=== PATIENT | female | born 1950 | race Caucasian/White ===

== ENCOUNTER 2016-06-21 13:05 | Observation (INO) ==
[2016-06-21] MEDS ORDERED: Ondansetron 4 MG/2 ML VIAL IVP ONE (13:35)
[2016-06-21] MEDS ORDERED: 0.9 % Sodium Chloride 1,000 ML IVC ONE (13:35)
[2016-06-21 13:44] LABS: Bilirubin,Urine Negative (Negative); Blood,Urine Negative (Negative); Clarity,Urine Cloudy (Clear); Color,Urine Yellow (Yellow); Glucose,Urine (UA) >=1000 mg/dL (Normal); Ketones,Urine Trace mg/dL (Negative); Leukocyte Esterase,Urine Negative (Negative); Nitrite,Urine Negative (Negative); PH,Urine 6.5 pH Units (5.0-8.0); Protein,Urine 100 mg/dL (Neg-Trace); Specific Gravity,Urine 1.017 (1.010-1.025); Urobilinogen,Urine Normal (Normal)
[2016-06-21 13:45] LABS: Bacteria,Urine Many per hpf (None-Few); Hyaline Casts,Urine Few per lpf (None-Few); RBC,Urine 0-3 per hpf (0-3); Squamous Epithelial Cell,Urine Many per lpf (None-Few); WBC,Urine 15-30 per hpf (0-3)
[2016-06-21 14:06] LABS: Basophils % 0.3 %; Hematocrit 47.8 % (35.3-44.9); Hemoglobin 15.6 g/dL (11.5-15.4); Immature Granulocytes % 0.5 % (0-4); Immature Platelets 9.1 % (1.1-6.1); Lymphocytes # 0.5 K/mcL (0.6-4.6); Lymphocytes % 4.5 %; Mean Corpuscular HGB Conc 32.6 g/dL (31.6-35.5); Mean Corpuscular Hemoglobin 29.4 pg (28.0-33.3); Mean Platelet Volume 11.4 fL (9.4-12.4); Monocytes # 0.7 K/mcL (0.0-1.3); Monocytes % 6.5 %; Neutrophils # 9.4 K/mcL (1.6-8.9); Platelet Count 223 K/mcL (140-400); Red Blood Count 5.31 M/mcL (3.82-4.97); Segmented Neutrophils % 88.2 %
[2016-06-21 14:19] LABS: Albumin 3.9 g/dL (3.5-5.0); Bilirubin,Direct 0.2 mg/dL (0.0-0.5); Bilirubin,Indirect 0.3 mg/dL (0.0-1.2); Bilirubin,Total 0.5 mg/dL (0.2-1.2); Calcium 9.9 mg/dL (8.6-10.8); Globulin 3.8 g/dL (2.4-3.5); Potassium 3.8 mEq/L (3.5-4.5); Total Protein 7.7 g/dL (6.0-8.3)
[2016-06-21 16:17] LABS: VBG HCO3 24.2 mEq/L (21-27); VBG PH 7.39 pH Units (7.32-7.42)
[2016-06-21] MEDS ORDERED: D5% in Water 1,000 ML IV PRN (17:29)
[2016-06-21] MEDS ORDERED: Dextrose Gel 15 GM PO PRN ×2 (17:29)
[2016-06-21] MEDS ORDERED: *HR* Dextrose 50 % in Water (Syg) 50 ML SYRINGE IVP PRN (17:29)
[2016-06-21] MEDS ORDERED: Insulin Human Regular 10 UNIT in 0.9 % Sodium Chloride 10 ML IV ONE (17:36)
[2016-06-21] MEDS: 0.9 % Sodium Chloride 1,000 ML IVC SCH (17:47)
[2016-06-21] MEDS ORDERED: Insulin LISPRO 300 UNITS/3 ML VIAL SQ SCH (18:00)
[2016-06-21] MEDS ORDERED: Naloxone 0.4 MG/ML INJ IVP PRN (18:21)
[2016-06-21] MEDS ORDERED: Acetaminophen 325 MG TABLET PO PRN (18:21)
[2016-06-21] MEDS ORDERED: Ondansetron 4 MG/2 ML VIAL IVP PRN (18:21)
--- NOTE | 2016-06-21 18:29 | Internal Med History&Physical ---
Date of Encounter: 06/21/16 Time of Encounter: 18:00 Assessment and Plan (1) Urinary tract infection Current visit: Yes Status: Acute -Patient has history of recurrent UTIs, after this episode consider prophylactic antibiotic continuation due to recurrence of these episodes -Continue ceftriaxone IV -Follow up urine cultures Qualifiers: Urinary tract infection type: site unspecified Hematuria presence: without hematuria Qualified Code(s): N39.0 - Urinary tract infection, site not specified (2) Hyperglycemia due to type 2 diabetes mellitus Current visit: Yes Status: Chronic Noted to be hyperglycemic in the ER to missed home medication Covered with insulin therapy in the ER Continue IV fluids Started medium dose correctional insulin sliding scale algorithm We will hold oral antihyperglycemic at this time Continue to monitor fingerstick and blood glucose Follow-up repeat fingerstick Qualifiers: Diabetes mellitus prison insulin use: without prison use Qualified Code(s): E11.65 - Type 2 diabetes mellitus with hyperglycemia (3) Acute kidney injury Current visit: Yes Status: Acute Likely secondary to urinary tract infection Continue IV fluids Hold lisinopril at this time Restart lisinopril once kidney function returns to baseline Continue to closely monitor kidney function (4) Hypertension Current visit: Yes Status: Chronic BP within acceptable limits continue home medications Qualifiers: Hypertension type: essential hypertension Qualified Code(s): I10 - Essential (primary) hypertension (5) DVT prophylaxis Current visit: Yes Status: Acute Heparin SQ (6) Hyperlipemia Current visit: Yes Status: Chronic continue home medications Qualifiers: Hyperlipidemia type: unspecified Qualified Code(s): E78.5 - Hyperlipidemia , unspecified (7) GERD (gastroesophageal reflux disease) Current visit: Yes Status: Chronic continue home medications Qualifiers: Esophagitis presence: esophagitis presence not specified Qualified Code(s) : K21.9 - Gastro-esophageal reflux disease without esophagitis Internal Medicine - H&P: HPI Chief complaint: abd pain, nausea, vomiting Admitted From: Home Plans for Post Hospital Care: Home History of present illness: Ms. Sales is a 65 year old female with PMH of Type 2 DM, hypertension, recurrent UTI, depression, peripheral neuropathy, and osteoarthritis who presents to to the ER for evaluation of abdominal pain, nausea, vomiting 1 day. Patient states she has been having difficulty urinating for the past couple of days and had to straight cath herself last night. She also reports of discomfort with urination but her urinary stream has been normal after the straight catheter. Upon arrival to the ER she felt bloated with severe lower abdominal pain along with nausea. She states she has been unable to keep anything down due to the severe nausea which prompted her visit to the ER. In the ER she received Zofran with complete resolution of her nausea and improvement of her presenting symptoms. Her UA was consistent with UTI along with her symptoms, due to which she was started on ceftriaxone. At this time she is resting comfortably in bed, states she feels comfortable. She denies any headache, dizziness, chest pain, palpitations, shortness of breath, abdominal pain, nausea, vomiting, fever, or chills at this time. She was also noted to be hyperglycemic in the ER and states she was not able to keep her diabetes medications down at home. She was started on IV fluids along with receiving insulin therapy. Social Hx: Former smoker Wishes to be full code. Past Med Surg Social Fam HX - Past Medical History Medical history: arthritis, diabetes, GERD, hyperlipidemia, hypertension, osteoporosis, renal disease, other Psychiatric history: anxiety, depression - Past Surgical History Surgical History: appendectomy, cholecystectomy, hysterectomy, ureteral stent, other - Social History Smoking Status: Never smoker Smokeless Tobacco Status: No Alcohol use: none Drug use: none - Family History Mother Living Status: Hx Family Cancer: Yes Hx Family Endocrine Disorder: Yes Internal Medicine - H&P: Meds Docusate [Colace] 100 mg PO HS 12/21/14 [History] Polyethylene Glycol 3350 [MiraLAX] 17 gm PO DAILY PRN 12/21/14 [History] Sertraline HCl [Zoloft] 100 mg PO DAILY 12/21/14 [History] Simvastatin [Zocor] 40 mg PO DAILY 12/21/14 [History] Cyanocobalamin (Vitamin B-12) [Vitamin B-12] 1,000 mcg PO QMONTH 12/08/15 [ History] Enalapril Maleate [Vasotec] 5 mg PO DAILY 12/08/15 [History] Mv-Mn/FA/Vit K1/Lycop/Lut/Zeax [Ocuvite Eye + Multi Tablet] 1 tab PO DAILY 12/07 [History] Propranolol HCl 60 mg PO DAILY 12/08/15 [History] SitaGLIPtin [Januvia] 100 mg PO DAILY 03/06/16 [History] Loratadine [Allergy Relief] 10 mg PO DAILY 06/21/16 [History] Ranitidine HCl [Acid Employment Instructional Associate] 150 mg PO DAILY 06/21/16 [History] Allergies Nickel Allergy (Mild, Verified 12/08/15 17:29) Hives codeine Allergy (Verified 06/21/16 17:13) Hives Erythromycin Base Allergy (Verified 06/21/16 17:13) Rash nitrofurantoin [From Macrobid] Allergy (Verified 06/21/16 17:13) Rash Quaternium Allergy (Verified 12/08/15 17:29) Rash sulfamethoxazole [From Bactrim] Allergy (Verified 12/08/15 17:29) Rash trimethoprim [From Bactrim] Allergy (Verified 12/08/15 17:29) Rash Sulfa (Sulfonamide Antibiotics) Adverse Reaction (Verified 12/08/15 17:29) Hallucinating All Systems PM: A 10-system review of systems was performed and is negative for pertinent findings except as documented above in the HPI. - Constitutional Constitutional: as per HPI - Constitutional Vitals: Temp Pulse Resp BP Pulse Ox 98.8 F 103 17 130/68 95 06/21/16 13:07 06/21/16 17:07 06/21/16 18:17 06/21/16 18:17 06/21/16 17:07 General appearance: Present: A&O X 3, pleasant, no acute distress, obese, answers questions appropriately - Head Head exam: Present: atraumatic, normocephalic - Eye Eye exam: Present: normal appearance, conjuntiva pink, sclera anicteric - Respiratory Respiratory exam: Present: CTAB. Absent: respiratory distress, wheezes - Cardiovascular Cardiovascular exam: Present: RRR, +S1, +S2 - GI/Abdominal GI/Abdominal exam: Present: normal bowel sounds, soft. Absent: distended, guarding, tenderness, no peritoneal signs - Extremities Exam Extremities exam: Present: warm, radial pulses palpable and symetrical. Absent : calf tenderness, pedal edema, tenderness - Neurological Exam Neurological exam: Present: alert, oriented X3, no focal deficits - Psychiatric Psychiatric exam: Present: normal affect, normal mood Internal Med - H&P Results - Labs CBC & Chem 7: 06/21/16 13:57 06/21/16 13:57
[2016-06-21] MEDS ORDERED: Cyanocobalamin (B-12) 1,000 MCG TABLET PO SCH (18:30)
--- NOTE | 2016-06-21 18:30 | Emergency Department Note ---
Disposition Clinical Impression: Hyperglycemia Disposition: Admitted As Inpatient General Adult HPI - General Chief complaint: ED Urogenital-Female Stated complaint: Poss UTI Time Seen by Provider: 06/21/16 17:35 Source: patient Limitations: no limitations Nursing Notes Reviewed: Yes Vital Signs Reviewed: Yes - History of Present Illness HPI Narrative: This is a 65-year-old female who has a history of urinary tract infection which required hospitalization previously. She presents now with concern for nausea, vomiting, unable to tolerate by mouth. She has had ongoing symptoms for several days. She admits to type 2 diabetes and is normally diet controlled. She has abdominal pain and mild urinary symptoms. She was tachycardic on arrival. Pain Scale: 6 - Related Data Home Medications Medication Instructions Recorded Confirmed Docusate [Colace] 100 mg PO HS 12/21/14 06/21/16 Polyethylene Glycol 3350 [MiraLAX] 17 gm PO DAILY PRN 12/21/14 06/21/16 Sertraline HCl [Zoloft] 100 mg PO DAILY 12/21/14 06/21/16 Simvastatin [Zocor] 40 mg PO DAILY 12/21/14 06/21/16 Cyanocobalamin (Vitamin B-12) 1,000 mcg PO QMONTH 12/08/15 06/21/16 [Vitamin B-12] Enalapril Maleate [Vasotec] 5 mg PO DAILY 12/08/15 06/21/16 Mv-Mn/FA/Vit K1/Lycop/Lut/Zeax 1 tab PO DAILY 12/08/15 06/21/16 [Ocuvite Eye + Multi Tablet] Propranolol HCl 60 mg PO DAILY 12/08/15 06/21/16 SitaGLIPtin [Januvia] 100 mg PO DAILY 03/06/16 06/21/16 Loratadine [Allergy Relief] 10 mg PO DAILY 06/21/16 06/21/16 Ranitidine HCl [Acid Manager Corporate Responsibility] 150 mg PO DAILY 06/21/16 06/21/16 Allergies Allergy/AdvReac Type Severity Reaction Status Date / Time Nickel Allergy Mild Hives Verified 12/08/15 17:29 codeine Allergy Hives Verified 06/21/16 17:13 Erythromycin Base Allergy Rash Verified 06/21/16 17:13 nitrofurantoin Allergy Rash Verified 06/21/16 17:13 [From Macrobid] Quaternium Allergy Rash Verified 12/08/15 17:29 sulfamethoxazole Allergy Rash Verified 12/08/15 17:29 [From Bactrim] trimethoprim [From Bactrim] Allergy Rash Verified 12/08/15 17:29 Sulfa (Sulfonamide AdvReac Hallucinati Verified 12/08/15 17:29 Antibiotics) ng All systems ED: reviewed and negative except as stated. 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 Extremities are well-perfused Neurovascular exam shows cranial nerves II through XII grossly intact no focal neurological deficit - General Limitations: no limitations General appearance: alert Course Vital Signs Temperature 98.8 F 06/21/16 13:07 Pulse Rate 128 06/21/16 13:07 Respiratory Rate 18 06/21/16 13:07 Blood Pressure 170/108 06/21/16 13:07 O2 Sat by Pulse Oximetry 100 06/21/16 13:07 Temperature 98.8 F 06/21/16 13:07 Pulse Rate 103 06/21/16 17:07 Respiratory Rate 17 06/21/16 18:17 Blood Pressure 130/68 06/21/16 18:17 O2 Sat by Pulse Oximetry 95 06/21/16 17:07 Oxygen Delivery Oxygen Delivery Room Air Medical Decision Making - MDM Narrative Medical decision making narrative: Female patient with symptomatic hyperglycemia. Blood glucoses in the high 300s. There is no evidence of DKA at this time however blood chemistry does represent possible early acidotic state with anion gap. I would at this point recommend intravenous hydration, empirically she was started on antibiotics on arrival as she met sepsis guidelines. She is not sepsis at this point. I do not believe her urinalysis represents infection at this point. She received 1 dose of ceftriaxone. Cultures were sent. I would continue IV hydration for symptomatic hyperglycemia, keep nothing by mouth for now. I did administer insulin at the request of the hospitalist team. We will proceed with admission for hydration, evaluation of symptomatic hypoglycemia. - Medical Records Medical records reviewed: Yes I reviewed the patient's medical records. - Lab Data Lab results reviewed: Yes I reviewed the patient's lab results. Result diagrams: 06/21/16 13:57 06/21/16 13:57 Lab Results 06/21/16 06/21/16 06/21/16 Range/Units 13:35 13:57 13:57 WBC 10.6 (4.3-11.1) K/mcL RBC 5.31 H (3.82-4.97) M/mcL Hgb 15.6 H (11.5-15.4) g/dL Hct 47.8 H (35.3-44.9) % MCV 90.0 (83.0-100.0) fL MCH 29.4 (28.0-33.3) pg MCHC 32.6 (31.6-35.5) g/dL RDW 13.0 (11.5-14.5) % Plt Count 223 (140-400) K/mcL MPV 11.4 (9.4-12.4) fL Immature Gran % 0.5 (0-4) % Seg Neutrophils % 88.2 % Lymphocytes % 4.5 % Monocytes % 6.5 % Eosinophils % 0.0 % Basophils % 0.3 % Neutrophils # 9.4 H (1.6-8.9) K/mcL Lymphocytes # 0.5 L (0.6-4.6) K/mcL Monocytes # 0.7 (0.0-1.3) K/mcL Eosinophils # 0.0 (0.0-0.6) K/mcL Basophils # 0.0 (0.0-0.2) K/mcL Immature Plt Fraction 9.1 H (1.1-6.1) % VBG pH (7.32-7.42) pH Units VBG pCO2 (41-51) mmHg VBG pO2 (25-40) mmHg VBG HCO3 (21-27) mEq/L Sodium 139 (136-145) mEq/L Potassium 3.8 (3.5-4.5) mEq/L Chloride 100 (98-109) mEq/L Carbon Dioxide 21 (19-29) mEq/L BUN 19 (7-20) mg/dL Creatinine 1.26 H (0.57-1.11) mg/dL Est GFR ( Amer) 51 L (> 60) Est GFR (Non-Af Amer) 42 L (> 60) BUN/Creatinine Ratio 15 (6-26) Glucose 368 H (70-99) mg/dL Calculated Osmolality 305 H (280-300) Calcium 9.9 (8.6-10.8) mg/dL Total Bilirubin 0.5 (0.2-1.2) mg/dL Direct Bilirubin 0.2 (0.0-0.5) mg/dL Indirect Bilirubin 0.3 (0.0-1.2) mg/dL AST 41 H (5-34) Units/L ALT 46 (0-55) Units/L Alkaline Phosphatase 98 (38-126) Units/L Serum Total Protein 7.7 (6.0-8.3) g/dL Albumin 3.9 (3.5-5.0) g/dL Globulin 3.8 H (2.4-3.5) g/dL Albumin/Globulin Ratio 1.0 L (1.1-2.2) Beta-Hydroxybutyric Acd (0.02-0.27) mmol/L Urine Color Yellow (Yellow) Urine Clarity Cloudy A (Clear) Urine pH 6.5 (5.0-8.0) pH Units Ur Specific Eleva 1.017 (1.010-1.025) Urine Protein 100 H (Neg-Trace) mg/dL Urine Glucose (UA) >=1000 H (Normal) mg/dL Urine Ketones Trace H (Negative) mg/dL Urine Blood Negative (Negative) Urine Nitrite Negative (Negative) Urine Bilirubin Negative (Negative) Urine Urobilinogen Normal (Normal) mg/dL Ur Leukocyte Esterase Negative (Negative) Urine Microscopic RBC 0-3 (0-3) per hpf Urine Microscopic WBC 15-30 H (0-3) per hpf Ur Squamous Epith Cells Many H (None-Few) per lpf Urine Bacteria Many H (None-Few) per hpf Hyaline Casts Few (None-Few) per lpf Ur Culture Indicated? YES A (NO) 06/21/16 06/21/16 Range/Units 13:57 16:09 WBC (4.3-11.1) K/mcL RBC (3.82-4.97) M/mcL Hgb (11.5-15.4) g/dL Hct (35.3-44.9) % MCV (83.0-100.0) fL MCH (28.0-33.3) pg MCHC (31.6-35.5) g/dL RDW (11.5-14.5) % Plt Count (140-400) K/mcL MPV (9.4-12.4) fL Immature Gran % (0-4) % Seg Neutrophils % % Lymphocytes % % Monocytes % % Eosinophils % % Basophils % % Neutrophils # (1.6-8.9) K/mcL Lymphocytes # (0.6-4.6) K/mcL Monocytes # (0.0-1.3) K/mcL Eosinophils # (0.0-0.6) K/mcL Basophils # (0.0-0.2) K/mcL Immature Plt Fraction (1.1-6.1) % VBG pH 7.39 (7.32-7.42) pH Units VBG pCO2 40 L (41-51) mmHg VBG pO2 150 H (25-40) mmHg VBG HCO3 24.2 (21-27) mEq/L Sodium (136-145) mEq/L Potassium (3.5-4.5) mEq/L Chloride (98-109) mEq/L Carbon Dioxide (19-29) mEq/L BUN (7-20) mg/dL Creatinine (0.57-1.11) mg/dL Est GFR ( Amer) (> 60) Est GFR (Non-Af Amer) (> 60) BUN/Creatinine Ratio (6-26) Glucose (70-99) mg/dL Calculated Osmolality (280-300) Calcium (8.6-10.8) mg/dL Total Bilirubin (0.2-1.2) mg/dL Direct Bilirubin (0.0-0.5) mg/dL Indirect Bilirubin (0.0-1.2) mg/dL AST (5-34) Units/L ALT (0-55) Units/L Alkaline Phosphatase (38-126) Units/L Serum Total Protein (6.0-8.3) g/dL Albumin (3.5-5.0) g/dL Globulin (2.4-3.5) g/dL Albumin/Globulin Ratio (1.1-2.2) Beta-Hydroxybutyric Acd 0.32 H (0.02-0.27) mmol/L Urine Color (Yellow) Urine Clarity (Clear) Urine pH (5.0-8.0) pH Units Ur Specific Eleva (1.010-1.025) Urine Protein (Neg-Trace) mg/dL Urine Glucose (UA) (Normal) mg/dL Urine Ketones (Negative) mg/dL Urine Blood (Negative) Urine Nitrite (Negative) Urine Bilirubin (Negative) Urine Urobilinogen (Normal) mg/dL Ur Leukocyte Esterase (Negative) Urine Microscopic RBC (0-3) per hpf Urine Microscopic WBC (0-3) per hpf Ur Squamous Epith Cells (None-Few) per lpf Urine Bacteria (None-Few) per hpf Hyaline Casts (None-Few) per lpf Ur Culture Indicated? (NO) - EKG Data EKG #1 EKG results narrative: Sinus tachycardia nonspecific ST segment changes nonspecific abnormal ECG
[2016-06-21] MEDS: *HR* Heparin 5,000 UNIT/ML VIAL SQ SCH (19:28)
[2016-06-21] MEDS: Insulin LISPRO 300 UNITS/3 ML VIAL SQ SCH ×2 (21:24→22:26)
[2016-06-22] MEDS: 0.9 % Sodium Chloride 1,000 ML IVC SCH ×3 (00:28→14:51)
[2016-06-22 04:35] LABS: Basophils % 0.5 %; Eosinophils % 0.5 %; Immature Granulocytes % 0.4 % (0-4); Lymphocytes # 1.6 K/mcL (0.6-4.6); Lymphocytes % 21.3 %; Mean Corpuscular HGB Conc 32.2 g/dL (31.6-35.5); Mean Corpuscular Hemoglobin 29.4 pg (28.0-33.3); Mean Corpuscular Volume 91.4 fL (83.0-100.0); Mean Platelet Volume 11.8 fL (9.4-12.4); Monocytes # 0.9 K/mcL (0.0-1.3); Monocytes % 11.6 %; Platelet Count 149 K/mcL (140-400); Red Blood Count 4.05 M/mcL (3.82-4.97); Red Cell Distribution Width 13.2 % (11.5-14.5); Segmented Neutrophils % 65.7 %
[2016-06-22 04:54] LABS: Hemoglobin 11.9 g/dL (11.5-15.4)
[2016-06-22 04:58] LABS: Platelet Estimate Normal (Normal)
[2016-06-22] MEDS: *HR* Heparin 5,000 UNIT/ML VIAL SQ SCH ×2 (06:42→18:09)
[2016-06-22 07:34] LABS: BUN/Creatinine Ratio 21 (6-26); Blood Urea Nitrogen 15 mg/dL (7-20); Carbon Dioxide 21 mEq/L (19-29); Chloride 112 mEq/L (98-109); Glucose 138 mg/dL (70-99); Magnesium 1.9 mg/dL (1.6-2.6); Osmolality,Calculated 297 (280-300); Phosphorous 3.8 mg/dL (2.3-4.7); Sodium 142 mEq/L (136-145); eGFR For African Americans > 60 (> 60); eGFR For Non-African Americans > 60 (> 60)
[2016-06-22 07:39] LABS: Calcium 8.1 mg/dL (8.6-10.8)
[2016-06-22] MEDS: Insulin LISPRO 300 UNITS/3 ML VIAL SQ SCH ×4 (07:44→21:26)
[2016-06-22] MEDS: Loratadine 10 MG TABLET PO SCH (07:46)
[2016-06-22] MEDS: Famotidine 20 MG TABLET PO SCH (07:47)
[2016-06-22] MEDS: Multivit/Ca/Min/Fe/FA 1 TAB TABLET PO SCH (07:47)
--- NOTE | 2016-06-22 10:48 | Internal Med Progress Note ---
<Facundo Sommers - Last Filed: 06/22/16 17:22> Date of Encounter: 06/22/16 Time of Encounter: 10:48 - Assessment and plan (1) Urinary tract infection Current Visit: Yes Status: Acute Assessment and plan: Hx of recurrent UTI, her symptoms improved significantly, will con't rocephin IV for now until urine culture finalizes. Qualifiers: Urinary tract infection type: site unspecified Hematuria presence: without hematuria Qualified Code(s): N39.0 - Urinary tract infection, site not specified (2) DM (diabetes mellitus), type 2 Current Visit: Yes Status: Acute Assessment and plan: Con't SSI with accucheck ACHS. Qualifiers: Qualified Code(s): E11.9 - Type 2 diabetes mellitus without complications (3) Acute kidney injury Current Visit: Yes Status: Acute Assessment and plan: Resolved with IV fluid, likely 2/2 dehydration. (4) Hypertension Current Visit: No Status: Chronic Assessment and plan: Con't inderal. Qualifiers: Hypertension type: essential hypertension Qualified Code(s): I10 - Essential (primary) hypertension (5) DVT prophylaxis Current Visit: Yes Status: Acute Assessment and plan: Heparin SQ BID. - Subjective Interval history: Pt seen and examined, feels better than yesterday, no abd pain, nausea or emesis. - Constitutional Vitals: Temp Pulse Resp BP Pulse Ox 98.4 F 63 17 104/78 97 06/22/16 10:30 06/22/16 10:30 06/22/16 10:30 06/22/16 10:30 06/22/16 10:38 General appearance: Present: cooperative, A&O X 3, pleasant, no acute distress, obese, answers questions appropriately - Head Head exam: Present: atraumatic, normocephalic - Eye Eye exam: Present: PERRL, conjuntiva pink, sclera anicteric Pupils: Present: PERRL - Neck Neck exam general surgery: Present: supple, trachea midline. Absent: lymphadenopathy - Respiratory Respiratory exam: Present: CTAB. Absent: accessory muscle use, rales, rhonchi, wheezes - Cardiovascular Cardiovascular exam: Present: RRR, +S1, +S2. Absent: diastolic murmur, gallop, rubs, systolic murmur - GI/Abdominal GI/Abdominal exam: Present: normal bowel sounds, soft, no peritoneal signs. Absent: distended, tenderness - Extremities Exam Extremities exam: Present: warm, radial pulses palpable and symetrical. Absent : calf tenderness, cyanotic, pedal edema - Neurological Exam Neurological exam: Present: CN II-XII intact, oriented X3, no focal deficits. Absent: pronater drift, facial droop, speech deficit - Skin Skin exam: Present: dry, intact Internal Medicine: Result - Labs CBC & Chem 7: 06/22/16 04:04 06/22/16 07:08 Labs: Short CBC 06/22/16 Range/Units 04:04 WBC 7.6 (4.3-11.1) K/mcL Hgb 11.9 D (11.5-15.4) g/dL Hct 37.0 (35.3-44.9) % Plt Count 149 (140-400) K/mcL Neutrophils # 5.0 (1.6-8.9) K/mcL BMP 06/22/16 07:08 Sodium 142 Potassium 4.0 Chloride 112 H Carbon Dioxide 21 BUN 15 Creatinine 0.70 Glucose 138 H Calcium 8.1 L D Consult Discharge Plan - Plan Referrals: Brittney Garrido MD [Primary Care Provider] - <Sulaiman Davis - Last Filed: 06/22/16 17:31> Date of Encounter: 06/22/16 - Constitutional Vitals: Temp Pulse Resp BP Pulse Ox 98.0 F 70 17 125/79 97 06/22/16 14:56 06/22/16 14:56 06/22/16 14:56 06/22/16 14:56 06/22/16 15:15 Internal Medicine: Result - Labs CBC & Chem 7: 06/22/16 04:04 06/22/16 07:08 Labs: Short CBC 06/22/16 Range/Units 04:04 WBC 7.6 (4.3-11.1) K/mcL Hgb 11.9 D (11.5-15.4) g/dL Hct 37.0 (35.3-44.9) % Plt Count 149 (140-400) K/mcL Neutrophils # 5.0 (1.6-8.9) K/mcL BMP 06/22/16 07:08 Sodium 142 Potassium 4.0 Chloride 112 H Carbon Dioxide 21 BUN 15 Creatinine 0.70 Glucose 138 H Calcium 8.1 L D - Attending Attestation I examined this patient and my medical decision-making was reviewed with the PATTERN MAKER/PA/Advanced Practice Nurse/Resident Physician. I agree with the documented findings, disposition and treatment plan as described except to the extent set forth below. UTI. Stable. Recurrent episodes of UTIs. Hard of hearing and no hearing aid today. Follow cultures.
[2016-06-23] MEDS: *HR* Heparin 5,000 UNIT/ML VIAL SQ SCH (06:40)
[2016-06-23] MEDS: Insulin LISPRO 300 UNITS/3 ML VIAL SQ SCH ×2 (10:03→12:20)
[2016-06-23] MEDS: Loratadine 10 MG TABLET PO SCH (10:04)
[2016-06-23] MEDS: Famotidine 20 MG TABLET PO SCH (10:04)
[2016-06-23] MEDS: Multivit/Ca/Min/Fe/FA 1 TAB TABLET PO SCH (10:04)
--- NOTE | 2016-06-23 10:09 | Discharge Summary ---
Date of Encounter: 06/23/16 Time of Encounter: 10:07 - Discharge Diagnosis (1) Urinary tract infection Priority: Primary Status: Acute Qualifiers: Urinary tract infection type: site unspecified Hematuria presence: without hematuria Qualified Code(s): N39.0 - Urinary tract infection, site not specified (2) Hyperglycemia due to type 2 diabetes mellitus Priority: Secondary Status: Resolved Qualifiers: Diabetes mellitus nursing home insulin use: without intermediate school teacher use Qualified Code(s): E11.65 - Type 2 diabetes mellitus with hyperglycemia (3) Acute kidney injury Priority: Secondary Status: Resolved (4) Hypertension Priority: Secondary Status: Chronic Qualifiers: Hypertension type: essential hypertension Qualified Code(s): I10 - Essential (primary) hypertension (5) DVT prophylaxis Priority: Secondary Status: Acute (6) Hyperlipemia Priority: Secondary Status: Chronic Qualifiers: Hyperlipidemia type: unspecified Qualified Code(s): E78.5 - Hyperlipidemia , unspecified (7) GERD (gastroesophageal reflux disease) Priority: Secondary Status: Chronic Qualifiers: Esophagitis presence: esophagitis presence not specified Qualified Code(s) : K21.9 - Gastro-esophageal reflux disease without esophagitis - Discharge Medications Prescriptions: Doxycycline 100 mg PO BID #8 capsule Home Medications: Docusate [Colace] 100 mg PO HS 12/21/14 [History] Polyethylene Glycol 3350 [MiraLAX] 17 gm PO DAILY PRN 12/21/14 [History] Sertraline HCl [Zoloft] 100 mg PO DAILY 12/21/14 [History] Simvastatin [Zocor] 40 mg PO DAILY 12/21/14 [History] Cyanocobalamin (Vitamin B-12) [Vitamin B-12] 1,000 mcg PO QMONTH 12/08/15 [ History] Enalapril Maleate [Vasotec] 5 mg PO DAILY 12/08/15 [History] Mv-Mn/FA/Vit K1/Lycop/Lut/Zeax [Ocuvite Eye + Multi Tablet] 1 tab PO DAILY 12/07 [History] Propranolol HCl 60 mg PO DAILY 12/08/15 [History] SitaGLIPtin [Januvia] 100 mg PO DAILY 03/06/16 [History] Loratadine [Allergy Relief] 10 mg PO DAILY 06/21/16 [History] Ranitidine HCl [Acid Barrel Polisher] 150 mg PO DAILY 06/21/16 [History] Doxycycline 100 mg PO BID #8 capsule 06/23/16 [Rx] Allergies/Adverse Reactions: Allergies Nickel Allergy (Mild, Verified 12/08/15 17:29) Hives codeine Allergy (Verified 06/21/16 17:13) Hives Erythromycin Base Allergy (Verified 06/21/16 17:13) Rash nitrofurantoin [From Macrobid] Allergy (Verified 06/21/16 17:13) Rash Quaternium Allergy (Verified 12/08/15 17:29) Rash sulfamethoxazole [From Bactrim] Allergy (Verified 12/08/15 17:29) Rash trimethoprim [From Bactrim] Allergy (Verified 12/08/15 17:29) Rash Sulfa (Sulfonamide Antibiotics) Adverse Reaction (Verified 12/08/15 17:29) Hallucinating Date of admission: 06/21/16 17:38 Primary care physician: Brittney Garrido, Discharging clinician: Lorelei Vergara Anticipated date of discharge: 06/23/16 - Patient Status Disposition: Home, Self-Care Condition: Good Functional capacity at discharge: independent ambulation Overall status at discharge: patient is back to baseline - Discharge Instructions Follow Up With: Brittney Garrido MD [Primary Care Provider] - Forms: ED Satisfaction Letter Additional Instructions: Please follow up with your primary care physician within one week after your discharge from the hospital. Please discuss with your primary care physician if you would benefit from prophylactic antibiotics nursing home due to recurrent UTIs. Please continue Doxycyline 100mg PO q12h for a total of 4 days. First dose starting on 06/24/16 Please resume all your home medications as prescribed by your primary care physician. - Diet and Activity Activity: resume usual activities as tolerated Diet: diabetic diet Hospital course: Ms. Sales is a 65 year old female with PMH of Type 2 DM, hypertension, recurrent UTI, depression, peripheral neuropathy, and osteoarthritis who presents to to the ER for evaluation of abdominal pain, nausea, vomiting 1 day. Patient was further admitted for UTI, GEORGE, and hyperglycemia. Patient was started on IV fluids and IV antibiotics. Her presenting symptoms improved along with resolution of her GEORGE and hyperglycemia. Urine cultures were noted to be positive to Staph epidermidis which is sensitive to Tetracycline and Nitrofuratoin. HOwever due to patient's allergy to nitrofurantoin, will start PO Doxycycline. Patient is currently resting comfortably in bed and in no distress. Reports of feeling significantly better and has no complains at this time. She will be discharged to home today with oral antibiotics for four more days to complete therapy for 7 days. She is to follow up with PCP within one week after her discharge from the hospital. - Time Spent with Patient Total time spent providing and/or coordinating discharge services: - Constitutional Vitals: Temp Pulse Resp BP Pulse Ox 98.2 F 64 16 118/72 97 06/23/16 06:37 06/23/16 06:37 06/23/16 06:37 06/23/16 06:37 06/23/16 06:37 General appearance: Present: cooperative, A&O X 3, pleasant, no acute distress, obese, answers questions appropriately - Head Head exam: Present: atraumatic, normocephalic - Eye Eye exam: Present: normal appearance, conjuntiva pink, sclera anicteric - Respiratory Respiratory exam: Present: CTAB. Absent: respiratory distress, wheezes - Cardiovascular Cardiovascular exam: Present: RRR, +S1, +S2 - GI/Abdominal GI/Abdominal exam: Present: normal bowel sounds, soft. Absent: diminished bowel sounds, tenderness - Extremities Exam Extremities exam: Present: warm, radial pulses palpable and symetrical. Absent : calf tenderness, pedal edema, tenderness - Neurological Exam Neurological exam: Present: alert, oriented X3, no focal deficits - Psychiatric Psychiatric exam: Present: normal affect, normal mood
[2016-06-23 10:39] VITALS: BP 123/68
== END 2016-06-23 12:41 | disposition home or self-care (01) ==
LOC: EMEROO 13:05 → 3ANU 13:05 → SUATTDRO 17:38 → 3ANU 18:20
PROVIDERS: ADMIT Internal Medicine; ATTEND Internal Medicine

== ENCOUNTER 2016-06-30 08:17 | Observation (INO) ==
[2016-06-30] MEDS ORDERED: 0.9 % Sodium Chloride 500 ML IV ONE (08:28)
--- NOTE | 2016-06-30 08:30 | Emergency Department Note ---
Disposition Clinical Impression: Duodenitis Nausea & vomiting Qualifiers: Vomiting type: unspecified Vomiting Intractability: intractable Qualified Code( s): R11.2 - Nausea with vomiting, unspecified Hydronephrosis Qualifiers: Hydronephrosis type: unspecified Qualified Code(s): N13.30 - Unspecified hydronephrosis Disposition: Admitted As Inpatient Condition: Fair Referrals: NO,PCP [Primary Care Provider] - Forms: ED Satisfaction Letter General Adult HPI - General Chief complaint: ED Altered Mental Status Stated complaint: AMS Time Seen by Provider: 06/30/16 08:27 Source: patient, family Limitations: altered mental status Nursing Notes Reviewed: Yes Vital Signs Reviewed: Yes - History of Present Illness HPI Narrative: Patient brought in by daughter for evaluation of vomiting, altered mental status , abdominal pain. Daughter states patient had similar symptoms last week when she was admitted for UTI. Past medical history of diabetes. Patient has been taking at home medications. Discussed with patient she states that she started to feel bad yesterday with episode of vomiting and lower abdominal pain. Patient has had 2 episodes of dysuria. Patient has had overall decreased urine output. Patient complains of being cold and having the shakes. Patient is tachycardic, alert and oriented 3 but wanting to keep her eyes closed she is tired and is having some shivering of the upper extremities. Pain Scale: 3 - Related Data Home Medications Medication Instructions Recorded Confirmed Docusate [Colace] 100 mg PO HS 12/21/14 06/21/16 Polyethylene Glycol 3350 [MiraLAX] 17 gm PO DAILY PRN 12/21/14 06/21/16 Sertraline HCl [Zoloft] 100 mg PO DAILY 12/21/14 06/21/16 Simvastatin [Zocor] 40 mg PO DAILY 12/21/14 06/21/16 Cyanocobalamin (Vitamin B-12) 1,000 mcg PO QMONTH 12/08/15 06/21/16 [Vitamin B-12] Enalapril Maleate [Vasotec] 5 mg PO DAILY 12/08/15 06/21/16 Mv-Mn/FA/Vit K1/Lycop/Lut/Zeax 1 tab PO DAILY 12/08/15 06/21/16 [Ocuvite Eye + Multi Tablet] Propranolol HCl 60 mg PO DAILY 12/08/15 06/21/16 SitaGLIPtin [Januvia] 100 mg PO DAILY 03/06/16 06/21/16 Loratadine [Allergy Relief] 10 mg PO DAILY 06/21/16 06/21/16 Ranitidine HCl [Acid Fibrous Wallboard Inspector] 150 mg PO DAILY 06/21/16 06/21/16 Previous Rx's Medication Instructions Recorded Doxycycline 100 mg PO BID #8 capsule 06/23/16 Allergies Allergy/AdvReac Type Severity Reaction Status Date / Time Nickel Allergy Mild Hives Verified 12/08/15 17:29 codeine Allergy Hives Verified 06/21/16 17:13 Erythromycin Base Allergy Rash Verified 06/21/16 17:13 nitrofurantoin Allergy Rash Verified 06/21/16 17:13 [From Macrobid] Quaternium Allergy Rash Verified 12/08/15 17:29 sulfamethoxazole Allergy Rash Verified 12/08/15 17:29 [From Bactrim] trimethoprim [From Bactrim] Allergy Rash Verified 12/08/15 17:29 Sulfa (Sulfonamide AdvReac Hallucinati Verified 12/08/15 17:29 Antibiotics) ng All systems ED: reviewed and negative except as stated. Constitutional: Reports: chills, weakness Gastrointestinal: Reports: abdominal pain, nausea, vomiting Genitourinary: Reports: dysuria Endocrine: Reports: fatigue Past Medical History - Past Medical History Medical history: Reports: arthritis, diabetes, GERD, hyperlipidemia, hypertension, osteoporosis, renal disease, other Surgical history: Reports: appendectomy, cholecystectomy, hysterectomy, ureteral stent, other Psychiatric history: Reports: anxiety, depression BLOOD TESTER FOWL history: Reports: no BLOOD TESTER FOWL history - Social History Smoking Status: Never smoker Smokeless Tobacco Status: No Alcohol use: Reports: none Drug use: Reports: none Physical Exam - General Limitations: altered mental status General appearance: alert, in no apparent distress - Head Head exam: atraumatic, normocephalic - Eye Eye exam: Present: normal appearance - ENT ENT exam: normal exam - Neck Neck exam: Present: normal inspection - Chest Chest inspection: Present: normal inspection - Respiratory Respiratory exam: Present: normal lung sounds bilaterally. Absent: respiratory distress, wheezes - Cardiovascular Cardiovascular exam: Present: normal rhythm, tachycardia - Abdominal Exam Abdominal exam: Present: soft, tenderness Abdominal tenderness: Present: suprapubic, mild - Extremities Exam Extremities exam: Present: normal inspection. Absent: tenderness - Back Exam Back exam: Present: normal inspection - Neurological Exam Neurological exam: Present: alert, oriented X3, CN II-XII intact. Absent: motor sensory deficit - Psychiatric Psychiatric exam: Present: normal affect, normal mood - Skin Skin exam: Present: warm, dry Course Course Narrative: Patient worked up for possible sepsis and UTI. Due to patient having similar symptoms recently with a negative CT abdomen and pelvis this is not working at this time however can be considered if etiology unclear. Patient awake alert and oriented 3 with no focal deficits- we have likely cause on history - so a head CT is not ordered at this time. - Reevaluation(s) Reevaluation #1: CAT scan showing inflammation of the duodenum as well as worsening right hydronephrosis. Will discuss with urology. Patient states the nausea and abdominal pain in the epigastric area has been going on for approximately 1-2 months and has progressively getting worse. Patient's bladder on scan looks distended she admits to needing to self catheter occasionally to empty her bladder. Patient treated with Protonix and Carafate. Patient will be given a by mouth challenge prior to discharge. Patient walked to the bathroom without assistance. Reevaluation #2: Pt failed PO challenge. Pt with nausea and dry heaving. - Consultations Consultation #1: Discussed with urology, Dr. West, patient's hydronephrosis and UPJ stenosis worse since last time but similar to the CAT scan before that. At this time it is recommended to culture urine and they will see in the office later this week. Consultation #2: Discussed with hospitalist Jersey Torres. Pt accepted. Vital Signs Temperature 98.2 F 06/30/16 08:20 Pulse Rate 113 06/30/16 08:20 Respiratory Rate 18 06/30/16 08:20 Blood Pressure 143/127 06/30/16 08:20 O2 Sat by Pulse Oximetry 100 06/30/16 08:20 Temperature 98.2 F 06/30/16 08:20 Pulse Rate 95 06/30/16 12:15 Respiratory Rate 18 06/30/16 12:15 Blood Pressure 168/87 06/30/16 12:15 O2 Sat by Pulse Oximetry 97 06/30/16 12:15 Oxygen Delivery Oxygen Delivery Room Air Medical Decision Making - Lab Data Result diagrams: 06/30/16 09:02 06/30/16 09:02 Lab Results 06/30/16 06/30/16 06/30/16 Range/Units 08:22 09:02 09:02 WBC 7.6 (4.3-11.1) K/mcL RBC 4.73 (3.82-4.97) M/mcL Hgb 14.0 (11.5-15.4) g/dL Hct 42.2 (35.3-44.9) % MCV 89.2 (83.0-100.0) fL MCH 29.6 (28.0-33.3) pg MCHC 33.2 (31.6-35.5) g/dL RDW 12.9 (11.5-14.5) % Plt Count 206 (140-400) K/mcL MPV 10.9 (9.4-12.4) fL Immature Gran % 0.7 (0-4) % Seg Neutrophils % 90.7 % Lymphocytes % 5.3 % Monocytes % 3.0 % Eosinophils % 0.0 % Basophils % 0.3 % Neutrophils # 6.9 (1.6-8.9) K/mcL Lymphocytes # 0.4 L (0.6-4.6) K/mcL Monocytes # 0.2 (0.0-1.3) K/mcL Eosinophils # 0.0 (0.0-0.6) K/mcL Basophils # 0.0 (0.0-0.2) K/mcL Sodium 139 (136-145) mEq/L Potassium 3.7 (3.5-4.5) mEq/L Chloride 101 (98-109) mEq/L Carbon Dioxide 24 (19-29) mEq/L BUN 12 (7-20) mg/dL Creatinine 0.91 (0.57-1.11) mg/dL Est GFR ( Amer) > 60 (> 60) Est GFR (Non-Af Amer) > 60 (> 60) BUN/Creatinine Ratio 13 (6-26) Glucose 300 H (70-99) mg/dL POC Glucose 248 H (58-89) Calculated Osmolality 299 (280-300) Lactic Acid (0.5-2.2) mmol/L Calcium 9.7 (8.6-10.8) mg/dL Total Bilirubin 0.4 (0.2-1.2) mg/dL Direct Bilirubin 0.2 (0.0-0.5) mg/dL Indirect Bilirubin 0.2 (0.0-1.2) mg/dL AST 34 (5-34) Units/L ALT 32 (0-55) Units/L Alkaline Phosphatase 85 (38-126) Units/L Troponin I (0-0.03) ng/mL Serum Total Protein 7.2 (6.0-8.3) g/dL Albumin 3.9 (3.5-5.0) g/dL Globulin 3.3 (2.4-3.5) g/dL Albumin/Globulin Ratio 1.2 (1.1-2.2) TSH 0.916 (0.350-4.840) mcIU/mL Urine Color (Yellow) Urine Clarity (Clear) Urine pH (5.0-8.0) pH Units Ur Specific [place] (1.010-1.025) Urine Protein (Neg-Trace) mg/dL Urine Glucose (UA) (Normal) mg/dL Urine Ketones (Negative) mg/dL Urine Blood (Negative) Urine Nitrite (Negative) Urine Bilirubin (Negative) Urine Urobilinogen (Normal) mg/dL Ur Leukocyte Esterase (Negative) Urine Microscopic RBC (0-3) per hpf Urine Microscopic WBC (0-3) per hpf Ur Squamous Epith Cells (None-Few) per lpf Urine Bacteria (None-Few) per hpf Hyaline Casts (None-Few) per lpf Ur Culture Indicated? (NO) 06/30/16 06/30/16 06/30/16 Range/Units 09:02 09:02 09:58 WBC (4.3-11.1) K/mcL RBC (3.82-4.97) M/mcL Hgb (11.5-15.4) g/dL Hct (35.3-44.9) % MCV (83.0-100.0) fL MCH (28.0-33.3) pg MCHC (31.6-35.5) g/dL RDW (11.5-14.5) % Plt Count (140-400) K/mcL MPV (9.4-12.4) fL Immature Gran % (0-4) % Seg Neutrophils % % Lymphocytes % % Monocytes % % Eosinophils % % Basophils % % Neutrophils # (1.6-8.9) K/mcL Lymphocytes # (0.6-4.6) K/mcL Monocytes # (0.0-1.3) K/mcL Eosinophils # (0.0-0.6) K/mcL Basophils # (0.0-0.2) K/mcL Sodium (136-145) mEq/L Potassium (3.5-4.5) mEq/L Chloride (98-109) mEq/L Carbon Dioxide (19-29) mEq/L BUN (7-20) mg/dL Creatinine (0.57-1.11) mg/dL Est GFR ( Amer) (> 60) Est GFR (Non-Af Amer) (> 60) BUN/Creatinine Ratio (6-26) Glucose (70-99) mg/dL POC Glucose (58-89) Calculated Osmolality (280-300) Lactic Acid 1.5 (0.5-2.2) mmol/L Calcium (8.6-10.8) mg/dL Total Bilirubin (0.2-1.2) mg/dL Direct Bilirubin (0.0-0.5) mg/dL Indirect Bilirubin (0.0-1.2) mg/dL AST (5-34) Units/L ALT (0-55) Units/L Alkaline Phosphatase (38-126) Units/L Troponin I 0.01 (0-0.03) ng/mL Serum Total Protein (6.0-8.3) g/dL Albumin (3.5-5.0) g/dL Globulin (2.4-3.5) g/dL Albumin/Globulin Ratio (1.1-2.2) TSH (0.350-4.840) mcIU/mL Urine Color Yellow (Yellow) Urine Clarity Clear (Clear) Urine pH 7.5 (5.0-8.0) pH Units Ur Specific [place] 1.013 (1.010-1.025) Urine Protein 30 H (Neg-Trace) mg/dL Urine Glucose (UA) 500 H (Normal) mg/dL Urine Ketones Trace H (Negative) mg/dL Urine Blood Negative (Negative) Urine Nitrite Negative (Negative) Urine Bilirubin Negative (Negative) Urine Urobilinogen Normal (Normal) mg/dL Ur Leukocyte Esterase Negative (Negative) Urine Microscopic RBC 0-3 (0-3) per hpf Urine Microscopic WBC 0-3 (0-3) per hpf Ur Squamous Epith Cells Moderate H (None-Few) per lpf Urine Bacteria None Seen (None-Few) per hpf Hyaline Casts None Seen (None-Few) per lpf Ur Culture Indicated? NO (NO)
[2016-06-30 09:09] LABS: Basophils % 0.3 %; Hematocrit 42.2 % (35.3-44.9); Immature Granulocytes % 0.7 % (0-4); Lymphocytes % 5.3 %; Mean Corpuscular HGB Conc 33.2 g/dL (31.6-35.5); Mean Corpuscular Hemoglobin 29.6 pg (28.0-33.3); Mean Corpuscular Volume 89.2 fL (83.0-100.0); Mean Platelet Volume 10.9 fL (9.4-12.4); Platelet Count 206 K/mcL (140-400); Red Blood Count 4.73 M/mcL (3.82-4.97); Red Cell Distribution Width 12.9 % (11.5-14.5); Segmented Neutrophils % 90.7 %
[2016-06-30 09:10] LABS: Lymphocytes # 0.4 K/mcL (0.6-4.6); Monocytes # 0.2 K/mcL (0.0-1.3); Neutrophils # 6.9 K/mcL (1.6-8.9)
[2016-06-30 09:26] LABS: Alanine Aminotransferase 32 Units/L (0-55); Albumin 3.9 g/dL (3.5-5.0); Albumin/Globulin Ratio 1.2 (1.1-2.2); Alkaline Phosphatase 85 Units/L (38-126); Aspartate Amino Transferase 34 Units/L (5-34); BUN/Creatinine Ratio 13 (6-26); Bilirubin,Direct 0.2 mg/dL (0.0-0.5); Bilirubin,Indirect 0.2 mg/dL (0.0-1.2); Bilirubin,Total 0.4 mg/dL (0.2-1.2); Blood Urea Nitrogen 12 mg/dL (7-20); Calcium 9.7 mg/dL (8.6-10.8); Carbon Dioxide 24 mEq/L (19-29); Chloride 101 mEq/L (98-109); Globulin 3.3 g/dL (2.4-3.5); Glucose 300 mg/dL (70-99); Osmolality,Calculated 299 (280-300); Potassium 3.7 mEq/L (3.5-4.5); Sodium 139 mEq/L (136-145); Total Protein 7.2 g/dL (6.0-8.3); eGFR For African Americans > 60 (> 60); eGFR For Non-African Americans > 60 (> 60)
[2016-06-30 09:46] LABS: Thyroid Stimulating Hormone 0.916 mcIU/mL (0.350-4.840)
[2016-06-30] MEDS ORDERED: Ondansetron ODT 4 MG TAB.RAPDIS SL ONE (09:51)
[2016-06-30] MEDS ORDERED: *HR* Labetalol 20 MG/4 ML SYRINGE IVP ONE (09:56)
[2016-06-30 10:05] LABS: Bilirubin,Urine Negative (Negative); Blood,Urine Negative (Negative); Clarity,Urine Clear (Clear); Color,Urine Yellow (Yellow); Glucose,Urine (UA) 500 mg/dL (Normal); Ketones,Urine Trace mg/dL (Negative); Leukocyte Esterase,Urine Negative (Negative); Nitrite,Urine Negative (Negative); PH,Urine 7.5 pH Units (5.0-8.0); Protein,Urine 30 mg/dL (Neg-Trace); Specific Gravity,Urine 1.013 (1.010-1.025); Urobilinogen,Urine Normal (Normal)
[2016-06-30 10:08] LABS: Bacteria,Urine None Seen per hpf (None-Few); Hyaline Casts,Urine None Seen per lpf (None-Few); RBC,Urine 0-3 per hpf (0-3); Squamous Epithelial Cell,Urine Moderate per lpf (None-Few); WBC,Urine 0-3 per hpf (0-3)
--- NOTE | 2016-06-30 10:45 | Emergency Department Note ---
Disposition Clinical Impression: Duodenitis, Nausea & vomiting, Hydronephrosis Disposition: Admitted As Inpatient Condition: Fair General Adult HPI - General Chief complaint: ED Altered Mental Status Stated complaint: AMS Time Seen by Provider: 06/30/16 08:27 Source: patient, family Limitations: altered mental status - History of Present Illness Pain Scale: 3 - Related Data Home Medications Medication Instructions Recorded Confirmed Docusate [Colace] 100 mg PO HS 12/21/14 06/30/16 Polyethylene Glycol 3350 [MiraLAX] 17 gm PO DAILY PRN 12/21/14 06/30/16 Sertraline HCl [Zoloft] 100 mg PO DAILY 12/21/14 06/30/16 Simvastatin [Zocor] 40 mg PO DAILY 12/21/14 06/30/16 Cyanocobalamin (Vitamin B-12) 1,000 mcg PO QMONTH 12/08/15 06/30/16 [Vitamin B-12] Enalapril Maleate [Vasotec] 5 mg PO DAILY 12/08/15 06/30/16 Mv-Mn/FA/Vit K1/Lycop/Lut/Zeax 1 tab PO DAILY 12/08/15 06/30/16 [Ocuvite Eye + Multi Tablet] Propranolol HCl 60 mg PO DAILY 12/08/15 06/30/16 SitaGLIPtin [Januvia] 100 mg PO DAILY 03/06/16 06/30/16 Loratadine [Allergy Relief] 10 mg PO DAILY 06/21/16 06/30/16 Ranitidine HCl [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 mg PO 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 06/21/16 06/30/16 Previous Rx's Medication Instructions Recorded Doxycycline 100 mg PO BID #8 capsule 06/23/16 Allergies Allergy/AdvReac Type Severity Reaction Status Date / Time Nickel Allergy Mild Hives Verified 06/30/16 15:00 codeine Allergy Hives Verified 06/30/16 15:00 Erythromycin Base Allergy Rash Verified 06/30/16 15:00 nitrofurantoin Allergy Rash Verified 06/30/16 15:00 [From Macrobid] Quaternium Allergy Rash Verified 06/30/16 15:00 sulfamethoxazole Allergy Rash Verified 06/30/16 15:00 [From Bactrim] trimethoprim [From Bactrim] Allergy Rash Verified 06/30/16 15:00 Sulfa (Sulfonamide AdvReac Hallucinati Verified 06/30/16 15:00 Antibiotics) ng Constitutional: Reports: chills, weakness Gastrointestinal: Reports: abdominal pain, nausea, vomiting Genitourinary: Reports: dysuria Endocrine: Reports: fatigue Past Medical History - Past Medical History Medical history: Reports: arthritis, diabetes, GERD, hyperlipidemia, hypertension, osteoporosis, renal disease, other Surgical history: Reports: appendectomy, cholecystectomy, hysterectomy, ureteral stent, other Psychiatric history: Reports: anxiety, depression [employer] 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 Tang. Patient complains to me of being weak and rundown. She mentioned vomiting but then changed it to say that she was really dry heaving. Initially she said she started feeling sick yesterday afternoon then she told me later on that was 2 or 3 days. She has missed a couple of days of her antihypertensive agents. Initially she said a car she could not keep them down but then when confronted that she says she is only been sick since yesterday she then states that while she may have forgotten a couple of doses. As you can see this is a challenging history as the target seems to keep moving. On my examination the patient complains of some tenderness suprapubically although there is no with drawl or guarding or rebound during that examination. Lab workup is really unremarkable except for elevated glucose. The only thing I am finding on this patient is a high heart rate and high blood pressure, which certainly can be attributed to the fact that she is not taking her medications. We also see the abdominal pain complaint. Were going to have to get IV access on the patient. Really give her medications bring her blood pressure down. We will going to scan her belly at this point to look for intra-abdominal pathology that may explain her symptoms. Disposition will be based on diagnostic results and reevaluation. Time: 10:45 Vital Signs Temperature 98.2 F 06/30/16 08:20 Pulse Rate 113 06/30/16 08:20 Respiratory Rate 18 06/30/16 08:20 Blood Pressure 143/127 06/30/16 08:20 O2 Sat by Pulse Oximetry 100 06/30/16 08:20 Temperature 98.6 F 07/01/16 11:32 Pulse Rate 76 07/01/16 11:32 Respiratory Rate 15 07/01/16 11:32 Blood Pressure 100/59 07/01/16 11:32 O2 Sat by Pulse Oximetry 98 07/01/16 11:32 Oxygen Delivery Oxygen Delivery Room Air Medical Decision Making - Lab Data Result diagrams: 07/01/16 04:18 07/01/16 04:18 Lab Results 06/30/16 06/30/16 06/30/16 Range/Units 08:22 09:02 09:02 WBC 7.6 (4.3-11.1) K/mcL RBC 4.73 (3.82-4.97) M/mcL Hgb 14.0 (11.5-15.4) g/dL Hct 42.2 (35.3-44.9) % MCV 89.2 (83.0-100.0) fL MCH 29.6 (28.0-33.3) pg MCHC 33.2 (31.6-35.5) g/dL RDW 12.9 (11.5-14.5) % Plt Count 206 (140-400) K/mcL MPV 10.9 (9.4-12.4) fL Immature Gran % 0.7 (0-4) % Seg Neutrophils % 90.7 % Lymphocytes % 5.3 % Monocytes % 3.0 % Eosinophils % 0.0 % Basophils % 0.3 % Neutrophils # 6.9 (1.6-8.9) K/mcL Lymphocytes # 0.4 L (0.6-4.6) K/mcL Monocytes # 0.2 (0.0-1.3) K/mcL Eosinophils # 0.0 (0.0-0.6) K/mcL Basophils # 0.0 (0.0-0.2) K/mcL Sodium 139 (136-145) mEq/L Potassium 3.7 (3.5-4.5) mEq/L Chloride 101 (98-109) mEq/L Carbon Dioxide 24 (19-29) mEq/L BUN 12 (7-20) mg/dL Creatinine 0.91 (0.57-1.11) mg/dL Est GFR ( Amer) > 60 (> 60) Est GFR (Non-Af Amer) > 60 (> 60) BUN/Creatinine Ratio 13 (6-26) Glucose 300 H (70-99) mg/dL POC Glucose 248 H (58-89) Calculated Osmolality 299 (280-300) Lactic Acid (0.5-2.2) mmol/L Calcium 9.7 (8.6-10.8) mg/dL Total Bilirubin 0.4 (0.2-1.2) mg/dL Direct Bilirubin 0.2 (0.0-0.5) mg/dL Indirect Bilirubin 0.2 (0.0-1.2) mg/dL AST 34 (5-34) Units/L ALT 32 (0-55) Units/L Alkaline Phosphatase 85 (38-126) Units/L Troponin I (0-0.03) ng/mL Serum Total Protein 7.2 (6.0-8.3) g/dL Albumin 3.9 (3.5-5.0) g/dL Globulin 3.3 (2.4-3.5) g/dL Albumin/Globulin Ratio 1.2 (1.1-2.2) TSH 0.916 (0.350-4.840) mcIU/mL Urine Color (Yellow) Urine Clarity (Clear) Urine pH (5.0-8.0) pH Units Ur Specific [place] (1.010-1.025) Urine Protein (Neg-Trace) mg/dL Urine Glucose (UA) (Normal) mg/dL Urine Ketones (Negative) mg/dL Urine Blood (Negative) Urine Nitrite (Negative) Urine Bilirubin (Negative) Urine Urobilinogen (Normal) mg/dL Ur Leukocyte Esterase (Negative) Urine Microscopic RBC (0-3) per hpf Urine Microscopic WBC (0-3) per hpf Ur Squamous Epith Cells (None-Few) per lpf Urine Bacteria (None-Few) per hpf Hyaline Casts (None-Few) per lpf Ur Culture Indicated? (NO) 06/30/16 06/30/16 06/30/16 Range/Units 09:02 09:02 09:58 WBC (4.3-11.1) K/mcL RBC (3.82-4.97) M/mcL Hgb (11.5-15.4) g/dL Hct (35.3-44.9) % MCV (83.0-100.0) fL MCH (28.0-33.3) pg MCHC (31.6-35.5) g/dL RDW (11.5-14.5) % Plt Count (140-400) K/mcL MPV (9.4-12.4) fL Immature Gran % (0-4) % Seg Neutrophils % % Lymphocytes % % Monocytes % % Eosinophils % % Basophils % % Neutrophils # (1.6-8.9) K/mcL Lymphocytes # (0.6-4.6) K/mcL Monocytes # (0.0-1.3) K/mcL Eosinophils # (0.0-0.6) K/mcL Basophils # (0.0-0.2) K/mcL Sodium (136-145) mEq/L Potassium (3.5-4.5) mEq/L Chloride (98-109) mEq/L Carbon Dioxide (19-29) mEq/L BUN (7-20) mg/dL Creatinine (0.57-1.11) mg/dL Est GFR ( Amer) (> 60) Est GFR (Non-Af Amer) (> 60) BUN/Creatinine Ratio (6-26) Glucose (70-99) mg/dL POC Glucose (58-89) Calculated Osmolality (280-300) Lactic Acid 1.5 (0.5-2.2) mmol/L Calcium (8.6-10.8) mg/dL Total Bilirubin (0.2-1.2) mg/dL Direct Bilirubin (0.0-0.5) mg/dL Indirect Bilirubin (0.0-1.2) mg/dL AST (5-34) Units/L ALT (0-55) Units/L Alkaline Phosphatase (38-126) Units/L Troponin I 0.01 (0-0.03) ng/mL Serum Total Protein (6.0-8.3) g/dL Albumin (3.5-5.0) g/dL Globulin (2.4-3.5) g/dL Albumin/Globulin Ratio (1.1-2.2) TSH (0.350-4.840) mcIU/mL Urine Color Yellow (Yellow) Urine Clarity Clear (Clear) Urine pH 7.5 (5.0-8.0) pH Units Ur Specific [place] 1.013 (1.010-1.025) Urine Protein 30 H (Neg-Trace) mg/dL Urine Glucose (UA) 500 H (Normal) mg/dL Urine Ketones Trace H (Negative) mg/dL Urine Blood Negative (Negative) Urine Nitrite Negative (Negative) Urine Bilirubin Negative (Negative) Urine Urobilinogen Normal (Normal) mg/dL Ur Leukocyte Esterase Negative (Negative) Urine Microscopic RBC 0-3 (0-3) per hpf Urine Microscopic WBC 0-3 (0-3) per hpf Ur Squamous Epith Cells Moderate H (None-Few) per lpf Urine Bacteria None Seen (None-Few) per hpf Hyaline Casts None Seen (None-Few) per lpf Ur Culture Indicated? NO (NO) Attestation Statement - Attestation Attestation: I, Dr. St, examined this patient [id number] and my medical decision- making was reviewed with Dr. Tang, Resident Physician. I agree with the documented findings, disposition and treatment plan as described except to the extent set forth below. Please see my progress notes for details.
[2016-06-30] MEDS ORDERED: Lidocaine -MPF 1% 2 ML VIAL ID PRN (11:38)
[2016-06-30] MEDS ORDERED: 0.9 % Sodium Chloride 1,000 ML IV ONE (11:50)
[2016-06-30] MEDS ORDERED: Sucralfate 1 GM TABLET PO STA (12:35)
[2016-06-30] MEDS ORDERED: Pantoprazole 40 MG VIAL IVP ONE (12:35)
[2016-06-30] MEDS ORDERED: Ondansetron 4 MG/2 ML VIAL IVP ONE (13:28)
[2016-06-30] MEDS ORDERED: Naloxone 0.4 MG/ML INJ IVP PRN (15:25)
[2016-06-30] MEDS ORDERED: Ondansetron 4 MG/2 ML VIAL IVP PRN (15:25)
[2016-06-30] MEDS ORDERED: D5% in Water 1,000 ML IV PRN (15:28)
[2016-06-30] MEDS ORDERED: *HR* Dextrose 50 % in Water (Syg) 50 ML SYRINGE IVP PRN (15:28)
[2016-06-30] MEDS ORDERED: Dextrose Gel 15 GM PO PRN ×2 (15:28)
[2016-06-30] MEDS ORDERED: *HR* Metoprolol 5 MG/5 ML VIAL IVP PRN (15:29)
[2016-06-30] MEDS ORDERED: 0.9 % Sodium Chloride 1,000 ML IVC SCH (15:30)
[2016-06-30] MEDS ORDERED: Sucralfate 1 GM TABLET PO SCH (16:30)
[2016-06-30] MEDS: Insulin LISPRO 300 UNITS/3 ML VIAL SQ SCH (17:31)
[2016-06-30] MEDS: Pantoprazole 40 MG VIAL IVP SCH (21:05)
[2016-06-30] MEDS: Insulin DETEMIR 100 UNIT/ML X5UNITS SQ SCH (21:11)
[2016-06-30] MEDS ORDERED: *HR* Promethazine 25 MG/ML VIAL IVP PRN (21:30)
--- NOTE | 2016-06-30 21:38 | Internal Med History&Physical ---
<Jimena Torres M - Last Filed: 07/01/16 01:23> Date of Encounter: 06/30/16 Time of Encounter: 21:35 Assessment and Plan (1) Duodenitis Current visit: Yes Status: Acute Patient presented with intractable nausea and vomiting as well as abdominal pain. Abdomen is tender to palpation. CT of the abdomen and pelvis showed thickened appearance of the encarnacion of the duodenal bulb and pylorus with adjacent inflammatory changes. She was given fluid boluses in the ED IV fluids 0.9 normal saline at 100 mL per hour Nothing by mouth but may advance diet as tolerated IVP Zofran and Phenergan when necessary for nausea IV morphine when necessary for pain Narcan ordered when necessary for respiratory depression (2) Hydronephrosis Current visit: Yes Status: Acute Chronic. She follows with urologist Dr. West as an outpatient. The emergency department consultation with Dr. West and will follow-up with patient in the clinic later this week. Qualifiers: Hydronephrosis type: with ureteropelvic junction obstruction Qualified Code (s): Q62.0 - Congenital hydronephrosis (3) Nausea & vomiting Current visit: Yes Status: Acute Advance diet as tolerated IV fluids with 0.9 normal saline at 100 mL per hour IVP Zofran and Phenergan when necessary for nausea Qualifiers: Vomiting type: unspecified Vomiting Intractability: intractable Qualified Code(s): R11.2 - Nausea with vomiting, unspecified (4) DM2 (diabetes mellitus, type 2) Current visit: No Status: Chronic Hold Januvia Hemoglobin A1c with labs tomorrow Basal dose of levemir 10u HS Check blood sugars every 6 hours Sliding scale correction dose every 6 hours Hypoglycemic protocol Qualifiers: Diabetes mellitus complication status: with unspecified complications Diabetes mellitus terminal clerk insulin use: without terminal clerk use Qualified Code( s): E11.8 - Type 2 diabetes mellitus with unspecified complications (5) Hypertension Current visit: No Status: Chronic While not tolerating PO, 5mg IVP metoprolol Q6hr PRN for SBP > 160 or DBP > 100. Resume home doses of propranolol and enalapril once tolerating PO. Qualifiers: Hypertension type: essential hypertension Qualified Code(s): I10 - Essential (primary) hypertension (6) DVT prophylaxis Current visit: No Status: Acute To chair twice a day Antiembolic stockings Lovenox 40 mg subcutaneous daily Internal Medicine - H&P: HPI Chief complaint: intractible nausea and vomiting Admitted From: Emergency Dept Plans for Post Hospital Care: Home History of present illness: Ms. 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 She reports that the abdominal pain started mildly on Thursday evening and she barely noticed it but it gradually increased and she started vomiting on Thursday evening today she was unable to keep anything down. Abdominal pain is worse, described as sharp, crampy, worse with vomiting. She also endorses chills and sweats, she denies any chest pain, palpitations, shortness breath. She reports mild dysuria. She denies any diarrhea. She was recently diagnosed with a UTI as an outpatient and was given a prescription for doxycycline. Evaluation in the emergency department included a CT of her abdomen and pelvis which showed a thickened appearance of the encarnacion of the duodenal bulb and pylorus with adjacent inflammatory changes suggestive of duodenitis, there is no free air that would suggest a perforated ulcer. Ulcer showed moderate right- sided hydronephrosis which is increased from prior exam and tapering at the right UPJ. ED physician spoke with patient's urologist, Dr. West, who was not concerned with the hydronephrosis and stated she would have patient follow- up in the clinic later this week. Urinalysis was negative for infection. Patient continued to have nausea and vomiting despite antiemetics, and her blood pressure was elevated at one point 201/130. She was given IV fluids, IV labetalol to bring down her blood pressure. On my exam she was drowsy but arousable, alert and oriented 3, answered questions appropriately. Lungs are clear bilaterally to auscultation, heart had regular rate and rhythm. Abdomen was soft but diffusely tender on palpation. Past Med Surg Social Fam HX - Past Medical History Medical history: arthritis, diabetes, GERD, hyperlipidemia, hypertension, osteoporosis, renal disease, other Psychiatric history: anxiety, depression - Past Surgical History Surgical History: appendectomy, cholecystectomy, hysterectomy, ureteral stent, other - Social History Smoking Status: Never smoker Smokeless Tobacco Status: No Alcohol use: none Drug use: none - Family History Mother Living Status: Hx Family Cancer: Yes Hx Family Endocrine Disorder: Yes Internal Medicine - H&P: Meds Docusate [Colace] 100 mg PO HS 12/21/14 [History] Polyethylene Glycol 3350 [MiraLAX] 17 gm PO DAILY PRN 12/21/14 [History] Sertraline HCl [Zoloft] 100 mg PO DAILY 12/21/14 [History] Simvastatin [Zocor] 40 mg PO DAILY 12/21/14 [History] Cyanocobalamin (Vitamin B-12) [Vitamin B-12] 1,000 mcg PO QMONTH 12/08/15 [ History] Enalapril Maleate [Vasotec] 5 mg PO DAILY 12/08/15 [History] Mv-Mn/FA/Vit K1/Lycop/Lut/Zeax [Ocuvite Eye + Multi Tablet] 1 tab PO DAILY 12/07 [History] Propranolol HCl 60 mg PO DAILY 12/08/15 [History] SitaGLIPtin [Januvia] 100 mg PO DAILY 03/06/16 [History] Loratadine [Allergy Relief] 10 mg PO DAILY 06/21/16 [History] Ranitidine HCl [Acid Acoustical Tile Drill Press Operator] 150 mg PO DAILY 06/21/16 [History] Doxycycline 100 mg PO BID #8 capsule 06/23/16 [Rx] Allergies Nickel Allergy (Mild, Verified 06/30/16 15:00) Hives codeine Allergy (Verified 06/30/16 15:00) Hives Erythromycin Base Allergy (Verified 06/30/16 15:00) Rash nitrofurantoin [From Macrobid] Allergy (Verified 06/30/16 15:00) Rash Quaternium Allergy (Verified 06/30/16 15:00) Rash sulfamethoxazole [From Bactrim] Allergy (Verified 06/30/16 15:00) Rash trimethoprim [From Bactrim] Allergy (Verified 06/30/16 15:00) Rash Sulfa (Sulfonamide Antibiotics) Adverse Reaction (Verified 06/30/16 15:00) Hallucinating All Systems PM: A 10-system review of systems was performed and is negative for pertinent findings except as documented above in the HPI. - Constitutional Constitutional: fatigue, no chills, no fever(s), no night sweats - EENT Eyes: no change in vision, no discharge, no pain, no photophobia Ears: no ear discharge, no ear pain, no tinnitus Nose, mouth and throat: no dysphagia, no nasal discharge, no neck pain, no sore throat - Cardiovascular Cardiovascular ROS IM: no chest pain, no diaphoresis, no dyspnea, no lightheadedness, no palpitations, no syncope - Respiratory Respiratory: no cough, no dyspnea, no wheezing, no excessive phlegm production - Gastrointestinal Gastrointestinal: abdominal pain, nausea, vomiting, no diarrhea, no hematemesis , no hematochezia, no melena - Genitourinary Genitourinary: dysuria, no change in urinary stream, no flank pain, no hematuria - Musculoskeletal Musculoskeletal ROS IM: no numbness, no tingling - Integumentary Integumentary IM: no rash, no unusual bruising - Neurological Neurological ROS: no confusion, no convulsions, no focal weakness, no numbness, no tingling, no tremor(s) - Hematologic/Lymphatic Hematologic/Lymphatic: no easy bruising - Constitutional Vitals: Temp Pulse Resp BP Pulse Ox 98.2 F 75 16 106/58 98 06/30/16 19:20 06/30/16 19:20 06/30/16 19:20 06/30/16 19:20 06/30/16 19:20 General appearance: Present: A&O X 3, no acute distress - Head Head exam: Present: atraumatic, normocephalic - Eye Eye exam: Present: PERRL, conjuntiva pink, sclera anicteric Pupils: Present: PERRL - Neck Neck exam general surgery: Present: supple, trachea midline. Absent: lymphadenopathy - Respiratory Respiratory exam: Present: CTAB. Absent: accessory muscle use, rales, rhonchi, wheezes - Cardiovascular Cardiovascular exam: Present: RRR, +S1, +S2. Absent: diastolic murmur, gallop, rubs, systolic murmur - GI/Abdominal GI/Abdominal exam: Present: normal bowel sounds, soft, tenderness, no peritoneal signs. Absent: distended - Extremities Exam Extremities exam: Present: warm, radial pulses palpable and symetrical. Absent : calf tenderness, cyanotic, pedal edema - Neurological Exam Neurological exam: Present: CN II-XII intact, oriented X3, no focal deficits. Absent: facial droop, speech deficit - Skin Skin exam: Present: dry, intact Internal Med - H&P Results - Labs CBC & Chem 7: 06/30/16 09:02 06/30/16 09:02 Labs: All Lab Results (24 Hours) 06/30/16 06/30/16 06/30/16 Range/Units 08:22 09:02 09:02 WBC 7.6 (4.3-11.1) K/mcL RBC 4.73 (3.82-4.97) M/mcL Hgb 14.0 (11.5-15.4) g/dL Hct 42.2 (35.3-44.9) % MCV 89.2 (83.0-100.0) fL MCH 29.6 (28.0-33.3) pg MCHC 33.2 (31.6-35.5) g/dL RDW 12.9 (11.5-14.5) % Plt Count 206 (140-400) K/mcL MPV 10.9 (9.4-12.4) fL Immature Gran % 0.7 (0-4) % Seg Neutrophils % 90.7 % Lymphocytes % 5.3 % Monocytes % 3.0 % Eosinophils % 0.0 % Basophils % 0.3 % Neutrophils # 6.9 (1.6-8.9) K/mcL Lymphocytes # 0.4 L (0.6-4.6) K/mcL Monocytes # 0.2 (0.0-1.3) K/mcL Eosinophils # 0.0 (0.0-0.6) K/mcL Basophils # 0.0 (0.0-0.2) K/mcL Sodium 139 (136-145) mEq/L Potassium 3.7 (3.5-4.5) mEq/L Chloride 101 (98-109) mEq/L Carbon Dioxide 24 (19-29) mEq/L BUN 12 (7-20) mg/dL Creatinine 0.91 (0.57-1.11) mg/dL Est GFR ( Amer) > 60 (> 60) Est GFR (Non-Af Amer) > 60 (> 60) BUN/Creatinine Ratio 13 (6-26) Glucose 300 H (70-99) mg/dL POC Glucose 248 H (58-89) Calculated Osmolality 299 (280-300) Lactic Acid (0.5-2.2) mmol/L Calcium 9.7 (8.6-10.8) mg/dL Total Bilirubin 0.4 (0.2-1.2) mg/dL Direct Bilirubin 0.2 (0.0-0.5) mg/dL Indirect Bilirubin 0.2 (0.0-1.2) mg/dL AST 34 (5-34) Units/L ALT 32 (0-55) Units/L Alkaline Phosphatase 85 (38-126) Units/L Troponin I (0-0.03) ng/mL Serum Total Protein 7.2 (6.0-8.3) g/dL Albumin 3.9 (3.5-5.0) g/dL Globulin 3.3 (2.4-3.5) g/dL Albumin/Globulin Ratio 1.2 (1.1-2.2) TSH 0.916 (0.350-4.840) mcIU/mL Urine Color (Yellow) Urine Clarity (Clear) Urine pH (5.0-8.0) pH Units Ur Specific [place] (1.010-1.025) Urine Protein (Neg-Trace) mg/dL Urine Glucose (UA) (Normal) mg/dL Urine Ketones (Negative) mg/dL Urine Blood (Negative) Urine Nitrite (Negative) Urine Bilirubin (Negative) Urine Urobilinogen (Normal) mg/dL Ur Leukocyte Esterase (Negative) Urine Microscopic RBC (0-3) per hpf Urine Microscopic WBC (0-3) per hpf Ur Squamous Epith Cells (None-Few) per lpf Urine Bacteria (None-Few) per hpf Hyaline Casts (None-Few) per lpf Ur Culture Indicated? (NO) 06/30/16 06/30/16 06/30/16 Range/Units 09:02 09:02 09:58 WBC (4.3-11.1) K/mcL RBC (3.82-4.97) M/mcL Hgb (11.5-15.4) g/dL Hct (35.3-44.9) % MCV (83.0-100.0) fL MCH (28.0-33.3) pg MCHC (31.6-35.5) g/dL RDW (11.5-14.5) % Plt Count (140-400) K/mcL MPV (9.4-12.4) fL Immature Gran % (0-4) % Seg Neutrophils % % Lymphocytes % % Monocytes % % Eosinophils % % Basophils % % Neutrophils # (1.6-8.9) K/mcL Lymphocytes # (0.6-4.6) K/mcL Monocytes # (0.0-1.3) K/mcL Eosinophils # (0.0-0.6) K/mcL Basophils # (0.0-0.2) K/mcL Sodium (136-145) mEq/L Potassium (3.5-4.5) mEq/L Chloride (98-109) mEq/L Carbon Dioxide (19-29) mEq/L BUN (7-20) mg/dL Creatinine (0.57-1.11) mg/dL Est GFR ( Amer) (> 60) Est GFR (Non-Af Amer) (> 60) BUN/Creatinine Ratio (6-26) Glucose (70-99) mg/dL POC Glucose (58-89) Calculated Osmolality (280-300) Lactic Acid 1.5 (0.5-2.2) mmol/L Calcium (8.6-10.8) mg/dL Total Bilirubin (0.2-1.2) mg/dL Direct Bilirubin (0.0-0.5) mg/dL Indirect Bilirubin (0.0-1.2) mg/dL AST (5-34) Units/L ALT (0-55) Units/L Alkaline Phosphatase (38-126) Units/L Troponin I 0.01 (0-0.03) ng/mL Serum Total Protein (6.0-8.3) g/dL Albumin (3.5-5.0) g/dL Globulin (2.4-3.5) g/dL Albumin/Globulin Ratio (1.1-2.2) TSH (0.350-4.840) mcIU/mL Urine Color Yellow (Yellow) Urine Clarity Clear (Clear) Urine pH 7.5 (5.0-8.0) pH Units Ur Specific [place] 1.013 (1.010-1.025) Urine Protein 30 H (Neg-Trace) mg/dL Urine Glucose (UA) 500 H (Normal) mg/dL Urine Ketones Trace H (Negative) mg/dL Urine Blood Negative (Negative) Urine Nitrite Negative (Negative) Urine Bilirubin Negative (Negative) Urine Urobilinogen Normal (Normal) mg/dL Ur Leukocyte Esterase Negative (Negative) Urine Microscopic RBC 0-3 (0-3) per hpf Urine Microscopic WBC 0-3 (0-3) per hpf Ur Squamous Epith Cells Moderate H (None-Few) per lpf Urine Bacteria None Seen (None-Few) per hpf Hyaline Casts None Seen (None-Few) per lpf Ur Culture Indicated? NO (NO) 06/30/16 06/30/16 Range/Units 15:46 17:07 WBC (4.3-11.1) K/mcL RBC (3.82-4.97) M/mcL Hgb (11.5-15.4) g/dL Hct (35.3-44.9) % MCV (83.0-100.0) fL MCH (28.0-33.3) pg MCHC (31.6-35.5) g/dL RDW (11.5-14.5) % Plt Count (140-400) K/mcL MPV (9.4-12.4) fL Immature Gran % (0-4) % Seg Neutrophils % % Lymphocytes % % Monocytes % % Eosinophils % % Basophils % % Neutrophils # (1.6-8.9) K/mcL Lymphocytes # (0.6-4.6) K/mcL Monocytes # (0.0-1.3) K/mcL Eosinophils # (0.0-0.6) K/mcL Basophils # (0.0-0.2) K/mcL Sodium (136-145) mEq/L Potassium (3.5-4.5) mEq/L Chloride (98-109) mEq/L Carbon Dioxide (19-29) mEq/L BUN (7-20) mg/dL Creatinine (0.57-1.11) mg/dL Est GFR ( Amer) (> 60) Est GFR (Non-Af Amer) (> 60) BUN/Creatinine Ratio (6-26) Glucose (70-99) mg/dL POC Glucose 232 H 208 H (58-89) Calculated Osmolality (280-300) Lactic Acid (0.5-2.2) mmol/L Calcium (8.6-10.8) mg/dL Total Bilirubin (0.2-1.2) mg/dL Direct Bilirubin (0.0-0.5) mg/dL Indirect Bilirubin (0.0-1.2) mg/dL AST (5-34) Units/L ALT (0-55) Units/L Alkaline Phosphatase (38-126) Units/L Troponin I (0-0.03) ng/mL Serum Total Protein (6.0-8.3) g/dL Albumin (3.5-5.0) g/dL Globulin (2.4-3.5) g/dL Albumin/Globulin Ratio (1.1-2.2) TSH (0.350-4.840) mcIU/mL Urine Color (Yellow) Urine Clarity (Clear) Urine pH (5.0-8.0) pH Units Ur Specific [place] (1.010-1.025) Urine Protein (Neg-Trace) mg/dL Urine Glucose (UA) (Normal) mg/dL Urine Ketones (Negative) mg/dL Urine Blood (Negative) Urine Nitrite (Negative) Urine Bilirubin (Negative) Urine Urobilinogen (Normal) mg/dL Ur Leukocyte Esterase (Negative) Urine Microscopic RBC (0-3) per hpf Urine Microscopic WBC (0-3) per hpf Ur Squamous Epith Cells (None-Few) per lpf Urine Bacteria (None-Few) per hpf Hyaline Casts (None-Few) per lpf Ur Culture Indicated? (NO) <Andre Pardo - Last Filed: 07/02/16 06:35> Date of Encounter: 07/02/16 Internal Medicine - H&P: HPI History of present illness: Ms. Sales is a 65 year old female All Systems PM: A 10-system review of systems was performed and is negative for pertinent findings except as documented above in the HPI. - Constitutional Vitals: Temp Pulse Resp BP Pulse Ox 98.0 F 70 14 113/68 97 07/02/16 03:20 07/02/16 03:20 07/02/16 03:20 07/02/16 03:20 07/02/16 03:20 Internal Med - H&P Results - Labs CBC & Chem 7: 07/02/16 03:18 07/02/16 03:18 Labs: Short CBC 07/02/16 Range/Units 03:18 WBC 4.4 (4.3-11.1) K/mcL Hgb 10.3 L (11.5-15.4) g/dL Hct 32.2 L (35.3-44.9) % Plt Count 158 (140-400) K/mcL BMP 07/02/16 03:18 Sodium 142 Potassium 3.8 Chloride 111 H Carbon Dioxide 23 BUN 8 Creatinine 0.71 Glucose 97 Calcium 8.3 L - Attending Attestation I examined this patient and my medical decision-making was reviewed with the Advanced Practice Provider. I agree with the documented findings, disposition and treatment plan as described except to the extent set forth below. The patient presented to the hospital with intractable abdominal pain nausea and vomiting. CT of the abdomen and pelvis revealed duodenitis. On exam she is in mild distress due to abdominal pain. Abdomen is diffusely tender with no guarding. We will place patient in observation. Nothing by mouth. IV fluids and antiemetics. Supportive care.
[2016-07-01] MEDS: Insulin LISPRO 300 UNITS/3 ML VIAL SQ SCH ×4 (00:18→18:32)
[2016-07-01] MEDS: Doxycycline 100 MG CAPSULE PO SCH ×2 (00:19→09:27)
[2016-07-01 04:42] LABS: Basophils % 0.6 %; Eosinophils % 0.8 %; Hematocrit 32.9 % (35.3-44.9); Immature Granulocytes % 0.4 % (0-4); Lymphocytes # 0.9 K/mcL (0.6-4.6); Lymphocytes % 17.7 %; Mean Corpuscular Hemoglobin 28.9 pg (28.0-33.3); Mean Corpuscular Volume 93.2 fL (83.0-100.0); Mean Platelet Volume 11.3 fL (9.4-12.4); Monocytes # 0.6 K/mcL (0.0-1.3); Monocytes % 12.5 %; Neutrophils # 3.3 K/mcL (1.6-8.9); Platelet Count 172 K/mcL (140-400); Red Blood Count 3.53 M/mcL (3.82-4.97); Red Cell Distribution Width 13.2 % (11.5-14.5)
[2016-07-01 04:43] LABS: Hemoglobin 10.2 g/dL (11.5-15.4)
[2016-07-01 04:53] LABS: BUN/Creatinine Ratio 18 (6-26); Blood Urea Nitrogen 13 mg/dL (7-20); Carbon Dioxide 26 mEq/L (19-29); Chloride 110 mEq/L (98-109); Glucose 143 mg/dL (70-99); Osmolality,Calculated 297 (280-300); Potassium 3.6 mEq/L (3.5-4.5); Sodium 142 mEq/L (136-145); eGFR For African Americans > 60 (> 60); eGFR For Non-African Americans > 60 (> 60)
[2016-07-01 05:38] LABS: Calcium 8.1 mg/dL (8.6-10.8)
[2016-07-01 06:09] LABS: Hemoglobin A1C 7.3 %
[2016-07-01] MEDS ORDERED: *HR* Enoxaparin 40 MG/0.4 ML SYRINGE SQ SCH (07:00)
[2016-07-01] MEDS ORDERED: Pantoprazole 40 MG VIAL IVP SCH (09:00)
[2016-07-01] MEDS: Propranolol LA (24 HR) 60 MG CAP.SA.24H PO SCH (09:26)
[2016-07-01] MEDS: Multivit/Ca/Min/Fe/FA 1 TAB TABLET PO SCH (09:27)
[2016-07-01] MEDS: Pantoprazole 40 MG VIAL IVP SCH (09:27)
[2016-07-01] MEDS: Famotidine 20 MG TABLET PO SCH (09:27)
[2016-07-01] MEDS: Loratadine 10 MG TABLET PO SCH (09:27)
--- NOTE | 2016-07-01 10:24 | Internal Med Progress Note ---
<CrescencioJason romero Viktor - Last Filed: 07/01/16 17:40> Date of Encounter: 07/01/16 Time of Encounter: 09:00 - Assessment and plan (1) Duodenitis Current Visit: Yes Status: Acute Assessment and plan: 07/01/16 Significant symptomatic improvement although abdominal pain still significant Protonix has been increased to 40 mg twice a day. We will change this to IV drip per GI request 06/30/16 Patient presented with intractable nausea and vomiting as well as abdominal pain. Abdomen is tender to palpation. CT of the abdomen and pelvis showed thickened appearance of the encarnacion of the duodenal bulb and pylorus with adjacent inflammatory changes. She was given fluid boluses in the ED IV fluids 0.9 normal saline at 100 mL per hour Nothing by mouth but may advance diet as tolerated IVP Zofran and Phenergan when necessary for nausea IV morphine when necessary for pain Narcan ordered when necessary for respiratory depression (2) Acute blood loss anemia Current Visit: Yes Status: Acute Assessment and plan: Given possibility of duodenal ulcer on CT, decrease in hemoglobin, and Lovenox for deep DVT prophylaxis there is concern for acute bleed Gastroenterology has been consulted Discontinue Lovenox (3) Hydronephrosis Current Visit: Yes Status: Acute Assessment and plan: This is chronic Seen by urology who recommends outpatient consultation Qualifiers: Hydronephrosis type: with ureteropelvic junction obstruction Qualified Code (s): Q62.0 - Congenital hydronephrosis (4) Nausea & vomiting Current Visit: Yes Status: Acute Assessment and plan: Resolved We will continue PRN meds Qualifiers: Vomiting type: unspecified Vomiting Intractability: intractable Qualified Code(s): R11.2 - Nausea with vomiting, unspecified (5) DM2 (diabetes mellitus, type 2) Current Visit: No Status: Chronic Assessment and plan: 07/01/16 Blood glucose this morning = 143 Continue current regimen 06/30/16 Hold Januvia Hemoglobin A1c with labs tomorrow Basal dose of levemir 10u HS Check blood sugars every 6 hours Sliding scale correction dose every 6 hours Hypoglycemic protocol Qualifiers: Diabetes mellitus complication status: with unspecified complications Diabetes mellitus senior living insulin use: without senior living use Qualified Code( s): E11.8 - Type 2 diabetes mellitus with unspecified complications (6) Hypertension Current Visit: No Status: Chronic Assessment and plan: 07/01/16 Blood pressure has stabilized Continue current regimen 06/30/16 While not tolerating PO, 5mg IVP metoprolol Q6hr PRN for SBP > 160 or DBP > 100. Resume home doses of propranolol and enalapril once tolerating PO. Qualifiers: Hypertension type: essential hypertension Qualified Code(s): I10 - Essential (primary) hypertension (7) DVT prophylaxis Current Visit: No Status: Acute Assessment and plan: Lovenox discontinued due to concerns for acute bleed Continue EPCD's To chair twice a day - Subjective Interval history: Ms. Sales was seen and examined. She was lying comfortably in bed in no acute distress. She states that she is still having some abdominal pain although this is much improved. She was drinking broth and eating Jell-O and says she is tolerating these okay. She denies other current complaints - Constitutional Vitals: Temp Pulse Resp BP Pulse Ox 98.3 F 67 18 95/57 97 07/01/16 07:36 07/01/16 07:36 07/01/16 07:36 07/01/16 07:36 07/01/16 07:36 General appearance: Present: A&O X 3, no acute distress - Head Head exam: Present: atraumatic, normocephalic - Eye Eye exam: Present: PERRL, conjuntiva pink, sclera anicteric Pupils: Present: PERRL - Neck Neck exam general surgery: Present: supple, trachea midline. Absent: lymphadenopathy - Respiratory Respiratory exam: Present: CTAB. Absent: accessory muscle use, rales, rhonchi, wheezes - Cardiovascular Cardiovascular exam: Present: RRR, +S1, +S2. Absent: diastolic murmur, gallop, rubs, systolic murmur - GI/Abdominal GI/Abdominal exam: Present: normal bowel sounds, soft, tenderness, no peritoneal signs. Absent: distended - Extremities Exam Extremities exam: Present: warm, radial pulses palpable and symetrical. Absent : calf tenderness, cyanotic, pedal edema - Neurological Exam Neurological exam: Present: CN II-XII intact, oriented X3, no focal deficits. Absent: pronater drift, facial droop, speech deficit Internal Medicine: Result - Labs CBC & Chem 7: 07/01/16 04:18 07/01/16 04:18 Labs: Short CBC 07/01/16 Range/Units 04:18 WBC 4.9 (4.3-11.1) K/mcL Hgb 10.2 L D (11.5-15.4) g/dL Hct 32.9 L (35.3-44.9) % Plt Count 172 (140-400) K/mcL Neutrophils # 3.3 (1.6-8.9) K/mcL BMP 07/01/16 04:18 Sodium 142 Potassium 3.6 Chloride 110 H Carbon Dioxide 26 BUN 13 Creatinine 0.71 Glucose 143 H Calcium 8.1 L D Consult Discharge Plan - Plan Referrals: Brittney Garrido MD [Primary Care Provider] - 07/08/16 10:00 am <Sahil Santos - Last Filed: 07/01/16 17:46> Date of Encounter: 07/01/16 - Constitutional Vitals: Temp Pulse Resp BP Pulse Ox 98.9 F 68 16 111/67 97 07/01/16 16:36 07/01/16 16:36 07/01/16 16:36 07/01/16 16:36 07/01/16 16:36 Internal Medicine: Result - Labs CBC & Chem 7: 07/01/16 04:18 07/01/16 04:18 Labs: Short CBC 07/01/16 Range/Units 04:18 WBC 4.9 (4.3-11.1) K/mcL Hgb 10.2 L D (11.5-15.4) g/dL Hct 32.9 L (35.3-44.9) % Plt Count 172 (140-400) K/mcL Neutrophils # 3.3 (1.6-8.9) K/mcL [facility] 07/01/16 04:18 Sodium 142 Potassium 3.6 Chloride 110 H Carbon Dioxide 26 BUN 13 Creatinine 0.71 Glucose 143 H Calcium 8.1 L D - Attending Attestation acute blood loss anemia likely 2ry to possible duodenal ulcer / duodenitis monitor CBC, GI consult NPO after midnight IVF I examined this patient and my medical decision-making was reviewed with the NETWORK SOLUTIONS ARCHITECT/PA/Advanced Practice Nurse/Resident Physician. I agree with the documented findings, disposition and treatment plan as described except to the extent set forth below.
[2016-07-01] MEDS: 0.9 % Sodium Chloride 1,000 ML IVC SCH (18:29)
[2016-07-01] MEDS: Pantoprazole 40 MG in 0.9 % Sodium Chloride Mini Bag 100 ML IVC SCH ×2 (18:31→23:43)
--- NOTE | 2016-07-01 19:01 | Electrocardiograph Report ---
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
[2016-07-01] MEDS: Insulin DETEMIR 100 UNIT/ML X5UNITS SQ SCH (23:46)
[2016-07-02] MEDS: Insulin LISPRO 300 UNITS/3 ML VIAL SQ SCH ×4 (02:18→17:23)
[2016-07-02 03:24] LABS: Hematocrit 32.2 % (35.3-44.9); Hemoglobin 10.3 g/dL (11.5-15.4); Mean Corpuscular Hemoglobin 29.7 pg (28.0-33.3); Mean Corpuscular Volume 92.8 fL (83.0-100.0); Mean Platelet Volume 11.3 fL (9.4-12.4); Platelet Count 158 K/mcL (140-400); Red Blood Count 3.47 M/mcL (3.82-4.97); Red Cell Distribution Width 13.2 % (11.5-14.5)
[2016-07-02 03:37] LABS: BUN/Creatinine Ratio 11 (6-26); Blood Urea Nitrogen 8 mg/dL (7-20); Calcium 8.3 mg/dL (8.6-10.8); Carbon Dioxide 23 mEq/L (19-29); Chloride 111 mEq/L (98-109); Glucose 97 mg/dL (70-99); Osmolality,Calculated 292 (280-300); Potassium 3.8 mEq/L (3.5-4.5); Sodium 142 mEq/L (136-145); eGFR For African Americans > 60 (> 60); eGFR For Non-African Americans > 60 (> 60)
[2016-07-02] MEDS: Pantoprazole 40 MG in 0.9 % Sodium Chloride Mini Bag 100 ML IVC SCH ×5 (04:46→21:57)
[2016-07-02] MEDS: 0.9 % Sodium Chloride 1,000 ML IVC SCH ×2 (04:46→16:47)
[2016-07-02] MEDS ORDERED: *HR* Midazolam HCl 5 MG/5 ML VIAL IVP ONE (07:57)
[2016-07-02] MEDS ORDERED: *HR* FentaNYL (PF) 100 MCG/2 ML VIAL ONE (07:58)
[2016-07-02] MEDS ORDERED: *HR* Midazolam HCl 5 MG/5 ML VIAL IVP PRN (08:10)
[2016-07-02] MEDS ORDERED: Tetracaine/Benzocaine/Butamben 200MG/SPRAY (100SPY/BOT) MM ONE (08:10)
[2016-07-02] MEDS ORDERED: *HR* FentaNYL (PF) 100 MCG/2 ML VIAL IVP PRN (08:10)
[2016-07-02] MEDS ORDERED: Simethicone 40 MG/0.6 ML MLS IR ONE (08:10)
--- NOTE | 2016-07-02 08:10 | Pre-Sedation Evaluation ---
Pre-sedation evaluation - Pre-sedation checklist Date of procedure: 07/02/16 Procedure: egd Recent Vitals: Last Vital Signs Temp 98.3 F 07/02/16 08:01 Pulse 58 07/02/16 08:01 Resp 18 07/02/16 08:01 BP 132/71 07/02/16 08:01 Pulse Ox 97 07/02/16 08:01 H&P (including ROS) documented in medical record: Yes Previous reaction to sedatives/anesthetics: Yes; explain in comment Dietary Status: NPO after Midnight Dentition: No loose teeth or bridges ASA Classification *see protocol: CLASS III-Severe systemic disease Plan of Care: Pt appropriate candidate for procedure/moderate/conscious sedation , Risks/benefits of procedure/sedation discussed w/ patient/family
[2016-07-02] MEDS ORDERED: 0.9 % Sodium Chloride 1,000 ML IVC SCH (08:30)
--- NOTE | 2016-07-02 09:10 | Internal Med Progress Note ---
<Jason Prather - Last Filed: 07/02/16 09:01> Date of Encounter: 07/02/16 Time of Encounter: 09:10 - Assessment and plan (1) Duodenitis Current Visit: Yes Status: Acute Assessment and plan: Upper GI endoscopy performed this morning and showed normal esophagus. Jejunal polyp biopsied Abdominal pain has resolved Continue Protonix (2) Acute blood loss anemia Current Visit: Yes Status: Acute Assessment and plan: 07/02/16 No source of bleed identified on EGD Hemoglobin stable relative to yesterday = 10.3 Patient had large, formed, normal appearing stool last night 07/01/16 Given possibility of duodenal ulcer on CT, decrease in hemoglobin, and Lovenox for deep DVT prophylaxis there is concern for acute bleed Gastroenterology has been consulted Discontinue Lovenox (3) Hydronephrosis Current Visit: Yes Status: Acute Assessment and plan: This is chronic Seen by urology who recommends outpatient consultation Qualifiers: Hydronephrosis type: with ureteropelvic junction obstruction Qualified Code (s): Q62.0 - Congenital hydronephrosis (4) Nausea & vomiting Current Visit: Yes Status: Acute Assessment and plan: Resolved We will continue PRN meds Qualifiers: Vomiting type: unspecified Vomiting Intractability: intractable Qualified Code(s): R11.2 - Nausea with vomiting, unspecified (5) DM2 (diabetes mellitus, type 2) Current Visit: No Status: Chronic Assessment and plan: Blood glucose this morning = 112 Continue current regimen Qualifiers: Diabetes mellitus complication status: with unspecified complications 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 Sales was seen and examined. She was sleeping in bed and groggy due to endoscopy this morning but arousable. She states that her abdominal pain is resolved. She denies other current complaints - Constitutional Vitals: Temp Pulse Resp BP Pulse Ox 97.1 F L 54 16 97/57 96 07/02/16 08:50 07/02/16 08:50 07/02/16 08:50 07/02/16 08:50 07/02/16 08:50 General appearance: Present: A&O X 3, no acute distress - Head Head exam: Present: atraumatic, normocephalic - Eye Eye exam: Present: PERRL, conjuntiva pink, sclera anicteric Pupils: Present: PERRL - Neck Neck exam general surgery: Present: supple, trachea midline. Absent: lymphadenopathy - Respiratory Respiratory exam: Present: CTAB. Absent: accessory muscle use, rales, rhonchi, wheezes - Cardiovascular Cardiovascular exam: Present: RRR, +S1, +S2. Absent: diastolic murmur, gallop, rubs, systolic murmur - GI/Abdominal GI/Abdominal exam: Present: normal bowel sounds, soft, no peritoneal signs. Absent: distended, tenderness - Extremities Exam Extremities exam: Present: warm, radial pulses palpable and symetrical. Absent : calf tenderness, cyanotic, pedal edema - Neurological Exam Neurological exam: Present: CN II-XII intact, oriented X3, no focal deficits. Absent: pronater drift, facial droop, speech deficit - Skin Skin exam: Present: dry, intact Internal Medicine: Result - Labs CBC & Chem 7: 07/02/16 03:18 07/02/16 03:18 Labs: Short CBC 07/02/16 Range/Units 03:18 WBC 4.4 (4.3-11.1) K/mcL Hgb 10.3 L (11.5-15.4) g/dL Hct 32.2 L (35.3-44.9) % Plt Count 158 (140-400) K/mcL BMP 07/02/16 03:18 Sodium 142 Potassium 3.8 Chloride 111 H Carbon Dioxide 23 BUN 8 Creatinine 0.71 Glucose 97 Calcium 8.3 L Consult Discharge Plan - Plan Referrals: Brittney Garrido MD [Primary Care Provider] - 07/08/16 10:00 am <Sahil Santos H - Last Filed: 07/02/16 09:46> - Constitutional Vitals: Temp Pulse Resp BP Pulse Ox 97.1 F L 58 16 106/66 96 02/15/17 08:50 07/02/16 09:14 07/02/16 09:14 07/02/16 09:14 07/02/16 09:14 Internal Medicine: Result - Labs CBC & Chem 7: 07/02/16 03:18 07/02/16 03:18 Labs: Short CBC 07/02/16 Range/Units 03:18 WBC 4.4 (4.3-11.1) K/mcL Hgb 10.3 L (11.5-15.4) g/dL Hct 32.2 L (35.3-44.9) % Plt Count 158 (140-400) K/mcL BMP 07/02/16 03:18 Sodium 142 Potassium 3.8 Chloride 111 H Carbon Dioxide 23 BUN 8 Creatinine 0.71 Glucose 97 Calcium 8.3 L - Attending Attestation Hb stable, resume full liq diet, npo after midnight for colonocopy I examined this patient and my medical decision-making was reviewed with the INDEPENDENT JEWELER/PA/Advanced Practice Nurse/Resident Physician. I agree with the documented findings, disposition and treatment plan as described except to the extent set forth below.
[2016-07-02] MEDS: Loratadine 10 MG TABLET PO SCH (09:24)
[2016-07-02] MEDS: Multivit/Ca/Min/Fe/FA 1 TAB TABLET PO SCH (09:24)
[2016-07-02] MEDS: Famotidine 20 MG TABLET PO SCH (09:24)
[2016-07-02] MEDS: Propranolol LA (24 HR) 60 MG CAP.SA.24H PO SCH (09:25)
--- NOTE | 2016-07-02 09:40 | Gastroenterology Consult Note ---
<Cande Mukherjee - Last Filed: 07/02/16 11:58> Date of Encounter: 07/02/16 Time of Encounter: 11:07 - Assessment and plan (1) Iron (Fe) deficiency anemia Current Visit: Yes Status: Chronic Assessment and plan: EGD negative for active source of bleeding. She follows with Hematology for chronic iron deficiency. Repeat Cscope tomorrow to complete evaluation. Qualifiers: Iron deficiency anemia type: other iron deficiency Qualified Code(s): D50.8 - Other iron deficiency anemias (2) Nausea & vomiting Current Visit: Yes Status: Acute Assessment and plan: EGD negative for findings to explain patient symptoms. 20 mm flat lesion seen in area of anastamosis from prior Maria Elena En Y gastric bypass, biopsied Holding for pathology. Qualifiers: Vomiting type: unspecified Vomiting Intractability: intractable Qualified Code(s): R11.2 - Nausea with vomiting, unspecified - Time Spent With Patient Total time spent is greater than 50% in coordination of care (as documented) at patient's floor/unit and/or counseling patient: less than 15 minutes GI History of Present Illness - Data of Consult Patient: new to practice Consult date: 07/02/16 Requesting Physician: Sahil Santos - Consult Narrative Reason for consult: abdominal pain, anemia History of present illness: Ms. Sales is a 65 year old female with PMH of HTN, HLD, CKD, DM2, recurrent UTIS/UPJ stenosis, hx of Maria Elena En Y gastric bypass, multiple hernia repairs, small bowel obstruction/intussuception. She presented to ED yesterday with abdominal pain nausea and vomiting. She reports that the abdominal pain started mildly on Thursday evening and she barely noticed it but it gradually increased and she started vomiting on Thursday evening today she was unable to keep anything down. Abdominal pain is worse, described as sharp, crampy, worse with vomiting. She also endorses chills and sweats, she denies any chest pain, palpitations, shortness breath. She reports mild dysuria. She denies any diarrhea. She was recently diagnosed with a UTI as an outpatient and was given a prescription for doxycycline. Evaluation in the emergency department included a CT of her abdomen and pelvis which showed a thickened appearance of the encarnacion of the duodenal bulb and pylorus with adjacent inflammatory changes suggestive of duodenitis, there is no free air that would suggest a perforated ulcer. Ulcer showed moderate right-sided hydronephrosis which is increased from prior exam and tapering at the right UPJ. ED physician spoke with patient' s urologist, Dr. West, who was not concerned with the hydronephrosis and stated she would have patient follow-up in the clinic later this week. Urinalysis was negative for infection. Patient continued to have nausea and vomiting despite antiemetics, and her blood pressure was elevated at one point 201/130. She was given IV fluids, IV labetalol to bring down her blood pressure. Her last Cscope/EGD was in [address] Bojorquez, EGD showed the large flat lesion seen in todays EGD again - biopsy revealed chemical gastritis. Cscope tubular adenoma and hyperplastic polyps - benign. She follows with Dr. Orosco in Hematology for chronic iron deficiency anemia. Patient states some dark stool recently at home, but not black. Denies other GI symptoms. Colonoscopy: 2013 - [facility] - tubular adenoma/hyperplastic polyp EGD: 2013 - [facility] - lesion at junction, chemical gastritis Past Med Surg Social Fam HX - Past Medical History Medical history: arthritis, diabetes, GERD, hyperlipidemia, hypertension, osteoporosis, renal disease, other Psychiatric history: anxiety, depression - Past Surgical History Surgical History: appendectomy, cholecystectomy, hysterectomy, ureteral stent, other - Social History Smoking Status: Former smoker Smokeless Tobacco Status: No Alcohol use: none Drug use: none - Family History Mother Living Status: Hx Family Cancer: Yes Hx Family Endocrine Disorder: Yes - Gastrointestinal NSAID use: None Anticoagulation Use: None Number of BM Per Day: daily to every other Gastrointestinal: Present: nausea, vomiting - Constitutional Constitutional: as per HPI - EENT Eyes: as per HPI Ears: Present: as per HPI Nose, mouth and throat: Present: as per HPI - Cardiovascular Cardiovascular ROS: Present: as per HPI - Respiratory Respiratory IM: Present: as per HPI - Neurological ROS Neurological GI: Present: as per HPI - Hematologic/Lymphatic Hematologic/Lymphatic pediatric: Present: as per HPI - Musculoskeletal Musculoskeletal ROS GI: Present: as per HPI - Integumentary Integumentary GI: Present: as per HPI - Psychiatric ROS Psychiatric GI: Present: as per HPI - Endocrine Endocrine IM: Present: as per HPI - Constitutional Vitals: Temp Pulse Resp BP Pulse Ox 97.1 F L 58 16 106/66 96 07/02/16 08:50 07/02/16 09:14 07/02/16 09:14 07/02/16 09:14 07/02/16 09:14 General appearance: Present: cooperative, A&O X 3, no acute distress, answers questions appropriately - Head Head exam: Present: atraumatic, normocephalic - Eye Eye exam: Present: normal appearance, sclera anicteric - ENT ENT exam: Present: mucous membranes moist - Neck Neck exam general surgery: Present: normal inspection, trachea midline - Respiratory Respiratory exam: Present: CTAB - Cardiovascular Cardiovascular exam: Present: RRR, +S1, +S2 - GI/Abdominal GI/Abdominal exam: Present: normal bowel sounds, soft, no peritoneal signs - Rectal Rectal exam: Present: deferred - Extremities Exam Extremities exam: Present: warm - Neurological Exam Neurological exam: Present: no focal deficits - Psychiatric Psychiatric exam: Present: normal affect, normal mood - Skin Skin exam: Present: dry, intact, normal color, warm Results - Labs CBC & Chem 7: 07/02/16 03:18 07/02/16 03:18 Labs: Last Result Calcium 8.3 mg/dL (8.6-10.8) L 07/02/16 03:18 Troponin I 0.01 ng/mL (0-0.03) 06/30/16 09:02 Entire Visit Hgb 10.3 g/dL (11.5-15.4) L 07/02/16 03:18 Hct 32.2 % (35.3-44.9) L 07/02/16 03:18 Total Bilirubin 0.4 mg/dL (0.2-1.2) 06/30/16 09:02 AST 34 Units/L (5-34) 06/30/16 09:02 ALT 32 Units/L (0-55) 06/30/16 09:02 Consult Discharge Plan - Plan Referrals: Brittney Garrido MD [Primary Care Provider] - 07/08/16 10:00 am <Talon Bojorquez - Last Filed: 07/02/16 21:22> Time of Encounter: 10:00 - Time Spent With Patient Total time spent is greater than 50% in coordination of care (as documented) at patient's floor/unit and/or counseling patient: GI History of Present Illness - Data of Consult Requesting Physician: Sahil Santos - Consult Narrative History of present illness: Ms. Sales is a 65 year old female - Constitutional Vitals: Temp Pulse Resp BP Pulse Ox 98.2 F 85 14 152/82 100 07/02/16 19:38 07/02/16 19:38 07/02/16 19:38 07/02/16 19:38 07/02/16 19:38 Results - Labs CBC & Chem 7: 07/02/16 03:18 07/02/16 03:18 Labs: Last Result Calcium 8.3 mg/dL (8.6-10.8) L 07/02/16 03:18 Troponin I 0.01 ng/mL (0-0.03) 06/30/16 09:02 Entire Visit Hgb 10.3 g/dL (11.5-15.4) L 07/02/16 03:18 Hct 32.2 % (35.3-44.9) L 07/02/16 03:18 Total Bilirubin 0.4 mg/dL (0.2-1.2) 06/30/16 09:02 AST 34 Units/L (5-34) 06/30/16 09:02 ALT 32 Units/L (0-55) 06/30/16 09:02 - Attending Attestation I examined this patient and my medical decision-making was reviewed with the VIDEO CONTROL ENGINEER/PA/Advanced Practice Nurse/Resident Physician. I agree with the documented findings, disposition and treatment plan as described except to the extent set forth below.
[2016-07-02] MEDS ORDERED: SODIUM CHLORIDE/NAHCO3/KCL/PEG 4,000 ML SOLN.RECON PO ONE (17:00)
[2016-07-02] MEDS: Insulin DETEMIR 100 UNIT/ML X5UNITS SQ SCH (22:07)
[2016-07-03] MEDS: Insulin LISPRO 300 UNITS/3 ML VIAL SQ SCH ×2 (00:38→05:22)
[2016-07-03] MEDS: 0.9 % Sodium Chloride 1,000 ML IVC SCH (03:03)
[2016-07-03] MEDS: Pantoprazole 40 MG in 0.9 % Sodium Chloride Mini Bag 100 ML IVC SCH (04:16)
[2016-07-03 04:40] LABS: Hematocrit 31.9 % (35.3-44.9); Hemoglobin 10.1 g/dL (11.5-15.4); Mean Corpuscular HGB Conc 31.7 g/dL (31.6-35.5); Mean Corpuscular Hemoglobin 29.4 pg (28.0-33.3); Mean Platelet Volume 11.1 fL (9.4-12.4); Platelet Count 148 K/mcL (140-400); Red Blood Count 3.43 M/mcL (3.82-4.97); Red Cell Distribution Width 12.8 % (11.5-14.5)
[2016-07-03 04:54] LABS: BUN/Creatinine Ratio 6 (6-26); Calcium 8.2 mg/dL (8.6-10.8); Carbon Dioxide 25 mEq/L (19-29); Chloride 111 mEq/L (98-109); Glucose 96 mg/dL (70-99); Osmolality,Calculated 291 (280-300); Potassium 3.5 mEq/L (3.5-4.5); Sodium 142 mEq/L (136-145); eGFR For African Americans > 60 (> 60); eGFR For Non-African Americans > 60 (> 60)
[2016-07-03 04:56] LABS: Blood Urea Nitrogen 4 mg/dL (7-20)
[2016-07-03] MEDS ORDERED: *HR* Midazolam HCl 5 MG/5 ML VIAL IVP ONE (06:58)
[2016-07-03] MEDS ORDERED: *HR* FentaNYL (PF) 100 MCG/2 ML VIAL ONE (06:58)
[2016-07-03] MEDS ORDERED: 0.9 % Sodium Chloride 500 ML IVC SCH (07:15)
[2016-07-03] MEDS ORDERED: *HR* FentaNYL (PF) 100 MCG/2 ML VIAL IVP PRN (08:05)
[2016-07-03] MEDS ORDERED: *HR* Midazolam HCl 5 MG/5 ML VIAL IVP PRN (08:05)
[2016-07-03] MEDS ORDERED: Simethicone 40 MG/0.6 ML MLS IR ONE (08:05)
[2016-07-03] MEDS: Loratadine 10 MG TABLET PO SCH (08:19)
[2016-07-03] MEDS: Propranolol LA (24 HR) 60 MG CAP.SA.24H PO SCH (08:20)
[2016-07-03] MEDS: Multivit/Ca/Min/Fe/FA 1 TAB TABLET PO SCH (08:20)
[2016-07-03] MEDS: Famotidine 20 MG TABLET PO SCH (08:20)
--- NOTE | 2016-07-03 08:22 | Internal Med Progress Note ---
Date of Encounter: 07/03/16 Time of Encounter: 08:18 - Assessment and plan (1) Duodenitis Current Visit: Yes Status: Acute Assessment and plan: Colonoscopy this morning was normal Upper GI endoscopy yesterday was normal Abdominal pain has resolved Continue Protonix (2) Acute blood loss anemia Current Visit: Yes Status: Acute Assessment and plan: 07/03/16 No source of bleed identified on colonoscopy Continue PPI 07/02/16 No source of bleed identified on EGD Hemoglobin stable relative to yesterday = 10.3 Patient had large, formed, normal appearing stool last night 07/01/16 Given possibility of duodenal ulcer on CT, decrease in hemoglobin, and Lovenox for deep DVT prophylaxis there is concern for acute bleed Gastroenterology has been consulted Discontinue Lovenox (3) Hydronephrosis Current Visit: Yes Status: Acute Assessment and plan: This is chronic Seen by urology who recommends outpatient consultation Qualifiers: Hydronephrosis type: with ureteropelvic junction obstruction Qualified Code (s): Q62.0 - Congenital hydronephrosis (4) Nausea & vomiting Current Visit: Yes Status: Acute Assessment and plan: Resolved We will continue PRN meds Qualifiers: Vomiting type: unspecified Vomiting Intractability: intractable Qualified Code(s): R11.2 - Nausea with vomiting, unspecified (5) DM2 (diabetes mellitus, type 2) Current Visit: No Status: Chronic Assessment and plan: Blood glucose this morning = 96 Continue low dose sliding scale Qualifiers: Diabetes mellitus complication status: with unspecified complications 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 Sales was seen and examined. She was sleeping in bed and groggy due to colonoscopy this morning but arousable. She states that her abdominal pain is resolved. She denies other current complaints - Constitutional Vitals: Temp Pulse Resp BP Pulse Ox 98.9 F 75 16 142/78 99 07/03/16 08:00 07/03/16 08:00 07/03/16 08:00 07/03/16 08:00 07/03/16 08:00 General appearance: Present: A&O X 3, no acute distress - Head Head exam: Present: atraumatic, normocephalic - Eye Eye exam: Present: PERRL, conjuntiva pink, sclera anicteric Pupils: Present: PERRL - Neck Neck exam general surgery: Present: supple, trachea midline. Absent: lymphadenopathy - Respiratory Respiratory exam: Present: CTAB. Absent: accessory muscle use, rales, rhonchi, wheezes - Cardiovascular Cardiovascular exam: Present: RRR, +S1, +S2. Absent: diastolic murmur, gallop, rubs, systolic murmur - GI/Abdominal GI/Abdominal exam: Present: normal bowel sounds, soft, no peritoneal signs. Absent: distended, tenderness - Extremities Exam Extremities exam: Present: warm, radial pulses palpable and symetrical. Absent : calf tenderness, cyanotic, pedal edema - Neurological Exam Neurological exam: Present: CN II-XII intact, oriented X3, no focal deficits. Absent: pronater drift, facial droop, speech deficit - Skin Skin exam: Present: dry, intact Internal Medicine: Result - Labs CBC & Chem 7: 07/03/16 04:13 07/03/16 04:13 Labs: Short CBC 07/03/16 Range/Units 04:13 WBC 3.8 L (4.3-11.1) K/mcL Hgb 10.1 L (11.5-15.4) g/dL Hct 31.9 L (35.3-44.9) % Plt Count 148 (140-400) K/mcL BMP 07/03/16 04:13 Sodium 142 Potassium 3.5 Chloride 111 H Carbon Dioxide 25 BUN 4 L Creatinine 0.72 Glucose 96 Calcium 8.2 L Consult Discharge Plan - Plan Referrals: Brittney Garrido MD [Primary Care Provider] - 07/08/16 10:00 am
--- NOTE | 2016-07-03 08:48 | Discharge Summary ---
<CrescencioJason romero Viktor - Last Filed: 07/03/16 08:45> Date of Encounter: 07/03/16 Time of Encounter: 08:45 - Discharge Diagnosis (1) Duodenitis Priority: Primary Status: Acute (2) Acute blood loss anemia Priority: Primary Status: Acute (3) Hydronephrosis Priority: Secondary Status: Acute Qualifiers: Hydronephrosis type: with ureteropelvic junction obstruction Qualified Code (s): Q62.0 - Congenital hydronephrosis (4) Nausea & vomiting Priority: Secondary Status: Acute Qualifiers: Vomiting type: unspecified Vomiting Intractability: intractable Qualified Code(s): R11.2 - Nausea with vomiting, unspecified (5) DM2 (diabetes mellitus, type 2) Priority: Secondary Status: Chronic Qualifiers: Diabetes mellitus complication status: with unspecified complications Diabetes mellitus penitentiary insulin use: without penitentiary use Qualified Code( s): E11.8 - Type 2 diabetes mellitus with unspecified complications (6) Hypertension Priority: Secondary Status: Chronic Qualifiers: Hypertension type: essential hypertension Qualified Code(s): I10 - Essential (primary) hypertension (7) DVT prophylaxis Priority: Secondary Status: Acute - Discharge Medications Prescriptions: Ondansetron HCl [Zofran] 4 mg PO Q8HR PRN #10 tablet PRN Reason: Nausea And Vomiting Pantoprazole Sodium [Protonix] 40 mg PO DAILY #30 tablet.dr Home Medications: Docusate [Colace] 100 mg PO HS 12/21/14 [History] Polyethylene Glycol 3350 [MiraLAX] 17 gm PO DAILY PRN 12/21/14 [History] Sertraline HCl [Zoloft] 100 mg PO DAILY 12/21/14 [History] Simvastatin [Zocor] 40 mg PO DAILY 12/21/14 [History] Cyanocobalamin (Vitamin B-12) [Vitamin B-12] 1,000 mcg PO QMONTH 12/08/15 [ History] Enalapril Maleate [Vasotec] 5 mg PO DAILY 12/08/15 [History] Mv-Mn/FA/Vit K1/Lycop/Lut/Zeax [Ocuvite Eye + Multi Tablet] 1 tab PO DAILY 12/07 [History] Propranolol HCl 60 mg PO DAILY 12/08/15 [History] SitaGLIPtin [Januvia] 100 mg PO DAILY 03/06/16 [History] Loratadine [Allergy Relief] 10 mg PO DAILY 06/21/16 [History] Ondansetron HCl [Zofran] 4 mg PO Q8HR PRN #10 tablet 07/03/16 [Rx] Pantoprazole Sodium [Protonix] 40 mg PO DAILY #30 tablet. 07/03/16 [Rx] Allergies/Adverse Reactions: Allergies Nickel Allergy (Mild, Verified 06/30/16 15:00) Hives codeine Allergy (Verified 06/30/16 15:00) Hives Erythromycin Base Allergy (Verified 06/30/16 15:00) Rash nitrofurantoin [From Macrobid] Allergy (Verified 06/30/16 15:00) Rash Quaternium Allergy (Verified 06/30/16 15:00) Rash sulfamethoxazole [From Bactrim] Allergy (Verified 06/30/16 15:00) Rash trimethoprim [From Bactrim] Allergy (Verified 06/30/16 15:00) Rash Sulfa (Sulfonamide Antibiotics) Adverse Reaction (Verified 06/30/16 15:00) Hallucinating Date of admission: 06/30/16 15:23 Primary care physician: Brittney Garrido, Consults: 07/01/16 17:08 Consult to Gastroenterology [CONS] Routine Consulting Provider: Gastroenterology Cece Reason for Consult: Acute abdominal pain, duodenitis and possible ulcer on CT , Hgb decreased from 14 to 10, on lovenox for DVT prophylaxis now discontinued. Request consideration for consideration of EGD. thank you Call Completed: Yes Discharging clinician: Sahil Santos Anticipated date of discharge: 07/03/16 - Patient Status Disposition: Home, Self-Care Condition: Good Functional capacity at discharge: independent ambulation Overall status at discharge: patient is back to baseline - Discharge Instructions Follow Up With: Brittney Garrido MD [Primary Care Provider] - 07/08/16 10:00 am Additional Instructions: Follow with Primary care physician within 7 days. Follow with GI in 3 weeks. Continue taking pantoprazole. - Diet and Activity Activity: increase activity as tolerated Diet: diabetic diet Interval History: Ms. Sales was seen and examined this morning. Her abdominal pain has completely resolved and she denies any other complaints Hospital course: Ms. Sales is a 65 year old female with past medical history of hypertension, hyperlipidemia, CAD, type 2 diabetes, chronic UPJ stenosis, recurrent UTIs, gastric bypass who presented to the ED 06/30 complaining of severe abdominal pain with nausea/vomiting. She had a recent UTI and was given doxycycline as an outpatient. CT scan of the abdomen showed thickening of the duodenum + pylorus with inflammation suspicious for duodenitis and/or ulcer. There was no free air to indicate perforation. The CT scan also showed right-sided hydronephrosis for which urologist Dr. West was consulted who recommended outpatient follow-up. For her abdominal symptoms she was given fluids, made nothing by mouth, started on Protonix, and given IV Zofran/Phenergan when necessary. She underwent EGD 07/01 which was normal with the exception of a jejunal polyp which was biopsied. She also underwent colonoscopy 07/02 which was normal. She did have an episode of hypertension with blood pressure as high as 201/130 which resolved with IV fluids and beta blockers and remained stable during the rest of her hospitalization. Her blood sugars remained well-controlled throughout her hospital stay - Time Spent with Patient Total time spent providing and/or coordinating discharge services: - Constitutional Vitals: Temp Pulse Resp BP Pulse Ox 97.4 F L 60 20 116/73 98 07/03/16 08:24 07/03/16 08:24 07/03/16 08:24 07/03/16 08:24 07/03/16 08:24 General appearance: Present: A&O X 3, no acute distress - Head Head exam: Present: atraumatic, normocephalic - Eye Eye exam: Present: PERRL, conjuntiva pink, sclera anicteric Pupils: Present: PERRL - Neck Neck exam general surgery: Present: supple, trachea midline. Absent: lymphadenopathy - Respiratory Respiratory exam: Present: CTAB. Absent: accessory muscle use, rales, rhonchi, wheezes - Cardiovascular Cardiovascular exam: Present: RRR, +S1, +S2. Absent: diastolic murmur, gallop, rubs, systolic murmur - GI/Abdominal GI/Abdominal exam: Present: normal bowel sounds, soft, no peritoneal signs. Absent: distended, tenderness - Extremities Exam Extremities exam: Present: warm, radial pulses palpable and symetrical. Absent : calf tenderness, cyanotic, pedal edema - Neurological Exam Neurological exam: Present: CN II-XII intact, oriented X3, no focal deficits. Absent: pronater drift, facial droop, speech deficit - Skin Skin exam: Present: dry, intact <Sahil Santos - Last Filed: 07/03/16 10:24> Date of admission: 06/30/16 15:23 Primary care physician: Brittney Garrido, Consults: 07/01/16 17:08 Consult to Gastroenterology [CONS] Routine Consulting Provider: Gastroenterology Cece Reason for Consult: Acute abdominal pain, duodenitis and possible ulcer on CT , Hgb decreased from 14 to 10, on lovenox for DVT prophylaxis now discontinued. Request consideration for consideration of EGD. thank you Call Completed: Yes - Patient Status Functional capacity at discharge: independent ambulation Overall status at discharge: patient is back to baseline - Diet and Activity Activity: increase activity as tolerated Diet: low fat, low cholesterol Hospital course: Ms. Sales is a 65 year old female - Time Spent with Patient Total time spent providing and/or coordinating discharge services: Greater than 30 minutes (40 min) - Constitutional Vitals: Temp Pulse Resp BP Pulse Ox 97.7 F 55 20 117/66 95 07/03/16 08:50 07/03/16 08:50 07/03/16 08:50 07/03/16 08:50 07/03/16 08:50 - Attending Attestation Abdominal pain of unclear etiology. Colonoscopy showed diverticulosis. Unlikely duodenitis. Jejunal polyp removed, follow final report of biopsy with GI. I examined this patient and my medical decision-making was reviewed with the SQL APPLICATION DEVELOPER/PA/Advanced Practice Nurse/Resident Physician. I agree with the documented findings, disposition and treatment plan as described except to the extent set forth below.
[2016-07-03 08:52] VITALS: BP 117/66
[2016-07-03] MEDS ORDERED: Insulin LISPRO 300 UNITS/3 ML VIAL SQ SCH ×2 (11:30→21:00)
== END 2016-07-03 12:32 | disposition home or self-care (01) ==
LOC: EMEROO 08:17 → 3ANU 08:17 → SUATTDRO 15:23 → 3ANU 16:00
PROVIDERS: ADMIT Nurse Practitioner Family; ATTEND Internal Medicine
PROC: ENDOEBX (2016-07-02 08:00)

== ENCOUNTER 2016-07-17 11:54 | Observation (INO) ==
[2016-07-17] MEDS ORDERED: 0.9 % Sodium Chloride 1,000 ML IVC ONE ×2 (12:13→14:36)
[2016-07-17] MEDS ORDERED: *HR* FentaNYL (PF) 100 MCG/2 ML VIAL IVP ONE (12:13)
[2016-07-17] MEDS ORDERED: *HR* Promethazine 25 MG/ML VIAL IVP ONE (12:13)
--- NOTE | 2016-07-17 12:21 | Emergency Department Note ---
Disposition Clinical Impression: Intractable nausea and vomiting, Duodenitis Disposition: Admitted As Inpatient Condition: Good Nausea/Vomiting/Diarrhea HPI - General Chief complaint: ED Nausea/Vomiting/Diarrhea Stated complaint: N/V Fever Time Seen by Provider: 07/17/16 11:59 Source: patient, family Mode of arrival: wheelchair Limitations: no limitations Nursing Notes Reviewed: Yes Vital Signs Reviewed: Yes - History of Present Illness HPI Narrative: 65-year-old female with history of hypertension, diabetes, duodenitis who presents to the ER with a chief complaint of nausea vomiting abdominal pain. Patient states that she was recently here and admitted twice within the last few weeks. She states that she had duodenitis at that time. She states that she went home and was feeling somewhat better but has had recurring nausea vomiting and abdominal pain for the last few days. She states that she has early Anything down during that time. No fevers or diarrhea with this. She does report a surgical history of epigastric [place] Y, cholecystectomy, appendectomy, hernia repairs. Patient reports she has Zofran at home but that was not helping. No other complaints. Pt Subjective Complaint: nausea, vomiting, abdominal pain Onset (ago): day(s) Description of emesis: watery, bilious If pain, Location of pain: LUQ, LLQ Severity: moderate Quality: stabbing Consistency: intermittent Improves with: nothing Worsens with: other (Palpation) Context: history of abdominal surgery Associated symptoms: Reports: nausea/vomiting, other (abdominal pain). Denies: chest pain - Related Data Home Medications Medication Instructions Recorded Confirmed Docusate [Colace] 100 mg PO HS 12/21/14 07/17/16 Polyethylene Glycol 3350 [MiraLAX] 17 gm PO DAILY PRN 12/21/14 07/17/16 Sertraline HCl [Zoloft] 100 mg PO DAILY 12/21/14 07/17/16 Simvastatin [Zocor] 40 mg PO DAILY 12/21/14 07/17/16 Cyanocobalamin (Vitamin B-12) 1,000 mcg PO QMONTH 12/08/15 07/17/16 [Vitamin B-12] Enalapril Maleate [Vasotec] 5 mg PO DAILY 12/08/15 07/17/16 Mv-Mn/FA/Vit K1/Lycop/Lut/Zeax 1 tab PO DAILY 12/08/15 07/17/16 [Ocuvite Eye + Multi Tablet] Propranolol HCl 60 mg PO DAILY 12/08/15 07/17/16 SitaGLIPtin [Januvia] 100 mg PO DAILY 03/06/16 07/17/16 Loratadine [Allergy Relief] 10 mg PO DAILY 06/21/16 07/17/16 Previous Rx's Medication Instructions Recorded Pantoprazole Sodium [Protonix] 40 mg PO DAILY #30 tablet. 07/03/16 Allergies Allergy/AdvReac Type Severity Reaction Status Date / Time Nickel Allergy Mild Hives Verified 06/30/16 15:00 codeine Allergy Hives Verified 06/30/16 15:00 Erythromycin Base Allergy Rash Verified 06/30/16 15:00 nitrofurantoin Allergy Rash Verified 06/30/16 15:00 [From Macrobid] Quaternium Allergy Rash Verified 06/30/16 15:00 sulfamethoxazole Allergy Rash Verified 06/30/16 15:00 [From Bactrim] trimethoprim [From Bactrim] Allergy Rash Verified 06/30/16 15:00 Sulfa (Sulfonamide AdvReac Hallucinati Verified 06/30/16 15:00 Antibiotics) ng All systems ED: reviewed and negative except as stated. Constitutional: Denies: fever Cardiovascular: Denies: chest pain Respiratory: Denies: cough Gastrointestinal: Reports: abdominal pain, nausea, vomiting. Denies: diarrhea Genitourinary: Denies: urgency, dysuria Past Medical History - Past Medical History Attestation: Yes The following information was validated with the patient. 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 OVER [employer]PER[employer]OR history - Social History Smoking Status: Former smoker Smokeless Tobacco Status: No Alcohol use: Reports: none Drug use: Reports: none Physical Exam - General Limitations: no limitations General appearance: alert, in no apparent distress - Head Head exam: atraumatic, normocephalic, normal inspection - Eye Eye exam: Present: normal appearance, EOMI - ENT ENT exam: normal exam - Neck Neck exam: Present: normal inspection - Chest Chest inspection: Present: normal inspection, symmetric chest wall rise - Respiratory Respiratory exam: Present: normal lung sounds bilaterally - Cardiovascular Cardiovascular exam: Present: regular rate, normal rhythm, normal heart sounds - Abdominal Exam Abdominal exam: Present: soft, tenderness (Patient has tenderness to the left upper and lower quadrants with grimacing to palpation. No rigidity or distention.) - Extremities Exam Extremities exam: Present: normal inspection, full ROM - Expanded Lower Extremity Exam Hip/Pelvis exam: Present: normal inspection, full ROM Upper leg exam: Present: normal inspection, full ROM Knee exam: Present: normal inspection, full ROM Lower leg exam: Present: normal inspection, full ROM Ankle exam: Present: normal inspection, full ROM Foot/toe exam: Present: normal inspection, full ROM - Neurological Exam Neurological exam: Present: alert - Psychiatric Psychiatric exam: Present: normal affect, normal mood - Skin Skin exam: Present: warm, dry, intact, normal color Course Course Narrative: Patient seen and examined. Vital signs reviewed. I reviewed her recent admission at which time she had an EGD and colonoscopy. Patient was evaluated by gastroenterology. Given her history of gastric bypass, multiple hernia repairs we will proceed with a CT scan of the abdomen and pelvis for rule out of intra-abdominal catastrophe, ulceration or perforation from her duodenitis. We will give some IV fluids, antiemetics and pain medications here. Disposition pending. - Reevaluation(s) Reevaluation #1: Patient feeling better after fentanyl. She reports that she is still nauseated so we will give her some Zofran. I discussed results of her laboratory and imaging with her. Vital Signs Temperature 98.6 F 07/17/16 11:56 Pulse Rate 87 07/17/16 11:56 Respiratory Rate 18 07/17/16 11:56 Blood Pressure 201/102 07/17/16 11:56 O2 Sat by Pulse Oximetry 100 07/17/16 11:56 Temperature 98.6 F 07/17/16 11:56 Pulse Rate 94 07/17/16 15:29 Respiratory Rate 16 07/17/16 18:01 Blood Pressure 179/89 07/17/16 18:01 O2 Sat by Pulse Oximetry 94 L 07/17/16 15:29 Oxygen Delivery Oxygen Delivery Room Air Nausea/Vomiting/Diarrhea - MDM Narrative Medical decision making narrative: 65-year-old female presents to the ER due to nausea vomiting abdominal pain. She has a significant surgical history and has had recent admission for similar presentation. Her CT scan here shows continued thickening of the duodenum. She is unable to keep anything down and has required multiple medications for nausea. Patient given 2 L normal saline here. Patient will be admitted to the hospital for intractable nausea and vomiting, suspected duodenitis. - Lab Data Lab results reviewed: Yes I reviewed the patient's lab results. Result diagrams: 07/17/16 13:37 07/17/16 13:37 Lab Results 07/17/16 07/17/16 07/17/16 Range/Units 13:37 13:37 13:45 WBC 7.5 (4.3-11.1) K/mcL RBC 4.95 (3.82-4.97) M/mcL Hgb 14.8 (11.5-15.4) g/dL Hct 43.9 (35.3-44.9) % MCV 88.7 (83.0-100.0) fL MCH 29.9 (28.0-33.3) pg MCHC 33.7 (31.6-35.5) g/dL RDW 12.7 (11.5-14.5) % Plt Count 190 (140-400) K/mcL MPV 11.4 (9.4-12.4) fL Immature Gran % 0.4 (0-4) % Seg Neutrophils % 88.1 % Lymphocytes % 6.6 % Monocytes % 4.5 % Eosinophils % 0.0 % Basophils % 0.4 % Neutrophils # 6.6 (1.6-8.9) K/mcL Lymphocytes # 0.5 L (0.6-4.6) K/mcL Monocytes # 0.3 (0.0-1.3) K/mcL Eosinophils # 0.0 (0.0-0.6) K/mcL Basophils # 0.0 (0.0-0.2) K/mcL VBG pH (7.32-7.42) pH Units VBG pCO2 (41-51) mmHg VBG pO2 (25-40) mmHg VBG HCO3 (21-27) mEq/L Sodium 139 (136-145) mEq/L Potassium 4.7 H (3.5-4.5) mEq/L Chloride 104 (98-109) mEq/L Carbon Dioxide 21 (19-29) mEq/L BUN 13 (7-20) mg/dL Creatinine 0.92 (0.57-1.11) mg/dL Est GFR ( Amer) > 60 (> 60) Est GFR (Non-Af Amer) > 60 (> 60) BUN/Creatinine Ratio 14 (6-26) Glucose 276 H (70-99) mg/dL Calculated Osmolality 298 (280-300) Calcium 8.8 (8.6-10.8) mg/dL Total Bilirubin 0.5 (0.2-1.2) mg/dL Direct Bilirubin 0.2 (0.0-0.5) mg/dL Indirect Bilirubin 0.3 (0.0-1.2) mg/dL AST 30 (5-34) Units/L ALT 20 (0-55) Units/L Alkaline Phosphatase 80 (38-126) Units/L Serum Total Protein 7.3 (6.0-8.3) g/dL Albumin 3.6 (3.5-5.0) g/dL Globulin 3.7 H (2.4-3.5) g/dL Albumin/Globulin Ratio 1.0 L (1.1-2.2) Lipase 19 (8-78) Units/L Urine Color Yellow (Yellow) Urine Clarity Clear (Clear) Urine pH 7.0 (5.0-8.0) pH Units Ur Specific [place] 1.013 (1.010-1.025) Urine Protein 100 H (Neg-Trace) mg/dL Urine Glucose (UA) >=1000 H (Normal) mg/dL Urine Ketones Trace H (Negative) mg/dL Urine Blood Negative (Negative) Urine Nitrite Negative (Negative) Urine Bilirubin Negative (Negative) Urine Urobilinogen Normal (Normal) mg/dL Ur Leukocyte Esterase Negative (Negative) Urine Microscopic RBC 0-3 (0-3) per hpf Urine Microscopic WBC 0-3 (0-3) per hpf Ur Squamous Epith Cells Few (None-Few) per lpf Urine Bacteria None Seen (None-Few) per hpf Hyaline Casts None Seen (None-Few) per lpf Ur Culture Indicated? NO (NO) 07/17/16 Range/Units 14:25 WBC (4.3-11.1) K/mcL RBC (3.82-4.97) M/mcL Hgb (11.5-15.4) g/dL Hct (35.3-44.9) % MCV (83.0-100.0) fL MCH (28.0-33.3) pg MCHC (31.6-35.5) g/dL RDW (11.5-14.5) % Plt Count (140-400) K/mcL MPV (9.4-12.4) fL Immature Gran % (0-4) % Seg Neutrophils % % Lymphocytes % % Monocytes % % Eosinophils % % Basophils % % Neutrophils # (1.6-8.9) K/mcL Lymphocytes # (0.6-4.6) K/mcL Monocytes # (0.0-1.3) K/mcL Eosinophils # (0.0-0.6) K/mcL Basophils # (0.0-0.2) K/mcL VBG pH 7.42 (7.32-7.42) pH Units VBG pCO2 42 (41-51) mmHg VBG pO2 75 H (25-40) mmHg VBG HCO3 27.2 H (21-27) mEq/L Sodium (136-145) mEq/L Potassium (3.5-4.5) mEq/L Chloride (98-109) mEq/L Carbon Dioxide (19-29) mEq/L BUN (7-20) mg/dL Creatinine (0.57-1.11) mg/dL Est GFR ( Amer) (> 60) Est GFR (Non-Af Amer) (> 60) BUN/Creatinine Ratio (6-26) Glucose (70-99) mg/dL Calculated Osmolality (280-300) Calcium (8.6-10.8) mg/dL Total Bilirubin (0.2-1.2) mg/dL Direct Bilirubin (0.0-0.5) mg/dL Indirect Bilirubin (0.0-1.2) mg/dL AST (5-34) Units/L ALT (0-55) Units/L Alkaline Phosphatase (38-126) Units/L Serum Total Protein (6.0-8.3) g/dL Albumin (3.5-5.0) g/dL Globulin (2.4-3.5) g/dL Albumin/Globulin Ratio (1.1-2.2) Lipase (8-78) Units/L Urine Color (Yellow) Urine Clarity (Clear) Urine pH (5.0-8.0) pH Units Ur Specific [place] (1.010-1.025) Urine Protein (Neg-Trace) mg/dL Urine Glucose (UA) (Normal) mg/dL Urine Ketones (Negative) mg/dL Urine Blood (Negative) Urine Nitrite (Negative) Urine Bilirubin (Negative) Urine Urobilinogen (Normal) mg/dL Ur Leukocyte Esterase (Negative) Urine Microscopic RBC (0-3) per hpf Urine Microscopic WBC (0-3) per hpf Ur Squamous Epith Cells (None-Few) per lpf Urine Bacteria (None-Few) per hpf Hyaline Casts (None-Few) per lpf Ur Culture Indicated? (NO) - Radiology Data Radiology results reviewed: Yes I reviewed the patient's radiology results. Abdomen/Pelvis CT 07/17/16 12:33 IMPRESSION: 1. Apparent wall thickening involving the first portion of the duodenum demonstrated on previously performed CT of June 2016 remains. Duodenitis remains a differential consideration, and direct visualization is recommended. There is also esophageal wall-thickening that is better delineated with contrast administration on the current examination. 2. Redemonstrated right-sided hydronephrosis. 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 Finding is longstanding, dating back to at least 2008. The need for urology referral should be determined clinically. If further evaluation to delineate this finding with imaging is needed, CT angiography of the abdomen should be considered. Please request "Dr. Kenny Beck, [facility] Radiology" protocol in the ordering instructions. D/ / 07/17/2016 15:26:19 Kenny Beck / kobe Interpreting Provider: Kenny Beck Attestation Statement - Attestation Attestation: I examined this patient and my medical decision-making was reviewed with the PERFORMANCE ENGINEER/PA/Advanced Practice Nurse/Resident Physician. I agree with the documented findings, disposition and treatment plan as described except to the extent set forth below. Patient emergency department complaining of not feeling well. Abdominal pain and vomiting. Patient states she thinks that her duodenum is inflamed. Vomiting. Patient has a history of a gastric bypass surgery. On exam she is awake and alert. Upper abdominal tenderness. Plan. Labs and CT scan. CT scan shows continued duodenitis. Patient still not feeling well. Admitted to medicine.
[2016-07-17 13:47] LABS: Basophils % 0.4 %; Hematocrit 43.9 % (35.3-44.9); Hemoglobin 14.8 g/dL (11.5-15.4); Immature Granulocytes % 0.4 % (0-4); Lymphocytes # 0.5 K/mcL (0.6-4.6); Lymphocytes % 6.6 %; Mean Corpuscular HGB Conc 33.7 g/dL (31.6-35.5); Mean Corpuscular Hemoglobin 29.9 pg (28.0-33.3); Mean Corpuscular Volume 88.7 fL (83.0-100.0); Mean Platelet Volume 11.4 fL (9.4-12.4); Monocytes # 0.3 K/mcL (0.0-1.3); Monocytes % 4.5 %; Neutrophils # 6.6 K/mcL (1.6-8.9); Platelet Count 190 K/mcL (140-400); Red Blood Count 4.95 M/mcL (3.82-4.97); Red Cell Distribution Width 12.7 % (11.5-14.5); Segmented Neutrophils % 88.1 %
[2016-07-17 13:53] LABS: Bilirubin,Urine Negative (Negative); Blood,Urine Negative (Negative); Clarity,Urine Clear (Clear); Color,Urine Yellow (Yellow); Glucose,Urine (UA) >=1000 mg/dL (Normal); Ketones,Urine Trace mg/dL (Negative); Leukocyte Esterase,Urine Negative (Negative); Nitrite,Urine Negative (Negative); Protein,Urine 100 mg/dL (Neg-Trace); Specific Gravity,Urine 1.013 (1.010-1.025); Urobilinogen,Urine Normal (Normal)
[2016-07-17 13:56] LABS: Bacteria,Urine None Seen per hpf (None-Few); Hyaline Casts,Urine None Seen per lpf (None-Few); RBC,Urine 0-3 per hpf (0-3); Squamous Epithelial Cell,Urine Few per lpf (None-Few); WBC,Urine 0-3 per hpf (0-3)
[2016-07-17 14:00] LABS: Alanine Aminotransferase 20 Units/L (0-55); Albumin 3.6 g/dL (3.5-5.0); Alkaline Phosphatase 80 Units/L (38-126); Aspartate Amino Transferase 30 Units/L (5-34); BUN/Creatinine Ratio 14 (6-26); Bilirubin,Direct 0.2 mg/dL (0.0-0.5); Bilirubin,Indirect 0.3 mg/dL (0.0-1.2); Bilirubin,Total 0.5 mg/dL (0.2-1.2); Blood Urea Nitrogen 13 mg/dL (7-20); Calcium 8.8 mg/dL (8.6-10.8); Carbon Dioxide 21 mEq/L (19-29); Chloride 104 mEq/L (98-109); Globulin 3.7 g/dL (2.4-3.5); Glucose 276 mg/dL (70-99); Lipase 19 Units/L (8-78); Osmolality,Calculated 298 (280-300); Sodium 139 mEq/L (136-145); Total Protein 7.3 g/dL (6.0-8.3); eGFR For African Americans > 60 (> 60); eGFR For Non-African Americans > 60 (> 60)
[2016-07-17 14:02] LABS: Potassium 4.7 mEq/L (3.5-4.5)
[2016-07-17] MEDS ORDERED: *HR* Labetalol 20 MG/4 ML SYRINGE IVP ONE (14:36)
[2016-07-17 14:38] LABS: VBG HCO3 27.2 mEq/L (21-27); VBG PH 7.42 pH Units (7.32-7.42)
[2016-07-17] MEDS ORDERED: Ondansetron 4 MG/2 ML VIAL IVP ONE (15:51)
[2016-07-17] MEDS ORDERED: Ondansetron 4 MG/2 ML VIAL IVP PRN (17:38)
[2016-07-17] MEDS ORDERED: Acetaminophen 325 MG TABLET PO PRN (17:38)
[2016-07-17] MEDS ORDERED: Ketorolac 30 MG/ML VIAL IVP PRN (17:38)
[2016-07-17] MEDS ORDERED: MOM Conc 10 ML UD.LIQ PO PRN (17:38)
[2016-07-17] MEDS ORDERED: Naloxone 0.4 MG/ML INJ IVP PRN (17:38)
[2016-07-17] MEDS ORDERED: Mag Hydrox/Al Hydrox/Simeth 30 ML UDC PO PRN (17:38)
[2016-07-17] MEDS ORDERED: *HR* Dextrose 50 % in Water (Syg) 50 ML SYRINGE IVP PRN (17:45)
[2016-07-17] MEDS ORDERED: 0.9 % Sodium Chloride 1,000 ML IVC SCH (17:45)
[2016-07-17] MEDS ORDERED: D5% in Water 1,000 ML IV PRN (17:45)
[2016-07-17] MEDS ORDERED: Dextrose Gel 15 GM PO PRN ×2 (17:45)
--- NOTE | 2016-07-17 17:50 | Internal Med History&Physical ---
<Esther Christian Manuel - Last Filed: 07/17/16 18:29> Date of Encounter: 07/17/16 Time of Encounter: 17:15 Assessment and Plan (1) Duodenitis Current visit: No Status: Acute Today is pt's 4 ED visit and admission for n/v and abd pain for 3 days. Pt was diagnosed with duodenitis by CT on 06/30/16. Family at states that pt goes home after admission and feels great for 4-5 days then starts to decline again. STates that when she comes in and gets IV fluids and antiemetics that she feels better and does well. Abd is soft, but she is guarding and reports tenderness to light palpation diffusely, however, worse in epigastric area, hyperactive bs present. WBC WNL, as are liver enzymes. Pt had cscope and E[place] [address] Bojorquez showing tubular adenoma and hyperplastic polyp, EGD showed a lesion at junction and chemical gastritis. GI consulted again for this visit. IVF 0.9NS at 100ml/hr GI consult Pain control Antiemetics prn (2) Nausea & vomiting Current visit: No Status: Acute Plan as above. IVF, antiemetics, monitor labs. Qualifiers: Vomiting type: unspecified Vomiting Intractability: intractable Qualified Code(s): R11.2 - Nausea with vomiting, unspecified (3) GERD (gastroesophageal reflux disease) Current visit: No Status: Chronic Stable. will continue home medications. Qualifiers: Esophagitis presence: esophagitis presence not specified Qualified Code(s) : K21.9 - Gastro-esophageal reflux disease without esophagitis (4) Anemia Current visit: Yes Status: Acute Pt follows with hematology for chronic anemia. Hgb 14.3 and Hct 43.9. Stable. Will monitor. Qualifiers: Anemia type: unspecified type Qualified Code(s): D64.9 - Anemia, unspecified (5) Hyperlipemia Current visit: No Status: Chronic Continue home medications. Qualifiers: Hyperlipidemia type: unspecified Qualified Code(s): E78.5 - Hyperlipidemia , unspecified (6) DM (diabetes mellitus), type 2 Current visit: No Status: Acute A1c 7.3% 2 weeks ago, Glucose 276 today. Diabetic diet after clear liquids Sliding scale insulin Accuchecks achs Qualifiers: Diabetes mellitus complication status: without complication Qualified Code( s): E11.9 - Type 2 diabetes mellitus without complications (7) Hypertension Current visit: No Status: Chronic Continue home medications. VS q4h. Qualifiers: Hypertension type: essential hypertension Qualified Code(s): I10 - Essential (primary) hypertension Internal Medicine - H&P: HPI Chief complaint: nausea/vomiting x 2 days Admitted From: Home Plans for Post Hospital Care: Home History of present illness: Ms. Sales is a 65 year old female with history of depression, DM, duodenitis, anemia, HTN who presents to the ED with return visit for n/v and abd pain. Pt has been admitted 3 other times in the last 2 mos for same. Dx with duodenitis which resolves, pt feels good for 4-5 days, then starts to decline and have pain , n/v again. Pt has been seen by GI during the prior visits. Past Med Surg Social Fam HX - Past Medical History Medical history: arthritis, diabetes, GERD, hyperlipidemia, hypertension, osteoporosis, renal disease, other Psychiatric history: anxiety, depression - Past Surgical History Surgical History: appendectomy, cholecystectomy, hysterectomy, ureteral stent, other - Social History Smoking Status: Former smoker Smokeless Tobacco Status: No Alcohol use: none Drug use: none - Family History Mother Living Status: Hx Family Cancer: Yes Hx Family Endocrine Disorder: Yes Internal Medicine - H&P: Meds Docusate [Colace] 100 mg PO HS 12/21/14 [History] Polyethylene Glycol 3350 [MiraLAX] 17 gm PO DAILY PRN 12/21/14 [History] Sertraline HCl [Zoloft] 100 mg PO DAILY 12/21/14 [History] Simvastatin [Zocor] 40 mg PO DAILY 12/21/14 [History] Cyanocobalamin (Vitamin B-12) [Vitamin B-12] 1,000 mcg PO QMONTH 12/08/15 [ History] Enalapril Maleate [Vasotec] 5 mg PO DAILY 12/08/15 [History] Mv-Mn/FA/Vit K1/Lycop/Lut/Zeax [Ocuvite Eye + Multi Tablet] 1 tab PO DAILY 12/07 [History] Propranolol HCl 60 mg PO DAILY 12/08/15 [History] SitaGLIPtin [Januvia] 100 mg PO DAILY 03/06/16 [History] Loratadine [Allergy Relief] 10 mg PO DAILY 06/21/16 [History] Pantoprazole Sodium [Protonix] 40 mg PO DAILY #30 tablet. 07/03/16 [Rx] Allergies Nickel Allergy (Mild, Verified 06/30/16 15:00) Hives codeine Allergy (Verified 06/30/16 15:00) Hives Erythromycin Base Allergy (Verified 06/30/16 15:00) Rash nitrofurantoin [From Macrobid] Allergy (Verified 06/30/16 15:00) Rash Quaternium Allergy (Verified 06/30/16 15:00) Rash sulfamethoxazole [From Bactrim] Allergy (Verified 06/30/16 15:00) Rash trimethoprim [From Bactrim] Allergy (Verified 06/30/16 15:00) Rash Sulfa (Sulfonamide Antibiotics) Adverse Reaction (Verified 06/30/16 15:00) Hallucinating All Systems PM: A 10-system review of systems was performed and is negative for pertinent findings except as documented above in the HPI. - Constitutional Constitutional: fatigue, weakness, no chills, no fever(s) - Cardiovascular Cardiovascular ROS IM: no chest pain, no dyspnea, no dyspnea on exertion, no edema - Respiratory Respiratory: no cough, no dyspnea, no chest congestion - Gastrointestinal Gastrointestinal: abdominal pain, nausea, vomiting, no belching, no change in bowel habits, no change in stool character, no coffee ground emesis, no constipation, no diarrhea, no dysphagia, no hematemesis, no hematochezia - Genitourinary Genitourinary: no dysuria, no urinary frequency, no urinary hesitancy, no urinary incontinence, no urinary urgency - Musculoskeletal Musculoskeletal ROS IM: no arthralgias, no muscle weakness, no myalgias - Integumentary Integumentary IM: no rash - Constitutional Vitals: Temp Pulse Resp BP Pulse Ox 98.6 F 94 16 164/83 94 L 07/17/16 11:56 07/17/16 15:29 07/17/16 15:29 07/17/16 15:29 07/17/16 15:29 General appearance: Present: A&O X 3, no acute distress, answers questions appropriately Exam: Pt is drowsy during exam, however, arouses easily and answers questions appropriately. - Neck Neck exam general surgery: Absent: lymphadenopathy, tenderness - Respiratory Respiratory exam: Present: CTAB. Absent: accessory muscle use, chest wall tenderness, decreased breath sounds, respiratory distress, rhonchi, stridor, wheezes - Cardiovascular Cardiovascular exam: Present: RRR, +S1, +S2. Absent: bradycardia, diastolic murmur, systolic murmur, tachycardia - GI/Abdominal GI/Abdominal exam: Present: firm, guarding, normal bowel sounds, tenderness - Extremities Exam Extremities exam: Present: full ROM, normal capillary refill, normal inspection , tenderness, warm, radial pulses palpable and symetrical. Absent: cyanotic, joint swelling, pedal edema Additional comments: Pt with +2bil pedal pulses. Internal Med - H&P Results - Labs CBC & Chem 7: 07/17/16 13:37 07/17/16 13:37 <Min Agosto P - Last Filed: 07/17/16 19:15> Date of Encounter: 07/17/16 Internal Medicine - H&P: HPI History of present illness: Ms. Sales is a 65 year old female All Systems PM: A 10-system review of systems was performed and is negative for pertinent findings except as documented above in the HPI. - Constitutional Vitals: Temp Pulse Resp BP Pulse Ox 98.6 F 94 16 179/89 94 L 07/17/16 11:56 07/17/16 15:29 07/17/16 18:01 07/17/16 18:01 07/17/16 15:29 Internal Med - H&P Results - Labs CBC & Chem 7: 07/17/16 13:37 07/17/16 13:37 - Attending Attestation I examined this patient and my medical decision-making was reviewed with the SITE ENGINEER/PA/Advanced Practice Nurse/Resident Physician. I agree with the documented findings, disposition and treatment plan as described except to the extent set forth below.
[2016-07-17] MEDS ORDERED: Insulin LISPRO 300 UNITS/3 ML VIAL SQ SCH (21:00)
[2016-07-18 03:26] LABS: Basophils % 0.3 %; Eosinophils % 0.3 %; Hematocrit 34.8 % (35.3-44.9); Immature Granulocytes % 0.4 % (0-4); Lymphocytes # 1.1 K/mcL (0.6-4.6); Lymphocytes % 14.9 %; Mean Corpuscular HGB Conc 32.8 g/dL (31.6-35.5); Mean Corpuscular Hemoglobin 29.5 pg (28.0-33.3); Mean Corpuscular Volume 89.9 fL (83.0-100.0); Mean Platelet Volume 11.2 fL (9.4-12.4); Monocytes # 0.9 K/mcL (0.0-1.3); Monocytes % 12.9 %; Platelet Count 178 K/mcL (140-400); Red Blood Count 3.87 M/mcL (3.82-4.97); Segmented Neutrophils % 71.2 %
[2016-07-18 03:29] LABS: Hemoglobin 11.4 g/dL (11.5-15.4)
[2016-07-18] MEDS ORDERED: *HR* FentaNYL (PF) 100 MCG/2 ML VIAL ONE (07:11)
[2016-07-18] MEDS ORDERED: *HR* Midazolam HCl 5 MG/5 ML VIAL IVP ONE (07:11)
[2016-07-18] MEDS ORDERED: *HR* Midazolam HCl 5 MG/5 ML VIAL IVP PRN (07:35)
[2016-07-18] MEDS ORDERED: Tetracaine/Benzocaine/Butamben 200MG/SPRAY (100SPY/BOT) MM ONE (07:35)
[2016-07-18] MEDS: *HR* FentaNYL (PF) 100 MCG/2 ML VIAL IVP PRN ×2 (07:38→07:40)
[2016-07-18] MEDS ORDERED: 0.9 % Sodium Chloride 500 ML IVC SCH (07:45)
[2016-07-18] MEDS ORDERED: Loratadine 10 MG TABLET PO SCH (09:00)
[2016-07-18] MEDS: Insulin LISPRO 300 UNITS/3 ML VIAL SQ SCH ×3 (09:28→17:44)
[2016-07-18] MEDS ORDERED: *HR* OxyCODONE Immed Rel 5 MG TABLET PO PRN (09:52)
[2016-07-18] MEDS: Sucralfate 1 GM TABLET PO SCH ×3 (10:06→17:23)
[2016-07-18] MEDS: Pantoprazole 40 MG VIAL IVP SCH ×2 (10:09→17:23)
--- NOTE | 2016-07-18 11:07 | Gastroenterology Consult Note ---
<Viktor Ambrose - Last Filed: 07/18/16 11:01> Date of Encounter: 07/18/16 Time of Encounter: 10:00 - Assessment and plan (1) Duodenitis Current Visit: Yes Status: Acute Assessment and plan: Noted on CT scan. EGD today showed gastritis/ulcers, a single 25 mm semi- sessile gastric polypoid lesion. Pathology pending. Continue PPI BID and Carafate QID on discharge. (2) Nausea & vomiting Current Visit: No Status: Acute Assessment and plan: Continue antiemetics, PPI, and Carafate. Qualifiers: Vomiting type: cyclical vomiting Vomiting Intractability: intractable Qualified Code(s): G43.A1 - Cyclical vomiting, intractable (3) Iron deficiency anemia Current Visit: No Status: Chronic Assessment and plan: She follows with Dr. Orosco in Hematology for chronic iron deficiency anemia. Qualifiers: Iron deficiency anemia type: unspecified iron deficiency Qualified Code(s) : D50.9 - Iron deficiency anemia, unspecified - Time Spent With Patient Total time spent is greater than 50% in coordination of care (as documented) at patient's floor/unit and/or counseling patient: GI History of Present Illness - Data of Consult Patient: known to practice within the last 3 years Consult date: 07/18/16 Requesting Physician: Nichelle Reynoso - Consult Narrative Reason for consult: Continue duodenitis History of present illness: Ms. Sales is a 65 year old female with PMHx of HTN, HLD, CKD, DM2, hx of Maria Elena En Y gastric bypass, multiple hernia repairs, small bowel obstruction/ intussuception who presented to the ED with nausea, vomiting, and abdominal pain. She has been admitted multiple times over the past 2 months for [address] complaints. CT A/P 06/30/16 showed a thickened appearance of the encarnacion of the duodenal bulb and pylorus with adjacent inflammatory changes suggestive of duodenitis, there is no free air that would suggest a perforated ulcer. EGD with normal esophagus, 20 mm flat jejunal polyp, regenerative gastric mucosa suggestive of possible chemical or reactive gastropathy. CT A/P 2016 showed wall thickening of the first portion of duodenum and esophageal wall thickening. She follows with Dr. Orosco in Hematology for chronic iron deficiency anemia. Procedures: Colonoscopy 07/03/2016 diverticulosis in the sigmoid colon EGD 07/02/2016 with normal esophagus, 20 mm flat jejunal polyp, regenerative gastric mucosa suggestive of possible chemical or reactive gastropathy. NSAIDs: None Anticoagulation: None Past Med Surg Social Fam HX - Past Medical History Medical history: arthritis, diabetes, GERD, hyperlipidemia, hypertension, osteoporosis, renal disease, other Psychiatric history: anxiety, depression - Past Surgical History Surgical History: appendectomy, cholecystectomy, hysterectomy, ureteral stent, other - Social History Smoking Status: Former smoker Smokeless Tobacco Status: No Alcohol use: none Drug use: none - Family History Mother Living Status: Cause of : PN Hx Family Cancer: Yes (colon ca with mets to bone) Hx Family Endocrine Disorder: Yes (DM) - Gastrointestinal Gastrointestinal: Present: as per HPI - Constitutional Constitutional: as per HPI - EENT Eyes: as per HPI Ears: Present: as per HPI Nose, mouth and throat: Present: as per HPI - Cardiovascular Cardiovascular ROS: Present: as per HPI - Respiratory Respiratory IM: Present: as per HPI - Genitourinary Genitourinary: Absent: change in color, Urinary frequency - Neurological ROS Neurological GI: Present: as per HPI - Hematologic/Lymphatic Hematologic/Lymphatic pediatric: Present: as per HPI - Musculoskeletal Musculoskeletal ROS GI: Present: as per HPI - Integumentary Integumentary GI: Present: as per HPI - Psychiatric ROS Psychiatric GI: Present: as per HPI - Endocrine Endocrine IM: Present: as per HPI - Constitutional Vitals: Temp Pulse Resp BP Pulse Ox 97.8 F 73 18 169/77 98 07/18/16 03:49 07/18/16 08:45 07/18/16 08:45 07/18/16 08:45 07/18/16 08:45 General appearance: Present: cooperative, A&O X 3, no acute distress, answers questions appropriately - Head Head exam: Present: atraumatic, normocephalic - Eye Eye exam: Present: normal appearance, sclera anicteric - ENT ENT exam: Present: mucous membranes moist - Neck Neck exam general surgery: Present: normal inspection, trachea midline - Respiratory Respiratory exam: Present: CTAB. Absent: rales, rhonchi - Cardiovascular Cardiovascular exam: Present: RRR, +S1, +S2 - GI/Abdominal GI/Abdominal exam: Present: soft, tenderness, no peritoneal signs. Absent: distended, firm, guarding - Rectal Rectal exam: Present: deferred - Extremities Exam Extremities exam: Present: warm - Neurological Exam Neurological exam: Present: no focal deficits - Psychiatric Psychiatric exam: Present: normal affect, normal mood - Skin Skin exam: Present: dry, intact, normal color, warm Results - Labs CBC & Chem 7: 07/18/16 03:00 07/17/16 13:37 Labs: Last Result Calcium 8.8 mg/dL (8.6-10.8) 07/17/16 13:37 Entire Visit Hgb 11.4 g/dL (11.5-15.4) L D 07/18/16 03:00 Hct 34.8 % (35.3-44.9) L 07/18/16 03:00 Total Bilirubin 0.5 mg/dL (0.2-1.2) 07/17/16 13:37 AST 30 Units/L (5-34) 07/17/16 13:37 ALT 20 Units/L (0-55) 07/17/16 13:37 Lipase 19 Units/L (8-78) 07/17/16 13:37 Consult Discharge Plan - Plan Referrals: Brittney Garrido MD [Primary Care Provider] - <Talon Bojorquez - Last Filed: 07/18/16 13:02> Date of Encounter: 07/18/16 Time of Encounter: 08:00 - Time Spent With Patient Total time spent is greater than 50% in coordination of care (as documented) at patient's floor/unit and/or counseling patient: GI History of Present Illness - Data of Consult Requesting Physician: Nichelle Reynoso - Consult Narrative History of present illness: Ms. Sales is a 65 year old female - Constitutional Vitals: Temp Pulse Resp BP Pulse Ox 97.9 F 83 18 97/55 94 L 07/18/16 11:11 07/18/16 11:11 07/18/16 11:11 07/18/16 11:11 07/18/16 11:11 Results - Labs CBC & Chem 7: 07/18/16 03:00 07/17/16 13:37 Labs: Last Result Calcium 8.8 mg/dL (8.6-10.8) 07/17/16 13:37 Entire Visit Hgb 11.4 g/dL (11.5-15.4) L D 07/18/16 03:00 Hct 34.8 % (35.3-44.9) L 07/18/16 03:00 Total Bilirubin 0.5 mg/dL (0.2-1.2) 07/17/16 13:37 AST 30 Units/L (5-34) 07/17/16 13:37 ALT 20 Units/L (0-55) 07/17/16 13:37 Lipase 19 Units/L (8-78) 07/17/16 13:37 - Attending Attestation I examined this patient and my medical decision-making was reviewed with the BLEND PLANT OPERATOR/PA/Advanced Practice Nurse/Resident Physician. I agree with the documented findings, disposition and treatment plan as described except to the extent set forth below.
[2016-07-18 15:15] VITALS: BP 109/55
--- NOTE | 2016-07-18 17:14 | Discharge Summary ---
Date of Encounter: 07/18/16 Time of Encounter: 17:11 - Discharge Diagnosis (1) Gastric ulcer Priority: Primary Status: Acute Qualifiers: Gastric ulcer chronicity: acute Gastric ulcer complication status: without hemorrhage or perforation Qualified Code(s): K25.3 - Acute gastric ulcer without hemorrhage or perforation (2) Anemia Priority: Primary Status: Acute Qualifiers: Anemia type: unspecified type Qualified Code(s): D64.9 - Anemia, unspecified (3) Duodenitis Priority: Primary Status: Acute - Discharge Medications Prescriptions: Omeprazole [PriLOSEC] 40 mg PO BID #60 cap Sucralfate [Carafate] 1 gm PO QIDAC #120 tablet Home Medications: Docusate [Colace] 100 mg PO HS 12/21/14 [History] Polyethylene Glycol 3350 [MiraLAX] 17 gm PO DAILY PRN 12/21/14 [History] Sertraline HCl [Zoloft] 100 mg PO DAILY 12/21/14 [History] Simvastatin [Zocor] 40 mg PO DAILY 12/21/14 [History] Cyanocobalamin (Vitamin B-12) [Vitamin B-12] 1,000 mcg PO QMONTH 12/08/15 [ History] Enalapril Maleate [Vasotec] 5 mg PO DAILY 12/08/15 [History] Mv-Mn/FA/Vit K1/Lycop/Lut/Zeax [Ocuvite Eye + Multi Tablet] 1 tab PO DAILY 12/07 [History] Propranolol HCl 60 mg PO DAILY 12/08/15 [History] SitaGLIPtin [Januvia] 100 mg PO DAILY 03/06/16 [History] Loratadine [Allergy Relief] 10 mg PO DAILY 06/21/16 [History] Pantoprazole Sodium [Protonix] 40 mg PO DAILY #30 tablet. 07/03/16 [Rx] Omeprazole [PriLOSEC] 40 mg PO BID #60 cap 07/18/16 [Rx] Sucralfate [Carafate] 1 gm PO QIDAC #120 tablet 07/18/16 [Rx] Allergies/Adverse Reactions: Allergies Nickel Allergy (Mild, Verified 06/30/16 15:00) Hives codeine Allergy (Verified 06/30/16 15:00) Hives Erythromycin Base Allergy (Verified 06/30/16 15:00) Rash nitrofurantoin [From Macrobid] Allergy (Verified 06/30/16 15:00) Rash Quaternium Allergy (Verified 06/30/16 15:00) Rash sulfamethoxazole [From Bactrim] Allergy (Verified 06/30/16 15:00) Rash trimethoprim [From Bactrim] Allergy (Verified 06/30/16 15:00) Rash Sulfa (Sulfonamide Antibiotics) Adverse Reaction (Verified 06/30/16 15:00) Hallucinating Date of admission: 07/17/16 17:40 Primary care physician: Brittney Garrido, Consults: 07/17/16 17:43 Consult to Gastroenterology [CONS] Routine Consulting Provider: Gastroenterology Cece Reason for Consult: continued duodenitis, intractable nausea and vomiting. Call Completed: No 07/17/16 19:39 Consult to Mission Planner [CONS] Routine Reason for SW Consult: Financial concerns with transportation when ill per sister request Discharging clinician: Nichelle Reynoso Anticipated date of discharge: 07/18/16 - Patient Status Disposition: Home, Self-Care Condition: Fair Functional capacity at discharge: independent ambulation Overall status at discharge: patient is back to baseline - Discharge Instructions Follow Up With: Brittney Garrido MD [Primary Care Provider] - 07/25/16 1:40 pm Talon Bojorquez MD [Partnered Physician] - Forms: ED Satisfaction Letter - Diet and Activity Activity: resume usual activities as tolerated Diet: other (clears for today, soft diet for 2 days and advance to regular diet) Interval History: Ms. Sales is a 65 year old female with PMHx of HTN, HLD, CKD, DM2, hx of Mariae Lena En Y gastric bypass, multiple hernia repairs, small bowel obstruction/ intussuception who presented to the ED with nausea, vomiting, and abdominal pain. She has been admitted multiple times over the past 2 months for same complaints. CT A/P 06/30/16 showed a thickened appearance of the encarnacion of the duodenal bulb and pylorus with adjacent inflammatory changes suggestive of duodenitis, there is no free air that would suggest a perforated ulcer. EGD with normal esophagus, 20 mm flat jejunal polyp, regenerative gastric mucosa suggestive of possible chemical or reactive gastropathy. CT A/P 2016 showed wall thickening of the first portion of duodenum and esophageal wall thickening. She follows with Dr. Orosco in Hematology for chronic iron deficiency anemia. Procedures: Colonoscopy 07/03/2016 diverticulosis in the sigmoid colon EGD 07/02/2016 with normal esophagus, 20 mm flat jejunal polyp, regenerative gastric mucosa suggestive of possible chemical or reactive gastropathy. NSAIDs: None Anticoagulation: None seh was dadmitted for surther evaluation. GI was consulted and seh had EGD done that showed gastric ulcer which was non bleeding and was biopsied. she was started on PPI and carafate. she is being dc today in stable condition she joshua f/u with DR. Bojorquez in 2 weeks. Hospital course: Ms. Sales is a 65 year old female Time spent discussing smoking cessation with patient: more than 10 minutes - Time Spent with Patient Total time spent providing and/or coordinating discharge services: Greater than 30 minutes - Constitutional Vitals: Temp Pulse Resp BP Pulse Ox 98.0 F 70 18 109/55 97 07/18/16 15:10 07/18/16 15:10 07/18/16 15:10 07/18/16 15:10 07/18/16 15:10 General appearance: Present: A&O X 3, no acute distress, answers questions appropriately Exam: - Head Head exam: Present: atraumatic, normocephalic - Eye Eye exam: Present: normal appearance, sclera anicteric - ENT ENT exam: Present: mucous membranes moist - Neck Neck exam general surgery: Present: normal inspection, trachea midline - Respiratory Respiratory exam: Present: CTAB. Absent: rales, rhonchi - Cardiovascular Cardiovascular exam: Present: RRR, +S1, +S2 - GI/Abdominal GI/Abdominal exam: Present: soft, mild epigastric tenderness, no peritoneal signs. Absent: distended, firm, guarding - Rectal Rectal exam: Present: deferred - Extremities Exam Extremities exam: Present: warm - Neurological Exam Neurological exam: Present: no focal deficits - Psychiatric Psychiatric exam: Present: normal affect, normal mood - Skin Skin exam: Present: dry, intact, normal color, warm
== END 2016-07-18 18:26 | disposition home or self-care (01) ==
LOC: 3ANU 11:54 → EMEROO 11:54 → 3ANU 18:45
PROVIDERS: ADMIT Internal Medicine; ATTEND Internal Medicine Endocrinology, Diabetes & Metabolism
PROC: ENDOEBX (2016-07-18 08:50)

== ENCOUNTER 2016-11-22 14:50 | Observation (INO) ==
[2016-11-22 16:42] LABS: Basophils % 0.1 %; Hematocrit 51.4 % (35.3-44.9); Immature Granulocytes % 0.7 % (0-4); Immature Platelets 8.1 % (1.1-6.1); Lymphocytes # 0.5 K/mcL (0.6-4.6); Lymphocytes % 6.7 %; Mean Corpuscular HGB Conc 33.1 g/dL (31.6-35.5); Mean Corpuscular Hemoglobin 28.7 pg (28.0-33.3); Mean Corpuscular Volume 86.7 fL (83.0-100.0); Mean Platelet Volume 11.4 fL (9.4-12.4); Monocytes # 0.8 K/mcL (0.0-1.3); Monocytes % 10.3 %; Platelet Count 213 K/mcL (140-400); Red Blood Count 5.93 M/mcL (3.82-4.97); Red Cell Distribution Width 12.9 % (11.5-14.5); Segmented Neutrophils % 82.2 %
[2016-11-22 16:56] LABS: Albumin 4.2 g/dL (3.5-5.0); Bilirubin,Direct 0.3 mg/dL (0.0-0.5); Bilirubin,Indirect 0.2 mg/dL (0.0-1.2); Bilirubin,Total 0.5 mg/dL (0.2-1.2); Calcium 10.3 mg/dL (8.6-10.8); Globulin 4.1 g/dL (2.4-3.5); Potassium 4.2 mEq/L (3.5-4.5); Total Protein 8.3 g/dL (6.0-8.3)
[2016-11-22] MEDS ORDERED: Ondansetron 4 MG/2 ML VIAL IVP ONE (17:22)
[2016-11-22] MEDS ORDERED: 0.9 % Sodium Chloride 1,000 ML IVC ONE (17:22)
[2016-11-22 17:26] LABS: Bilirubin,Urine Negative (Negative); Blood,Urine Trace (Negative); Clarity,Urine Cloudy (Clear); Color,Urine Yellow (Yellow); Glucose,Urine (UA) >=1000 mg/dL (Normal); Ketones,Urine 15 mg/dL (Negative); Leukocyte Esterase,Urine Moderate (Negative); Nitrite,Urine Negative (Negative); PH,Urine 5.5 pH Units (5.0-8.0); Protein,Urine 100 mg/dL (Neg-Trace); Specific Gravity,Urine 1.019 (1.010-1.025); Urobilinogen,Urine Normal (Normal)
[2016-11-22 17:29] LABS: Bacteria,Urine Few per hpf (None-Few); Hyaline Casts,Urine Few per lpf (None-Few); RBC,Urine 0-3 per hpf (0-3); Squamous Epithelial Cell,Urine Few per lpf (None-Few); WBC,Urine TNTC per hpf (0-3)
--- NOTE | 2016-11-22 17:43 | Emergency Department Note ---
Disposition Clinical Impression: Duodenitis UTI (urinary tract infection) Qualifiers: Urinary tract infection type: site unspecified Hematuria presence: without hematuria Qualified Code(s): N39.0 - Urinary tract infection, site not specified Disposition: Admitted As Inpatient Condition: Good Abdominal Pain HPI - General Chief Complaint: ED Abdominal Pain Stated Complaint: N/V, urinary problems, abdominal pain Time Seen by Provider: 11/22/16 14:59 Source: patient Mode of arrival: ambulatory Limitations: no limitations Nursing Notes Reviewed: Yes Vital Signs Reviewed: Yes - History of Present Illness HPI Narrative: 66-year-old female presents with concerns of nausea, vomiting and suprapubic abdominal pain. Patient self catheterizes and has had multiple frequent urinary tract infections. Patient does state that this is somewhat different from her previous urinary tract infections in that she is having increased nausea and vomiting. Patient denies fever, diarrhea, chest pain, shortness of breath, palpitations. Pain Scale: 5 - Related Data Home Medications Medication Instructions Recorded Confirmed Docusate [Colace] 100 mg PO HS 12/21/14 11/22/16 Polyethylene Glycol 3350 [MiraLAX] 17 gm PO DAILY PRN 12/21/14 11/22/16 Sertraline HCl [Zoloft] 100 mg PO DAILY 12/21/14 11/22/16 Simvastatin [Zocor] 40 mg PO DAILY 12/21/14 11/22/16 Cyanocobalamin (Vitamin B-12) 1,000 mcg SQ QMONTH 12/08/15 11/22/16 [Vitamin B-12] Enalapril Maleate [Vasotec] 5 mg PO DAILY 12/08/15 11/22/16 Mv-Mn/FA/Vit K1/Lycop/Lut/Zeax 1 tab PO DAILY 12/08/15 11/22/16 [Ocuvite Eye + Multi Tablet] Propranolol HCl 60 mg PO DAILY 12/08/15 11/22/16 SitaGLIPtin [Januvia] 100 mg PO DAILY 03/06/16 11/22/16 Calcium Carbonate/Vitamin D3 1 each PO BID 09/02/16 11/22/16 [Calcium 500 + Vit D Caplet] Calcium Polycarbophil [Fibercon] 625 mg PO BID 09/02/16 11/22/16 Melatonin [Melatin] 3 mg PO HS 09/02/16 11/22/16 Ondansetron HCl [Zofran] 4 mg PO Q8H PRN 09/02/16 11/22/16 Famotidine [Pepcid] 40 mg PO DAILY 11/23/16 11/23/16 Allergies Allergy/AdvReac Type Severity Reaction Status Date / Time Nickel Allergy Mild Hives Verified 11/23/16 10:47 codeine Allergy Hives Verified 11/23/16 10:47 Erythromycin Base Allergy Rash Verified 11/23/16 10:47 nitrofurantoin Allergy Rash Verified 11/23/16 10:47 [From Macrobid] Quaternium Allergy Rash Verified 11/23/16 10:47 sulfamethoxazole Allergy Rash Verified 11/23/16 10:47 [From Bactrim] trimethoprim [From Bactrim] Allergy Rash Verified 11/23/16 10:47 Sulfa (Sulfonamide AdvReac Hallucinati Verified 11/23/16 10:47 Antibiotics) ng All systems ED: reviewed and negative except as stated. Constitutional: Reports: weakness. Denies: fever, chills Cardiovascular: Denies: chest pain, palpitations, dyspnea on exertion, orthopnea , syncope Respiratory: Denies: cough, dyspnea, wheezes, hemoptysis Gastrointestinal: Reports: abdominal pain, nausea, vomiting. 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[employer]ICIAN history Psychiatric history: Reports: anxiety, depression - Social History Smoking status: Former smoker Alcohol use: Reports: none Drug use: Reports: none Physical Exam General: Alert and in no acute distress Skin: Warm, dry, intact Head: Normocephalic and atraumatic Neck: Supple, trachea midline and no tenderness Cardiovascular: Tachycardia, no murmur, normal perfusion Respiratory: CTAB, no wheezing, cough, or respiratory distress Musculoskeletal: Normal strength, no tenderness, swelling or deformity GI: Soft, mild tenderness to palpation of the suprapubic abdomen without evidence of rigidity, guarding, or rebound. nondistended. Bowel sounds present Neuro: A&O to person, place, time and situation. No focal deficits noted on exam Psychiatric: cooperative and appropriate mood and affect. - General Limitations: no limitations General appearance: alert Course Vital Signs Temperature 99.0 F 11/22/16 14:53 Pulse Rate 125 11/22/16 14:53 Respiratory Rate 16 11/22/16 14:53 Blood Pressure 174/108 11/22/16 14:53 O2 Sat by Pulse Oximetry 100 11/22/16 14:53 Temperature 98.4 F 11/23/16 22:53 Pulse Rate 69 11/23/16 22:53 Respiratory Rate 20 11/23/16 22:53 Blood Pressure 127/75 11/23/16 22:53 O2 Sat by Pulse Oximetry 97 11/23/16 22:53 Oxygen Delivery Oxygen Delivery Room Air Abdominal Pain - MDM Narrative Medical decision making narrative: Patient initially treated as urinary tract infection. CT of the abdomen returned with concerns for possible intussusception. I spoke with Dr. gill who performed the revision of her casher bypass 3 years ago who recommended that this could be a coincidental finding it did not recommend acute surgery for this patient he agreed with the plan for continued antibiotics and fluids and will see her in the hospital. Patient felt comfortable with this plan. - Medical Records Medical records reviewed: Yes I reviewed the patient's medical records. - Lab Data Lab results reviewed: Yes I reviewed the patient's lab results. Result diagrams: 11/23/16 11:24 11/23/16 05:03 Lab Results 11/22/16 11/22/16 11/22/16 Range/Units 16:32 16:32 16:32 WBC 7.3 (4.3-11.1) K/mcL RBC 5.93 H (3.82-4.97) M/mcL Hgb 17.0 H (11.5-15.4) g/dL Hct 51.4 H (35.3-44.9) % MCV 86.7 (83.0-100.0) fL MCH 28.7 (28.0-33.3) pg MCHC 33.1 (31.6-35.5) g/dL RDW 12.9 (11.5-14.5) % Plt Count 213 (140-400) K/mcL MPV 11.4 (9.4-12.4) fL Immature Gran % 0.7 (0-4) % Seg Neutrophils % 82.2 % Lymphocytes % 6.7 % Monocytes % 10.3 % Eosinophils % 0.0 % Basophils % 0.1 % Neutrophils # 6.0 (1.6-8.9) K/mcL Lymphocytes # 0.5 L (0.6-4.6) K/mcL Monocytes # 0.8 (0.0-1.3) K/mcL Eosinophils # 0.0 (0.0-0.6) K/mcL Basophils # 0.0 (0.0-0.2) K/mcL Immature Plt Fraction 8.1 H (1.1-6.1) % Sodium 135 L (136-145) mEq/L Potassium 4.2 (3.5-4.5) mEq/L Chloride 98 (98-109) mEq/L Carbon Dioxide 24 (19-29) mEq/L BUN 19 (7-20) mg/dL Creatinine 1.15 H (0.57-1.11) mg/dL Est GFR ( Amer) 57 L (> 60) Est GFR (Non-Af Amer) 47 L (> 60) BUN/Creatinine Ratio 17 (6-26) Glucose 316 H (70-99) mg/dL Calculated Osmolality 294 (280-300) Calcium 10.3 (8.6-10.8) mg/dL Total Bilirubin 0.5 (0.2-1.2) mg/dL Direct Bilirubin 0.3 (0.0-0.5) mg/dL Indirect Bilirubin 0.2 (0.0-1.2) mg/dL AST 23 (5-34) Units/L ALT 20 (0-55) Units/L Alkaline Phosphatase 161 H (38-126) Units/L Troponin I 0.01 (0-0.03) ng/mL Serum Total Protein 8.3 (6.0-8.3) g/dL Albumin 4.2 (3.5-5.0) g/dL Globulin 4.1 H (2.4-3.5) g/dL Albumin/Globulin Ratio 1.0 L (1.1-2.2) Lipase 21 (8-78) Units/L Urine Color (Yellow) Urine Clarity (Clear) Urine pH (5.0-8.0) pH Units Ur Specific [place] (1.010-1.025) Urine Protein (Neg-Trace) mg/dL Urine Glucose (UA) (Normal) mg/dL Urine Ketones (Negative) mg/dL Urine Blood (Negative) Urine Nitrite (Negative) Urine Bilirubin (Negative) Urine Urobilinogen (Normal) mg/dL Ur Leukocyte Esterase (Negative) Urine Microscopic RBC (0-3) per hpf Urine Microscopic WBC (0-3) per hpf Ur Squamous Epith Cells (None-Few) per lpf Urine Bacteria (None-Few) per hpf Hyaline Casts (None-Few) per lpf Ur Culture Indicated? (NO) 11/22/16 Range/Units 17:20 WBC (4.3-11.1) K/mcL RBC (3.82-4.97) M/mcL Hgb (11.5-15.4) g/dL Hct (35.3-44.9) % MCV (83.0-100.0) fL MCH (28.0-33.3) pg MCHC (31.6-35.5) g/dL RDW (11.5-14.5) % Plt Count (140-400) K/mcL MPV (9.4-12.4) fL Immature Gran % (0-4) % Seg Neutrophils % % Lymphocytes % % Monocytes % % Eosinophils % % Basophils % % Neutrophils # (1.6-8.9) K/mcL Lymphocytes # (0.6-4.6) K/mcL Monocytes # (0.0-1.3) K/mcL Eosinophils # (0.0-0.6) K/mcL Basophils # (0.0-0.2) K/mcL Immature Plt Fraction (1.1-6.1) % Sodium (136-145) mEq/L Potassium (3.5-4.5) mEq/L Chloride (98-109) mEq/L Carbon Dioxide (19-29) mEq/L BUN (7-20) mg/dL Creatinine (0.57-1.11) mg/dL Est GFR ( Amer) (> 60) Est GFR (Non-Af Amer) (> 60) BUN/Creatinine Ratio (6-26) Glucose (70-99) mg/dL Calculated Osmolality (280-300) Calcium (8.6-10.8) mg/dL Total Bilirubin (0.2-1.2) mg/dL Direct Bilirubin (0.0-0.5) mg/dL Indirect Bilirubin (0.0-1.2) mg/dL AST (5-34) Units/L ALT (0-55) Units/L Alkaline Phosphatase (38-126) Units/L Troponin I (0-0.03) ng/mL Serum Total Protein (6.0-8.3) g/dL Albumin (3.5-5.0) g/dL Globulin (2.4-3.5) g/dL Albumin/Globulin Ratio (1.1-2.2) Lipase (8-78) Units/L Urine Color Yellow (Yellow) Urine Clarity Cloudy A (Clear) Urine pH 5.5 (5.0-8.0) pH Units Ur Specific [place] 1.019 (1.010-1.025) Urine Protein 100 H (Neg-Trace) mg/dL Urine Glucose (UA) >=1000 H (Normal) mg/dL Urine Ketones 15 H (Negative) mg/dL Urine Blood Trace H (Negative) Urine Nitrite Negative (Negative) Urine Bilirubin Negative (Negative) Urine Urobilinogen Normal (Normal) mg/dL Ur Leukocyte Esterase Moderate H (Negative) Urine Microscopic RBC 0-3 (0-3) per hpf Urine Microscopic WBC TNTC H (0-3) per hpf Ur Squamous Epith Cells Few (None-Few) per lpf Urine Bacteria Few (None-Few) per hpf Hyaline Casts Few (None-Few) per lpf Ur Culture Indicated? YES A (NO) - Radiology Data Radiology results reviewed: Yes I reviewed the patient's radiology results. - EKG Data EKG attestation: Yes I reviewed and interpreted this EKG.
[2016-11-22] MEDS ORDERED: 0.9 % Sodium Chloride 1,000 ML ONE (18:21)
[2016-11-22] MEDS: levoFLOXacin 250 MG TABLET PO ONE ×2 (18:33→18:34)
[2016-11-22] MEDS ORDERED: *HR* FentaNYL (PF) 100 MCG/2 ML VIAL IVP ONE (20:52)
--- NOTE | 2016-11-22 22:35 | Event Note ---
Date of Encounter: 11/22/16 Time of Encounter: 22:31 Patient seen and examined with nurse practitioner. Patient has a urinary tract infection. She self catheterize every day several times. Multiple prior UTIs. The patient ceftriaxone. She has also intussusception evident on CT scan. We will keep NPO on hydrate. Surgery has already been contacted and emergency room. If she continues to vomit will place in NG tube. She is full code.
[2016-11-22] MEDS ORDERED: Ondansetron 4 MG/2 ML VIAL IVP PRN (22:39)
[2016-11-22] MEDS ORDERED: Naloxone 0.4 MG/ML INJ IVP PRN (22:39)
[2016-11-22] MEDS ORDERED: *HR* Dextrose 50 % in Water (Syg) 50 ML SYRINGE IVP PRN (22:44)
[2016-11-22] MEDS ORDERED: Dextrose Gel 15 GM PO PRN ×2 (22:44)
[2016-11-22] MEDS ORDERED: D5% in Water 1,000 ML IVC PRN (22:44)
[2016-11-22] MEDS ORDERED: 0.9 % Sodium Chloride 500 ML IVC ONE (22:48)
--- NOTE | 2016-11-22 23:02 | Internal Med History&Physical ---
Date of Encounter: 11/22/16 Time of Encounter: 22:00 Assessment and Plan (1) UTI (urinary tract infection) Current visit: Yes Status: Acute Patient presents with symptoms of UTI. She reports that she has had 6+ UTIs over the past 12 months and these symptoms are similar but worse this time due to the intractable nausea and vomiting. Patient states that she began vomiting Thursday at 4 o'clock and it became intractable. PO Zofran did not help and patient was unable to keep any food, liquids, or medications down. IV ceftriaxone started in the ED and will be continued at 1,[address] Patient' s CT scan of the abdomen/pelvis w/contrast today shows intussusception that appears old related to previous episode as well as suspicion of duodenitis. Surgical consult placed and discussed in the ED and surgery will follow patient while inpatient. Urine cultures ordered stat. Follow-up labs ordered. Timed lactic acids ordered. Patient does not currently meet sepsis criteria but will be monitored closely for signs of increased infection or sepsis. Qualifiers: Urinary tract infection type: site unspecified Hematuria presence: without hematuria Qualified Code(s): N39.0 - Urinary tract infection, site not specified (2) Intractable nausea and vomiting Current visit: Yes Status: Acute Patient reports acute intractable nausea and vomiting since Thursday. Patient states she was unable to hold any fluid, food, or medications down. By mouth Zofran did not help. While in the ED patient reports vomiting one time which was foamy and texture, one time with less emesis that was slimy, and four episodes of dry gagging. Patient to be NPO with IV Zofran PRN and IV Protonix 40 mg daily. Will advance patient's diet as tolerated. Monitor I&O and daily weight. Qualifiers: Vomiting type: cyclical vomiting Qualified Code(s): G43.A1 - Cyclical vomiting, intractable (3) Tachycardia Current visit: Yes Status: Acute Patient presents with tachycardia related to continued nausea, vomiting, and dehydration status. Patient to be placed on continuous cardiac telemetry, supplemental O2 with SPO2 monitoring, and IV fluids. (4) Dehydration Current visit: Yes Status: Acute Patient presents with acute dehydration related to chronic and intractable nausea and vomiting. Patient to receive 500 mL bolus of 0.9 NS followed by 100 mL/HR NS. Will be judicious with IV fluids due to patient's GFR of 47 and CKD, stage III. Electrolyte protocol ordered. Monitor I&O and daily weight. (5) Diabetes Current visit: Yes Status: Chronic Patient presents with history of chronic diabetes. Blood glucose monitoring ordered ACHS. Low-dose correction insulin sliding scale ordered with hypoglycemic protocol. A1c ordered. 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 CT scan today verifies presence of esophagitis which is likely related to patient' s buring sensation she experienced post-vomiting. IV Protonix 40 mg daily ordered. Qualifiers: Esophagitis presence: with esophagitis Qualified Code(s): K21.0 - Gastro- esophageal reflux disease with esophagitis (7) Hyperlipemia Current visit: Yes Status: Chronic Patient presents with history of chronic hyperlipidemia. Will continue patient' s PO simvastatin as tolerated. Lipid panel ordered. Qualifiers: Hyperlipidemia type: pure hypercholesterolemia Qualified Code(s): E78.00 - Pure hypercholesterolemia, unspecified; E78.0 - Pure hypercholesterolemia (8) Hypertension Current visit: Yes Status: Chronic Patient presents with history of chronic hypertension. Will continue patient's propranolol as tolerated. Monitor patient and vital signs. Will consider IVP lopressor if patient becomes hypertensive. Qualifiers: Hypertension type: essential hypertension Qualified Code(s): I10 - Essential (primary) hypertension (9) CKD (chronic kidney disease) stage 3, GFR 30-59 ml/min Current visit: Yes Status: Chronic Patient presents with history of CK D stage III with current GFR 47. Will use IV fluids judiciously. Monitor I&O. Monitor daily weight. We will order a renal diet and advance as tolerated by patient is nausea and vomiting. (10) DVT prophylaxis Current visit: Yes Status: Acute Patient placed on DVT prophylaxis due to admission protocol as well as current bedrest status. Heparin 5,000 units SQ Q8 ordered. Internal Medicine - H&P: HPI Chief complaint: N/V/UTI Admitted From: Emergency Dept Plans for Post Hospital Care: Home History of present illness: Ms. Sales is a 66 year old female who presents from the ED with chief complaint of nausea and vomiting that is intractable since Thursday. She reports having abdominal pain located in the suprapubic area and states that these are the same symptoms she has when she has a UTI. She states that she has had more than 6 UTIs in the past 12 months but these symptoms are worse due to the increased nausea and vomiting. She also reports a burning sensation in her chest following the episodes of vomiting. She denies recent illness, fever, chills, chest pain, shortness of breath, generalized weakness or fatigue, and unusual bleeding. Ms. Sales has a history of GI issues and problems including intussusception. CT of the pelvis/abdomen today w/contrast shows mural thickening of the duodenum in the 2nd and 3rd portion with possible slight entero-entero intussusception at the level of the 2nd portion of the duodenum that is accentuated by fluid within the duodenum but is probably not new. There is concern for duodenitis and consults to GI and surgery were recommended. Surgical consult was discussed in ED with Dr. Monroy and recommendation was that surgery would see the patient while inpatient. Patient is at high risk for infection and possible sepsis based on her presentation of recurrent UTI symptomatology and tachycardia. Patient currently does not meet sepsis criteria based solely on suspected infection but will be monitored closely for increased signs of infection or sepsis. Patient's current WBC is 7.3, HR is 125, RR is 16 , and temperature is 99.0. Timed lactic acids ordered. IV ceftriaxone 1,000 mg daily ordered. Patient received initial dosing in the ED. Cardiac telemetry ordered due to current tachycardia as well as supplemental O2 with SpO2 monitoring. Patient will be kept NPO with IV Zofran PRN and IV Protonix 40 mg daily due to GERD w/esophagitis. Patient is falls precautions/upwith assist/bed rest with bedside commode with assist only due to current weakness from N/V. IV fluids 0.9 NS bolused at 500 mL, then continuation of 100 mL/HRPatient to be monitored closely. Electrolyte protocol ordered. Time spent with patient >40 minutes. Past Med Surg Social Fam HX - Past Medical History Source: patient Medical history: arthritis, diabetes, GERD, hyperlipidemia, hypertension, osteoporosis, renal disease, other Psychiatric history: anxiety, depression - Past Surgical History Surgical History: appendectomy, cholecystectomy, hysterectomy, ureteral stent, other - Social History Smoking Status: Former smoker Smokeless Tobacco Status: No Alcohol use: none Drug use: none Current living situation: Home Activity Level: Independent ambulation Recent Out of Country Travel Within the Last 8 Weeks: No Exposure or Possible Exposure to Illness During Travel: No - Family History Mother Race: Family Member Ethnicity: Non- Living Status: Hx Family Cancer: Yes (Colon cancer with metastasis to bone) Hx Family Endocrine Disorder: Yes (DM) Internal Medicine - H&P: Meds Docusate [Colace] 100 mg PO HS 12/21/14 [History] Polyethylene Glycol 3350 [MiraLAX] 17 gm PO DAILY PRN 12/21/14 [History] Sertraline HCl [Zoloft] 100 mg PO DAILY 12/21/14 [History] Simvastatin [Zocor] 40 mg PO DAILY 12/21/14 [History] Cyanocobalamin (Vitamin B-12) [Vitamin B-12] 1,000 mcg PO QMONTH 12/08/15 [ History] Enalapril Maleate [Vasotec] 5 mg PO DAILY 12/08/15 [History] Mv-Mn/FA/Vit K1/Lycop/Lut/Zeax [Ocuvite Eye + Multi Tablet] 1 tab PO DAILY 12/07 [History] Propranolol HCl 60 mg PO DAILY 12/08/15 [History] SitaGLIPtin [Januvia] 100 mg PO DAILY 03/06/16 [History] Calcium Carbonate/Vitamin D3 [Calcium 500 + Vit D Caplet] 1 each PO BID [History] Calcium Polycarbophil [Fibercon] 625 mg PO BID 09/02/16 [History] Melatonin [Melatin] 3 mg PO HS 09/02/16 [History] Ondansetron HCl [Zofran] 4 mg PO Q8H PRN 09/02/16 [History] Omeprazole [PriLOSEC] 40 mg PO DAILY 11/22/16 [History] Allergies Nickel Allergy (Mild, Verified 09/02/16 11:11) Hives codeine Allergy (Verified 09/02/16 11:11) Hives Erythromycin Base Allergy (Verified 09/02/16 11:11) Rash nitrofurantoin [From Macrobid] Allergy (Verified 09/02/16 11:11) Rash Quaternium Allergy (Verified 09/02/16 11:11) Rash sulfamethoxazole [From Bactrim] Allergy (Verified 09/02/16 11:11) Rash trimethoprim [From Bactrim] Allergy (Verified 09/02/16 11:11) Rash Sulfa (Sulfonamide Antibiotics) Adverse Reaction (Verified 09/02/16 11:11) Hallucinating All Systems PM: A 10-system review of systems was performed and is negative for pertinent findings except as documented above in the HPI. - Constitutional Constitutional: as per HPI, anorexia (Past 24-36 hours) - EENT Eyes: no change in vision, no discharge, no pain, no photophobia Ears: no ear discharge, no ear pain, no tinnitus Nose, mouth and throat: no dysphagia, no nasal discharge, no neck pain, no sore throat - Breasts Breasts: as per HPI - Cardiovascular Cardiovascular ROS IM: as per HPI, other (Tachycardia) - Respiratory Respiratory: no cough, no dyspnea, no wheezing, no excessive phlegm production - Gastrointestinal Gastrointestinal: as per HPI, abdominal pain, heartburn, nausea, vomiting - Genitourinary Genitourinary: no change in urinary stream, no dysuria, no flank pain, no hematuria Menstruation: as per HPI, post hysterectomy - Musculoskeletal Musculoskeletal ROS IM: no numbness, no tingling - Integumentary Integumentary IM: no rash, no unusual bruising - Neurological Neurological ROS: no confusion, no convulsions, no focal weakness, no numbness, no tingling, no tremor(s) - Psychiatric Psychiatric: as per HPI - Endocrine Endocrine IM: as per HPI - Hematologic/Lymphatic Hematologic/Lymphatic: no easy bruising - Allergic/Immunologic Allergic/Immunologic: as per HPI - Constitutional Vitals: Temp Pulse Resp BP Pulse Ox 98.5 F 95 20 108/71 95 11/22/16 22:57 11/22/16 22:57 11/22/16 22:57 11/22/16 22:57 11/22/16 22:57 General appearance: Present: cooperative, A&O X 3, pleasant, no acute distress, answers questions appropriately - Head Head exam: Present: atraumatic, normocephalic - Eye Eye exam: Present: PERRL, conjuntiva pink, sclera anicteric Pupils: Present: PERRL - ENT ENT exam: Present: normal exam, normal external ear exam - Neck Neck exam general surgery: Present: supple, trachea midline. Absent: lymphadenopathy - Respiratory Respiratory exam: Present: CTAB. Absent: accessory muscle use, rales, rhonchi, wheezes - Cardiovascular Cardiovascular exam: Present: RRR, +S1, +S2. Absent: diastolic murmur, gallop, rubs, systolic murmur - GI/Abdominal GI/Abdominal exam: Present: diminished bowel sounds, guarding, soft, no peritoneal signs. Absent: distended, tenderness - Rectal Rectal exam: Present: deferred - Additional comments: exam deferred. - Extremities Exam Extremities exam: Present: warm, radial pulses palpable and symetrical. Absent : calf tenderness, cyanotic, pedal edema - Back Exam Back exam: Present: normal inspection - Neurological Exam Neurological exam: Present: CN II-XII intact, oriented X3, no focal deficits. Absent: pronater drift, facial droop, speech deficit - Psychiatric Psychiatric exam: Present: normal affect, normal mood - Skin Skin exam: Present: dry, intact Internal Med - H&P Results - Labs CBC & Chem 7: 11/22/16 16:32 11/22/16 16:32 - EKG Data EKG shows normal: sinus rhythm Rate: tachycardia - EKG Data Prior EKG available for review: no EKG comments: 11/22/16 23:29 EKG dated 11/22/16 shows sinus tachycardia with short IL interval with occasional supraventricular premature complexes. - Diagnostic Studies CT scan - abdomen Additional comments: Impressions Abdomen/Pelvis CT 11/22/16 18:00 IMPRESSION: 1. There is re- demonstration of mural thickening involving the duodenum, especially in its 2nd and 3rd portion, with surrounding fat stranding, which appears increased in comparison the previous exam. In addition, there is possibly slight entero-entero intussusception at the level of the 2nd portion the duodenum, but that is probably not a new finding, though it is accentuated on today's exam by the degree of fluid within the duodenum. All-in-all, this is concerning for duodenitis with surrounding inflammation. Although definite ulceration is not identified, that is not excluded by this exam. Gastroenterology and surgical consultation is recommended. 2. Evidence of previous gastric bypass, with a patent Maria Elena loop, with oral contrast extending into the distal small bowel. 3. Continued evidence of right-sided hydronephrosis to the level the right ureteral pelvic junction, presumably secondary to UPJ stricture, similar when compared to the previous exam. 4. Evidence of distal mural thickening of the esophagus. Correlate with clinical evidence of esophagitis. D/ / Portillo Garza MD / Portillo Garza MD Interpreting Provider: Portillo Garza MD
[2016-11-23] MEDS: Insulin LISPRO 300 UNITS/3 ML VIAL SQ SCH ×5 (00:01→21:28)
[2016-11-23] MEDS: 0.9 % Sodium Chloride 1,000 ML IVC SCH ×2 (00:01→09:06)
[2016-11-23] MEDS: Pantoprazole 40 MG VIAL IVP SCH ×2 (00:02→09:06)
[2016-11-23 05:22] LABS: Basophils % 0.5 %; Eosinophils % 0.4 %; Immature Granulocytes % 1.1 % (0-4); Lymphocytes % 17.5 %; Mean Corpuscular HGB Conc 31.8 g/dL (31.6-35.5); Mean Corpuscular Hemoglobin 28.2 pg (28.0-33.3); Mean Corpuscular Volume 88.8 fL (83.0-100.0); Mean Platelet Volume 11.4 fL (9.4-12.4); Monocytes # 0.9 K/mcL (0.0-1.3); Monocytes % 15.3 %; Neutrophils # 3.6 K/mcL (1.6-8.9); Platelet Count 167 K/mcL (140-400); Red Blood Count 4.39 M/mcL (3.82-4.97); Red Cell Distribution Width 13.1 % (11.5-14.5); Segmented Neutrophils % 65.2 %
[2016-11-23 05:23] LABS: Hemoglobin 12.4 g/dL (11.5-15.4)
[2016-11-23 05:26] LABS: INR 1.1; Prothrombin Time 12.1 Seconds (9.4-12.1)
[2016-11-23 05:29] LABS: Activated Partial Thrombo Time 27.2 Seconds (26.0-36.0)
[2016-11-23 05:38] LABS: Hemoglobin A1C 7.4 %
[2016-11-23 05:45] LABS: BUN/Creatinine Ratio 19 (6-26); Blood Urea Nitrogen 15 mg/dL (7-20); Carbon Dioxide 26 mEq/L (19-29); Chloride 109 mEq/L (98-109); Chol/HDL Ratio 2.7 (0-4.9); Cholesterol 204 mg/dL (< 200); Glucose 114 mg/dL (70-99); HDL Cholesterol 76 mg/dL (40-59); LDL Cholesterol,Calculated 112 mg/dL (0-99); Magnesium 1.9 mg/dL (1.6-2.6); Osmolality,Calculated 294 (280-300); Potassium 3.8 mEq/L (3.5-4.5); Sodium 141 mEq/L (136-145); Triglycerides 78 mg/dL (< 150); eGFR For African Americans > 60 (> 60); eGFR For Non-African Americans > 60 (> 60)
[2016-11-23 05:46] LABS: Calcium 8.3 mg/dL (8.6-10.8)
[2016-11-23] MEDS: *HR* Heparin 5,000 UNIT/ML VIAL SQ SCH ×3 (06:24→21:28)
--- NOTE | 2016-11-23 10:31 | Internal Med Progress Note ---
<Facundo Bocanegra - Last Filed: 11/23/16 14:55> Date of Encounter: 11/23/16 Time of Encounter: 10:29 - Assessment and plan (1) Abnormal CT of the abdomen Current Visit: Yes Status: Acute Assessment and plan: CT of the abdomen on admission. redemonstrated mural thickening of the 2nd and 3rd portions of the duodenum. possible entero-entero intussusception in the 2nd portion of the duodenum. She has had previous Bypass with Dirk loop. Persistant right sided hydronephrosis , UPJ stricture, distal mural thickening/ possible esophagitis. On exam patient has for the most part a benign abdominal exam with some mild suprapubic tenderness. I think That it is unlikely from the intussusception. He symptoms are likely from either esophagitis or her UTI. Plan: We will repeat CT of the abdomen with contrast. We will consult surgery formally if worsening or if she develops symptoms clinically. Continue PPI and treat UTI. Abdomen/Pelvis CT 11/23/16 12:15 IMPRESSION: 1. Interval improvement in appearance of focal wall thickening and submucosal edema involving the gastric antrum and 1st portion of the duodenum, most consistent with an improving antritis/duodenitis. Peptic ulcer disease cannot be excluded. 2. Stable mild focal entero-entero intussusception at the 2nd portion of the duodenum, unchanged from yesterday's exam. There is no evidence of bowel obstruction. 3. 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 4. Large amount of stool throughout the colon, suggestive of constipation. D/ / 11/23/2016 13:01:33 Edvin Segura MD / celsete Interpreting Provider: Edvin Segura MD (2) Complicated UTI (urinary tract infection) Current Visit: Yes Status: Acute Assessment and plan: we will change her antibiotics to levofloxacin based on prior suscebtability patterns. Given her ureteral stricture and chronic hydronephrosis this should be treated as a complicated UTI and Duration of therapy should be no less than 2 weeks. Given her past cultures I have decided to place her on Levofloxacin. Continue to monitor for adverse reactions. Follow up with urine culture and adjust antibiotics if needed. (3) History of gastric bypass Current Visit: Yes Status: Acute (4) Intussusception Current Visit: Yes Status: Acute Assessment and plan: as stated above. (5) History of hydronephrosis Current Visit: Yes Status: Acute Assessment and plan: as stated above. (6) At high risk for kidney injury Current Visit: Yes Status: Acute Assessment and plan: According to [place] Criteria. PAtient also received IV contrast. IV fluids. Continue to monitor. (7) Diabetes Current Visit: Yes Status: Acute Assessment and plan: continue sliding scale insulin. above goal with Hg A1C of 7.4 Should follow up with PCP to adjust home regimen. This may also help prevent her recurrent UTIs. Qualifiers: Qualified Code(s): E11.9 - Type 2 diabetes mellitus without complications (8) Esophagitis Current Visit: Yes Status: Acute Assessment and plan: as stated above. Should follow up with GI after discharge as well. (9) DVT prophylaxis Current Visit: Yes Status: Acute Assessment and plan: SQ heparin (10) Overweight (BMI 25.0-29.9) Current Visit: Yes Status: Acute Assessment and plan: BMI 28 advise weight loss. - Subjective Interval history: This AM the patient states that she is feeling better she states that her nausea and vomiting and GERD symptoms have resolved. She dose admit to lower abdominal pain and points toward the suprapubic region. She does admit to chronic constipation and states that her last BM was on . she states she felt feverish once at home. She denies any chest pain, dyspnea, hematemesis , melena, or hematochezia. She has no further complaints or concerns at this time. - Constitutional Vitals: Temp Pulse Resp BP Pulse Ox 98.3 F 82 17 111/68 98 11/23/16 08:01 11/23/16 08:01 11/23/16 08:01 11/23/16 08:01 11/23/16 08:01 I have reviewed all vital signs since admission. General appearance: Present: cooperative, A&O X 3, pleasant, no acute distress, answers questions appropriately - Head Head exam: Present: atraumatic, normocephalic - Eye Eye exam: Present: PERRL, conjuntiva pink, sclera anicteric Pupils: Present: PERRL - Neck Neck exam general surgery: Present: supple, trachea midline. Absent: lymphadenopathy - Respiratory Respiratory exam: Present: CTAB. Absent: accessory muscle use, rales, rhonchi, wheezes - Cardiovascular Cardiovascular exam: Present: RRR, +S1, +S2. Absent: diastolic murmur, gallop, rubs, systolic murmur - GI/Abdominal GI/Abdominal exam: Present: normal bowel sounds, soft, tenderness (suprapubic/ mild), no peritoneal signs. Absent: distended - Extremities Exam Extremities exam: Present: warm, radial pulses palpable and symetrical. Absent : calf tenderness, cyanotic, pedal edema - Skin Skin exam: Present: dry, intact Internal Medicine: Result - Labs CBC & Chem 7: 11/23/16 11:24 11/23/16 05:03 Labs: Short CBC 11/23/16 Range/Units 05:03 WBC 5.5 (4.3-11.1) K/mcL Hgb 12.4 D (11.5-15.4) g/dL Hct 39.0 (35.3-44.9) % Plt Count 167 (140-400) K/mcL Neutrophils # 3.6 (1.6-8.9) K/mcL BMP 11/23/16 05:03 Sodium 141 Potassium 3.8 Chloride 109 Carbon Dioxide 26 BUN 15 Creatinine 0.79 Glucose 114 H Calcium 8.3 L D - ABG Interpretation ABG results: PT/INR, D-dimer PT 12.1 Seconds (9.4-12.1) 11/23/16 05:03 Consult Discharge Plan - Plan Referrals: Brittney Garrido MD [Primary Care Provider] - <Andre Pardo - Last Filed: 11/23/16 19:17> Date of Encounter: 11/23/16 - Constitutional Vitals: Temp Pulse Resp BP Pulse Ox 98.1 F 92 20 124/74 98 11/23/16 18:33 11/23/16 18:33 11/23/16 18:33 11/23/16 18:33 11/23/16 18:33 Internal Medicine: Result - Labs CBC & Chem 7: 11/23/16 11:24 11/23/16 05:03 Labs: Short CBC 11/23/16 11/23/16 Range/Units 05:03 11:24 WBC 5.5 4.6 (4.3-11.1) K/mcL Hgb 12.4 D 12.8 (11.5-15.4) g/dL Hct 39.0 40.6 (35.3-44.9) % Plt Count 167 166 (140-400) K/mcL Neutrophils # 3.6 2.9 (1.6-8.9) K/mcL BMP 11/23/16 05:03 Sodium 141 Potassium 3.8 Chloride 109 Carbon Dioxide 26 BUN 15 Creatinine 0.79 Glucose 114 H Calcium 8.3 L D - ABG Interpretation ABG results: PT/INR, D-dimer PT 12.1 Seconds (9.4-12.1) 11/23/16 05:03 - Impressions Impressions Abdomen/Pelvis CT 11/23/16 12:15 IMPRESSION: 1. Interval improvement in appearance of focal wall thickening and submucosal edema involving the gastric antrum and 1st portion of the duodenum, most consistent with an improving antritis/duodenitis. Peptic ulcer disease cannot be excluded. 2. Stable mild focal entero-entero intussusception at the 2nd portion of the duodenum, unchanged from yesterday's exam. There is no evidence of bowel obstruction. 3. 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 4. Large amount of stool throughout the colon, suggestive of constipation. D/ / 11/23/2016 13:01:33 Edvin Segura MD / celeste Interpreting Provider: Edvin Segura MD - Attending Attestation I examined this patient and my medical decision-making was reviewed with the Resident Physician, Dr. Bocanegra. I agree with the documented findings, disposition and treatment plan as described except to the extent set forth below. I have discussed the case with the general surgeon. At this time we will treat the meryl conservatively. We will treat her UTI with antib Antibiotic. Supportive care with IV fluids and analgesics.
[2016-11-23] MEDS ORDERED: Levofloxacin 750 MG/150 ML 750 MG/150 ML BAG IVPB SCH (11:00)
[2016-11-23 11:43] LABS: Basophils % 0.4 %; Eosinophils % 0.2 %; Hematocrit 40.6 % (35.3-44.9); Hemoglobin 12.8 g/dL (11.5-15.4); Immature Granulocytes % 0.9 % (0-4); Lymphocytes % 21.9 %; Mean Corpuscular HGB Conc 31.5 g/dL (31.6-35.5); Mean Corpuscular Hemoglobin 28.4 pg (28.0-33.3); Mean Corpuscular Volume 90.2 fL (83.0-100.0); Mean Platelet Volume 11.2 fL (9.4-12.4); Monocytes # 0.6 K/mcL (0.0-1.3); Monocytes % 12.5 %; Neutrophils # 2.9 K/mcL (1.6-8.9); Platelet Count 166 K/mcL (140-400); Red Cell Distribution Width 13.2 % (11.5-14.5); Segmented Neutrophils % 64.1 %
[2016-11-23] MEDS: levoFLOXacin 750 MG TABLET PO SCH (13:03)
[2016-11-23] MEDS: Bisacodyl 10 MG RECTAL SUPPOSITORY RC SCH ×2 (13:03→21:28)
[2016-11-23] MEDS ORDERED: Cyanocobalamin (B-12) 1,000 MCG/ML VIAL SQ SCH (15:00)
[2016-11-23] MEDS ORDERED: Melatonin 3 MG TABLET PO SCH (21:00)
[2016-11-24 05:01] LABS: Basophils % 0.5 %; Eosinophils % 1.1 %; Hematocrit 38.1 % (35.3-44.9); Immature Granulocytes % 0.8 % (0-4); Mean Corpuscular HGB Conc 31.5 g/dL (31.6-35.5); Mean Corpuscular Hemoglobin 28.6 pg (28.0-33.3); Mean Corpuscular Volume 90.9 fL (83.0-100.0); Mean Platelet Volume 11.4 fL (9.4-12.4); Monocytes # 0.5 K/mcL (0.0-1.3); Monocytes % 13.7 %; Neutrophils # 2.1 K/mcL (1.6-8.9); Platelet Count 144 K/mcL (140-400); Red Blood Count 4.19 M/mcL (3.82-4.97); Red Cell Distribution Width 13.2 % (11.5-14.5); Segmented Neutrophils % 57.9 %
[2016-11-24] MEDS: 0.9 % Sodium Chloride 1,000 ML IVC SCH ×2 (05:05→08:44)
[2016-11-24] MEDS: *HR* Heparin 5,000 UNIT/ML VIAL SQ SCH (05:05)
[2016-11-24 05:07] LABS: BUN/Creatinine Ratio 13 (6-26); Blood Urea Nitrogen 10 mg/dL (7-20); Calcium 8.7 mg/dL (8.6-10.8); Carbon Dioxide 26 mEq/L (19-29); Chloride 108 mEq/L (98-109); Glucose 122 mg/dL (70-99); Osmolality,Calculated 288 (280-300); Potassium 3.9 mEq/L (3.5-4.5); Sodium 139 mEq/L (136-145); eGFR For African Americans > 60 (> 60); eGFR For Non-African Americans > 60 (> 60)
[2016-11-24] MEDS: Insulin LISPRO 300 UNITS/3 ML VIAL SQ SCH ×2 (08:44→12:19)
[2016-11-24] MEDS: levoFLOXacin 750 MG TABLET PO SCH (08:54)
[2016-11-24] MEDS: Pantoprazole 40 MG VIAL IVP SCH (08:54)
--- NOTE | 2016-11-24 10:09 | Internal Med Progress Note ---
Date of Encounter: 11/24/16 Time of Encounter: 08:00 - Assessment and plan (1) Abnormal CT of the abdomen Current Visit: Yes Status: Acute Assessment and plan: 11/24 Pt states that all abdominal tenderness has resolved at this time. She has no tenderness to palpation over the suprapubic region. She does admit that she is still experiencing intermittent heartburn. -Repeat CT with contrast demonstrated modest improvement of duodenal thickening. Intussusception is stable. -Symptoms are most likely due to UTI, which is being appropriately treated. We will continue treating this. 11/23 CT of the abdomen on admission. redemonstrated mural thickening of the 2nd and 3rd portions of the duodenum. possible entero-entero intussusception in the 2nd portion of the duodenum. She has had previous Bypass with Dirk loop. Persistant right sided hydronephrosis , UPJ stricture, distal mural thickening/ possible esophagitis. On exam patient has for the most part a benign abdominal exam with some mild suprapubic tenderness. I think That it is unlikely from the intussusception. He symptoms are likely from either esophagitis or her UTI. Abdomen/Pelvis CT 11/23/16 12:15 IMPRESSION: 1. Interval improvement in appearance of focal wall thickening and submucosal edema involving the gastric antrum and 1st portion of the duodenum, most consistent with an improving antritis/duodenitis. Peptic ulcer disease cannot be excluded. 2. Stable mild focal entero-entero intussusception at the 2nd portion of the duodenum, unchanged from yesterday's exam. There is no evidence of bowel obstruction. 3. 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 4. Large amount of stool throughout the colon, suggestive of constipation. D/ / 11/23/2016 13:01:33 Edvin Segura MD / celeste Interpreting Provider: Edvin Segura MD (2) Complicated UTI (urinary tract infection) Current Visit: Yes Status: Acute Assessment and plan: 11/24 Patient has had no adverse reactions to treatment at this time, and states that her symptoms have resolved completely. We will continue this course of antibiotics 11/23 we will change her antibiotics to levofloxacin based on prior suscebtability patterns. Given her ureteral stricture and chronic hydronephrosis this should be treated as a complicated UTI and Duration of therapy should be no less than 2 weeks. Given her past cultures I have decided to place her on Levofloxacin. Continue to monitor for adverse reactions. Follow up with urine culture and adjust antibiotics if needed. (3) History of gastric bypass Current Visit: Yes Status: Acute (4) Intussusception Current Visit: Yes Status: Acute (5) History of hydronephrosis Current Visit: Yes Status: Acute Assessment and plan: as stated above. (6) Diabetes Current Visit: Yes Status: Chronic Assessment and plan: Continue sliding scale insulin. Proper control of DM2 may prevent recurrent UTIs. 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 (8) DVT prophylaxis Current Visit: Yes Status: Acute Assessment and plan: Subcutaneous heparin - Subjective Interval history: The patient was resting comfortably in bed at the time of examination. She was alert and oriented 3, and is very pleasant. She states that she is feeling completely better at this time. She says that no abdominal pain is present at this, and her urinary symptoms seem to have abated some. She says that she has had no nausea and/or vomiting since Thursday, and that she is feeling well enough to go home. She denies Chest pain, SOB, palpitations, fever or chills. - Constitutional Vitals: Temp Pulse Resp BP Pulse Ox 98.1 F 58 16 132/81 97 11/24/16 07:53 11/24/16 07:53 11/24/16 07:53 11/24/16 07:53 11/24/16 07:53 General appearance: Present: cooperative, A&O X 3, pleasant, no acute distress, answers questions appropriately - Head Head exam: Present: atraumatic, normocephalic - Eye Eye exam: Present: PERRL, conjuntiva pink, sclera anicteric Pupils: Present: PERRL - Neck Neck exam general surgery: Present: supple, trachea midline. Absent: lymphadenopathy - Respiratory Respiratory exam: Present: CTAB. Absent: accessory muscle use, rales, rhonchi, wheezes - Cardiovascular Cardiovascular exam: Present: RRR, +S1, +S2. Absent: diastolic murmur, gallop, rubs, systolic murmur - GI/Abdominal GI/Abdominal exam: Present: normal bowel sounds, soft, no peritoneal signs - Extremities Exam Extremities exam: Present: warm, radial pulses palpable and symetrical. Absent : calf tenderness, cyanotic, pedal edema - Neurological Exam Neurological exam: Present: alert, oriented X3, reflexes normal, no focal deficits - Psychiatric Psychiatric exam: Present: normal affect, normal mood - Skin Skin exam: Present: dry, intact Internal Medicine: Result - Labs CBC & Chem 7: 11/24/16 04:25 11/24/16 04:25 Labs: Short CBC 11/23/16 11/24/16 Range/Units 11:24 04:25 WBC 4.6 3.7 L (4.3-11.1) K/mcL Hgb 12.8 12.0 (11.5-15.4) g/dL Hct 40.6 38.1 (35.3-44.9) % Plt Count 166 144 (140-400) K/mcL Neutrophils # 2.9 2.1 (1.6-8.9) K/mcL BMP 11/24/16 04:25 Sodium 139 Potassium 3.9 Chloride 108 Carbon Dioxide 26 BUN 10 Creatinine 0.75 Glucose 122 H Calcium 8.7 - ABG Interpretation ABG results: PT/INR, D-dimer PT 12.1 Seconds (9.4-12.1) 11/23/16 05:03 - Impressions Impressions Abdomen/Pelvis CT 11/23/16 12:15 IMPRESSION: 1. Interval improvement in appearance of focal wall thickening and submucosal edema involving the gastric antrum and 1st portion of the duodenum, most consistent with an improving antritis/duodenitis. Peptic ulcer disease cannot be excluded. 2. Stable mild focal entero-entero intussusception at the 2nd portion of the duodenum, unchanged from yesterday's exam. There is no evidence of bowel obstruction. 3. 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 4. Large amount of stool throughout the colon, suggestive of constipation. D/ / 11/23/2016 13:01:33 Edvin Segura MD / celeste Interpreting Provider: Edvin Segura MD Consult Discharge Plan - Plan Referrals: Brittney Garrido MD [Primary Care Provider] -
[2016-11-24 12:05] VITALS: BP 118/76
--- NOTE | 2016-11-24 12:07 | Electrocardiograph Report ---
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
--- NOTE | 2016-11-24 14:34 | Discharge Summary ---
<Viktor Kemp - Last Filed: 11/24/16 14:35> Date of Encounter: 11/24/16 Time of Encounter: 10:00 - Discharge Diagnosis (1) Abnormal CT of the abdomen Priority: Primary Status: Acute Comments: The patient states that all abdominal tenderness is resolved at this time. She has no tenderness to palpation over the suprapubic region, although she does admit that she is still experiencing an intermittent heartburn. Repeat CT with contrast demonstrated modest improvement of duodenal thickening. Intussusception stable and probably chronic. Symptoms are most likely due to UTI, which is being appropriately treated. We will continue treating this with by mouth Levaquin for up to 2 weeks. (2) Complicated UTI (urinary tract infection) Priority: Primary Status: Resolved Comments: Patient has had no adverse reactions to treatment at this time, and states that her symptoms have resolved completely. We will continue her course of antibiotics and she should follow up with primary care. (3) History of gastric bypass Priority: Secondary Status: Acute (4) Intussusception Priority: Secondary Status: Chronic Comments: This intussusception appears to be chronic in nature. She can follow up with surgery as an outpatient. (5) History of hydronephrosis Priority: Secondary Status: Chronic (6) Diabetes Priority: Secondary Status: Chronic Comments: Patient will be discharged on her home medications. During her hospitalization she was on sliding scale insulin. Patient should follow-up with her primary care to determine the necessity of long-term insulin schedule. She is encouraged to get her sugars under control long-term because this may assist in preventing future UTIs. 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: without skilled nursing use Chronic kidney disease stage: stage 3 (moderate) Qualified Code(s): E11.22 - Type 2 diabetes mellitus with diabetic chronic kidney disease; N18.3 - Chronic kidney disease, stage 3 (moderate) (7) Overweight (BMI 25.0-29.9) Priority: Secondary Status: Acute (8) DVT prophylaxis Priority: Secondary Status: Acute - Discharge Medications Prescriptions: levoFLOXacin [Levaquin] 750 mg PO DAILY 10 Days Pantoprazole Sodium 40 mg PO DAILY 30 Days Home Medications: Docusate [Colace] 100 mg PO HS 12/21/14 [History] Polyethylene Glycol 3350 [MiraLAX] 17 gm PO DAILY PRN 12/21/14 [History] Sertraline HCl [Zoloft] 100 mg PO DAILY 12/21/14 [History] Simvastatin [Zocor] 40 mg PO DAILY 12/21/14 [History] Cyanocobalamin (Vitamin B-12) [Vitamin B-12] 1,000 mcg SQ QMONTH 12/08/15 [ History] Enalapril Maleate [Vasotec] 5 mg PO DAILY 12/08/15 [History] Mv-Mn/FA/Vit K1/Lycop/Lut/Zeax [Ocuvite Eye + Multi Tablet] 1 tab PO DAILY 12/07 [History] Propranolol HCl 60 mg PO DAILY 12/08/15 [History] SitaGLIPtin [Januvia] 100 mg PO DAILY 03/06/16 [History] Calcium Carbonate/Vitamin D3 [Calcium 500 + Vit D Caplet] 1 each PO BID [History] Calcium Polycarbophil [Fibercon] 625 mg PO BID 09/02/16 [History] Melatonin [Melatin] 3 mg PO HS 09/02/16 [History] Ondansetron HCl [Zofran] 4 mg PO Q8H PRN 09/02/16 [History] Famotidine [Pepcid] 40 mg PO DAILY 11/23/16 [History] Pantoprazole Sodium 40 mg PO DAILY 30 Days 11/24/16 [Rx] levoFLOXacin [Levaquin] 750 mg PO DAILY 10 Days 11/24/16 [Rx] Allergies/Adverse Reactions: Allergies Nickel Allergy (Mild, Verified 11/23/16 10:47) Hives codeine Allergy (Verified 11/23/16 10:47) Hives Erythromycin Base Allergy (Verified 11/23/16 10:47) Rash nitrofurantoin [From Macrobid] Allergy (Verified 11/23/16 10:47) Rash Quaternium Allergy (Verified 11/23/16 10:47) Rash sulfamethoxazole [From Bactrim] Allergy (Verified 11/23/16 10:47) Rash trimethoprim [From Bactrim] Allergy (Verified 11/23/16 10:47) Rash Sulfa (Sulfonamide Antibiotics) Adverse Reaction (Verified 11/23/16 10:47) Hallucinating Procedures/tests Complete & Pending: Procedures Performed prior 72 hours Category Date Time Status CT abd pelvis w iv and oral [CT] Routine Cat Scan 11/23/16 12:15 Draft Date of admission: 11/22/16 20:56 Primary care physician: Brittney Garrido, - Patient Status Disposition: Home, Self-Care Functional capacity at discharge: independent ambulation Overall status at discharge: patient is progressing back to baseline - Discharge Instructions Follow Up With: Brittney Garrido MD [Primary Care Provider] - 12/02/16 9:20 am - Diet and Activity Activity: resume usual activities as tolerated Diet: diabetic diet Hospital course: Ms. Sales is a 66 year old female who presented to the ER for nausea and vomiting since Thursday, abdominal pain, suprapubic tenderness. She says these symptoms are similar to when she has had UTIs in the past, of which she has had 6 in the past 12 months. She denies any illness, fever, chills, chest pain, shortness of breath, generalized weakness or fatigue, and unusual bleeding. Abdominal CT demonstrated mural thickening of the duodenum and the second and third portion and possible slightly intussusception at the level of the second portion of the duodenum that is accentuated with fluid within the duodenum but is probably not new. There was concern for duodenitis and consults to GI and surgery were recommended, however he intussusception is apparently chronic, and non-surgical. Patient was at high risk for infection and possible sepsis based on her presentation of recurrent UTI symptomology and tachycardia. IV ceftriaxone 1 g daily was ordered, and patient received initial dosing in the ED. The patient received IV fluids and was transferred to the floor. The patient's cultures came back positive for gram-positive cocci, and the patient was transitioned to oral Levaquin at 750 mg by mouth. A repeat CT demonstrated interval improvement in the patient's duodenitis, stable intussusception, stable UPJ stenosis on the right. The patient also had evidence of esophagitis due to GERD. The patient was adequately hydrated throughout her course at the hospital, and is prepared for discharge on by mouth Levaquin - Time Spent with Patient Total time spent providing and/or coordinating discharge services: - Constitutional Vitals: Temp Pulse Resp BP Pulse Ox 98.2 F 55 14 118/76 96 11/24/16 12:04 11/24/16 12:04 11/24/16 12:04 11/24/16 12:04 11/24/16 12:04 General appearance: Present: cooperative, A&O X 3, pleasant, no acute distress, answers questions appropriately - Head Head exam: Present: atraumatic, normocephalic - Eye Eye exam: Present: PERRL, conjuntiva pink, sclera anicteric Pupils: Present: PERRL - Neck Neck exam general surgery: Present: supple, trachea midline. Absent: lymphadenopathy - Respiratory Respiratory exam: Present: CTAB. Absent: accessory muscle use, rales, rhonchi, wheezes - Cardiovascular Cardiovascular exam: Present: RRR, +S1, +S2. Absent: diastolic murmur, gallop, rubs, systolic murmur - GI/Abdominal GI/Abdominal exam: Present: normal bowel sounds, soft, no peritoneal signs. Absent: distended, tenderness - Extremities Exam Extremities exam: Present: warm, radial pulses palpable and symetrical. Absent : calf tenderness, cyanotic, pedal edema - Neurological Exam Neurological exam: Present: CN II-XII intact, oriented X3, no focal deficits. Absent: pronater drift, facial droop, speech deficit - Skin Skin exam: Present: dry, intact <Andre Pardo - Last Filed: 11/24/16 19:15> Date of Encounter: 11/24/16 Procedures/tests Complete & Pending: Procedures Performed prior 72 hours Category Date Time Status CT abd pelvis w iv and oral [CT] Routine Cat Scan 11/23/16 12:15 Draft Date of admission: 11/22/16 20:56 Primary care physician: Brittney Garrido, - Patient Status Functional capacity at discharge: independent ambulation Overall status at discharge: patient is progressing back to baseline Hospital course: Ms. Sales is a 66 year old female - Time Spent with Patient Total time spent providing and/or coordinating discharge services: - Constitutional Vitals: Temp Pulse Resp BP Pulse Ox 98.2 F 55 14 118/76 96 11/24/16 12:04 11/24/16 12:04 11/24/16 12:04 11/24/16 12:04 11/24/16 12:04 - Attending Attestation I examined this patient and my medical decision-making was reviewed with the Resident Physician, Dr Kemp. I agree with the documented findings, disposition and treatment plan as described except to the extent set forth below. he patient is currently back to baseline. She tolerated regular diet. Abdominal pain has resolved. he will be discharged home. I advised her to follow-up with P PCP N1 to 2 weeks.
== END 2016-11-24 15:46 | disposition home or self-care (01) ==
LOC: EMEROO 14:50 → 3BNU 14:50 → SUATTDRO 20:56 → 3BNU 23:49
PROVIDERS: ADMIT Internal Medicine Endocrinology, Diabetes & Metabolism; ATTEND Internal Medicine

== ENCOUNTER 2016-11-26 21:22 | Observation (INO) ==
[2016-11-26] MEDS ORDERED: *HR* Promethazine 25 MG/ML VIAL IVP ONE (21:54)
[2016-11-26 22:04] LABS: Basophils % 0.4 %; Eosinophils # 0.1 K/mcL (0.0-0.6); Eosinophils % 0.9 %; Hematocrit 45.8 % (35.3-44.9); Immature Granulocytes % 1.1 % (0-4); Lymphocytes # 0.7 K/mcL (0.6-4.6); Lymphocytes % 12.4 %; Mean Corpuscular HGB Conc 32.3 g/dL (31.6-35.5); Mean Corpuscular Hemoglobin 28.3 pg (28.0-33.3); Mean Corpuscular Volume 87.6 fL (83.0-100.0); Mean Platelet Volume 11.2 fL (9.4-12.4); Monocytes # 0.4 K/mcL (0.0-1.3); Monocytes % 7.1 %; Platelet Count 187 K/mcL (140-400); Red Blood Count 5.23 M/mcL (3.82-4.97); Red Cell Distribution Width 13.1 % (11.5-14.5); Segmented Neutrophils % 78.1 %
[2016-11-26 22:07] LABS: Hemoglobin 14.8 g/dL (11.5-15.4); Neutrophils # 4.5 K/mcL (1.6-8.9)
[2016-11-26 22:27] LABS: Alanine Aminotransferase 12 Units/L (0-55); Albumin/Globulin Ratio 1.1 (1.1-2.2); Alkaline Phosphatase 135 Units/L (38-126); Aspartate Amino Transferase 19 Units/L (5-34); BUN/Creatinine Ratio 11 (6-26); Bilirubin,Total 0.4 mg/dL (0.2-1.2); Blood Urea Nitrogen 12 mg/dL (7-20); Calcium 9.9 mg/dL (8.6-10.8); Carbon Dioxide 19 mEq/L (19-29); Chloride 105 mEq/L (98-109); Globulin 3.5 g/dL (2.4-3.5); Glucose 208 mg/dL (70-99); Lipase 44 Units/L (8-78); Osmolality,Calculated 292 (280-300); Potassium 3.8 mEq/L (3.5-4.5); Sodium 138 mEq/L (136-145); Total Protein 7.5 g/dL (6.0-8.3); eGFR For African Americans > 60 (> 60); eGFR For Non-African Americans 52 (> 60)
[2016-11-26 22:43] LABS: INR 0.9; Prothrombin Time 9.7 Seconds (9.4-12.1)
[2016-11-26 22:45] LABS: Activated Partial Thrombo Time 28.9 Seconds (26.0-36.0)
[2016-11-26 23:10] LABS: Bilirubin,Urine Negative (Negative); Blood,Urine Negative (Negative); Clarity,Urine Clear (Clear); Color,Urine Yellow (Yellow); Glucose,Urine (UA) Normal (Normal); Ketones,Urine Negative (Negative); Leukocyte Esterase,Urine Negative (Negative); Nitrite,Urine Negative (Negative); PH,Urine 5.5 pH Units (5.0-8.0); Protein,Urine Negative (Neg-Trace); Specific Gravity,Urine 1.008 (1.010-1.025); Urobilinogen,Urine Normal (Normal)
--- NOTE | 2016-11-27 00:42 | Emergency Department Note ---
Disposition Clinical Impression: Intractable vomiting Qualifiers: Vomiting type: unspecified Nausea presence: with nausea Qualified Code(s): R11.2 - Nausea with vomiting, unspecified Disposition: Admitted As Inpatient Referrals: Brittney Garrido MD [Primary Care Provider] - Forms: ED Satisfaction Letter Nausea/Vomiting/Diarrhea HPI - General Chief complaint: ED Nausea/Vomiting/Diarrhea Stated complaint: N/V Time Seen by Provider: 11/26/16 21:49 Source: patient Limitations: no limitations Nursing Notes Reviewed: Yes Vital Signs Reviewed: Yes - History of Present Illness Pt Subjective Complaint: nausea, vomiting Onset (ago): hour(s) (5) Description of emesis: watery Associated Abdominal Pain: Yes If pain, Location of pain: other (SUPRAPUBIC) Consistency: intermittent Improves with: nothing Worsens with: nonthing Associated symptoms: Reports: loss of appetite, nausea/vomiting. Denies: myalgias, chest pain, cough, diaphoresis - Related Data Home Medications Medication Instructions Recorded Confirmed Docusate [Colace] 100 mg PO HS 12/21/14 11/22/16 Polyethylene Glycol 3350 [MiraLAX] 17 gm PO DAILY PRN 12/21/14 11/22/16 Sertraline HCl [Zoloft] 100 mg PO DAILY 12/21/14 11/22/16 Simvastatin [Zocor] 40 mg PO DAILY 12/21/14 11/22/16 Cyanocobalamin (Vitamin B-12) 1,000 mcg SQ QMONTH 12/08/15 11/22/16 [Vitamin B-12] Enalapril Maleate [Vasotec] 5 mg PO DAILY 12/08/15 11/22/16 Mv-Mn/FA/Vit K1/Lycop/Lut/Zeax 1 tab PO DAILY 12/08/15 11/22/16 [Ocuvite Eye + Multi Tablet] Propranolol HCl 60 mg PO DAILY 12/08/15 11/22/16 SitaGLIPtin [Januvia] 100 mg PO DAILY 03/06/16 11/22/16 Calcium Carbonate/Vitamin D3 1 each PO BID 09/02/16 11/22/16 [Calcium 500 + Vit D Caplet] Calcium Polycarbophil [Fibercon] 625 mg PO BID 09/02/16 11/22/16 Melatonin [Melatin] 3 mg PO HS 09/02/16 11/22/16 Ondansetron HCl [Zofran] 4 mg PO Q8H PRN 09/02/16 11/22/16 Famotidine [Pepcid] 40 mg PO DAILY 11/23/16 11/23/16 Previous Rx's Medication Instructions Recorded Pantoprazole Sodium 40 mg PO DAILY 30 Days 11/24/16 levoFLOXacin [Levaquin] 750 mg PO DAILY 10 Days 11/24/16 Allergies Allergy/AdvReac Type Severity Reaction Status Date / Time Nickel Allergy Mild Hives Verified 11/23/16 10:47 codeine Allergy Hives Verified 11/23/16 10:47 Erythromycin Base Allergy Rash Verified 11/23/16 10:47 nitrofurantoin Allergy Rash Verified 11/23/16 10:47 [From Macrobid] Quaternium Allergy Rash Verified 11/23/16 10:47 sulfamethoxazole Allergy Rash Verified 11/23/16 10:47 [From Bactrim] trimethoprim [From Bactrim] Allergy Rash Verified 11/23/16 10:47 Sulfa (Sulfonamide AdvReac Hallucinati Verified 11/23/16 10:47 Antibiotics) ng All systems ED: reviewed and negative except as stated. 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 - Social History Smoking Status: Former smoker Smokeless Tobacco Status: No Alcohol use: Reports: none Drug use: Reports: none Physical Exam - General Limitations: no limitations General appearance: alert, other (Dry heaving) - Head Head exam: atraumatic, normocephalic, normal inspection - Eye Eye exam: Present: normal appearance, PERRL, EOMI - Expanded Eye Exam Pupils: Left: reactive - ENT ENT exam: normal exam, normal oropharynx, mucous membranes moist - Expanded ENT Exam External ear exam: Present: normal external inspection Mouth exam: Present: normal external inspection Teeth exam: Present: normal inspection Throat exam: Present: normal inspection - Neck Neck exam: Present: normal inspection, full ROM, trachea midline - Chest Chest inspection: Present: normal inspection, symmetric chest wall rise - Respiratory Respiratory exam: Present: normal lung sounds bilaterally - Cardiovascular Cardiovascular exam: Present: regular rate, normal rhythm, normal heart sounds - Abdominal Exam Abdominal exam: Present: soft, normal bowel sounds. Absent: guarding, rebound Abdominal tenderness: Present: suprapubic, mild - Extremities Exam Extremities exam: Present: normal inspection, full ROM. Absent: tenderness, pedal edema - Expanded Upper Extremity Exam Shoulder exam: Present: normal inspection, full ROM Arm exam: Present: normal inspection, full ROM Elbow exam: Present: normal inspection, full ROM Forearm/Wrist exam: Present: normal inspection, full ROM Hand exam: Present: normal inspection, full ROM Vascular exam: Normal: capillary refill, radial pulse - Expanded Lower Extremity Exam Hip/Pelvis exam: Present: normal inspection, full ROM Upper leg exam: Present: normal inspection, full ROM Knee exam: Present: normal inspection, full ROM Lower leg exam: Present: normal inspection, full ROM Ankle exam: Present: normal inspection, full ROM Foot/toe exam: Present: normal inspection, full ROM Neurovascular/Tendon exam: Absent: motor deficit, sensory deficit, tendon deficit - Back Exam Back exam: Present: normal inspection, full ROM. Absent: tenderness - Neurological Exam Neurological exam: Present: alert, oriented X3 - Expanded Neurological Exam Patient oriented to: Present: person, place, time Coma Scale Eye Opening: Spontaneous Coma Scale Motor Response: Obeys Commands Coma Scale Verbal Response: Oriented Coma Scale Total: 15 - Psychiatric Psychiatric exam: Present: normal affect, normal mood - Skin Skin exam: Present: warm, dry, intact, normal color Course Vital Signs Temperature 99.1 F 11/26/16 21:26 Pulse Rate 113 11/26/16 21:26 Respiratory Rate 22 11/26/16 21:26 Blood Pressure 178/95 11/26/16 21:26 O2 Sat by Pulse Oximetry 97 11/26/16 21:26 Temperature 99.1 F 11/26/16 21:26 Pulse Rate 114 11/27/16 00:00 Respiratory Rate 16 11/27/16 00:00 Blood Pressure 194/108 11/27/16 00:00 O2 Sat by Pulse Oximetry 97 11/27/16 00:00 Oxygen Delivery Oxygen Delivery Room Air Nausea/Vomiting/Diarrhea - Lab Data Result diagrams: 11/26/16 21:46 11/26/16 21:46 Lab Results 11/26/16 11/26/16 11/26/16 Range/Units 21:46 21:46 22:29 WBC 5.7 D (4.3-11.1) K/mcL RBC 5.23 H (3.82-4.97) M/mcL Hgb 14.8 D (11.5-15.4) g/dL Hct 45.8 H (35.3-44.9) % MCV 87.6 (83.0-100.0) fL MCH 28.3 (28.0-33.3) pg MCHC 32.3 (31.6-35.5) g/dL RDW 13.1 (11.5-14.5) % Plt Count 187 (140-400) K/mcL MPV 11.2 (9.4-12.4) fL Immature Gran % 1.1 (0-4) % Seg Neutrophils % 78.1 % Lymphocytes % 12.4 % Monocytes % 7.1 % Eosinophils % 0.9 % Basophils % 0.4 % Neutrophils # 4.5 (1.6-8.9) K/mcL Lymphocytes # 0.7 (0.6-4.6) K/mcL Monocytes # 0.4 (0.0-1.3) K/mcL Eosinophils # 0.1 (0.0-0.6) K/mcL Basophils # 0.0 (0.0-0.2) K/mcL PT 9.7 (9.4-12.1) Seconds INR 0.9 APTT 28.9 (26.0-36.0) Seconds Sodium 138 (136-145) mEq/L Potassium 3.8 (3.5-4.5) mEq/L Chloride 105 (98-109) mEq/L Carbon Dioxide 19 (19-29) mEq/L BUN 12 (7-20) mg/dL Creatinine 1.05 (0.57-1.11) mg/dL Est GFR ( Amer) > 60 (> 60) Est GFR (Non-Af Amer) 52 L (> 60) BUN/Creatinine Ratio 11 (6-26) Glucose 208 H (70-99) mg/dL Calculated Osmolality 292 (280-300) Calcium 9.9 (8.6-10.8) mg/dL Total Bilirubin 0.4 (0.2-1.2) mg/dL AST 19 (5-34) Units/L ALT 12 (0-55) Units/L Alkaline Phosphatase 135 H (38-126) Units/L Troponin I (0-0.03) ng/mL Serum Total Protein 7.5 (6.0-8.3) g/dL Albumin 4.0 (3.5-5.0) g/dL Globulin 3.5 (2.4-3.5) g/dL Albumin/Globulin Ratio 1.1 (1.1-2.2) Lipase 44 (8-78) Units/L Urine Color (Yellow) Urine Clarity (Clear) Urine pH (5.0-8.0) pH Units Ur Specific Dike (1.010-1.025) Urine Protein (Neg-Trace) mg/dL Urine Glucose (UA) (Normal) mg/dL Urine Ketones (Negative) mg/dL Urine Blood (Negative) Urine Nitrite (Negative) Urine Bilirubin (Negative) Urine Urobilinogen (Normal) mg/dL Ur Leukocyte Esterase (Negative) Ur Culture Indicated? (NO) Specimen Rejected 11/26/16 11/26/16 11/26/16 Range/Units 22:29 22:29 22:58 WBC (4.3-11.1) K/mcL RBC (3.82-4.97) M/mcL Hgb (11.5-15.4) g/dL Hct (35.3-44.9) % MCV (83.0-100.0) fL MCH (28.0-33.3) pg MCHC (31.6-35.5) g/dL RDW (11.5-14.5) % Plt Count (140-400) K/mcL MPV (9.4-12.4) fL Immature Gran % (0-4) % Seg Neutrophils % % Lymphocytes % % Monocytes % % Eosinophils % % Basophils % % Neutrophils # (1.6-8.9) K/mcL Lymphocytes # (0.6-4.6) K/mcL Monocytes # (0.0-1.3) K/mcL Eosinophils # (0.0-0.6) K/mcL Basophils # (0.0-0.2) K/mcL PT (9.4-12.1) Seconds INR APTT (26.0-36.0) Seconds Sodium (136-145) mEq/L Potassium (3.5-4.5) mEq/L Chloride (98-109) mEq/L Carbon Dioxide (19-29) mEq/L BUN (7-20) mg/dL Creatinine (0.57-1.11) mg/dL Est GFR ( Amer) (> 60) Est GFR (Non-Af Amer) (> 60) BUN/Creatinine Ratio (6-26) Glucose (70-99) mg/dL Calculated Osmolality (280-300) Calcium (8.6-10.8) mg/dL Total Bilirubin (0.2-1.2) mg/dL AST (5-34) Units/L ALT (0-55) Units/L Alkaline Phosphatase (38-126) Units/L Troponin I 0.00 (0-0.03) ng/mL Serum Total Protein (6.0-8.3) g/dL Albumin (3.5-5.0) g/dL Globulin (2.4-3.5) g/dL Albumin/Globulin Ratio (1.1-2.2) Lipase (8-78) Units/L Urine Color Yellow (Yellow) Urine Clarity Clear (Clear) Urine pH 5.5 (5.0-8.0) pH Units Ur Specific Dike 1.008 L (1.010-1.025) Urine Protein Negative (Neg-Trace) mg/dL Urine Glucose (UA) Normal (Normal) mg/dL Urine Ketones Negative (Negative) mg/dL Urine Blood Negative (Negative) Urine Nitrite Negative (Negative) Urine Bilirubin Negative (Negative) Urine Urobilinogen Normal (Normal) mg/dL Ur Leukocyte Esterase Negative (Negative) Ur Culture Indicated? NO (NO) Specimen Rejected Hemolyzed
[2016-11-27] MEDS ORDERED: Pantoprazole 40 MG VIAL IVP ONE (01:08)
[2016-11-27] MEDS ORDERED: *HR* HYDROmorphone (PF) 1 MG/ML SYRINGE IVP PRN (03:50)
[2016-11-27] MEDS ORDERED: *HR* Morphine 2 MG/ML SYRINGE IVP PRN (03:50)
[2016-11-27] MEDS ORDERED: 0.9 % Sodium Chloride 1,000 ML IVC ONE ×2 (03:50→08:58)
[2016-11-27] MEDS ORDERED: *HR* Promethazine 25 MG/ML VIAL ONE (04:20)
[2016-11-27] MEDS ORDERED: 0.9 % Sodium Chloride 2,000 ML ONE (04:20)
[2016-11-27] MEDS ORDERED: *HR* Morphine 2 MG/ML SYRINGE ONE (04:20)
[2016-11-27] MEDS ORDERED: Naloxone 0.4 MG/ML INJ IVP PRN (06:02)
[2016-11-27] MEDS ORDERED: Pantoprazole 40 MG VIAL ONE (06:28)
[2016-11-27] MEDS ORDERED: *HR* Promethazine 25 MG/ML VIAL IVP ONE (06:50)
[2016-11-27] MEDS ORDERED: *HR* Promethazine 25 MG/ML VIAL IVP PRN (06:50)
[2016-11-27] MEDS: Pantoprazole 40 MG VIAL IVP SCH (08:53)
--- NOTE | 2016-11-27 08:55 | Internal Med History&Physical ---
Date of Encounter: 11/27/16 Time of Encounter: 04:00 Assessment and Plan (1) Intractable nausea and vomiting Current visit: Yes Status: Acute No obvious cause is known. Symptomatic treatment, PPI. IV fluids Qualifiers: Vomiting type: unspecified Qualified Code(s): R11.2 - Nausea with vomiting , unspecified (2) Diarrhea Current visit: Yes Status: Acute Will check for C diff and stool culture. Supportive care Qualifiers: Diarrhea type: unspecified type Qualified Code(s): R19.7 - Diarrhea, unspecified (3) H/O gastric bypass Current visit: Yes Status: Chronic No obvious obstruction reported (4) DM (diabetes mellitus), type 2 Current visit: Yes Status: Chronic Start sliding scale insulin Qualifiers: Diabetes mellitus complication status: without complication Diabetes mellitus skilled nursing insulin use: without manager terminal use Qualified Code(s): E11.9 - Type 2 diabetes mellitus without complications (5) Hydronephrosis, right Current visit: Yes Status: Chronic Likely due to PUJ stenosis. Monitor (6) Hypertension Current visit: Yes Status: Chronic Continue antihypertensives, when the home medication are verified Qualifiers: Hypertension type: essential hypertension Qualified Code(s): I10 - Essential (primary) hypertension (7) DVT prophylaxis Current visit: Yes Status: Acute Heparin Internal Medicine - H&P: HPI Chief complaint: Nausea and vomiting Admitted From: Emergency Dept Plans for Post Hospital Care: Home History of present illness: Ms. Sales is a 66 year old female with PMHx of HTN, DM2, hx of Maria Elena En Y gastric bypass, multiple hernia repairs, small bowel obstruction/intussuception , h/o intermittent self catheterization, recent admission for UTI and vomiting. She presented to the ED with nausea, vomiting, diarrhea and suprapubic abdominal pain, that started staff. Nausea and vomiting have been intractable. It was bilious fluid and phlegm. No hematemesis. Episodes of diarrhea, without melena or hematochezia. Suprapubic, intermittent nonradiating pain. Fever, chills, dysuria, hematuria. He was evaluated in emergency department and the CT scan of the abdomen and pelvis reported - "Stable study showing questionable mild wall thickening of the distal stomach. Correlation for gastritis is recommended. Chronic right hydronephrosis presumably related to the ureteropelvic junction stenosis". She is admitted to the hospitalist service for further management. Past Med Surg Social Fam HX - Past Medical History Medical history: arthritis, diabetes, GERD, hyperlipidemia, hypertension, osteoporosis, renal disease, other Psychiatric history: anxiety, depression - Past Surgical History Surgical History: appendectomy, cholecystectomy, hysterectomy, ureteral stent, other - Social History Smoking Status: Former smoker Smokeless Tobacco Status: No Alcohol use: none Drug use: none - Family History Mother Family Member Ethnicity: Non- Living Status: Hx Family Cancer: Yes (Colon cancer with metastasis to bone) Hx Family Endocrine Disorder: Yes (DM) Internal Medicine - H&P: Meds Docusate [Colace] 100 mg PO HS 12/21/14 [History] Polyethylene Glycol 3350 [MiraLAX] 17 gm PO DAILY PRN 12/21/14 [History] Sertraline HCl [Zoloft] 100 mg PO DAILY 12/21/14 [History] Simvastatin [Zocor] 40 mg PO DAILY 12/21/14 [History] Cyanocobalamin (Vitamin B-12) [Vitamin B-12] 1,000 mcg SQ QMONTH 12/08/15 [ History] Enalapril Maleate [Vasotec] 5 mg PO DAILY 12/08/15 [History] Mv-Mn/FA/Vit K1/Lycop/Lut/Zeax [Ocuvite Eye + Multi Tablet] 1 tab PO DAILY 12/07 [History] Propranolol HCl 60 mg PO DAILY 12/08/15 [History] SitaGLIPtin [Januvia] 100 mg PO DAILY 03/06/16 [History] Calcium Carbonate/Vitamin D3 [Calcium 500 + Vit D Caplet] 1 each PO BID [History] Calcium Polycarbophil [Fibercon] 625 mg PO BID 09/02/16 [History] Melatonin [Melatin] 3 mg PO HS 09/02/16 [History] Ondansetron HCl [Zofran] 4 mg PO Q8H PRN 09/02/16 [History] Famotidine [Pepcid] 40 mg PO DAILY 11/23/16 [History] Pantoprazole Sodium 40 mg PO DAILY 30 Days 11/24/16 [Rx] levoFLOXacin [Levaquin] 750 mg PO DAILY 10 Days 11/24/16 [Rx] Allergies Nickel Allergy (Mild, Verified 11/23/16 10:47) Hives codeine Allergy (Verified 11/23/16 10:47) Hives Erythromycin Base Allergy (Verified 11/23/16 10:47) Rash nitrofurantoin [From Macrobid] Allergy (Verified 11/23/16 10:47) Rash Quaternium Allergy (Verified 11/23/16 10:47) Rash sulfamethoxazole [From Bactrim] Allergy (Verified 11/23/16 10:47) Rash trimethoprim [From Bactrim] Allergy (Verified 11/23/16 10:47) Rash Sulfa (Sulfonamide Antibiotics) Adverse Reaction (Verified 11/23/16 10:47) Hallucinating All Systems PM: A 10-system review of systems was performed and is negative for pertinent findings except as documented above in the HPI. - Constitutional Vitals: Temp Pulse Resp BP Pulse Ox 99.2 F 124 16 172/95 98 11/27/16 07:57 11/27/16 07:57 11/27/16 07:57 11/27/16 07:57 11/27/16 07:57 Exam: General: Not in acute distress at the time of my evaluation HEENT: Oral mucosa is moist. No conjunctival palor or scleral icterus Neck: No obvious neck swellings Lungs: Clear to auscultation Cardiac: Regular rate and rhythm. No significant murmurs Abdomen: Soft, mild suprapubic tenderness present. Bowel sounds present Genitourinary: rosas catheter present Neurological: Alert and oriented. No gross localizing deficits Psych: Not aggressive or agitated Extremities: no significant leg edema Skin: No generalized rash Internal Med - H&P Results - Labs CBC & Chem 7: 11/26/16 21:46 11/26/16 21:46 - EKG Data -: EKG Interpreted by Myself EKG shows normal: sinus rhythm Rate: tachycardia - Impressions ITS Impressions Abdomen/Pelvis CT 11/26/16 23:23 IMPRESSION: Stable study showing questionable mild wall thickening of the distal stomach. Correlation for gastritis is recommended. Chronic right hydronephrosis presumably related to the ureteropelvic junction stenosis. D/ / Maya Arnold Cha, MD / Maya Arnold Cha, MD Interpreting Provider: Maya Arnold Cha, MD
[2016-11-27] MEDS ORDERED: *HR* Dextrose 50 % in Water (Syg) 50 ML SYRINGE IVP PRN (08:58)
[2016-11-27] MEDS ORDERED: D5% in Water 1,000 ML IVC PRN (08:58)
[2016-11-27] MEDS ORDERED: Dextrose Gel 15 GM PO PRN ×2 (08:58)
[2016-11-27] MEDS ORDERED: Levofloxacin 750 MG/150 ML 750 MG/150 ML BAG IVPB SCH (10:00)
[2016-11-27] MEDS: Insulin LISPRO 300 UNITS/3 ML VIAL SQ SCH ×2 (11:24→17:29)
[2016-11-27] MEDS: 0.9 % Sodium Chloride 1,000 ML IVC ONE ×2 (11:25→12:34)
[2016-11-27] MEDS: Lactobacillus 1 EACH CAP.SPRINK PO SCH ×2 (11:38→21:17)
--- NOTE | 2016-11-27 14:17 | Electrocardiograph Report ---
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
[2016-11-27] MEDS: *HR* Heparin 5,000 UNIT/ML VIAL SQ SCH ×2 (15:45→21:17)
--- NOTE | 2016-11-27 19:21 | Event Note ---
Date of Encounter: 11/27/16 Time of Encounter: 16:00 Patient seen and examined. On examination, patient initially asleep and awaken easily to voice. She states that she is tired. She denies pain at this time. She did have lower abdominal pain earlier today but states that has resolved. She states she has been able to tolerate broth and Sprite. We will continue her levofloxacin for her urinary tract infection consistent with urine culture from a couple days ago. Abdominal CT consistent with gastritis. Awaiting for stool studies. Patient stating she is a bit frustrated because she has been dealing with abdominal issues for several years. She stated she last saw Dr. Bojorquez in October at which time she stated he perform scopes that found "issues with might want numb." She is also followed by Dr. Dasia Alfaro of urology and states that she herself once every other day and in the recent past, she noted that she was retaining more urine than usual since she figured she probably had a UTI. Current urinalysis is negative likely because she was on the appropriate antibiotic, will continue for full course of treatment. We will continue to advance her diet as she tolerates. ITS Impressions Abdomen/Pelvis CT 11/26/16 23:23 IMPRESSION: Stable study showing questionable mild wall thickening of the distal stomach. Correlation for gastritis is recommended. Chronic right hydronephrosis presumably related to the ureteropelvic junction stenosis. D/ / Maya Arnold Cha, MD / Maya Arnold Cha, MD Interpreting Provider: Maya Arnold Cha, MD
[2016-11-27] MEDS ORDERED: Melatonin 3 MG TABLET PO SCH (21:00)
[2016-11-27] MEDS ORDERED: Insulin LISPRO 300 UNITS/3 ML VIAL SQ SCH (21:00)
[2016-11-28] MEDS: Pantoprazole 40 MG VIAL IVP SCH (05:13)
[2016-11-28] MEDS: *HR* Heparin 5,000 UNIT/ML VIAL SQ SCH ×2 (05:13→13:13)
[2016-11-28 05:53] LABS: BUN/Creatinine Ratio 9 (6-26); Blood Urea Nitrogen 7 mg/dL (7-20); Carbon Dioxide 27 mEq/L (19-29); Chloride 110 mEq/L (98-109); Glucose 95 mg/dL (70-99); Magnesium 1.9 mg/dL (1.6-2.6); Osmolality,Calculated 292 (280-300); Potassium 3.4 mEq/L (3.5-4.5); Sodium 142 mEq/L (136-145); eGFR For African Americans > 60 (> 60); eGFR For Non-African Americans > 60 (> 60)
[2016-11-28 05:56] LABS: Calcium 8.2 mg/dL (8.6-10.8)
[2016-11-28 06:50] LABS: Basophils % 0.4 %; Eosinophils # 0.1 K/mcL (0.0-0.6); Eosinophils % 1.1 %; Hematocrit 34.8 % (35.3-44.9); Hemoglobin 11.2 g/dL (11.5-15.4); Immature Granulocytes % 0.7 % (0-4); Immature Platelets 6.9 % (1.1-6.1); Lymphocytes % 22.6 %; Mean Corpuscular HGB Conc 32.2 g/dL (31.6-35.5); Mean Corpuscular Hemoglobin 29.2 pg (28.0-33.3); Mean Corpuscular Volume 90.6 fL (83.0-100.0); Mean Platelet Volume 11.2 fL (9.4-12.4); Monocytes # 0.4 K/mcL (0.0-1.3); Monocytes % 9.5 %; Platelet Count 145 K/mcL (140-400); Red Blood Count 3.84 M/mcL (3.82-4.97); Red Cell Distribution Width 13.5 % (11.5-14.5); Segmented Neutrophils % 65.7 %
[2016-11-28] MEDS: Insulin LISPRO 300 UNITS/3 ML VIAL SQ SCH ×2 (07:30→11:20)
[2016-11-28] MEDS: Lactobacillus 1 EACH CAP.SPRINK PO SCH (08:07)
[2016-11-28 11:08] VITALS: BP 127/77
[2016-11-28] MEDS ORDERED: Levofloxacin 750 MG/150 ML 750 MG/150 ML BAG IVPB SCH (12:00)
--- NOTE | 2016-11-28 14:42 | Discharge Summary ---
Date of Encounter: 11/28/16 Time of Encounter: 09:30 (and 1400) - Discharge Diagnosis (1) Intractable nausea and vomiting Priority: Primary Status: Resolved Comments: Patient's dilate was slowly advanced over the course of her admission and she was able to tolerate a regular diet prior to discharge. Qualifiers: Vomiting type: cyclical vomiting Qualified Code(s): G43.A1 - Cyclical vomiting, intractable (2) Gastritis Priority: Primary Status: Acute Comments: Imaging consistent with gastritis. Patient had a diagnosis of gastritis with a single lead gastric lesion on an EGD in July, at that time she was started on PPI twice a day and Carafate 4 times a day-she is no longer taking the Carafate , we will restart it and have her follow up outpatient with GI Qualifiers: Gastritis type: unspecified gastritis Chronicity: chronic Gastritis bleeding: without bleeding Qualified Code(s): K29.50 - Unspecified chronic gastritis without bleeding (3) Gastric ulcer Priority: Primary Status: Acute Comments: Likely recurrent. She had an EGD in July that revealed gastritis, repeat EGD in October was negative. Imaging during this visit consistent with gastritis, suspect recurrence of her ulcer, will reinitiate Carafate. Qualifiers: Gastric ulcer chronicity: acute Gastric ulcer complication status: without hemorrhage or perforation Qualified Code(s): K25.3 - Acute gastric ulcer without hemorrhage or perforation (4) Urinary tract infection Priority: Primary Status: Acute Comments: Patient was diagnosed with a urinary tract infection during her most recent admission and was discharged 2 days prior to this presentation. She was appropriately treated with levofloxacin as the culture revealed pansensitive Enterococcus faecalis. This was continued while she was admitted, and she was instructed to continue upon discharge to complete a 10 day course Qualifiers: Urinary tract infection type: site unspecified Hematuria presence: without hematuria Qualified Code(s): N39.0 - Urinary tract infection, site not specified (5) Acute kidney injury Priority: Primary Status: Resolved (6) Hypertension Priority: Secondary Status: Chronic Comments: Uncontrolled initially, normotensive at time of discharge. Likely stress/pain related, no changes were indicated to her medications. Recommend daily blood pressure checks at home, keeping a log, and followed up outpatient. Qualifiers: Hypertension type: essential hypertension Qualified Code(s): I10 - Essential (primary) hypertension (7) DVT prophylaxis Priority: Primary Status: Acute Comments: Subcutaneous heparin while admitted (8) GERD (gastroesophageal reflux disease) Priority: Secondary Status: Chronic Comments: Continue PPI, adding Carafate, follow-up outpatient with GI Qualifiers: Esophagitis presence: with esophagitis Qualified Code(s): K21.0 - Gastro- esophageal reflux disease with esophagitis (9) DM (diabetes mellitus), type 2 Priority: Secondary Status: Chronic Comments: Controlled at home with a recent A1c of 7.4%. Continued follow-up outpatient. Qualifiers: Diabetes mellitus complication status: without complication Diabetes mellitus terminal supervisor insulin use: without terminal supervisor use Qualified Code(s): E11.9 - Type 2 diabetes mellitus without complications (10) Dehydration Priority: Primary Status: Resolved (11) History of gastric bypass Priority: Secondary Status: Chronic (12) Diarrhea Priority: Primary Status: Resolved Comments: Patient had a soft but not liquid large bowel movement while admitted. Attempted to send for GI panel and culture however was rejected by the lab because was not liquid. She will follow up outpatient with GI Qualifiers: Diarrhea type: unspecified type Qualified Code(s): R19.7 - Diarrhea, unspecified (13) Chronic retention of urine Priority: Secondary Status: Chronic Comments: Patient caths herself every other day and on the week prior to her most recent admission, she noticed that she was retaining more urine so she was suspicious of a UTI which she does not fact have and is being treated for. Follow-up outpatient (14) Duodenitis Priority: Secondary Status: Resolved Comments: No evidence of acute duodenitis on imaging - Discharge Medications Prescriptions: Promethazine [Phenergan] 12.5 mg PO Q6HR PRN #10 tablet PRN Reason: Nausea And Vomiting Lactobacillus [Culturelle] 1 each PO BID #20 Sucralfate [Carafate] 1 gm PO QIDAC #120 tablet Home Medications: Docusate [Colace] 100 mg PO HS 12/21/14 [History] Polyethylene Glycol 3350 [MiraLAX] 17 gm PO DAILY PRN 12/21/14 [History] Sertraline HCl [Zoloft] 100 mg PO DAILY 12/21/14 [History] Simvastatin [Zocor] 40 mg PO DAILY 12/21/14 [History] Cyanocobalamin (Vitamin B-12) [Vitamin B-12] 1,000 mcg SQ QMONTH 12/08/15 [ History] Enalapril Maleate [Vasotec] 5 mg PO DAILY 12/08/15 [History] Mv-Mn/FA/Vit K1/Lycop/Lut/Zeax [Ocuvite Eye + Multi Tablet] 1 tab PO DAILY 12/07 [History] Propranolol HCl 60 mg PO DAILY 12/08/15 [History] SitaGLIPtin [Januvia] 100 mg PO DAILY 03/06/16 [History] Calcium Carbonate/Vitamin D3 [Calcium 500 + Vit D Caplet] 1 tab PO BID 09/02/16 [History] Calcium Polycarbophil [Fibercon] 625 mg PO BID 09/02/16 [History] Melatonin [Melatin] 3 mg PO HS 09/02/16 [History] Ondansetron HCl [Zofran] 4 mg PO Q8H PRN 09/02/16 [History] Famotidine [Pepcid] 40 mg PO DAILY 11/23/16 [History] Pantoprazole Sodium 40 mg PO DAILY 30 Days 11/24/16 [Rx] levoFLOXacin [Levaquin] 750 mg PO DAILY 10 Days 11/24/16 [Rx] Lactobacillus [Culturelle] 1 each PO BID #20 11/28/16 [Rx] Promethazine [Phenergan] 12.5 mg PO Q6HR PRN #10 tablet 11/28/16 [Rx] Sucralfate [Carafate] 1 gm PO QIDAC #120 tablet 11/28/16 [Rx] Allergies/Adverse Reactions: Allergies Nickel Allergy (Mild, Verified 11/23/16 10:47) Hives codeine Allergy (Verified 11/23/16 10:47) Hives Erythromycin Base Allergy (Verified 11/23/16 10:47) Rash nitrofurantoin [From Macrobid] Allergy (Verified 11/23/16 10:47) Rash Quaternium Allergy (Verified 11/23/16 10:47) Rash sulfamethoxazole [From Bactrim] Allergy (Verified 11/23/16 10:47) Rash trimethoprim [From Bactrim] Allergy (Verified 11/23/16 10:47) Rash Sulfa (Sulfonamide Antibiotics) Adverse Reaction (Verified 11/23/16 10:47) Hallucinating Procedures/tests Complete & Pending: Procedures Performed prior 72 hours Category Date Time Status EKG [ECG 12 lead ECG] [ECG] Routine Y 11/27/16 06:49 Completed Date of admission: 11/27/16 01:28 Primary care physician: Brittney Garrido, Consults: 11/27/16 08:56 Consult to Invasive Line Access Team [CONS] Routine Reason for Consult: Difficult stick, Multiple IV attempts Line Type: EPIV 11/27/16 12:08 Consult to Cafeteria Cook [CONS] Routine Reason for SW Consult: readmission Discharging clinician: Nathaly Suresh Anticipated date of discharge: 11/28/16 - Patient Status Disposition: Home, Self-Care Condition: Good Functional capacity at discharge: independent ambulation Overall status at discharge: patient is progressing back to baseline - Discharge Instructions Instructions: Sucralfate (By mouth), Promethazine (By mouth), Probiotic (By mouth), Gastritis (DC), Acute Nausea and Vomiting (DC) Follow Up With: Brittney Garrido MD [Primary Care Provider] - 12/03/16 8:40 am Talon Bojorquez MD [Partnered Physician] - Additional Instructions: Follow-up with primary care provider as scheduled, follow-up with GI when available. - Diet and Activity Activity: increase activity as tolerated Diet: diabetic diet, low fat, low cholesterol, low salt diet Hospital course: Ms. Sales is a 66 year old female with past medical history of diabetes, hypertension, history of Maria Elena-en-Y gastric bypass, multiple hernia repairs, history of small bowel obstruction/intussusception, history of intermittent self catheterizations, appendectomy, cholecystectomy, hysterectomy, former tobacco abuse. Patient was recently admitted and discharged for urinary tract infection and vomiting. She was discharged 2 days prior to this presentation and was appropriately placed on levofloxacin for Enterococcus faecalis that was pansensitive. She presented to the emergency department with chief complaint nausea, vomiting, diarrhea, and suprapubic abdominal pain. Patient stating her nausea and vomiting were intractable and stated that her emesis was bilious and phlegm. She denied hematemesis or hematochezia. Patient stating the super Pubic abdominal pain was intermittent and without radiation. She also denied fever, chills, hematuria. Abdominal CT in the emergency department consistent with gastritis. Patient was admitted to the hospitalist service for further evaluation and management. In review for chart, patient was seen and July of this year was diagnosed with duodenitis and had an EGD at that time that revealed gastritis with gastric ulcers and a single gastric polypoid lesion and at that time she was started on PPI twice a day and Carafate 4 times a day. She was then seen again in October where she had another upper GI that was reportedly negative. During this visit, her diet was slowly advanced and she was able to tolerate a regular diet prior to discharge. Her diarrhea also subsided and she had a large, partially formed bowel movement prior to discharge. Attempted to send stool off for GI panel and culture however it was rejected by the lab because it was not liquid. Her treatment for urinary tract infection was continued during this admission and she was instructed to continue the full course upon discharge. Patient suprapubic abdominal pain also resolved. Given the recurrence of gastritis with suspected gastric ulcers , she was placed back on Carafate. Unfortunately, GI provider was unavailable during this admission, and she will follow up with Dr Bojorquez outpatient. She was discharged home in stable condition with close outpatient follow-up recommended. ITS Impressions Abdomen/Pelvis CT 11/26/16 23:23 IMPRESSION: Stable study showing questionable mild wall thickening of the distal stomach. Correlation for gastritis is recommended. Chronic right hydronephrosis presumably related to the ureteropelvic junction stenosis. D/ / Maya Arnold Cha, MD / Maya Arnold Cha, MD Interpreting Provider: Maya Arnold Cha, MD - Time Spent with Patient Total time spent providing and/or coordinating discharge services: - Constitutional Vitals: Temp Pulse Resp BP Pulse Ox 97.5 F L 81 16 127/77 93 11/28/16 11:03 11/28/16 11:03 11/28/16 11:03 11/28/16 11:03 11/28/16 11:03 General appearance: Present: A&O X 3, pleasant, no acute distress, answers questions appropriately - Head Head exam: Present: atraumatic, normocephalic - Eye Eye exam: Present: PERRL, conjuntiva pink, sclera anicteric Pupils: Present: PERRL - Neck Neck exam general surgery: Present: supple, trachea midline. Absent: lymphadenopathy - Respiratory Respiratory exam: Present: CTAB. Absent: accessory muscle use, rales, respiratory distress, rhonchi, wheezes - Cardiovascular Cardiovascular exam: Present: RRR, +S1, +S2. Absent: diastolic murmur, gallop, rubs, systolic murmur - GI/Abdominal GI/Abdominal exam: Present: normal bowel sounds, soft, no peritoneal signs. Absent: distended, tenderness - Extremities Exam Extremities exam: Present: warm, radial pulses palpable and symetrical. Absent : calf tenderness, cyanotic, pedal edema - Neurological Exam Neurological exam: Present: alert, CN II-XII intact, normal gait, oriented X3, no focal deficits, strengths equal and symetr throughout. Absent: pronater drift, facial droop, speech deficit - Skin Skin exam: Present: dry, intact, pallor, warm
[2016-11-29] MEDS ORDERED: Levofloxacin 750 MG/150 ML 750 MG/150 ML BAG IVPB SCH (09:00)
== END 2016-11-28 15:39 | disposition home or self-care (01) ==
LOC: 3BNU 21:22 → EMEROO 21:22 → 3BNU 11-27 02:30
PROVIDERS: ADMIT Internal Medicine; ATTEND Nurse Practitioner Family

== ENCOUNTER 2016-12-01 10:16 | Observation (INO) ==
[2016-12-01] MEDS ORDERED: 0.9 % Sodium Chloride 1,000 ML IVC ONE (10:42)
[2016-12-01 11:24] LABS: Basophils % 0.3 %; Hematocrit 48.1 % (35.3-44.9); Hemoglobin 15.5 g/dL (11.5-15.4); Lymphocytes # 0.5 K/mcL (0.6-4.6); Lymphocytes % 4.7 %; Mean Corpuscular HGB Conc 32.2 g/dL (31.6-35.5); Mean Corpuscular Hemoglobin 28.3 pg (28.0-33.3); Mean Corpuscular Volume 87.9 fL (83.0-100.0); Mean Platelet Volume 11.2 fL (9.4-12.4); Monocytes # 0.3 K/mcL (0.0-1.3); Monocytes % 3.4 %; Neutrophils # 9.2 K/mcL (1.6-8.9); Platelet Count 205 K/mcL (140-400); Red Blood Count 5.47 M/mcL (3.82-4.97); Segmented Neutrophils % 90.6 %
[2016-12-01 11:36] LABS: BUN/Creatinine Ratio 12 (6-26); Blood Urea Nitrogen 11 mg/dL (7-20); Calcium 9.7 mg/dL (8.6-10.8); Carbon Dioxide 24 mEq/L (19-29); Chloride 101 mEq/L (98-109); Glucose 263 mg/dL (70-99); Osmolality,Calculated 291 (280-300); Potassium 4.1 mEq/L (3.5-4.5); Sodium 136 mEq/L (136-145); eGFR For African Americans > 60 (> 60); eGFR For Non-African Americans > 60 (> 60)
[2016-12-01 11:39] LABS: Albumin 3.8 g/dL (3.5-5.0); Albumin/Globulin Ratio 1.1 (1.1-2.2); Bilirubin,Direct 0.2 mg/dL (0.0-0.5); Bilirubin,Indirect 0.3 mg/dL (0.0-1.2); Bilirubin,Total 0.5 mg/dL (0.2-1.2); Globulin 3.5 g/dL (2.4-3.5); Total Protein 7.3 g/dL (6.0-8.3)
[2016-12-01] MEDS ORDERED: Piperacillin/Tazobactam 3.375 GM in D5% in Water (Mini-Bag+) 100 ML IVPB ONE (12:40)
[2016-12-01 12:41] LABS: Bilirubin,Urine Negative (Negative); Blood,Urine Negative (Negative); Clarity,Urine Clear (Clear); Color,Urine Yellow (Yellow); Glucose,Urine (UA) 250 mg/dL (Normal); Ketones,Urine 15 mg/dL (Negative); Leukocyte Esterase,Urine Negative (Negative); Nitrite,Urine Negative (Negative); Protein,Urine 30 mg/dL (Neg-Trace); Specific Gravity,Urine 1.012 (1.010-1.025); Urobilinogen,Urine Normal (Normal)
--- NOTE | 2016-12-01 12:41 | Emergency Department Note ---
Disposition Clinical Impression: Dehydration, Duodenitis Abdominal pain Qualifiers: Abdominal location: epigastric Qualified Code(s): R10.13 - Epigastric pain Nausea & vomiting Qualifiers: Vomiting type: unspecified Vomiting Intractability: non-intractable Qualified Code(s): R11.2 - Nausea with vomiting, unspecified Disposition: Admitted As Inpatient Condition: Good Referrals: Brittney Garrido MD [Primary Care Provider] - Time of Disposition: 13:53 General Adult HPI - General Chief complaint: ED Nausea/Vomiting/Diarrhea Stated complaint: n/v Time Seen by Provider: 12/01/16 10:21 Source: EMS Mode of arrival: EMS Limitations: no limitations Nursing Notes Reviewed: Yes Vital Signs Reviewed: Yes - History of Present Illness HPI Narrative: Patient presents from primary care provider's office for evaluation of abdominal pain with nausea and vomiting. Patient has had a symptoms several times in the past. Also tenderness symptoms are secondary to duodenitis. Patient denies fevers chills chest pain shortness of breath headache or vision change. May complaint is nausea vomiting is poorly controlled at this time symptoms are similar to previous duodenitis issues Onset (ago): day(s) Location: abdomen Radiation: non-radiation Pain Severity: moderate Pain Scale: 5 Quality: aching Consistency: intermittent Improves with: nothing Worsens with: nothing Associated symptoms: Reports: malaise, nausea/vomiting Treatments Prior to Arrival: none - Related Data Home Medications Medication Instructions Recorded Confirmed Docusate [Colace] 100 mg PO HS 12/21/14 11/27/16 Polyethylene Glycol 3350 [MiraLAX] 17 gm PO DAILY PRN 12/21/14 11/27/16 Sertraline HCl [Zoloft] 100 mg PO DAILY 12/21/14 11/27/16 Simvastatin [Zocor] 40 mg PO DAILY 12/21/14 11/27/16 Cyanocobalamin (Vitamin B-12) 1,000 mcg SQ QMONTH 12/08/15 11/27/16 [Vitamin B-12] Enalapril Maleate [Vasotec] 5 mg PO DAILY 12/08/15 11/27/16 Mv-Mn/FA/Vit K1/Lycop/Lut/Zeax 1 tab PO DAILY 12/08/15 11/27/16 [Ocuvite Eye + Multi Tablet] Propranolol HCl 60 mg PO DAILY 12/08/15 11/27/16 SitaGLIPtin [Januvia] 100 mg PO DAILY 03/06/16 11/27/16 Calcium Carbonate/Vitamin D3 1 tab PO BID 09/02/16 11/27/16 [Calcium 500 + Vit D Caplet] Calcium Polycarbophil [Fibercon] 625 mg PO BID 09/02/16 11/27/16 Melatonin [Melatin] 3 mg PO HS 09/02/16 11/27/16 Ondansetron HCl [Zofran] 4 mg PO Q8H PRN 09/02/16 11/27/16 Famotidine [Pepcid] 40 mg PO DAILY 11/23/16 11/27/16 Previous Rx's Medication Instructions Recorded Pantoprazole Sodium 40 mg PO DAILY 30 Days 11/24/16 levoFLOXacin [Levaquin] 750 mg PO DAILY 10 Days 11/24/16 Lactobacillus [Culturelle] 1 each PO BID #20 11/28/16 Promethazine [Phenergan] 12.5 mg PO Q6HR PRN #10 tablet 11/28/16 Sucralfate [Carafate] 1 gm PO QIDAC #120 tablet 11/28/16 Allergies Allergy/AdvReac Type Severity Reaction Status Date / Time Nickel Allergy Mild Hives Verified 11/23/16 10:47 codeine Allergy Hives Verified 11/23/16 10:47 Erythromycin Base Allergy Rash Verified 11/23/16 10:47 nitrofurantoin Allergy Rash Verified 11/23/16 10:47 [From Macrobid] Quaternium Allergy Rash Verified 11/23/16 10:47 sulfamethoxazole Allergy Rash Verified 11/23/16 10:47 [From Bactrim] trimethoprim [From Bactrim] Allergy Rash Verified 11/23/16 10:47 Sulfa (Sulfonamide AdvReac Hallucinati Verified 11/23/16 10:47 Antibiotics) ng All systems ED: reviewed and negative except as stated. Constitutional: Denies: fever, chills Cardiovascular: Denies: chest pain, palpitations, dyspnea on exertion Respiratory: Denies: cough, dyspnea Gastrointestinal: Reports: abdominal pain, nausea, vomiting. Denies: diarrhea, constipation Genitourinary: Denies: dysuria, frequency Musculoskeletal: Denies: back pain, neck pain Neurological: Denies: headache Endocrine: Denies: fatigue Past Medical History - Past Medical History Attestation: Yes The following information was validated with the patient. Source: patient Medical history: Reports: arthritis, diabetes, GERD, hyperlipidemia, hypertension, osteoporosis, renal disease, other Surgical history: Reports: appendectomy, cholecystectomy, hysterectomy, ureteral stent, other Psychiatric history: Reports: anxiety, depression FUR BUYER history: Reports: no FUR BUYER history - Social History Smoking Status: Former smoker Smokeless Tobacco Status: No Alcohol use: Reports: none Drug use: Reports: none Physical Exam - General Limitations: no limitations General appearance: alert - Neck Neck exam: Present: normal inspection, full ROM, trachea midline - Chest Chest inspection: Present: normal inspection, symmetric chest wall rise - Respiratory Respiratory exam: Present: normal lung sounds bilaterally - Cardiovascular Cardiovascular exam: Present: regular rate, normal rhythm, normal heart sounds - Abdominal Exam Abdominal exam: Present: soft, tenderness, normal bowel sounds. Absent: Non- Tender, distention, guarding, rebound, rigidity, Sales's sign, Rovsing's sign, tenderness at McBurney's Point - Extremities Exam Extremities exam: Present: normal inspection, full ROM, normal capillary refill. Absent: tenderness - Back Exam Back exam: Present: normal inspection, full ROM. Absent: tenderness - Neurological Exam Neurological exam: Present: alert, oriented X3, CN II-XII intact, normal gait - Skin Skin exam: Present: warm, dry, intact, normal color Course Course Narrative: Patient seen and examined at the time of arrival by EMS. See history of present illness. 66-year-old female presents to the emergency room with history of duodenitis secondary to gastric bypass surgery. She presents here today with poorly controlled nausea vomiting abdominal pain. Symptoms are identical to her previous issues of duodenitis. Patient denies fevers chills chest pain shortness of breath headache or vision change. Denies any medication changes at this time denies any trauma or injury. Physical exam is otherwise benign except for what appears to be midepigastric discomfort. She has no guarding no rigidity of the abdomen. Lungs are otherwise clear heart is regular. Patient on presentation was given intramuscular Phenergan at an outside facility. She is resting in the bed at this time and no episodes of emesis. Fluids to be given at this point and repeat emesis dosing as needed. Patient to have laboratory workup and CT imaging for evaluation of possible inflammatory changes. No antibiotics are needed at this time patient is afebrile with normal vital signs. Disposition pending workup and treatment course. Patient has no other concerns or symptoms at this time she is resting comfortably in the bed. - Reevaluation(s) Reevaluation #1: Patient has CT confirmed acute duodenitis. IV antibiotics ordered at this time. Patient had pain control nausea medication as well as nothing by mouth status. I discussed the findings with the patient and she understands this is comparable to plan. Nausea medication and fluids to be given as needed. Patient otherwise has stable laboratory workup with no acute changes or pathology noted at this time. We will continue to monitor here as the admission process is completed. A page was placed out to the hospitalist and I discussed in detail the presentation symptoms and medical history with Dr. palafox. We reviewed the presentation symptoms medical intervention as well as some patients medical history. No other recommendations from her at this time. Patient discussed with the hospital for fluid hydration on the medication pain control as well as repeat evaluation. Patient will be observed in the emergency room and to the admission process is completed. The hypertension is noted in the initial triage evaluation has come down to 177/95 based on the last numbers in the room. This will be documented in the nursing note. No intervention needed at this time. Repeat dosing of pain medication given at this time Time: 13:50 Vital Signs Temperature 98.2 F 12/01/16 10:18 Pulse Rate 98 12/01/16 10:18 Respiratory Rate 18 12/01/16 10:18 Blood Pressure 206/115 12/01/16 10:18 O2 Sat by Pulse Oximetry 100 12/01/16 10:18 Temperature 98.2 F 12/01/16 10:18 Pulse Rate 95 12/01/16 13:04 Respiratory Rate 18 12/01/16 13:04 Blood Pressure 187/105 12/01/16 13:04 O2 Sat by Pulse Oximetry 96 12/01/16 13:04 Oxygen Delivery Oxygen Delivery Room Air Medical Decision Making - MDM Narrative Medical decision making narrative: Duodenitis, abdominal pain, nausea vomiting - Medical Records Medical records reviewed: Yes I reviewed the patient's medical records. - Lab Data Lab results reviewed: Yes I reviewed the patient's lab results. Result diagrams: 12/01/16 11:14 07/17/17 11:14 Lab Results 12/01/16 12/01/16 12/01/16 Range/Units 11:14 11:14 11:14 WBC 10.1 D (4.3-11.1) K/mcL RBC 5.47 H (3.82-4.97) M/mcL Hgb 15.5 H D (11.5-15.4) g/dL Hct 48.1 H (35.3-44.9) % MCV 87.9 (83.0-100.0) fL MCH 28.3 (28.0-33.3) pg MCHC 32.2 (31.6-35.5) g/dL RDW 13.0 (11.5-14.5) % Plt Count 205 (140-400) K/mcL MPV 11.2 (9.4-12.4) fL Immature Gran % 1.0 (0-4) % Seg Neutrophils % 90.6 % Lymphocytes % 4.7 % Monocytes % 3.4 % Eosinophils % 0.0 % Basophils % 0.3 % Neutrophils # 9.2 H (1.6-8.9) K/mcL Lymphocytes # 0.5 L (0.6-4.6) K/mcL Monocytes # 0.3 (0.0-1.3) K/mcL Eosinophils # 0.0 (0.0-0.6) K/mcL Basophils # 0.0 (0.0-0.2) K/mcL Sodium 136 (136-145) mEq/L Potassium 4.1 (3.5-4.5) mEq/L Chloride 101 (98-109) mEq/L Carbon Dioxide 24 (19-29) mEq/L BUN 11 (7-20) mg/dL Creatinine 0.89 (0.57-1.11) mg/dL Est GFR ( Amer) > 60 (> 60) Est GFR (Non-Af Amer) > 60 (> 60) BUN/Creatinine Ratio 12 (6-26) Glucose 263 H (70-99) mg/dL Calculated Osmolality 291 (280-300) Calcium 9.7 (8.6-10.8) mg/dL Total Bilirubin 0.5 (0.2-1.2) mg/dL Direct Bilirubin 0.2 (0.0-0.5) mg/dL Indirect Bilirubin 0.3 (0.0-1.2) mg/dL AST 25 (5-34) Units/L ALT 14 (0-55) Units/L Alkaline Phosphatase 130 H (38-126) Units/L Serum Total Protein 7.3 (6.0-8.3) g/dL Albumin 3.8 (3.5-5.0) g/dL Globulin 3.5 (2.4-3.5) g/dL Albumin/Globulin Ratio 1.1 (1.1-2.2) Lipase 23 (8-78) Units/L Urine Color (Yellow) Urine Clarity (Clear) Urine pH (5.0-8.0) pH Units Ur Specific [place] (1.010-1.025) Urine Protein (Neg-Trace) mg/dL Urine Glucose (UA) (Normal) mg/dL Urine Ketones (Negative) mg/dL Urine Blood (Negative) Urine Nitrite (Negative) Urine Bilirubin (Negative) Urine Urobilinogen (Normal) mg/dL Ur Leukocyte Esterase (Negative) Urine Microscopic WBC (0-3) per hpf Ur Squamous Epith Cells (None-Few) per lpf Ur Culture Indicated? (NO) 12/01/16 Range/Units 12:32 WBC (4.3-11.1) K/mcL RBC (3.82-4.97) M/mcL Hgb (11.5-15.4) g/dL Hct (35.3-44.9) % MCV (83.0-100.0) fL MCH (28.0-33.3) pg MCHC (31.6-35.5) g/dL RDW (11.5-14.5) % Plt Count (140-400) K/mcL MPV (9.4-12.4) fL Immature Gran % (0-4) % Seg Neutrophils % % Lymphocytes % % Monocytes % % Eosinophils % % Basophils % % Neutrophils # (1.6-8.9) K/mcL Lymphocytes # (0.6-4.6) K/mcL Monocytes # (0.0-1.3) K/mcL Eosinophils # (0.0-0.6) K/mcL Basophils # (0.0-0.2) K/mcL Sodium (136-145) mEq/L Potassium (3.5-4.5) mEq/L Chloride (98-109) mEq/L Carbon Dioxide (19-29) mEq/L BUN (7-20) mg/dL Creatinine (0.57-1.11) mg/dL Est GFR ( Amer) (> 60) Est GFR (Non-Af Amer) (> 60) BUN/Creatinine Ratio (6-26) Glucose (70-99) mg/dL Calculated Osmolality (280-300) Calcium (8.6-10.8) mg/dL Total Bilirubin (0.2-1.2) mg/dL Direct Bilirubin (0.0-0.5) mg/dL Indirect Bilirubin (0.0-1.2) mg/dL AST (5-34) Units/L ALT (0-55) Units/L Alkaline Phosphatase (38-126) Units/L Serum Total Protein (6.0-8.3) g/dL Albumin (3.5-5.0) g/dL Globulin (2.4-3.5) g/dL Albumin/Globulin Ratio (1.1-2.2) Lipase (8-78) Units/L Urine Color Yellow (Yellow) Urine Clarity Clear (Clear) Urine pH 7.0 (5.0-8.0) pH Units Ur Specific [place] 1.012 (1.010-1.025) Urine Protein 30 H (Neg-Trace) mg/dL Urine Glucose (UA) 250 H (Normal) mg/dL Urine Ketones 15 H (Negative) mg/dL Urine Blood Negative (Negative) Urine Nitrite Negative (Negative) Urine Bilirubin Negative (Negative) Urine Urobilinogen Normal (Normal) mg/dL Ur Leukocyte Esterase Negative (Negative) Urine Microscopic WBC 0-3 (0-3) per hpf Ur Squamous Epith Cells Few (None-Few) per lpf Ur Culture Indicated? NO (NO) - Radiology Data Radiology results reviewed: Yes I reviewed the patient's radiology results. CT imaging confirms acute duodenitis - EKG Data EKG #1 EKG attestation: Yes I reviewed and interpreted this EKG. EKG shows normal: sinus rhythm, axis, intervals, QRS complexes, ST-T waves Rate: normal Rhythm: NSR [place]/QRS: normal When compared to previous EKG there are: no significant changes Interpretation: no acute changes, unchanged when compared to prior tracing (date ) (11/27/16)
[2016-12-01 12:54] LABS: Squamous Epithelial Cell,Urine Few per lpf (None-Few); WBC,Urine 0-3 per hpf (0-3)
[2016-12-01] MEDS ORDERED: *HR* HYDROmorphone (PF) 1 MG/ML SYRINGE IVP ONE (13:12)
[2016-12-01] MEDS ORDERED: Ondansetron 4 MG/2 ML VIAL IVP ONE (13:13)
[2016-12-01] MEDS ORDERED: *HR* Promethazine 25 MG/ML VIAL IVP PRN (16:11)
[2016-12-01] MEDS ORDERED: Ondansetron 4 MG/2 ML VIAL IVP PRN (16:11)
[2016-12-01] MEDS ORDERED: *HR* HYDROmorphone (PF) 1 MG/ML SYRINGE IVP PRN (16:11)
[2016-12-01] MEDS ORDERED: Naloxone 0.4 MG/ML INJ IVP PRN (16:11)
[2016-12-01] MEDS ORDERED: Dextrose Gel 15 GM PO PRN ×2 (16:23)
[2016-12-01] MEDS ORDERED: *HR* Dextrose 50 % in Water (Syg) 50 ML SYRINGE IVP PRN (16:23)
[2016-12-01] MEDS ORDERED: D5% in Water 1,000 ML IVC PRN (16:23)
--- NOTE | 2016-12-01 16:57 | Internal Med History&Physical ---
Date of Encounter: 12/01/16 Time of Encounter: 16:52 Assessment and Plan (1) Duodenitis Current visit: Yes Status: Acute Patient presents with intractible nausea and vomiting since 1 am. She has had recurrent episodes of duodenitis over the last several weeks, and has a history of gastric bypass in 2002. CT Abd/pelvis showed acute inflammatory changes in region of duodenem consistent with acute duodenitis with no evidence of bowel obstruction or perforation. IV fluids 0.9NS at 125mL/hr Cipro and flagyl IVPB Protonix IVP daily zofran and phenergan PRN for nausea and vomiting morphine prn for abdominal pain. Patient should have follow up with gastroenterology as an outpatient. (2) Nausea & vomiting Current visit: Yes Status: Acute Patient presents with nausea and vomiting secondary to duodenitis. NPO except ice chips, consider advancing to clears tomorrow. zofran and phenergan PRN for nausea. Qualifiers: Vomiting type: unspecified Vomiting Intractability: intractable Qualified Code(s): R11.2 - Nausea with vomiting, unspecified (3) Hypertension Current visit: Yes Status: Chronic Patient was hypertensive on arrival. NPO for intractible nausea and vomiting. Metoprolol 2.5mg IVP Q6hr, hold for SBP < 100 or HR < 60 Qualifiers: Hypertension type: essential hypertension Qualified Code(s): I10 - Essential (primary) hypertension (4) DM (diabetes mellitus), type 2 Current visit: Yes Status: Chronic Hold januvia. Patient is NPO Check blood sugars Q6hr sliding scale correction insulin Q6hr Hypoglycemic protocol. Qualifiers: Diabetes mellitus complication status: without complication Diabetes mellitus retirement insulin use: without retirement use Qualified Code(s): E11.9 - Type 2 diabetes mellitus without complications (5) History of gastric bypass Current visit: Yes Status: Chronic (6) DVT prophylaxis Current visit: Yes Status: Acute sequential compression devices. Lovenox 40mg SQ daily Internal Medicine - H&P: HPI Chief complaint: nausea, vomiting Admitted From: Emergency Dept Plans for Post Hospital Care: Home History of present illness: Ms. Sales is a 66 year old female with hypertension, hyperlipidemia, type 2 diabetes, history of gastric bypass surgery 2002, recurrent duodenitis presents to the emergency room today with complaints of nausea, vomiting, abdominal pain. Patient reports that her symptoms started this morning at 1 AM, she woke up and had significant nausea and vomiting. She went to her PCP today who sent her to the emergency department. Patient denies any diarrhea, lightheadedness, chest pain, palpitations, shortness of breath, fever, chills, sweats. She denies any dysuria evaluation in the emergency department included a CT of abdomen and pelvis which showed acute inflammatory changes in the region of the duodenum consistent with acute duodenitis, no evidence of bowel obstruction or perforation. Blood sugar was elevated at 263. On exam, patient alert and oriented, no acute distress. Heart had regular rate and rhythm, lungs are clear bilaterally to auscultation. Patient had mild tenderness in the epigastric region. No peripheral edema. Past Med Surg Social Fam HX - Past Medical History Medical history: arthritis, diabetes, GERD, hyperlipidemia, hypertension, osteoporosis, renal disease, other Psychiatric history: anxiety, depression - Past Surgical History Surgical History: appendectomy, cholecystectomy, hysterectomy, ureteral stent, other - Social History Smoking Status: Former smoker Smokeless Tobacco Status: No Alcohol use: none Drug use: none - Family History Mother Family Member Ethnicity: Non- Living Status: Age at : 53 Cause of : Colon Cancer Hx Family Cardiac Disorders: No Hx Family Respiratory Disorders: No Hx Family Cancer: Yes (Colon Cancer and pancreatic) Hx Family GI Disorders: No Hx Family Genitourinary Disorders: Yes (Kidney Stones) Hx Family Endocrine Disorder: Yes (Diabetes) Hx Family Musculoskeletal Disorders: No Hx Family Neuromuscular Disorders: No Hx Family Neurologic Disorders: No Hx Family HEENT Disorders: No Hx Family Autoimmune Disorders: No Hx Family Reproductive Disorders: No Hx Family Psychosocial Disorders: Yes (Mental Health, alcholol) Hx Family Medical Disorders: Yes (Fibermyalgia) Father Living Status: Age at : 82 Hx Family Endocrine Disorder: Yes Internal Medicine - H&P: Meds Docusate [Colace] 100 mg PO HS 12/21/14 [History] Polyethylene Glycol 3350 [MiraLAX] 17 gm PO DAILY PRN 12/21/14 [History] Sertraline HCl [Zoloft] 100 mg PO DAILY 12/21/14 [History] Simvastatin [Zocor] 40 mg PO DAILY 12/21/14 [History] Cyanocobalamin (Vitamin B-12) [Vitamin B-12] 1,000 mcg SQ QMONTH 12/08/15 [ History] Enalapril Maleate [Vasotec] 5 mg PO DAILY 12/08/15 [History] Mv-Mn/FA/Vit K1/Lycop/Lut/Zeax [Ocuvite Eye + Multi Tablet] 1 tab PO DAILY 12/07 [History] Propranolol HCl 60 mg PO DAILY 12/08/15 [History] SitaGLIPtin [Januvia] 100 mg PO DAILY 03/06/16 [History] Calcium Carbonate/Vitamin D3 [Calcium 500 + Vit D Caplet] 1 tab PO BID 09/02/16 [History] Calcium Polycarbophil [Fibercon] 625 mg PO BID 09/02/16 [History] Melatonin [Melatin] 3 mg PO HS 09/02/16 [History] Ondansetron HCl [Zofran] 4 mg PO Q8H PRN 09/02/16 [History] Famotidine [Pepcid] 40 mg PO DAILY 11/23/16 [History] Pantoprazole Sodium 40 mg PO DAILY 30 Days 11/24/16 [Rx] levoFLOXacin [Levaquin] 750 mg PO DAILY 10 Days 11/24/16 [Rx] Lactobacillus [Culturelle] 1 each PO BID #20 11/28/16 [Rx] Promethazine [Phenergan] 12.5 mg PO Q6HR PRN #10 tablet 11/28/16 [Rx] Sucralfate [Carafate] 1 gm PO QIDAC #120 tablet 11/28/16 [Rx] Allergies Nickel Allergy (Mild, Verified 11/23/16 10:47) Hives codeine Allergy (Verified 11/23/16 10:47) Hives Erythromycin Base Allergy (Verified 11/23/16 10:47) Rash nitrofurantoin [From Macrobid] Allergy (Verified 11/23/16 10:47) Rash Quaternium Allergy (Verified 11/23/16 10:47) Rash sulfamethoxazole [From Bactrim] Allergy (Verified 11/23/16 10:47) Rash trimethoprim [From Bactrim] Allergy (Verified 11/23/16 10:47) Rash Sulfa (Sulfonamide Antibiotics) Adverse Reaction (Verified 11/23/16 10:47) Hallucinating All Systems PM: A 10-system review of systems was performed and is negative for pertinent findings except as documented above in the HPI. - Constitutional Constitutional: no chills, no fever(s), no night sweats - EENT Eyes: no change in vision, no discharge, no pain, no photophobia Ears: no ear discharge, no ear pain, no tinnitus Nose, mouth and throat: no dysphagia, no nasal discharge, no neck pain, no sore throat - Cardiovascular Cardiovascular ROS IM: no chest pain, no diaphoresis, no dyspnea, no lightheadedness, no palpitations, no syncope - Respiratory Respiratory: no cough, no dyspnea, no wheezing, no excessive phlegm production - Gastrointestinal Gastrointestinal: abdominal pain, nausea, vomiting, no diarrhea, no hematemesis , no hematochezia, no melena - Genitourinary Genitourinary: no change in urinary stream, no dysuria, no flank pain, no hematuria - Musculoskeletal Musculoskeletal ROS IM: no numbness, no tingling - Integumentary Integumentary IM: no rash, no unusual bruising - Neurological Neurological ROS: no confusion, no convulsions, no focal weakness, no numbness, no tingling, no tremor(s) - Hematologic/Lymphatic Hematologic/Lymphatic: no easy bruising - Constitutional Vitals: Temp Pulse Resp BP Pulse Ox 98.3 F 80 18 107/72 97 12/01/16 15:27 12/01/16 15:27 12/01/16 15:27 12/01/16 15:27 12/01/16 15:27 General appearance: Present: A&O X 3, pleasant, no acute distress - Head Head exam: Present: atraumatic, normocephalic - Eye Eye exam: Present: PERRL, conjuntiva pink, sclera anicteric Pupils: Present: PERRL - Neck Neck exam general surgery: Present: supple, trachea midline. Absent: lymphadenopathy - Respiratory Respiratory exam: Present: CTAB. Absent: accessory muscle use, rales, rhonchi, wheezes - Cardiovascular Cardiovascular exam: Present: RRR, +S1, +S2. Absent: diastolic murmur, gallop, rubs, systolic murmur - GI/Abdominal GI/Abdominal exam: Present: normal bowel sounds, soft, tenderness (mild epigastric), no peritoneal signs. Absent: distended - Extremities Exam Extremities exam: Present: warm, radial pulses palpable and symetrical. Absent : calf tenderness, cyanotic, pedal edema - Neurological Exam Neurological exam: Present: CN II-XII intact, oriented X3, no focal deficits. Absent: pronater drift, facial droop, speech deficit - Skin Skin exam: Present: dry, intact Internal Med - H&P Results - Labs CBC & Chem 7: 12/01/16 11:14 12/01/16 11:14 Labs: All Lab Results (24 Hours) 12/01/16 12/01/16 12/01/16 Range/Units 11:14 11:14 11:14 WBC 10.1 D (4.3-11.1) K/mcL RBC 5.47 H (3.82-4.97) M/mcL Hgb 15.5 H D (11.5-15.4) g/dL Hct 48.1 H (35.3-44.9) % MCV 87.9 (83.0-100.0) fL MCH 28.3 (28.0-33.3) pg MCHC 32.2 (31.6-35.5) g/dL RDW 13.0 (11.5-14.5) % Plt Count 205 (140-400) K/mcL MPV 11.2 (9.4-12.4) fL Immature Gran % 1.0 (0-4) % Seg Neutrophils % 90.6 % Lymphocytes % 4.7 % Monocytes % 3.4 % Eosinophils % 0.0 % Basophils % 0.3 % Neutrophils # 9.2 H (1.6-8.9) K/mcL Lymphocytes # 0.5 L (0.6-4.6) K/mcL Monocytes # 0.3 (0.0-1.3) K/mcL Eosinophils # 0.0 (0.0-0.6) K/mcL Basophils # 0.0 (0.0-0.2) K/mcL Sodium 136 (136-145) mEq/L Potassium 4.1 (3.5-4.5) mEq/L Chloride 101 (98-109) mEq/L Carbon Dioxide 24 (19-29) mEq/L BUN 11 (7-20) mg/dL Creatinine 0.89 (0.57-1.11) mg/dL Est GFR ( Amer) > 60 (> 60) Est GFR (Non-Af Amer) > 60 (> 60) BUN/Creatinine Ratio 12 (6-26) Glucose 263 H (70-99) mg/dL Calculated Osmolality 291 (280-300) Calcium 9.7 (8.6-10.8) mg/dL Total Bilirubin 0.5 (0.2-1.2) mg/dL Direct Bilirubin 0.2 (0.0-0.5) mg/dL Indirect Bilirubin 0.3 (0.0-1.2) mg/dL AST 25 (5-34) Units/L ALT 14 (0-55) Units/L Alkaline Phosphatase 130 H (38-126) Units/L Serum Total Protein 7.3 (6.0-8.3) g/dL Albumin 3.8 (3.5-5.0) g/dL Globulin 3.5 (2.4-3.5) g/dL Albumin/Globulin Ratio 1.1 (1.1-2.2) Lipase 23 (8-78) Units/L Urine Color (Yellow) Urine Clarity (Clear) Urine pH (5.0-8.0) pH Units Ur Specific [place] (1.010-1.025) Urine Protein (Neg-Trace) mg/dL Urine Glucose (UA) (Normal) mg/dL Urine Ketones (Negative) mg/dL Urine Blood (Negative) Urine Nitrite (Negative) Urine Bilirubin (Negative) Urine Urobilinogen (Normal) mg/dL Ur Leukocyte Esterase (Negative) Urine Microscopic WBC (0-3) per hpf Ur Squamous Epith Cells (None-Few) per lpf Ur Culture Indicated? (NO) 12/01/16 Range/Units 12:32 WBC (4.3-11.1) K/mcL RBC (3.82-4.97) M/mcL Hgb (11.5-15.4) g/dL Hct (35.3-44.9) % MCV (83.0-100.0) fL MCH (28.0-33.3) pg MCHC (31.6-35.5) g/dL RDW (11.5-14.5) % Plt Count (140-400) K/mcL MPV (9.4-12.4) fL Immature Gran % (0-4) % Seg Neutrophils % % Lymphocytes % % Monocytes % % Eosinophils % % Basophils % % Neutrophils # (1.6-8.9) K/mcL Lymphocytes # (0.6-4.6) K/mcL Monocytes # (0.0-1.3) K/mcL Eosinophils # (0.0-0.6) K/mcL Basophils # (0.0-0.2) K/mcL Sodium (136-145) mEq/L Potassium (3.5-4.5) mEq/L Chloride (98-109) mEq/L Carbon Dioxide (19-29) mEq/L BUN (7-20) mg/dL Creatinine (0.57-1.11) mg/dL Est GFR ( Amer) (> 60) Est GFR (Non-Af Amer) (> 60) BUN/Creatinine Ratio (6-26) Glucose (70-99) mg/dL Calculated Osmolality (280-300) Calcium (8.6-10.8) mg/dL Total Bilirubin (0.2-1.2) mg/dL Direct Bilirubin (0.0-0.5) mg/dL Indirect Bilirubin (0.0-1.2) mg/dL AST (5-34) Units/L ALT (0-55) Units/L Alkaline Phosphatase (38-126) Units/L Serum Total Protein (6.0-8.3) g/dL Albumin (3.5-5.0) g/dL Globulin (2.4-3.5) g/dL Albumin/Globulin Ratio (1.1-2.2) Lipase (8-78) Units/L Urine Color Yellow (Yellow) Urine Clarity Clear (Clear) Urine pH 7.0 (5.0-8.0) pH Units Ur Specific [place] 1.012 (1.010-1.025) Urine Protein 30 H (Neg-Trace) mg/dL Urine Glucose (UA) 250 H (Normal) mg/dL Urine Ketones 15 H (Negative) mg/dL Urine Blood Negative (Negative) Urine Nitrite Negative (Negative) Urine Bilirubin Negative (Negative) Urine Urobilinogen Normal (Normal) mg/dL Ur Leukocyte Esterase Negative (Negative) Urine Microscopic WBC 0-3 (0-3) per hpf Ur Squamous Epith Cells Few (None-Few) per lpf Ur Culture Indicated? NO (NO) - Diagnostic Studies CT scan - abdomen Additional comments: Abdomen/Pelvis CT 12/01/16 10:43 IMPRESSION: 1. Acute inflammatory changes in the region of the duodenum consistent with acute duodenitis. No evidence of bowel obstruction or perforation. 2. Chronic right renal hydronephrosis not related to stones. D/ / 12/01/2016 12:24:56 Yasmin Nagy MD / edilberto Interpreting Provider: Yasmin Nagy MD
[2016-12-01] MEDS: Pantoprazole 40 MG VIAL IVP SCH (17:06)
[2016-12-01] MEDS: 0.9 % Sodium Chloride 1,000 ML IVC SCH (17:06)
[2016-12-01] MEDS: MetroNIDAZOLE 500 MG/100 ML 500 MG/100 ML BAG IVPB SCH (17:07)
[2016-12-01] MEDS: *HR* Metoprolol 5 MG/5 ML VIAL IVP SCH (17:07)
[2016-12-01] MEDS ORDERED: *HR* Morphine 2 MG/ML SYRINGE IVP PRN (17:36)
[2016-12-01] MEDS ORDERED: *HR* Metoprolol 5 MG/5 ML VIAL IVP SCH (18:00)
[2016-12-01] MEDS ORDERED: Insulin LISPRO 300 UNITS/3 ML VIAL SQ SCH (18:00)
[2016-12-02] MEDS: *HR* Metoprolol 5 MG/5 ML VIAL IVP SCH ×3 (00:23→11:58)
[2016-12-02] MEDS: MetroNIDAZOLE 500 MG/100 ML 500 MG/100 ML BAG IVPB SCH ×2 (01:01→09:06)
[2016-12-02 04:41] LABS: Basophils % 0.7 %; Eosinophils % 0.5 %; Hematocrit 36.4 % (35.3-44.9); Hemoglobin 11.4 g/dL (11.5-15.4); Immature Platelets 7.5 % (1.1-6.1); Lymphocytes # 1.3 K/mcL (0.6-4.6); Lymphocytes % 23.5 %; Mean Corpuscular HGB Conc 31.3 g/dL (31.6-35.5); Mean Corpuscular Hemoglobin 28.5 pg (28.0-33.3); Mean Platelet Volume 10.9 fL (9.4-12.4); Monocytes # 0.7 K/mcL (0.0-1.3); Monocytes % 12.2 %; Neutrophils # 3.4 K/mcL (1.6-8.9); Platelet Count 178 K/mcL (140-400); Red Cell Distribution Width 13.5 % (11.5-14.5); Segmented Neutrophils % 61.1 %
[2016-12-02] MEDS: 0.9 % Sodium Chloride 1,000 ML IVC SCH (04:50)
[2016-12-02 05:39] LABS: BUN/Creatinine Ratio 11 (6-26); Blood Urea Nitrogen 9 mg/dL (7-20); Carbon Dioxide 26 mEq/L (19-29); Chloride 107 mEq/L (98-109); Glucose 103 mg/dL (70-99); Osmolality,Calculated 289 (280-300); Potassium 3.4 mEq/L (3.5-4.5); Sodium 140 mEq/L (136-145); eGFR For African Americans > 60 (> 60); eGFR For Non-African Americans > 60 (> 60)
[2016-12-02] MEDS ORDERED: *HR* Enoxaparin 40 MG/0.4 ML SYRINGE SQ SCH (06:00)
--- NOTE | 2016-12-02 06:31 | Electrocardiograph Report ---
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
[2016-12-02] MEDS ORDERED: Insulin LISPRO 300 UNITS/3 ML VIAL SQ SCH ×2 (08:00→21:00)
[2016-12-02] MEDS: Insulin LISPRO 300 UNITS/3 ML VIAL SQ SCH ×2 (09:05→12:00)
[2016-12-02] MEDS: Pantoprazole 40 MG VIAL IVP SCH (09:06)
[2016-12-02 10:52] VITALS: BP 98/62
--- NOTE | 2016-12-02 11:35 | Discharge Summary ---
Date of Encounter: 12/02/16 Time of Encounter: 09:00 - Discharge Diagnosis (1) Duodenitis Priority: Primary Status: Acute (2) DM (diabetes mellitus), type 2 Priority: Secondary Status: Chronic Qualifiers: Diabetes mellitus complication status: without complication Diabetes mellitus emt intermediate insulin use: without alf use Qualified Code(s): E11.9 - Type 2 diabetes mellitus without complications (3) History of gastric bypass Priority: Secondary Status: Chronic (4) Hypertension Priority: Secondary Status: Chronic Qualifiers: Hypertension type: essential hypertension Qualified Code(s): I10 - Essential (primary) hypertension (5) Nausea & vomiting Priority: Secondary Status: Resolved Qualifiers: Vomiting type: unspecified Vomiting Intractability: intractable Qualified Code(s): R11.2 - Nausea with vomiting, unspecified - Discharge Medications Prescriptions: Sucralfate [Carafate] 1 gm PO QIDAC #500 mls Home Medications: Docusate [Colace] 100 mg PO HS 12/21/14 [History] Polyethylene Glycol 3350 [MiraLAX] 17 gm PO DAILY PRN 12/21/14 [History] Sertraline HCl [Zoloft] 100 mg PO DAILY 12/21/14 [History] Simvastatin [Zocor] 40 mg PO DAILY 12/21/14 [History] Cyanocobalamin (Vitamin B-12) [Vitamin B-12] 1,000 mcg SQ QMONTH 12/08/15 [ History] Enalapril Maleate [Vasotec] 5 mg PO DAILY 12/08/15 [History] Mv-Mn/FA/Vit K1/Lycop/Lut/Zeax [Ocuvite Eye + Multi Tablet] 1 tab PO DAILY 12/07 [History] Propranolol HCl 60 mg PO DAILY 12/08/15 [History] SitaGLIPtin [Januvia] 100 mg PO DAILY 03/06/16 [History] Calcium Carbonate/Vitamin D3 [Calcium 500 + Vit D Caplet] 1 tab PO BID 09/02/16 [History] Calcium Polycarbophil [Fibercon] 625 mg PO BID 09/02/16 [History] Melatonin [Melatin] 3 mg PO HS 09/02/16 [History] Ondansetron HCl [Zofran] 4 mg PO Q8H PRN 09/02/16 [History] Pantoprazole Sodium 40 mg PO DAILY 30 Days 11/24/16 [Rx] levoFLOXacin [Levaquin] 750 mg PO DAILY 10 Days 11/24/16 [Rx] Lactobacillus [Culturelle] 1 each PO BID #20 11/28/16 [Rx] Promethazine [Phenergan] 12.5 mg PO Q6HR PRN #10 tablet 11/28/16 [Rx] Sucralfate [Carafate] 1 gm PO QIDAC #500 mls 12/02/16 [Rx] Allergies/Adverse Reactions: Allergies Nickel Allergy (Mild, Verified 11/23/16 10:47) Hives codeine Allergy (Verified 11/23/16 10:47) Hives Erythromycin Base Allergy (Verified 11/23/16 10:47) Rash nitrofurantoin [From Macrobid] Allergy (Verified 11/23/16 10:47) Rash Quaternium Allergy (Verified 11/23/16 10:47) Rash sulfamethoxazole [From Bactrim] Allergy (Verified 11/23/16 10:47) Rash trimethoprim [From Bactrim] Allergy (Verified 11/23/16 10:47) Rash Sulfa (Sulfonamide Antibiotics) Adverse Reaction (Verified 11/23/16 10:47) Hallucinating Date of admission: 12/01/16 13:35 Primary care physician: Brittney Garrido, Discharging clinician: Cameron Salcido Anticipated date of discharge: 12/02/16 - Patient Status Disposition: Home, Self-Care Condition: Good Functional capacity at discharge: independent ambulation Overall status at discharge: patient is progressing back to baseline - Discharge Instructions Follow Up With: Brittney Garrido MD [Primary Care Provider] - (In 1-2 weeks) Additional Instructions: With GI in 1-2 weeks - Diet and Activity Activity: increase activity as tolerated Diet: other (bland diet) Hospital course: Ms. Sales is a 66 year old female patient with a history of prior gastric bypass, diabetes mellitus type 2, hypertension who was admitted here with intractable nausea and vomiting. CT scan of the abdomen and pelvis suggested the presence of duodenitis. Patient had been treated for this condition multiple times in the past few weeks. She also had undergone upper GI endoscopy in October which did not show any signs of acute inflammation or ulcers. She does follow up with GI as outpatient. The patient was kept nothing by mouth and treated with antiemetics along with PPI. She has improved with this treatment regimen and is now tolerating diet well. She is advised to continue taking clear liquids and advance to a bland diet as tolerated. She understands that given the duodenitis may take some time to resolve. She will continue to use PPI and Carafate in a solution form. She can follow up with GI for further management. - Time Spent with Patient Total time spent providing and/or coordinating discharge services: Less than 30 minutes (25 min) - Constitutional Vitals: Temp Pulse Resp BP Pulse Ox 98.2 F 90 16 98/62 95 12/02/16 10:51 12/02/16 10:51 12/02/16 10:51 12/02/16 10:51 12/02/16 10:51 General appearance: Present: A&O X 3, pleasant, no acute distress - Neck Neck exam general surgery: Present: supple, trachea midline. Absent: lymphadenopathy - Respiratory Respiratory exam: Present: CTAB. Absent: accessory muscle use, rales, rhonchi, wheezes - Cardiovascular Cardiovascular exam: Present: RRR, +S1, +S2. Absent: diastolic murmur, gallop, rubs, systolic murmur - GI/Abdominal GI/Abdominal exam: Present: normal bowel sounds, soft, no peritoneal signs. Absent: distended, tenderness - Extremities Exam Extremities exam: Present: warm, radial pulses palpable and symetrical. Absent : calf tenderness, cyanotic, pedal edema - Neurological Exam Neurological exam: Present: CN II-XII intact, oriented X3, no focal deficits. Absent: facial droop, speech deficit - Skin Skin exam: Present: dry, intact
== END 2016-12-02 13:53 | disposition home or self-care (01) ==
LOC: EMEROO 10:16 → 3ANU 10:16 → SUATTDRO 13:35 → 3ANU 15:15
PROVIDERS: ADMIT Internal Medicine; ATTEND Internal Medicine

== ENCOUNTER 2016-12-20 10:23 | Observation (INO) ==
[2016-12-20] MEDS ORDERED: Ondansetron 4 MG/2 ML VIAL IVP ONE ×2 (10:33→13:57)
[2016-12-20] MEDS ORDERED: 0.9 % Sodium Chloride 1,000 ML IVC ONE ×2 (10:33→13:57)
--- NOTE | 2016-12-20 11:03 | Emergency Department Note ---
Disposition Clinical Impression: Nausea & vomiting Qualifiers: Vomiting type: unspecified Vomiting Intractability: intractable Qualified Code( s): R11.2 - Nausea with vomiting, unspecified Abdominal pain Qualifiers: Abdominal location: unspecified location Qualified Code(s): R10.9 - Unspecified abdominal pain Disposition: Admitted As Inpatient Condition: Good Instructions: Acute Nausea and Vomiting (ED), Abdominal Pain (ED) General Adult HPI - General Chief complaint: ED Abdominal Pain Stated complaint: abd pain Time Seen by Provider: 12/20/16 10:28 Source: patient Limitations: no limitations Nursing Notes Reviewed: Yes Vital Signs Reviewed: Yes - History of Present Illness Pain Scale: 6 - Related Data Home Medications Medication Instructions Recorded Confirmed Docusate [Colace] 100 mg PO HS 12/21/14 12/01/16 Polyethylene Glycol 3350 [MiraLAX] 17 gm PO DAILY PRN 12/21/14 12/01/16 Sertraline HCl [Zoloft] 100 mg PO DAILY 12/21/14 12/01/16 Simvastatin [Zocor] 40 mg PO DAILY 12/21/14 12/01/16 Cyanocobalamin (Vitamin B-12) 1,000 mcg SQ QMONTH 12/08/15 12/01/16 [Vitamin B-12] Enalapril Maleate [Vasotec] 5 mg PO DAILY 12/08/15 12/01/16 Mv-Mn/FA/Vit K1/Lycop/Lut/Zeax 1 tab PO DAILY 12/08/15 12/01/16 [Ocuvite Eye + Multi Tablet] Propranolol HCl 60 mg PO DAILY 12/08/15 12/01/16 SitaGLIPtin [Januvia] 100 mg PO DAILY 03/06/16 12/01/16 Calcium Carbonate/Vitamin D3 1 tab PO BID 09/02/16 12/01/16 [Calcium 500 + Vit D Caplet] Calcium Polycarbophil [Fibercon] 625 mg PO BID 09/02/16 12/01/16 Melatonin [Melatin] 3 mg PO HS 09/02/16 12/01/16 Ondansetron HCl [Zofran] 4 mg PO Q8H PRN 09/02/16 12/01/16 Previous Rx's Medication Instructions Recorded Pantoprazole Sodium 40 mg PO DAILY 30 Days 11/24/16 levoFLOXacin [Levaquin] 750 mg PO DAILY 10 Days 11/24/16 Lactobacillus [Culturelle] 1 each PO BID #20 11/28/16 Promethazine [Phenergan] 12.5 mg PO Q6HR PRN #10 tablet 11/28/16 Sucralfate [Carafate] 1 gm PO QIDAC #500 mls 12/02/16 Promethazine [Phenergan] 25 mg PO Q6HR #12 tablet 12/20/16 Allergies Allergy/AdvReac Type Severity Reaction Status Date / Time Nickel Allergy Mild Hives Verified 12/20/16 10:26 codeine Allergy Hives Verified 12/20/16 10:26 Erythromycin Base Allergy Rash Verified 12/20/16 10:26 nitrofurantoin Allergy Rash Verified 12/20/16 10:26 [From Macrobid] Quaternium Allergy Rash Verified 12/20/16 10:26 sulfamethoxazole Allergy Rash Verified 12/20/16 10:26 [From Bactrim] trimethoprim [From Bactrim] Allergy Rash Verified 12/20/16 10:26 Sulfa (Sulfonamide AdvReac Hallucinati Verified 12/20/16 10:26 Antibiotics) ng Past Medical History - Past Medical History Medical history: Reports: arthritis, diabetes, GERD, hyperlipidemia, hypertension, osteoporosis, renal disease, other Surgical history: Reports: appendectomy, cholecystectomy, hysterectomy, ureteral stent, other Psychiatric history: Reports: anxiety, depression 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 - Social History Smoking Status: Former smoker Smokeless Tobacco Status: No Alcohol use: Reports: none Drug use: Reports: none Physical Exam - General Limitations: no limitations General appearance: alert, in no apparent distress Course Vital Signs Temperature 97.4 F L 12/20/16 10:24 Pulse Rate 90 12/20/16 10:24 Respiratory Rate 16 12/20/16 10:24 Blood Pressure 197/104 12/20/16 10:24 O2 Sat by Pulse Oximetry 96 12/20/16 10:24 Temperature 97.4 F L 12/20/16 10:24 Pulse Rate 90 12/20/16 10:24 Respiratory Rate 18 12/20/16 13:35 Blood Pressure 188/94 12/20/16 13:35 O2 Sat by Pulse Oximetry 96 12/20/16 10:24 Oxygen Delivery Oxygen Delivery Room Air Medical Decision Making - MDM Narrative Medical decision making narrative: I examined this patient and my medical decision-making was reviewed with the Resident Physician. I agree with the documented findings, disposition and treatment plan as described except to the extent set forth below. Patient seen and evaluated by Dr. Vernon and myself, I agree with his evaluation and management plan, supervised the care of the patient's stay. Patient's having lower abdominal discomfort. Nonsurgical abdominal exam. Nausea and vomiting. She says she gets this frequently and often gets a UTI with it. She prefers to be straight catheter. We are going to see if we can make her more comfortable, give her medications for nausea. Check lab work and urinalysis and reassess. She is in agreement with this plan. 1314 hrs.: Patient's feeling better. We will send her home with nausea medications, clear liquid diet, close follow-up with her primary care, return here if no better or worse. She is in good agreement these instructions. 1400 hrs.: Patient has not vomited but she still feels low nauseous and had some dry heaving. She wanted to go home and her sister is here to take her home and she started feeling nauseous with dry heaves only, we will give her another liter fluid. Try some Zofran as it seemed to work better than the Phenergan. Then reassess. She is in agreement with this plan. If she continues to be nauseous we will consider admission. Though her labs looked good here. She has no abdominal pain. 1430 hrs.: Patient does not O comfortable going home and bring her into the hospital for dehydration and continued nausea and vomiting. She is in agreement with this plan. - Lab Data Result diagrams: 12/20/16 11:00 12/20/16 11:00 Lab Results 12/20/16 12/20/16 12/20/16 Range/Units 11:00 11:00 11:00 WBC 5.2 (4.3-11.1) K/mcL RBC 4.97 (3.82-4.97) M/mcL Hgb 14.1 (11.5-15.4) g/dL Hct 45.1 H (35.3-44.9) % MCV 90.7 (83.0-100.0) fL MCH 28.4 (28.0-33.3) pg MCHC 31.3 L (31.6-35.5) g/dL RDW 13.0 (11.5-14.5) % Plt Count 160 (140-400) K/mcL MPV 11.0 (9.4-12.4) fL Immature Gran % 0.4 (0-4) % Seg Neutrophils % 90.5 % Lymphocytes % 6.6 % Monocytes % 2.1 % Eosinophils % 0.0 % Basophils % 0.4 % Neutrophils # 4.7 (1.6-8.9) K/mcL Lymphocytes # 0.3 L (0.6-4.6) K/mcL Monocytes # 0.1 (0.0-1.3) K/mcL Eosinophils # 0.0 (0.0-0.6) K/mcL Basophils # 0.0 (0.0-0.2) K/mcL Sodium 137 (136-145) mEq/L Potassium 4.3 (3.5-4.5) mEq/L Chloride 102 (98-109) mEq/L Carbon Dioxide 23 (19-29) mEq/L BUN 13 (7-20) mg/dL Creatinine 0.93 (0.57-1.11) mg/dL Est GFR ( Amer) > 60 (> 60) Est GFR (Non-Af Amer) > 60 (> 60) BUN/Creatinine Ratio 14 (6-26) Glucose 252 H (70-99) mg/dL Calculated Osmolality 293 (280-300) Calcium 9.4 (8.6-10.8) mg/dL Total Bilirubin 0.3 (0.2-1.2) mg/dL AST 33 (5-34) Units/L ALT 16 (0-55) Units/L Alkaline Phosphatase 111 (38-126) Units/L Serum Total Protein 7.8 (6.0-8.3) g/dL Albumin 3.9 (3.5-5.0) g/dL Globulin 3.9 H (2.4-3.5) g/dL Albumin/Globulin Ratio 1.0 L (1.1-2.2) Lipase 24 (8-78) Units/L Urine Color (Yellow) Urine Clarity (Clear) Urine pH (5.0-8.0) pH Units Ur Specific [place] (1.010-1.025) Urine Protein (Neg-Trace) mg/dL Urine Glucose (UA) (Normal) mg/dL Urine Ketones (Negative) mg/dL Urine Blood (Negative) Urine Nitrite (Negative) Urine Bilirubin (Negative) Urine Urobilinogen (Normal) mg/dL Ur Leukocyte Esterase (Negative) Urine Microscopic RBC (0-3) per hpf Urine Microscopic WBC (0-3) per hpf Ur Squamous Epith Cells (None-Few) per lpf Urine Bacteria (None-Few) per hpf Hyaline Casts (None-Few) per lpf Ur Culture Indicated? (NO) 12/20/16 Range/Units 11:22 WBC (4.3-11.1) K/mcL RBC (3.82-4.97) M/mcL Hgb (11.5-15.4) g/dL Hct (35.3-44.9) % MCV (83.0-100.0) fL MCH (28.0-33.3) pg MCHC (31.6-35.5) g/dL RDW (11.5-14.5) % Plt Count (140-400) K/mcL MPV (9.4-12.4) fL Immature Gran % (0-4) % Seg Neutrophils % % Lymphocytes % % Monocytes % % Eosinophils % % Basophils % % Neutrophils # (1.6-8.9) K/mcL Lymphocytes # (0.6-4.6) K/mcL Monocytes # (0.0-1.3) K/mcL Eosinophils # (0.0-0.6) K/mcL Basophils # (0.0-0.2) K/mcL Sodium (136-145) mEq/L Potassium (3.5-4.5) mEq/L Chloride (98-109) mEq/L Carbon Dioxide (19-29) mEq/L BUN (7-20) mg/dL Creatinine (0.57-1.11) mg/dL Est GFR ( Amer) (> 60) Est GFR (Non-Af Amer) (> 60) BUN/Creatinine Ratio (6-26) Glucose (70-99) mg/dL Calculated Osmolality (280-300) Calcium (8.6-10.8) mg/dL Total Bilirubin (0.2-1.2) mg/dL AST (5-34) Units/L ALT (0-55) Units/L Alkaline Phosphatase (38-126) Units/L Serum Total Protein (6.0-8.3) g/dL Albumin (3.5-5.0) g/dL Globulin (2.4-3.5) g/dL Albumin/Globulin Ratio (1.1-2.2) Lipase (8-78) Units/L Urine Color Yellow (Yellow) Urine Clarity Clear (Clear) Urine pH 7.5 (5.0-8.0) pH Units Ur Specific [place] 1.012 (1.010-1.025) Urine Protein 30 H (Neg-Trace) mg/dL Urine Glucose (UA) 250 H (Normal) mg/dL Urine Ketones Negative (Negative) mg/dL Urine Blood Negative (Negative) Urine Nitrite Negative (Negative) Urine Bilirubin Negative (Negative) Urine Urobilinogen Normal (Normal) mg/dL Ur Leukocyte Esterase Negative (Negative) Urine Microscopic RBC 0-3 (0-3) per hpf Urine Microscopic WBC 0-3 (0-3) per hpf Ur Squamous Epith Cells Few (None-Few) per lpf Urine Bacteria None Seen (None-Few) per hpf Hyaline Casts None Seen (None-Few) per lpf Ur Culture Indicated? NO (NO)
[2016-12-20 11:11] LABS: Basophils % 0.4 %; Hematocrit 45.1 % (35.3-44.9); Hemoglobin 14.1 g/dL (11.5-15.4); Immature Granulocytes % 0.4 % (0-4); Lymphocytes # 0.3 K/mcL (0.6-4.6); Lymphocytes % 6.6 %; Mean Corpuscular HGB Conc 31.3 g/dL (31.6-35.5); Mean Corpuscular Hemoglobin 28.4 pg (28.0-33.3); Mean Corpuscular Volume 90.7 fL (83.0-100.0); Monocytes # 0.1 K/mcL (0.0-1.3); Monocytes % 2.1 %; Neutrophils # 4.7 K/mcL (1.6-8.9); Platelet Count 160 K/mcL (140-400); Red Blood Count 4.97 M/mcL (3.82-4.97); Segmented Neutrophils % 90.5 %
[2016-12-20 11:21] LABS: Alanine Aminotransferase 16 Units/L (0-55); Albumin 3.9 g/dL (3.5-5.0); Alkaline Phosphatase 111 Units/L (38-126); Aspartate Amino Transferase 33 Units/L (5-34); BUN/Creatinine Ratio 14 (6-26); Bilirubin,Total 0.3 mg/dL (0.2-1.2); Blood Urea Nitrogen 13 mg/dL (7-20); Calcium 9.4 mg/dL (8.6-10.8); Carbon Dioxide 23 mEq/L (19-29); Chloride 102 mEq/L (98-109); Globulin 3.9 g/dL (2.4-3.5); Glucose 252 mg/dL (70-99); Osmolality,Calculated 293 (280-300); Sodium 137 mEq/L (136-145); Total Protein 7.8 g/dL (6.0-8.3); eGFR For African Americans > 60 (> 60); eGFR For Non-African Americans > 60 (> 60)
[2016-12-20 11:25] LABS: Potassium 4.3 mEq/L (3.5-4.5)
[2016-12-20 11:31] LABS: Bilirubin,Urine Negative (Negative); Blood,Urine Negative (Negative); Clarity,Urine Clear (Clear); Color,Urine Yellow (Yellow); Glucose,Urine (UA) 250 mg/dL (Normal); Ketones,Urine Negative (Negative); Leukocyte Esterase,Urine Negative (Negative); Nitrite,Urine Negative (Negative); PH,Urine 7.5 pH Units (5.0-8.0); Protein,Urine 30 mg/dL (Neg-Trace); Specific Gravity,Urine 1.012 (1.010-1.025); Urobilinogen,Urine Normal (Normal)
[2016-12-20 11:34] LABS: Bacteria,Urine None Seen per hpf (None-Few); Hyaline Casts,Urine None Seen per lpf (None-Few); RBC,Urine 0-3 per hpf (0-3); Squamous Epithelial Cell,Urine Few per lpf (None-Few); WBC,Urine 0-3 per hpf (0-3)
--- NOTE | 2016-12-20 12:16 | Emergency Department Note ---
Disposition Clinical Impression: Nausea & vomiting Qualifiers: Vomiting type: unspecified Vomiting Intractability: intractable Qualified Code( s): R11.2 - Nausea with vomiting, unspecified Abdominal pain Qualifiers: Abdominal location: unspecified location Qualified Code(s): R10.9 - Unspecified abdominal pain Disposition: Admitted As Inpatient Condition: Good Time of Disposition: 13:31 Abdominal Pain HPI - General Chief Complaint: ED Abdominal Pain Stated Complaint: abd pain Time Seen by Provider: 12/20/16 10:28 Source: patient Mode of arrival: ambulatory Limitations: no limitations Nursing Notes Reviewed: Yes Vital Signs Reviewed: Yes - History of Present Illness HPI Narrative: 66-year-old female history of gastric bypass presents with abdominal pain, nausea and vomiting. States she is a vomited nonbloody emesis up to 20 times today since 3 AM. She has some associated pain in the epigastric and suprapubic region. Describes as a sharp dull ache. Stasis feels very similar to prior attacks of her gastritis. Typically starts with nausea vomiting and then pain. It is sometimes also urinary tract infection. She denies any dysuria hematuria. She has tried Zofran once today with no significant relief. She has not taken any of her morning medications which includes her antihypertensives medication she cannot keep down. She denies any fever, headache, chest pain, shortness of breath. Denies any lady stool or blacked tarry stools. History of cholecystectomy, appendectomy and total hysterectomy. She denies any recent travel, camping, or new foods. States the last time was a roughly a month ago where she required admission, IV fluid hydration, symptom control, CT of the abdomen and pelvis and was discharged with Pepcid. Gastric bypass several years ago by surgeon at [facility] with some revision [address] Abel. Patient is content with getting IV fluids and checking some basic labs. If everything appears normal she is agreeable to being sent home. Will get a urinalysis via catheterization as well as basic labs and IV fluids. Pain Scale: 6 - Related Data Home Medications Medication Instructions Recorded Confirmed Docusate [Colace] 100 mg PO HS 12/21/14 12/01/16 Polyethylene Glycol 3350 [MiraLAX] 17 gm PO DAILY PRN 12/21/14 12/01/16 Sertraline HCl [Zoloft] 100 mg PO DAILY 12/21/14 12/01/16 Simvastatin [Zocor] 40 mg PO DAILY 12/21/14 12/01/16 Cyanocobalamin (Vitamin B-12) 1,000 mcg SQ QMONTH 12/08/15 12/01/16 [Vitamin B-12] Enalapril Maleate [Vasotec] 5 mg PO DAILY 12/08/15 12/01/16 Mv-Mn/FA/Vit K1/Lycop/Lut/Zeax 1 tab PO DAILY 12/08/15 12/01/16 [Ocuvite Eye + Multi Tablet] Propranolol HCl 60 mg PO DAILY 12/08/15 12/01/16 SitaGLIPtin [Januvia] 100 mg PO DAILY 03/06/16 12/01/16 Calcium Carbonate/Vitamin D3 1 tab PO BID 09/02/16 12/01/16 [Calcium 500 + Vit D Caplet] Calcium Polycarbophil [Fibercon] 625 mg PO BID 09/02/16 12/01/16 Melatonin [Melatin] 3 mg PO HS 09/02/16 12/01/16 Ondansetron HCl [Zofran] 4 mg PO Q8H PRN 09/02/16 12/01/16 Previous Rx's Medication Instructions Recorded Pantoprazole Sodium 40 mg PO DAILY 30 Days 11/24/16 levoFLOXacin [Levaquin] 750 mg PO DAILY 10 Days 11/24/16 Lactobacillus [Culturelle] 1 each PO BID #20 11/28/16 Promethazine [Phenergan] 12.5 mg PO Q6HR PRN #10 tablet 11/28/16 Sucralfate [Carafate] 1 gm PO QIDAC #500 mls 12/02/16 Promethazine [Phenergan] 25 mg PO Q6HR #12 tablet 12/20/16 Allergies Allergy/AdvReac Type Severity Reaction Status Date / Time Nickel Allergy Mild Hives Verified 12/20/16 10:26 codeine Allergy Hives Verified 12/20/16 10:26 Erythromycin Base Allergy Rash Verified 12/20/16 10:26 nitrofurantoin Allergy Rash Verified 12/20/16 10:26 [From Macrobid] Quaternium Allergy Rash Verified 12/20/16 10:26 sulfamethoxazole Allergy Rash Verified 12/20/16 10:26 [From Bactrim] trimethoprim [From Bactrim] Allergy Rash Verified 12/20/16 10:26 Sulfa (Sulfonamide AdvReac Hallucinati Verified 12/20/16 10:26 Antibiotics) ng All systems ED: reviewed and negative except as stated. Review of Systems: As Per HPI Constitutional: Denies: fever, chills Cardiovascular: Denies: chest pain Respiratory: Denies: cough, dyspnea Gastrointestinal: Reports: abdominal pain, nausea, vomiting. 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 Absent : tenderness - Respiratory Respiratory exam: Present: normal lung sounds bilaterally. Absent: respiratory distress, wheezes, stridor - Cardiovascular Cardiovascular exam: Present: regular rate, normal rhythm, normal heart sounds - Abdominal Exam Abdominal exam: Present: soft (obese), tenderness, normal bowel sounds. Absent : Non-Tender, distention, guarding, rebound, rigidity Abdominal tenderness: Present: epigastrium, diffuse - Back Exam Back exam: Present: normal inspection, full ROM. Absent: tenderness, CVA tenderness (R), CVA tenderness (L) - Neurological Exam Neurological exam: Present: alert, oriented X3 - Skin Skin exam: Present: warm, dry, intact, normal color. Absent: rash, cyanosis Course - Reevaluation(s) Reevaluation #1: Nausea has improved. She is requesting another dose of medication. Her labs are reviewed and are otherwise unremarkable. Urinalysis does not appear consistent with infection. Had this discussion with the patient I do not feel like her abdomen is surgical. There is some mild diffuse tenderness but nothing significant. It is otherwise soft and nondistended. Review for CT from 12/01/2016 showed findings of duodenitis. No evidence of small bowel obstruction. Chronic hydronephrosis. I do not believe this is consistent with a small bowel obstruction. With shared decision making patient is content with symptom control and likely discharge home. Her blood pressure has come down despite any intervention. She denies any chest pain or shortness of breath. EKG was performed which showed normal sinus rhythm without any acute ischemic changes. Recommend to follow up with her primary care physician. Patient agrees to return for any new worsening symptoms. Impression is abdominal pain, nausea, vomiting. She requests Phenergan to go home with she has Zofran. Time: 12:55 Reevaluation #2: Spoke to the sister. Reports patient lives by herself and is not have home health aide. Patient will like better control of her symptoms. We of given her multiple doses of Zofran as well as Phenergan. She continues to dry heave and spit but no significant emesis. Her abdomen continues to be soft and nondistended with good bowel sounds. I do not suspect a small bowel destruction. Reviewed here last CT of the abdomen and pelvis. At this time would not reimage her given her recent images of the past month. Likely a exacerbation of her gastritis. Given her uncontrolled symptoms will admit for intractable nausea vomiting. Patient and family are in agreement with this plan. Time: 15:30 - Consultations Consultation #1: Spoke with on-call hospitalist sho Samuel to admit for intractable nausea and vomiting. No further orders at this time Time: 15:30 Vital Signs Temperature 97.4 F L 12/20/16 10:24 Pulse Rate 90 12/20/16 10:24 Respiratory Rate 16 12/20/16 10:24 Blood Pressure 197/104 12/20/16 10:24 O2 Sat by Pulse Oximetry 96 12/20/16 10:24 Temperature 97.4 F L 12/20/16 10:24 Pulse Rate 90 12/20/16 10:24 Respiratory Rate 18 12/20/16 13:35 Blood Pressure 188/94 12/20/16 13:35 O2 Sat by Pulse Oximetry 96 12/20/16 10:24 Oxygen Delivery Oxygen Delivery Room Air Abdominal Pain - Medical Records Medical records reviewed: Yes I reviewed the patient's medical records. - Lab Data Lab results reviewed: Yes I reviewed the patient's lab results. Result diagrams: 12/20/16 11:00 12/20/16 11:00 Lab Results 12/20/16 12/20/16 12/20/16 Range/Units 11:00 11:00 11:00 WBC 5.2 (4.3-11.1) K/mcL RBC 4.97 (3.82-4.97) M/mcL Hgb 14.1 (11.5-15.4) g/dL Hct 45.1 H (35.3-44.9) % MCV 90.7 (83.0-100.0) fL MCH 28.4 (28.0-33.3) pg MCHC 31.3 L (31.6-35.5) g/dL RDW 13.0 (11.5-14.5) % Plt Count 160 (140-400) K/mcL MPV 11.0 (9.4-12.4) fL Immature Gran % 0.4 (0-4) % Seg Neutrophils % 90.5 % Lymphocytes % 6.6 % Monocytes % 2.1 % Eosinophils % 0.0 % Basophils % 0.4 % Neutrophils # 4.7 (1.6-8.9) K/mcL Lymphocytes # 0.3 L (0.6-4.6) K/mcL Monocytes # 0.1 (0.0-1.3) K/mcL Eosinophils # 0.0 (0.0-0.6) K/mcL Basophils # 0.0 (0.0-0.2) K/mcL Sodium 137 (136-145) mEq/L Potassium 4.3 (3.5-4.5) mEq/L Chloride 102 (98-109) mEq/L Carbon Dioxide 23 (19-29) mEq/L BUN 13 (7-20) mg/dL Creatinine 0.93 (0.57-1.11) mg/dL Est GFR ( Amer) > 60 (> 60) Est GFR (Non-Af Amer) > 60 (> 60) BUN/Creatinine Ratio 14 (6-26) Glucose 252 H (70-99) mg/dL Calculated Osmolality 293 (280-300) Calcium 9.4 (8.6-10.8) mg/dL Total Bilirubin 0.3 (0.2-1.2) mg/dL AST 33 (5-34) Units/L ALT 16 (0-55) Units/L Alkaline Phosphatase 111 (38-126) Units/L Serum Total Protein 7.8 (6.0-8.3) g/dL Albumin 3.9 (3.5-5.0) g/dL Globulin 3.9 H (2.4-3.5) g/dL Albumin/Globulin Ratio 1.0 L (1.1-2.2) Lipase 24 (8-78) Units/L Urine Color (Yellow) Urine Clarity (Clear) Urine pH (5.0-8.0) pH Units Ur Specific [place] (1.010-1.025) Urine Protein (Neg-Trace) mg/dL Urine Glucose (UA) (Normal) mg/dL Urine Ketones (Negative) mg/dL Urine Blood (Negative) Urine Nitrite (Negative) Urine Bilirubin (Negative) Urine Urobilinogen (Normal) mg/dL Ur Leukocyte Esterase (Negative) Urine Microscopic RBC (0-3) per hpf Urine Microscopic WBC (0-3) per hpf Ur Squamous Epith Cells (None-Few) per lpf Urine Bacteria (None-Few) per hpf Hyaline Casts (None-Few) per lpf Ur Culture Indicated? (NO) 12/20/16 Range/Units 11:22 WBC (4.3-11.1) K/mcL RBC (3.82-4.97) M/mcL Hgb (11.5-15.4) g/dL Hct (35.3-44.9) % MCV (83.0-100.0) fL MCH (28.0-33.3) pg MCHC (31.6-35.5) g/dL RDW (11.5-14.5) % Plt Count (140-400) K/mcL MPV (9.4-12.4) fL Immature Gran % (0-4) % Seg Neutrophils % % Lymphocytes % % Monocytes % % Eosinophils % % Basophils % % Neutrophils # (1.6-8.9) K/mcL Lymphocytes # (0.6-4.6) K/mcL Monocytes # (0.0-1.3) K/mcL Eosinophils # (0.0-0.6) K/mcL Basophils # (0.0-0.2) K/mcL Sodium (136-145) mEq/L Potassium (3.5-4.5) mEq/L Chloride (98-109) mEq/L Carbon Dioxide (19-29) mEq/L BUN (7-20) mg/dL Creatinine (0.57-1.11) mg/dL Est GFR ( Amer) (> 60) Est GFR (Non-Af Amer) (> 60) BUN/Creatinine Ratio (6-26) Glucose (70-99) mg/dL Calculated Osmolality (280-300) Calcium (8.6-10.8) mg/dL Total Bilirubin (0.2-1.2) mg/dL AST (5-34) Units/L ALT (0-55) Units/L Alkaline Phosphatase (38-126) Units/L Serum Total Protein (6.0-8.3) g/dL Albumin (3.5-5.0) g/dL Globulin (2.4-3.5) g/dL Albumin/Globulin Ratio (1.1-2.2) Lipase (8-78) Units/L Urine Color Yellow (Yellow) Urine Clarity Clear (Clear) Urine pH 7.5 (5.0-8.0) pH Units Ur Specific [place] 1.012 (1.010-1.025) Urine Protein 30 H (Neg-Trace) mg/dL Urine Glucose (UA) 250 H (Normal) mg/dL Urine Ketones Negative (Negative) mg/dL Urine Blood Negative (Negative) Urine Nitrite Negative (Negative) Urine Bilirubin Negative (Negative) Urine Urobilinogen Normal (Normal) mg/dL Ur Leukocyte Esterase Negative (Negative) Urine Microscopic RBC 0-3 (0-3) per hpf Urine Microscopic WBC 0-3 (0-3) per hpf Ur Squamous Epith Cells Few (None-Few) per lpf Urine Bacteria None Seen (None-Few) per hpf Hyaline Casts None Seen (None-Few) per lpf Ur Culture Indicated? NO (NO) - Radiology Data Radiology results reviewed: Yes I reviewed the patient's radiology results. Review for CT from 12/01/2016 showed findings of duodenitis. No evidence of small bowel obstruction. Chronic hydronephrosis. - EKG Data EKG attestation: Yes I reviewed and interpreted this EKG. EKG results narrative: EKG performed 1111 normal sinus rhythm normal axis, no ST elevations or depression, no T wave inversion. Intervals are within normal limits. Compared old EKG performed 12/01/2016 shows consistent findings. No acute ischemic changes.
[2016-12-20] MEDS ORDERED: *HR* Promethazine 25 MG/ML VIAL IVP ONE (12:37)
[2016-12-20] MEDS ORDERED: Metoclopramide 10 MG/2 ML VIAL IVP ONE (15:09)
[2016-12-20] MEDS ORDERED: Naloxone 0.4 MG/ML INJ IVP PRN (17:00)
--- NOTE | 2016-12-20 17:00 | Event Note ---
Date of Encounter: 12/20/16 Time of Encounter: 16:57 Patient seen and examined with nurse practitioner. Presents with similar presentations to prior. She had approximately 15 CT scan of the abdomen and pelvis over the past year and a half for similar presentation. Nausea vomiting upper abdominal pain to gastritis do deny this. We will keep on protonix, hydrate and advanced diet as tolerated. CT scan is negative except for duodenitis. Vitals and labs are stable. Observation admission
[2016-12-20] MEDS ORDERED: Ketorolac 15 MG/ML VIAL IVP PRN (17:07)
[2016-12-20] MEDS ORDERED: Metoclopramide 10 MG/2 ML VIAL IVP PRN (17:10)
[2016-12-20] MEDS ORDERED: *HR* Metoprolol 5 MG/5 ML VIAL IVP ONE (17:14)
[2016-12-20] MEDS ORDERED: *HR* Metoprolol 5 MG/5 ML VIAL IVP PRN (17:17)
--- NOTE | 2016-12-20 17:31 | Internal Med History&Physical ---
Date of Encounter: 12/20/16 Time of Encounter: 16:30 Assessment and Plan (1) Intractable nausea and vomiting Current visit: Yes Status: Acute Patient presents with intractable nausea and vomiting since 3 a.m. today. She was admitted approximately one month ago for similar symptoms. Patient reports she is unable to keep anything down and that she has vomited 20+ times today. Patient received IV Zofran and IV Phenergan in the ED which she states did not help. IV Reglan ordered PRN. NPO status with diet to be advanced as tolerated. Monitor I&O and daily weight. Qualifiers: Vomiting type: cyclical vomiting Qualified Code(s): G43.A1 - Cyclical vomiting, intractable (2) Abdominal pain Current visit: Yes Status: Acute Patient presents with acute abdominal pain related to current symptoms of nausea and vomiting. IV Reglan ordered when necessary. IVP protonix 40 mg twice a day ordered. Monitor I&O and daily weight. Qualifiers: Abdominal location: generalized Qualified Code(s): R10.84 - Generalized abdominal pain (3) Dehydration Current visit: Yes Status: Acute Patient presents with acute dehydration related to current intractable nausea and vomiting. Patient's current GFR is 60 and she will receive IV fluids 0.9 NS at 100 mL/HR. Follow-up labs ordered. (4) Generalized weakness Current visit: Yes Status: Acute Patient presents with generalized weakness due to current symptomatology. Patient placed on falls precautions/up with assist/bed rest with bedside commode with assist only due to current generalized weakness. (5) Diabetes Current visit: Yes Status: Chronic Patient presents with history of chronic diabetes. Patient to be NPO until intractable N/V subsides. Blood glucose ACHS. Low dose correction insulin sliding scale ordered with hypoglycemic protocol. A1c ordered. 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 IVP Protonix 40 mg twice a day ordered. Qualifiers: Esophagitis presence: with esophagitis Qualified Code(s): K21.0 - Gastro- esophageal reflux disease with esophagitis (7) DVT prophylaxis Current visit: Yes Status: Acute Patient to be placed on DVT prophylaxis due to admission protocol and bed rest status. Bilateral SCDs ordered for LEs. Internal Medicine - H&P: HPI Chief complaint: Abdominal Pain/Nausea/Vomiting Admitted From: Emergency Dept Plans for Post Hospital Care: Home History of present illness: Ms. Sales is a 66 year old female who presents from the ED with chief complaint of intractable nausea and vomiting since 3 a.m. this morning. She reports dull, aching pain in her suprapubic and epigastric regions. She states that these symptoms usually accompany a UTI which she has a long history of. She has been unable to take any of her medications today because she is unable to keep anything down. She reports about 20 episodes of vomiting today. Patient denies dysuria, hematuria, fever, headache, chest pain, shortness of breath, recent travel, recent illness, vision changes, pre-syncope, or syncope. She was admitted approximately one month ago for similar symptoms. Patient had gastric bypass surgery several years ago with a revision by Dr. Abel 3 years ago. On admission, patient's BP is 167/134, with secondary BP at 169/100. Ms. Sales is at moderate risk for further morbidity based on current symptoms and will replace as observation status with IV 0.9 NS at 100 mL/HR, NPO status, IV Reglan for nausea, IVP Protonix 40 mg BID, and IV metoprolol 5 mg Q6 PRN for HTN control. Patient to be monitored closely. Time spent with patient 30 minutes. Past Med Surg Social Fam HX - Past Medical History Source: patient Medical history: arthritis, diabetes, GERD, hyperlipidemia, hypertension, osteoporosis, renal disease, other Psychiatric history: anxiety, depression - Past Surgical History Surgical History: appendectomy, cholecystectomy, hysterectomy, ureteral stent, other - Social History Smoking Status: Former smoker Smokeless Tobacco Status: No Alcohol use: none Drug use: none Current living situation: Home Activity Level: Independent ambulation Recent Out of Country Travel Within the Last 8 Weeks: No Exposure or Possible Exposure to Illness During Travel: No - Family History Father Race: Family Member Ethnicity: Non- Living Status: Hx Family Endocrine Disorder: Yes (DM) Mother Race: Family Member Ethnicity: Non- Living Status: Hx Family Cancer: Yes (Colon and pancreatic) Hx Family Endocrine Disorder: Yes (DM) Internal Medicine - H&P: Meds Docusate [Colace] 100 mg PO HS 12/21/14 [History] Polyethylene Glycol 3350 [MiraLAX] 17 gm PO DAILY PRN 12/21/14 [History] Sertraline HCl [Zoloft] 100 mg PO DAILY 12/21/14 [History] Simvastatin [Zocor] 40 mg PO DAILY 12/21/14 [History] Cyanocobalamin (Vitamin B-12) [Vitamin B-12] 1,000 mcg SQ QMONTH 12/08/15 [ History] Enalapril Maleate [Vasotec] 5 mg PO DAILY 12/08/15 [History] Mv-Mn/FA/Vit K1/Lycop/Lut/Zeax [Ocuvite Eye + Multi Tablet] 1 tab PO DAILY 12/07 [History] Propranolol HCl 60 mg PO DAILY 12/08/15 [History] SitaGLIPtin [Januvia] 100 mg PO DAILY 03/06/16 [History] Calcium Carbonate/Vitamin D3 [Calcium 500 + Vit D Caplet] 1 tab PO BID 09/02/16 [History] Calcium Polycarbophil [Fibercon] 625 mg PO BID 09/02/16 [History] Melatonin [Melatin] 3 mg PO HS 09/02/16 [History] Pantoprazole Sodium 40 mg PO DAILY 30 Days 11/24/16 [Rx] Lactobacillus [Culturelle] 1 each PO BID #20 11/28/16 [Rx] Sucralfate [Carafate] 1 gm PO QIDAC #500 mls 12/02/16 [Rx] Promethazine [Phenergan] 25 mg PO Q6HR #12 tablet 12/20/16 [Rx] Allergies Nickel Allergy (Mild, Verified 12/20/16 10:26) Hives codeine Allergy (Verified 12/20/16 10:26) Hives Erythromycin Base Allergy (Verified 12/20/16 10:26) Rash nitrofurantoin [From Macrobid] Allergy (Verified 12/20/16 10:26) Rash Quaternium Allergy (Verified 12/20/16 10:26) Rash sulfamethoxazole [From Bactrim] Allergy (Verified 12/20/16 10:26) Rash trimethoprim [From Bactrim] Allergy (Verified 12/20/16 10:26) Rash Sulfa (Sulfonamide Antibiotics) Adverse Reaction (Verified 12/20/16 10:26) Hallucinating All Systems PM: A 10-system review of systems was performed and is negative for pertinent findings except as documented above in the HPI. - Constitutional Constitutional: as per HPI, chills, weakness - EENT Eyes: no change in vision, no discharge, no pain, no photophobia Ears: no ear discharge, no ear pain, no tinnitus Nose, mouth and throat: no dysphagia, no nasal discharge, no neck pain, no sore throat - Breasts Breasts: as per HPI - Cardiovascular Cardiovascular ROS IM: no chest pain, no diaphoresis, no dyspnea, no lightheadedness, no palpitations, no syncope - Respiratory Respiratory: no cough, no dyspnea, no wheezing, no excessive phlegm production - Gastrointestinal Gastrointestinal: as per HPI, abdominal pain, cramping, nausea, vomiting - Genitourinary Genitourinary: no change in urinary stream, no dysuria, no flank pain, no hematuria Menstruation: as per HPI, post hysterectomy - Musculoskeletal Musculoskeletal ROS IM: no numbness, no tingling - Integumentary Integumentary IM: no rash, no unusual bruising - Neurological Neurological ROS: no confusion, no convulsions, no focal weakness, no numbness, no tingling, no tremor(s) - Psychiatric Psychiatric: as per HPI - Endocrine Endocrine IM: as per HPI - Hematologic/Lymphatic Hematologic/Lymphatic: no easy bruising - Allergic/Immunologic Allergic/Immunologic: as per HPI - Constitutional Vitals: Temp Pulse Resp BP Pulse Ox 97.4 F L 90 18 188/94 96 12/20/16 10:24 12/20/16 10:24 12/20/16 13:35 12/20/16 13:35 12/20/16 10:24 General appearance: Present: cooperative, A&O X 2, severe distress, answers questions appropriately - Head Head exam: Present: atraumatic, normocephalic - Eye Eye exam: Present: PERRL, conjuntiva pink, sclera anicteric Pupils: Present: PERRL - ENT ENT exam: Present: mucous membranes dry, normal external ear exam - Neck Neck exam general surgery: Present: supple, trachea midline. Absent: lymphadenopathy - Respiratory Respiratory exam: Present: CTAB. Absent: accessory muscle use, rales, rhonchi, wheezes - Cardiovascular Cardiovascular exam: Present: RRR, +S1, +S2. Absent: diastolic murmur, gallop, rubs, systolic murmur - GI/Abdominal GI/Abdominal exam: Present: hypoactive bowel sounds, soft, tenderness - Rectal Rectal exam: Present: deferred - Additional comments: exam deferred. - Extremities Exam Extremities exam: Present: warm, radial pulses palpable and symetrical. Absent : calf tenderness, cyanotic, pedal edema - Back Exam Back exam: Present: normal inspection - Neurological Exam Neurological exam: Present: altered - Psychiatric Psychiatric exam: Present: anxious - Skin Skin exam: Present: dry, intact Internal Med - H&P Results - Labs CBC & Chem 7: 12/20/16 11:00 12/20/16 11:00 - EKG Data EKG shows normal: sinus rhythm Rate: normal - EKG Data Prior EKG available for review: yes When compared to previous EKG: there is no significant change EKG comments: 12/20/16 17:37 EKG dated 12/01/16 shows sinus rhythm with sinus arrhythmia with short FL interval. EKG dated 12/20/16 shows sinus rhythm and normal ECG.
[2016-12-20] MEDS: 0.9 % Sodium Chloride 1,000 ML IVC SCH (17:42)
[2016-12-20] MEDS ORDERED: Dextrose Gel 15 GM PO PRN ×4 (17:53→20:46)
[2016-12-20] MEDS ORDERED: D5% in Water 1,000 ML IVC PRN ×2 (17:53→20:46)
[2016-12-20] MEDS ORDERED: *HR* Dextrose 50 % in Water (Syg) 50 ML SYRINGE IVP PRN ×2 (17:53→20:46)
[2016-12-20 18:39] LABS: Hemoglobin A1C 7.1 %
[2016-12-20] MEDS ORDERED: Melatonin 3 MG TABLET PO SCH (21:00)
[2016-12-20] MEDS ORDERED: Insulin LISPRO 300 UNITS/3 ML VIAL SQ SCH (21:00)
[2016-12-20] MEDS: Pantoprazole 40 MG VIAL IVP SCH (21:10)
[2016-12-21] MEDS: Insulin LISPRO 300 UNITS/3 ML VIAL SQ SCH ×4 (00:51→17:41)
[2016-12-21 03:29] LABS: Basophils % 0.2 %; Eosinophils % 0.2 %; Hematocrit 38.1 % (35.3-44.9); Immature Granulocytes % 0.4 % (0-4); Lymphocytes # 0.8 K/mcL (0.6-4.6); Lymphocytes % 15.4 %; Mean Corpuscular Volume 90.5 fL (83.0-100.0); Mean Platelet Volume 11.7 fL (9.4-12.4); Monocytes # 0.8 K/mcL (0.0-1.3); Monocytes % 13.9 %; Neutrophils # 3.8 K/mcL (1.6-8.9); Platelet Count 164 K/mcL (140-400); Red Blood Count 4.21 M/mcL (3.82-4.97); Red Cell Distribution Width 13.2 % (11.5-14.5); Segmented Neutrophils % 69.9 %
[2016-12-21 03:44] LABS: BUN/Creatinine Ratio 15 (6-26); Blood Urea Nitrogen 13 mg/dL (7-20); Calcium 8.2 mg/dL (8.6-10.8); Carbon Dioxide 25 mEq/L (19-29); Chloride 108 mEq/L (98-109); Chol/HDL Ratio 2.7 (0-4.9); Cholesterol 207 mg/dL (< 200); Glucose 121 mg/dL (70-99); HDL Cholesterol 76 mg/dL (40-59); Hemoglobin 12.2 g/dL (11.5-15.4); LDL Cholesterol,Calculated 108 mg/dL (0-99); Magnesium 1.8 mg/dL (1.6-2.6); Osmolality,Calculated 291 (280-300); Potassium 3.5 mEq/L (3.5-4.5); Sodium 140 mEq/L (136-145); Triglycerides 113 mg/dL (< 150); eGFR For African Americans > 60 (> 60); eGFR For Non-African Americans > 60 (> 60)
[2016-12-21] MEDS: 0.9 % Sodium Chloride 1,000 ML IVC SCH ×2 (03:46→14:43)
[2016-12-21] MEDS ORDERED: *HR* Metoprolol 5 MG/5 ML VIAL IVP ONE (04:04)
[2016-12-21] MEDS ORDERED: Insulin LISPRO 300 UNITS/3 ML VIAL SQ SCH (07:30)
[2016-12-21] MEDS: Pantoprazole 40 MG VIAL IVP SCH (08:06)
[2016-12-21] MEDS ORDERED: Propranolol LA (24 HR) 60 MG CAP.SA.24H PO SCH (09:00)
[2016-12-21 14:56] VITALS: BP 110/66
--- NOTE | 2016-12-21 15:43 | Discharge Summary ---
Date of Encounter: 12/21/16 Time of Encounter: 15:38 - Discharge Diagnosis (1) Intractable nausea and vomiting Priority: Primary Status: Resolved Comments: Patient presented with intractible nausea, vomiting and abdominal pain. Patient has history of gastric bypass and has had recurrent duodenitis and gastroenteritis over the last year. She was given fluids, protonix, Reglan, and her symptoms improved to tolerating clears and she feels well enough to go home. She sees Dr. Bojorquez in gastroenterology as an outpatient and has an appointment with him on 01/07. Qualifiers: Vomiting type: cyclical vomiting Qualified Code(s): G43.A1 - Cyclical vomiting, intractable (2) Dehydration Priority: Secondary Status: Resolved Comments: Patient presented with dehydration secondary to nausea and vomiting, she was given IV fluids and advanced her diet and is tolerating clear liquids. (3) Diabetes Priority: Secondary Status: Chronic Comments: Fairly controlled as evidenced by A1c of 7.1%. Continue home dose of januvia on discharge. Qualifiers: Diabetes mellitus type: type 2 Diabetes mellitus complication status: without complication Diabetes mellitus long term care administrator insulin use: with long term care administrator use Qualified Code(s): E11.9 - Type 2 diabetes mellitus without complications ; Z79.4 - assisted (current) use of insulin (4) Abdominal pain Priority: Secondary Status: Resolved Comments: secondary to recurrent duodenitis/gastroenteritis. Now resolved. Patient to follow up with gastroenterology as an outpatient. Qualifiers: Abdominal location: generalized Qualified Code(s): R10.84 - Generalized abdominal pain (5) Generalized weakness Priority: Secondary Status: Resolved Comments: Secondary to dehydration, nausea and vomiting. Now resolved. - Discharge Medications Home Medications: Docusate [Colace] 100 mg PO HS 12/21/14 [History] Polyethylene Glycol 3350 [MiraLAX] 17 gm PO DAILY PRN 12/21/14 [History] Sertraline HCl [Zoloft] 100 mg PO DAILY 12/21/14 [History] Simvastatin [Zocor] 40 mg PO DAILY 12/21/14 [History] Cyanocobalamin (Vitamin B-12) [Vitamin B-12] 1,000 mcg SQ QMONTH 12/08/15 [ History] Enalapril Maleate [Vasotec] 5 mg PO DAILY 12/08/15 [History] Mv-Mn/FA/Vit K1/Lycop/Lut/Zeax [Ocuvite Eye + Multi Tablet] 1 tab PO DAILY 12/07 [History] Propranolol HCl 60 mg PO DAILY 12/08/15 [History] SitaGLIPtin [Januvia] 100 mg PO DAILY 03/06/16 [History] Calcium Carbonate/Vitamin D3 [Calcium 500 + Vit D Caplet] 1 tab PO BID 09/02/16 [History] Calcium Polycarbophil [Fibercon] 625 mg PO BID 09/02/16 [History] Melatonin [Melatin] 3 mg PO HS 09/02/16 [History] Pantoprazole Sodium 40 mg PO DAILY 30 Days 11/24/16 [Rx] Lactobacillus [Culturelle] 1 each PO BID #20 11/28/16 [Rx] Sucralfate [Carafate] 1 gm PO QIDAC #500 mls 12/02/16 [Rx] Promethazine [Phenergan] 25 mg PO Q6HR #12 tablet 12/20/16 [Rx] Allergies/Adverse Reactions: Allergies Nickel Allergy (Mild, Verified 12/20/16 10:26) Hives codeine Allergy (Verified 12/20/16 10:26) Hives Erythromycin Base Allergy (Verified 12/20/16 10:26) Rash nitrofurantoin [From Macrobid] Allergy (Verified 12/20/16 10:26) Rash Quaternium Allergy (Verified 12/20/16 10:26) Rash sulfamethoxazole [From Bactrim] Allergy (Verified 12/20/16 10:26) Rash trimethoprim [From Bactrim] Allergy (Verified 12/20/16 10:26) Rash Sulfa (Sulfonamide Antibiotics) Adverse Reaction (Verified 12/20/16 10:26) Hallucinating Procedures/tests Complete & Pending: Procedures Performed prior 72 hours Category Date Time Status CT head/brain wo con [CT] Stat Cat Scan 12/20/16 17:15 Completed Date of admission: 12/20/16 15:55 Primary care physician: PCP NONE Consults: 12/20/16 17:38 Consult to [facility] Steward [CONS] Routine Reason for SW Consult: pt and family wants to talk with s/s Discharging clinician: Jimena Torres Anticipated date of discharge: 12/21/16 - Patient Status Disposition: Home, Self-Care Condition: Good Functional capacity at discharge: independent ambulation Overall status at discharge: patient is progressing back to baseline - Discharge Instructions Follow Up With: NONE,PCP [Primary Care Provider] - Talon Bojorquez MD [Partnered Physician] - Additional Instructions: Please follow up with your primary care provider and go to your appointment with Dr. Bojorquez on 01/07/17 at 3:50pm. - Diet and Activity Activity: resume usual activities as tolerated Diet: advance to your usual diet Interval History: Patient admitted with intractible nausea, vomiting and abdominal pain. She has a history of gastric bypass and has had recurrent duodenitis and gastroenteritis with multiple admissions over the last year. She presented yesterday with similar symptoms. She was given IV fluids and anti-emetics. Her symptoms improved to the point of tolerating clear liquids today and she feels well enough to return home. Her vital signs are stable and her labs are stable. She is appropriate and stable to be discharged home. 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 Bojorquez on as scheduled. Hospital course: Ms. Sales is a 66 year old female - Time Spent with Patient Total time spent providing and/or coordinating discharge services: - Constitutional Vitals: Temp Pulse Resp BP Pulse Ox 99.0 F 68 14 110/66 96 12/21/16 14:55 12/21/16 14:55 12/21/16 14:55 12/21/16 14:55 12/21/16 14:55 General appearance: Present: cooperative, A&O X 2, severe distress, answers questions appropriately - Head Head exam: Present: atraumatic, normocephalic - Eye Eye exam: Present: PERRL, conjuntiva pink, sclera anicteric Pupils: Present: PERRL - Neck Neck exam general surgery: Present: supple, trachea midline. Absent: lymphadenopathy - Respiratory Respiratory exam: Present: CTAB. Absent: accessory muscle use, rales, rhonchi, wheezes - Cardiovascular Cardiovascular exam: Present: RRR, +S1, +S2. Absent: diastolic murmur, gallop, rubs, systolic murmur - GI/Abdominal GI/Abdominal exam: Present: normal bowel sounds, soft, no peritoneal signs. Absent: distended, tenderness - Extremities Exam Extremities exam: Present: warm, radial pulses palpable and symetrical. Absent : calf tenderness, cyanotic, pedal edema - Neurological Exam Neurological exam: Present: CN II-XII intact, oriented X3, no focal deficits. Absent: pronater drift, facial droop, speech deficit - Skin Skin exam: Present: dry, intact
--- NOTE | 2016-12-22 15:10 | Electrocardiograph Report ---
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
== END 2016-12-21 19:00 | disposition home or self-care (01) ==
LOC: EMEROO 10:23 → 3ANU 10:23
PROVIDERS: ADMIT Hospitalist; ATTEND Family Medicine

== ENCOUNTER 2017-01-18 14:18 | Observation (INO) ==
[2017-01-18] MEDS ORDERED: *HR* LORazepam 2 MG/ML VIAL IVP ONE (14:41)
[2017-01-18] MEDS ORDERED: 0.9 % Sodium Chloride 1,000 ML IVC ONE ×2 (14:41→17:58)
[2017-01-18] MEDS ORDERED: Ondansetron 4 MG/2 ML VIAL IVP ONE ×2 (14:41→17:46)
--- NOTE | 2017-01-18 15:06 | Emergency Department Note ---
Disposition Clinical Impression: Nausea & vomiting Qualifiers: Vomiting type: unspecified Vomiting Intractability: intractable Qualified Code( s): R11.2 - Nausea with vomiting, unspecified Disposition: Admitted As Inpatient Condition: Fair Referrals: NONE,PCP [Non-Partnered Physician] - Forms: ED Satisfaction Letter Time of Disposition: 18:01 Nausea/Vomiting/Diarrhea HPI - General Chief complaint: ED Nausea/Vomiting/Diarrhea Stated complaint: Vomiting/dry heaves Time Seen by Provider: 01/18/17 14:39 Source: patient Mode of arrival: ambulatory Limitations: no limitations Nursing Notes Reviewed: Yes Vital Signs Reviewed: Yes - History of Present Illness HPI Narrative: Patient is a 66-year-old female with past medical history of gastric ulcers, duodenal inflammation, gastroparesis, history of gastric bypass. She presents today due to nausea and vomiting, lower abdominal pain. She says that she has these episodes about once every month and usually gets admitted. She follows with Dr. Bojorquez for these chronic symptoms and takes antiacids and possibly Carafate for the symptoms. She said that she started having nausea and vomiting this morning and has vomited multiple times. Denies any hematemesis, chest pain, shortness breath, dysuria, hematuria or vaginal bleeding or discharge. She says that she started having lower abdominal pain after she started vomiting and she thinks that it is just a pulled muscle in her lower abdomen. - Related Data Home Medications Medication Instructions Recorded Confirmed Docusate [Colace] 100 mg PO HS 12/21/14 12/20/16 Polyethylene Glycol 3350 [MiraLAX] 17 gm PO DAILY PRN 12/21/14 12/20/16 Sertraline HCl [Zoloft] 100 mg PO DAILY 12/21/14 12/20/16 Simvastatin [Zocor] 40 mg PO DAILY 12/21/14 12/20/16 Cyanocobalamin (Vitamin B-12) 1,000 mcg SQ QMONTH 12/08/15 12/20/16 [Vitamin B-12] Enalapril Maleate [Vasotec] 5 mg PO DAILY 12/08/15 12/20/16 Mv-Mn/FA/Vit K1/Lycop/Lut/Zeax 1 tab PO DAILY 12/08/15 12/20/16 [Ocuvite Eye + Multi Tablet] Propranolol HCl 60 mg PO DAILY 12/08/15 12/20/16 SitaGLIPtin [Januvia] 100 mg PO DAILY 03/06/16 12/20/16 Calcium Carbonate/Vitamin D3 1 tab PO BID 09/02/16 12/20/16 [Calcium 500 + Vit D Caplet] Calcium Polycarbophil [Fibercon] 625 mg PO BID 09/02/16 12/20/16 Melatonin [Melatin] 3 mg PO HS 09/02/16 12/20/16 Previous Rx's Medication Instructions Recorded Pantoprazole Sodium 40 mg PO DAILY 30 Days 11/24/16 Lactobacillus [Culturelle] 1 each PO BID #20 11/28/16 Sucralfate [Carafate] 1 gm PO QIDAC #500 mls 12/02/16 Promethazine [Phenergan] 25 mg PO Q6HR #12 tablet 12/20/16 Allergies Allergy/AdvReac Type Severity Reaction Status Date / Time Nickel Allergy Mild Hives Verified 12/20/16 10:26 codeine Allergy Hives Verified 01/18/17 14:38 Erythromycin Base Allergy Rash Verified 01/18/17 14:38 nitrofurantoin Allergy Rash Verified 01/18/17 14:38 [From Macrobid] Quaternium Allergy Rash Verified 01/18/17 14:38 sulfamethoxazole Allergy Rash Verified 01/18/17 14:38 [From Bactrim] trimethoprim [From Bactrim] Allergy Rash Verified 01/18/17 14:38 Sulfa (Sulfonamide AdvReac Hallucinati Verified 01/18/17 14:38 Antibiotics) ng All systems ED: reviewed and negative except as stated. Constitutional: Denies: fever Cardiovascular: Denies: chest pain, palpitations Respiratory: Denies: cough, dyspnea Gastrointestinal: Reports: abdominal pain, nausea, vomiting. Denies: diarrhea, constipation, hematemesis, melena, hematochezia Neurological: Denies: headache, weakness, numbness, paresthesias Past Medical History - Past Medical History Attestation: Yes The following information was validated with the patient. Source: patient Medical history: Reports: arthritis, diabetes, GERD, hyperlipidemia, hypertension, osteoporosis, renal disease, other Surgical history: Reports: appendectomy, cholecystectomy, hysterectomy, ureteral stent, other Psychiatric history: Reports: anxiety, depression GEOSCIENCE PROFESSOR history: Reports: no GEOSCIENCE PROFESSOR history - Social History Smoking Status: Former smoker Smokeless Tobacco Status: No Alcohol use: Reports: none Drug use: Reports: none Physical Exam - General Limitations: no limitations General appearance: alert, in no apparent distress - Head Head exam: atraumatic, normocephalic, normal inspection - Eye Eye exam: Present: normal appearance, PERRL, EOMI - ENT ENT exam: normal exam, normal oropharynx, mucous membranes moist - Neck Neck exam: Present: normal inspection, full ROM, trachea midline - Chest Chest inspection: Present: normal inspection, symmetric chest wall rise - Respiratory Respiratory exam: Present: normal lung sounds bilaterally - Cardiovascular Cardiovascular exam: Present: regular rate, normal rhythm, normal heart sounds - Abdominal Exam Abdominal exam: Present: soft, tenderness (Mild tenderness of the lower midline abdomen without any guarding). Absent: distention, guarding, rebound, rigidity - Extremities Exam Extremities exam: Present: normal inspection, full ROM. Absent: tenderness, pedal edema - Neurological Exam Neurological exam: Present: alert, oriented X3 - Psychiatric Psychiatric exam: Present: normal affect, normal mood - Skin Skin exam: Present: warm, dry, intact, normal color Course Course Narrative: Patient mildly on presentation. She is also mildly hypertensive. Physical exam benign except for some mild lower midline abdominal tenderness. We will draw basic blood work including LFTs, lipase. This is likely an exacerbation of her chronic abdominal pain/duodenitis/gastroparesis. We will treat with Zofran, fluids. Likely admission if the patient does not improve. 16:45 patient was reevaluated. Still having some mild nausea. We will reevaluate. 17:57 labs within normal limits except for glucose. Patient reevaluated and is having nausea. We will admit for intractable nausea Vital Signs Temperature 98.7 F 01/18/17 14:36 Pulse Rate 100 01/18/17 14:36 Respiratory Rate 22 01/18/17 14:36 Blood Pressure 187/120 01/18/17 14:36 O2 Sat by Pulse Oximetry 97 01/18/17 14:36 Temperature 98.7 F 01/18/17 14:36 Pulse Rate 106 01/18/17 18:31 Respiratory Rate 16 01/18/17 18:31 Blood Pressure 203/118 01/18/17 18:31 O2 Sat by Pulse Oximetry 96 01/18/17 18:31 Oxygen Delivery Oxygen Delivery Room Air Nausea/Vomiting/Diarrhea - MDM Narrative Medical decision making narrative: abs within normal limits except for glucose. Patient reevaluated and is having nausea. We will admit for intractable nausea - Medical Records Medical records reviewed: Yes I reviewed the patient's medical records. - Lab Data Lab results reviewed: Yes I reviewed the patient's lab results. Result diagrams: 01/18/17 15:45 01/18/17 15:45 Lab Results 01/18/17 01/18/17 01/18/17 Range/Units 15:45 15:45 17:27 WBC 5.3 (4.3-11.1) K/mcL RBC 4.75 (3.82-4.97) M/mcL Hgb 14.1 (11.5-15.4) g/dL Hct 43.3 (35.3-44.9) % MCV 91.2 (83.0-100.0) fL MCH 29.7 (28.0-33.3) pg MCHC 32.6 (31.6-35.5) g/dL RDW 12.7 (11.5-14.5) % Plt Count 163 (140-400) K/mcL MPV 11.3 (9.4-12.4) fL Immature Gran % 0.4 (0-4) % Seg Neutrophils % 89.6 % Lymphocytes % 7.0 % Monocytes % 2.6 % Eosinophils % 0.0 % Basophils % 0.4 % Neutrophils # 4.8 (1.6-8.9) K/mcL Lymphocytes # 0.4 L (0.6-4.6) K/mcL Monocytes # 0.1 (0.0-1.3) K/mcL Eosinophils # 0.0 (0.0-0.6) K/mcL Basophils # 0.0 (0.0-0.2) K/mcL Sodium 138 (136-145) mEq/L Potassium 3.9 (3.5-4.5) mEq/L Chloride 104 (98-109) mEq/L Carbon Dioxide 23 (19-29) mEq/L BUN 11 (7-20) mg/dL Creatinine 0.91 (0.57-1.11) mg/dL Est GFR ( Amer) > 60 (> 60) Est GFR (Non-Af Amer) > 60 (> 60) BUN/Creatinine Ratio 12 (6-26) Glucose 249 H (70-99) mg/dL Calculated Osmolality 294 (280-300) Calcium 9.4 (8.6-10.8) mg/dL Total Bilirubin 0.4 (0.2-1.2) mg/dL Direct Bilirubin 0.2 (0.0-0.5) mg/dL Indirect Bilirubin 0.2 (0.0-1.2) mg/dL AST 25 (5-34) Units/L ALT 13 (0-55) Units/L Alkaline Phosphatase 88 (38-126) Units/L Serum Total Protein 7.4 (6.0-8.3) g/dL Albumin 4.0 (3.5-5.0) g/dL Globulin 3.4 (2.4-3.5) g/dL Albumin/Globulin Ratio 1.2 (1.1-2.2) Lipase 26 (8-78) Units/L Urine Color Yellow (Yellow) Urine Clarity Clear (Clear) Urine pH 7.5 (5.0-8.0) pH Units Ur Specific [place] 1.012 (1.010-1.025) Urine Protein 100 H (Neg-Trace) mg/dL Urine Glucose (UA) 250 H (Normal) mg/dL Urine Ketones Trace H (Negative) mg/dL Urine Blood Negative (Negative) Urine Nitrite Negative (Negative) Urine Bilirubin Negative (Negative) Urine Urobilinogen Normal (Normal) mg/dL Ur Leukocyte Esterase Negative (Negative) Urine Microscopic RBC 3-5 H (0-3) per hpf Urine Microscopic WBC 0-3 (0-3) per hpf Ur Squamous Epith Cells Moderate H (None-Few) per lpf Urine Bacteria None Seen (None-Few) per hpf Hyaline Casts None Seen (None-Few) per lpf Ur Culture Indicated? NO (NO) S.B.A.R. - S.B.A.R. Situation: Demographics, MOA Background: Presenting Complaint, Relevant PMH, Meds, & Allergies Assessment: Vital Signs, Course and respsone to treatment, Exam Concerns, Patient/Family Expectation, Pertinant Lab Results, Outstanding Labs Recommendation: Barrier(s) to disposition, Recommendation based on pending studies, treatments, or consults S.B.A.R. Report Given to: Jimena MijaresAMary [facility] Time: 18:39 Attestation Statement - Attestation Attestation: I, To Jones DO, examined this patient [id number] and my medical decision-making was reviewed with Dr. Goran Lozano Resident Physician. I agree with the documented findings, disposition and treatment plan as described except to the extent set forth below. Please see my progress notes for details. 66-year-old female presents with history of gastroparesis. Her only complaint today is poorly controlled nausea and vomiting with her home Zofran and Phenergan. Denies any recent illnesses fevers chills chest pain shortness breath headache or vision change. Her only complaint is her persistent nausea and vomiting. Patient is resting in the bed on presentation she initially was retching but symptoms were controlled with fluids and some single dose of nausea medication here. Patient is negative laboratory this point. No acute fracture abnormalities or signs of infection. Patient did not get CT imaging of the abdomen because her belly was benign and physical exam. Lungs are clear heart was regular but she is still persistently tachycardic after 1 L of fluid here. Secondly ordered. Patient has not had good control of her nausea while here in the emergency room. Second dose of medications given. Patient does not feel like she is able to go home secondary to the persistent nausea and vomiting. Will be admitted for intractable nausea and vomiting secondary to gastroparesis. Acute on chronic exacerbation of the symptoms at this time. See detailed documentation of consultation medical intervention and treatment was provided him emergency room. 1837 Patient has elevated blood pressure informed by the nursing staff. Patient's heart rate is still slightly elevated. Fluids were given here prior to that. Single dose of labetalol to be given at this time. Low clinical concern for aortic dissection or aneurysm at this point. Patient is in no distress otherwise sleeping in the bed. Nausea medication given by mouth. IV access could be obtained. Disposition pending this workup and treatment course.
[2017-01-18 16:01] LABS: Basophils % 0.4 %; Hematocrit 43.3 % (35.3-44.9); Hemoglobin 14.1 g/dL (11.5-15.4); Immature Granulocytes % 0.4 % (0-4); Lymphocytes # 0.4 K/mcL (0.6-4.6); Mean Corpuscular HGB Conc 32.6 g/dL (31.6-35.5); Mean Corpuscular Hemoglobin 29.7 pg (28.0-33.3); Mean Corpuscular Volume 91.2 fL (83.0-100.0); Mean Platelet Volume 11.3 fL (9.4-12.4); Monocytes # 0.1 K/mcL (0.0-1.3); Monocytes % 2.6 %; Neutrophils # 4.8 K/mcL (1.6-8.9); Platelet Count 163 K/mcL (140-400); Red Blood Count 4.75 M/mcL (3.82-4.97); Red Cell Distribution Width 12.7 % (11.5-14.5); Segmented Neutrophils % 89.6 %
[2017-01-18 16:17] LABS: Alanine Aminotransferase 13 Units/L (0-55); Albumin/Globulin Ratio 1.2 (1.1-2.2); Alkaline Phosphatase 88 Units/L (38-126); Aspartate Amino Transferase 25 Units/L (5-34); BUN/Creatinine Ratio 12 (6-26); Bilirubin,Direct 0.2 mg/dL (0.0-0.5); Bilirubin,Indirect 0.2 mg/dL (0.0-1.2); Bilirubin,Total 0.4 mg/dL (0.2-1.2); Blood Urea Nitrogen 11 mg/dL (7-20); Calcium 9.4 mg/dL (8.6-10.8); Carbon Dioxide 23 mEq/L (19-29); Chloride 104 mEq/L (98-109); Globulin 3.4 g/dL (2.4-3.5); Glucose 249 mg/dL (70-99); Lipase 26 Units/L (8-78); Osmolality,Calculated 294 (280-300); Potassium 3.9 mEq/L (3.5-4.5); Sodium 138 mEq/L (136-145); Total Protein 7.4 g/dL (6.0-8.3); eGFR For African Americans > 60 (> 60); eGFR For Non-African Americans > 60 (> 60)
[2017-01-18 17:55] LABS: Bilirubin,Urine Negative (Negative); Blood,Urine Negative (Negative); Clarity,Urine Clear (Clear); Color,Urine Yellow (Yellow); Glucose,Urine (UA) 250 mg/dL (Normal); Ketones,Urine Trace mg/dL (Negative); Leukocyte Esterase,Urine Negative (Negative); Nitrite,Urine Negative (Negative); PH,Urine 7.5 pH Units (5.0-8.0); Protein,Urine 100 mg/dL (Neg-Trace); Specific Gravity,Urine 1.012 (1.010-1.025); Urobilinogen,Urine Normal (Normal)
[2017-01-18 17:57] LABS: Bacteria,Urine None Seen per hpf (None-Few); Hyaline Casts,Urine None Seen per lpf (None-Few); Squamous Epithelial Cell,Urine Moderate per lpf (None-Few); WBC,Urine 0-3 per hpf (0-3)
[2017-01-18] MEDS ORDERED: *HR* Labetalol 20 MG/4 ML SYRINGE IVP ONE (18:33)
[2017-01-18] MEDS ORDERED: Ondansetron ODT 4 MG TAB.RAPDIS SL ONE (19:42)
--- NOTE | 2017-01-18 23:56 | Internal Med History&Physical ---
<Jorge Moran - Last Filed: 01/19/17 00:11> Date of Encounter: 01/19/17 Time of Encounter: 23:40 Assessment and Plan (1) Intractable nausea and vomiting Current visit: No Status: Acute Patient has history of intractable nausea and vomiting, gastroparesis, a former bypass surgery. She is without gallbladder or appendix. Patient has episodes of intractable nausea and vomiting about every month at this point, currently seen about a month ago. She is followed by Dr. Bojorquez as an outpatient for symptomatic management, last seen 2 weeks ago. She denies having any hematemesis or coffee-ground emesis, but does report up to does not episodes of emesis yesterday. Patient nausea and vomiting likely due to gastroparesis given her extensive history of these issues. We will control nausea with Zofran and Phenergan Continue home Carafate IV pantoprazole 500 mL bolus normal saline followed by 100 miles an hour Qualifiers: Vomiting type: cyclical vomiting Qualified Code(s): G43.A1 - Cyclical vomiting, intractable (2) Dehydration Current visit: No Status: Acute Patient appears dehydrated with dry mucous membranes and description of not being able to handle any by mouth in the last 2 days. Patient received 2 L normal saline in the emergency department. We will give additional 500 mL bolus normal saline Continue fluids 100 mL an hour We will advance patient's diet if resolution of patient nausea seen (3) Hypertension Current visit: No Status: Chronic Patient reports that normally she has a low blood pressure at home but has episodes of hypertension when she is sick. Her home medication list is unverified currently but does show that she takes propanolol 60 mg by mouth. We will continue propanolol by mouth when patient better able to tolerate by mouth Continue to monitor with regular vital checks Qualifiers: Hypertension type: essential hypertension Qualified Code(s): I10 - Essential (primary) hypertension (4) Tachycardia Current visit: No Status: Acute Patient tachycardia likely due to dehydration with inability to take by mouth in 2 days and current discomfort from nausea vomiting. Will control nausea and vomiting as abovePatient received 2 L normal saline in the emergency department, will continue patient on normal saline at 100 miles an hour (5) DM (diabetes mellitus), type 2 Current visit: No Status: Chronic Hold oral diabetic medications Start medium sliding scale subcutaneous insulin Qualifiers: Diabetes mellitus complication status: without complication Diabetes mellitus terminal superintendent insulin use: without shelter use Qualified Code(s): E11.9 - Type 2 diabetes mellitus without complications (6) Abdominal pain Current visit: No Status: Acute Likely due to abdominal muscle from retching. Continue to monitor Qualifiers: Abdominal location: generalized Qualified Code(s): R10.84 - Generalized abdominal pain (7) DVT prophylaxis Current visit: No Status: Acute 40 mg Lovenox subcutaneous daily Internal Medicine - H&P: HPI Chief complaint: Nausea and vomiting Admitted From: Home Plans for Post Hospital Care: Home History of present illness: Ms. Sales is a 66 year old female with prior medical history of diabetes mellitus, GERD, osteoporosis, kidney disease, gastroparesis, and history of gastric bypass presented to [facility] due to 2 days of continued nausea and vomiting. She reports that yesterday she threw up 12 times but denies any hematemesis or coffee grounds and reports only having thrown up once today. She states she has mild abdominal pain in her lower abdomen from a pulled muscle while retching earlier, no other abdominal pain reported. She denies fever/chills, denies diarrhea/constipation, denies hematochezia/melena. She reports she has been urinating well without difficulties. She denies chest pain or shortness of breath. She does state that she feels dehydrated. She reports that episodes like this are chronic for her occurring about every month. She sees Dr. Bojorquez for chronic management of her symptoms, last seen him in office 2 weeks ago. She was fine up until 2 days ago. She states she normally has a slightly low blood pressure but that she begins to have blood pressure spikes whenever she is sick, like now. Past Med Surg Social Fam HX - Past Medical History Medical history: arthritis, diabetes, GERD, hyperlipidemia, hypertension, osteoporosis, renal disease, other Psychiatric history: anxiety, depression - Past Surgical History Surgical History: appendectomy, cholecystectomy, hysterectomy, ureteral stent, other - Social History Smoking Status: Former smoker Smokeless Tobacco Status: No Alcohol use: none Drug use: none - Family History Father Family Member Ethnicity: Non- Living Status: Hx Family Endocrine Disorder: Yes (DM) Mother Family Member Ethnicity: Non- Living Status: Hx Family Cardiac Disorders: No Hx Family Respiratory Disorders: No Hx Family Cancer: Yes (Colon CA) Hx Family GI Disorders: No Hx Family Endocrine Disorder: Yes (DM) Hx Family Neuromuscular Disorders: No Hx Family Neurologic Disorders: No Hx Family HEENT Disorders: No Hx Family Autoimmune Disorders: No Internal Medicine - H&P: Meds Docusate [Colace] 100 mg PO HS 12/21/14 [History] Polyethylene Glycol 3350 [MiraLAX] 17 gm PO DAILY PRN 12/21/14 [History] Sertraline HCl [Zoloft] 100 mg PO DAILY 12/21/14 [History] Simvastatin [Zocor] 40 mg PO DAILY 12/21/14 [History] Cyanocobalamin (Vitamin B-12) [Vitamin B-12] 1,000 mcg SQ QMONTH 12/08/15 [ History] Enalapril Maleate [Vasotec] 5 mg PO DAILY 12/08/15 [History] Mv-Mn/FA/Vit K1/Lycop/Lut/Zeax [Ocuvite Eye + Multi Tablet] 1 tab PO DAILY 12/07 [History] Propranolol HCl 60 mg PO DAILY 12/08/15 [History] SitaGLIPtin [Januvia] 100 mg PO DAILY 03/06/16 [History] Calcium Carbonate/Vitamin D3 [Calcium 500 + Vit D Caplet] 1 tab PO BID 09/02/16 [History] Calcium Polycarbophil [Fibercon] 625 mg PO BID 09/02/16 [History] Melatonin [Melatin] 3 mg PO HS 09/02/16 [History] Pantoprazole Sodium 40 mg PO DAILY 30 Days 11/24/16 [Rx] Lactobacillus [Culturelle] 1 each PO BID #20 11/28/16 [Rx] Sucralfate [Carafate] 1 gm PO QIDAC #500 mls 12/02/16 [Rx] Promethazine [Phenergan] 25 mg PO Q6HR #12 tablet 12/20/16 [Rx] 3 Allergy/AdvReac Type Severity Reaction Status Date / Time Nickel Allergy Mild Hives Verified 12/20/16 10:26 codeine Allergy Hives Verified 01/18/17 14:38 Erythromycin Base Allergy Rash Verified 01/18/17 14:38 nitrofurantoin Allergy Rash Verified 01/18/17 14:38 [From Macrobid] Quaternium Allergy Rash Verified 01/18/17 14:38 sulfamethoxazole Allergy Rash Verified 01/18/17 14:38 [From Bactrim] trimethoprim [From Bactrim] Allergy Rash Verified 01/18/17 14:38 Sulfa (Sulfonamide AdvReac Hallucinati Verified 01/18/17 14:38 Antibiotics) ng Review of systems: Gen: Denies fever, denies chills, denies weakness, denies fatigue, reports feeling dry CV: Denies chest pain, denies palpitations Resp: Denies shortness of breath, reports coughing with emesis, denies changes in phlegm production, denies wheeze reports nausea and vomiting, reports abdominal pain as per history of present illness, denies constipation, denies diarrhea, denies hematochezia, denies melena MSK: reports arthritis, denies muscle weakness Neuro: Denies headache, denies confusion, denies focal weakness, denies numbness , denies tingling, denies vision changes Skin: Denies bruising, denies rash : Denies flank pain, denies dysuria, denies hematuria - Constitutional Vitals: Temp Pulse Resp BP Pulse Ox 98.9 F 111 18 179/104 94 01/18/17 23:35 01/18/17 23:35 01/18/17 23:35 01/18/17 23:35 01/18/17 23:35 Exam: General: Cooperative, pleasant, no acute distress, alert and oriented 3, answers questions appropriately HEENT: Normocephalic, atraumatic, neck supple, trachea midline, Conjunctiva pink , sclera anicteric, oral mucosa dry, no orophargeal erythema or exudates Respiratory: No accessory muscle usage, clear to auscultation bilaterally, no wheezes/rhonchi/rales appreciated Cardiovascular: Tachycardia, S1 and S2 present, no murmurs/rubs/gallops/clicks appreciated GI/abdominal: Nondistended, tenderness to palpation in right lower quadrant, soft, normal bowel sounds, no peritoneal signs Extremities: No calf tenderness, noncyanotic, no pedal edema appreciated, warm, lower extremity pulses palpable and symmetrical Neurological: Alert and oriented 3, no facial droop, no focal deficits Skin: Dry, intact, normal color Internal Med - H&P Results - Labs CBC & Chem 7: 01/18/17 15:45 01/18/17 15:45 <Kate Cavanaugh K - Last Filed: 01/19/17 04:36> Date of Encounter: 01/19/17 Internal Medicine - H&P: HPI History of present illness: Ms. Sales is a 66 year old female All Systems PM: A 10-system review of systems was performed and is negative for pertinent findings except as documented above in the HPI. - Constitutional Vitals: Temp Pulse Resp BP Pulse Ox 98.9 F 111 18 179/104 94 01/18/17 23:35 01/18/17 23:35 01/18/17 23:35 01/18/17 23:35 01/18/17 23:35 Internal Med - H&P Results - Labs CBC & Chem 7: 01/18/17 15:45 01/18/17 15:45 - Attending Attestation I have independently and personally and the patient and examine her. Plan discussed with the resident. Patient has come in with intractable nausea and vomiting. She has history of gastroparesis. Her abdominal examination is absolutely unremarkable with a soft belly which is nontender. She claims she has intractable nausea and vomiting. At this time she will be given supportive treatment however I caution her that her use of narcotics should be to the minimum.
[2017-01-18] MEDS ORDERED: Acetaminophen 325 MG TABLET PO PRN (23:57)
[2017-01-18] MEDS ORDERED: Naloxone 0.4 MG/ML INJ IVP PRN (23:57)
[2017-01-18] MEDS ORDERED: *HR* Promethazine 25 MG/ML VIAL IVP PRN (23:57)
[2017-01-18] MEDS ORDERED: Ondansetron 4 MG/2 ML VIAL IVP PRN (23:57)
[2017-01-19] MEDS ORDERED: Dextrose Gel 15 GM PO PRN ×2 (00:07)
[2017-01-19] MEDS ORDERED: D5% in Water 1,000 ML IVC PRN (00:07)
[2017-01-19] MEDS ORDERED: *HR* Dextrose 50 % in Water (Syg) 50 ML SYRINGE IVP PRN (00:07)
[2017-01-19] MEDS ORDERED: 0.9 % Sodium Chloride 500 ML IVC ONE (00:20)
[2017-01-19] MEDS: Insulin LISPRO 300 UNITS/3 ML VIAL SQ SCH ×4 (05:49→20:17)
[2017-01-19] MEDS: 0.9 % Sodium Chloride 1,000 ML IVC SCH ×3 (05:51→22:29)
[2017-01-19] MEDS: *HR* Enoxaparin 40 MG/0.4 ML SYRINGE SQ SCH (05:52)
[2017-01-19 06:33] LABS: Basophils % 0.1 %; Hematocrit 46.5 % (35.3-44.9); Hemoglobin 14.6 g/dL (11.5-15.4); Immature Granulocytes % 0.5 % (0-4); Lymphocytes # 0.6 K/mcL (0.6-4.6); Lymphocytes % 7.8 %; Mean Corpuscular HGB Conc 31.4 g/dL (31.6-35.5); Mean Corpuscular Hemoglobin 28.8 pg (28.0-33.3); Mean Corpuscular Volume 91.7 fL (83.0-100.0); Mean Platelet Volume 11.7 fL (9.4-12.4); Monocytes # 0.6 K/mcL (0.0-1.3); Monocytes % 8.6 %; Neutrophils # 6.2 K/mcL (1.6-8.9); Platelet Count 193 K/mcL (140-400); Red Blood Count 5.07 M/mcL (3.82-4.97); Red Cell Distribution Width 12.7 % (11.5-14.5)
[2017-01-19 06:44] LABS: BUN/Creatinine Ratio 13 (6-26); Blood Urea Nitrogen 11 mg/dL (7-20); Calcium 8.5 mg/dL (8.6-10.8); Carbon Dioxide 17 mEq/L (19-29); Chloride 105 mEq/L (98-109); Glucose 220 mg/dL (70-99); Osmolality,Calculated 290 (280-300); Potassium 3.8 mEq/L (3.5-4.5); Sodium 137 mEq/L (136-145); eGFR For African Americans > 60 (> 60); eGFR For Non-African Americans > 60 (> 60)
[2017-01-19] MEDS ORDERED: Pantoprazole 40 MG VIAL IVP SCH (09:00)
--- NOTE | 2017-01-19 09:56 | Internal Med Progress Note ---
<Edvin Ovalle - Last Filed: 01/19/17 14:48> Date of Encounter: 01/19/17 Time of Encounter: 08:15 - Assessment and plan (1) Intractable nausea and vomiting Current Visit: Yes Status: Resolved Assessment and plan: - Likely etiologies include gastroparesis given significant recurrent history - Sees Dr. Bojorquez outpatient - Tolerating Zofran, Phenergan, PPI resolution of symptoms - No further episodes of emesis, nausea - We will advance diet as tolerated, clear liquids for evening meal. Qualifiers: Vomiting type: cyclical vomiting Qualified Code(s): G43.A1 - Cyclical vomiting, intractable (2) DM (diabetes mellitus), type 2 Current Visit: No Status: Chronic Assessment and plan: - Most recent hemoglobin A1c of 7.1% taken on 12/20 - Most recent blood sugar this morning was 220 - Continue moderate sliding scale insulin Qualifiers: Diabetes mellitus complication status: with hyperglycemia Diabetes mellitus terminal supervisor insulin use: without custodial use Qualified Code(s): E11.65 - Type 2 diabetes mellitus with hyperglycemia (3) Hypertension Current Visit: Yes Status: Chronic Assessment and plan: - Currently well-controlled at 111/71 - Continue home Medications Qualifiers: Hypertension type: essential hypertension Qualified Code(s): I10 - Essential (primary) hypertension (4) DVT prophylaxis Current Visit: Yes Status: Acute Assessment and plan: Lovenox 40 - Time Spent With Patient less than 15 minutes - Subjective Interval history: Patient seen and examined at bedside this morning. Patient states that she is feeling well overall, with her only complaints being weakness, shakiness. She states this is somewhat normal for her, given her recurrent episodes of gastroparesis. She does admit to seeing Dr. Bojorquez as an outpatient. She denies any further episodes of emesis overnights and states that her nausea is resolved. Denies any bowel movements - Constitutional Vitals: Temp Pulse Resp BP Pulse Ox 98.9 F 90 20 111/71 96 01/19/17 07:05 01/19/17 07:05 01/19/17 07:05 01/19/17 07:05 01/19/17 07:05 Exam: Gen.: Vitals noted. No acute distress. AAOx3 HEENT: PERRL/EOMI, oropharynx clear, Normocephalic, atraumatic Neck: Supple. No adenopathy. Cardiac: RRR, no murmur, +S1/S2 Pulmonary: CTA bilaterally, no wheezes, rales or rhonchi, equal chest expansion Abdomen: soft, nontender, BS noted, no guarding Back: Nontender throughout. MSK: ROM intact, no joint swelling noted Extremities: no BLE edema, nontender calf, no cyanosis or clubbing Neuro: A&Ox3, moves all extremities, no focal deficits Psych: Appropriate mood and behavior Internal Medicine: Result - Labs CBC & Chem 7: 01/19/17 04:39 01/19/17 04:39 Labs: Short CBC 01/19/17 Range/Units 04:39 WBC 7.5 (4.3-11.1) K/mcL Hgb 14.6 (11.5-15.4) g/dL Hct 46.5 H (35.3-44.9) % Plt Count 193 (140-400) K/mcL Neutrophils # 6.2 (1.6-8.9) K/mcL BMP 01/19/17 04:39 Sodium 137 Potassium 3.8 Chloride 105 Carbon Dioxide 17 L BUN 11 Creatinine 0.87 Glucose 220 H Calcium 8.5 L Consult Discharge Plan - Plan Referrals: Brittney Garrido MD [Primary Care Provider] - <Adeel Velez - Last Filed: 01/19/17 17:43> Date of Encounter: 01/19/17 - Assessment and plan (1) Gastroparesis Current Visit: Yes Status: Acute (2) Hypertension Current Visit: Yes Status: Chronic Qualifiers: Hypertension type: essential hypertension Qualified Code(s): I10 - Essential (primary) hypertension (3) Intractable nausea and vomiting Current Visit: Yes Status: Resolved Qualifiers: Vomiting type: cyclical vomiting Qualified Code(s): G43.A1 - Cyclical vomiting, intractable (4) Dehydration Current Visit: Yes Status: Acute (5) DM (diabetes mellitus), type 2 Current Visit: No Status: Chronic Qualifiers: Diabetes mellitus complication status: with hyperglycemia Diabetes mellitus custodial insulin use: without terminal supervisor use Qualified Code(s): E11.65 - Type 2 diabetes mellitus with hyperglycemia - Time Spent With Patient My time was 36min - Constitutional Vitals: Temp Pulse Resp BP Pulse Ox 98.1 F 71 16 97/59 98 01/19/17 16:23 01/19/17 16:23 01/19/17 16:23 01/19/17 16:23 01/19/17 16:23 Internal Medicine: Result - Labs CBC & Chem 7: 01/19/17 04:39 01/19/17 04:39 Labs: Short CBC 01/19/17 Range/Units 04:39 WBC 7.5 (4.3-11.1) K/mcL Hgb 14.6 (11.5-15.4) g/dL Hct 46.5 H (35.3-44.9) % Plt Count 193 (140-400) K/mcL Neutrophils # 6.2 (1.6-8.9) K/mcL BMP 01/19/17 04:39 Sodium 137 Potassium 3.8 Chloride 105 Carbon Dioxide 17 L BUN 11 Creatinine 0.87 Glucose 220 H Calcium 8.5 L - Attending Attestation I examined this patient and my medical decision-making was reviewed with the Resident Physician on 01/19/17. I agree with the documented findings, disposition and treatment plan as described except to the extent set forth below. Ms. Sales has been placed in observation due to intractable nausea and vomiting from gastroparesis. She is moderate to high risk due to continued symptoms. Ms Sales is trying some clear liquids. So far her nausea is OK. No pain. No fever or chills. No CP or SOB. Exam Alert. Comfortable Mucus membranes dry Heart reg No wheeze Abd soft I/P 1. Gastroparesis 2. N/V Further diagnoses and plan as above.
[2017-01-19] MEDS ORDERED: Melatonin 3 MG TABLET PO SCH (21:00)
[2017-01-20 03:47] LABS: Hematocrit 32.4 % (35.3-44.9); Mean Corpuscular HGB Conc 31.5 g/dL (31.6-35.5); Mean Corpuscular Hemoglobin 29.1 pg (28.0-33.3); Mean Corpuscular Volume 92.6 fL (83.0-100.0); Mean Platelet Volume 10.9 fL (9.4-12.4); Platelet Count 146 K/mcL (140-400); Red Cell Distribution Width 12.9 % (11.5-14.5)
[2017-01-20 03:48] LABS: Hemoglobin 10.2 g/dL (11.5-15.4)
[2017-01-20 04:01] LABS: BUN/Creatinine Ratio 15 (6-26); Blood Urea Nitrogen 12 mg/dL (7-20); Calcium 7.5 mg/dL (8.6-10.8); Carbon Dioxide 24 mEq/L (19-29); Chloride 111 mEq/L (98-109); Glucose 93 mg/dL (70-99); Osmolality,Calculated 289 (280-300); Potassium 3.5 mEq/L (3.5-4.5); Sodium 140 mEq/L (136-145); eGFR For African Americans > 60 (> 60); eGFR For Non-African Americans > 60 (> 60)
[2017-01-20] MEDS: *HR* Enoxaparin 40 MG/0.4 ML SYRINGE SQ SCH (06:19)
[2017-01-20 07:52] VITALS: BP 114/65
--- NOTE | 2017-01-20 07:56 | Discharge Summary ---
Addendum entered and electronically signed by Edvin Ovalle DO 01/20/17 09:11: Gen.: Vitals noted. No acute distress. AAOx3 HEENT: PERRL/EOMI, oropharynx clear, Normocephalic, atraumatic Neck: Supple. No adenopathy. Cardiac: RRR, no murmur, +S1/S2 Pulmonary: CTA bilaterally, no wheezes, rales or rhonchi, equal chest expansion Abdomen: soft, nontender, BS noted, no guarding Back: Nontender throughout. MSK: ROM intact, no joint swelling noted Extremities: no BLE edema, nontender calf, no cyanosis or clubbing Neuro: A&Ox3, moves all extremities, no focal deficits Psych: Appropriate mood and behavior Original Note: <Edvin Ovalle - Last Filed: 01/20/17 09:05> Date of Encounter: 01/20/17 Time of Encounter: 07:54 - Discharge Diagnosis (1) Intractable nausea and vomiting Priority: Primary Status: Resolved Comments: likely secondary to known gastroparesis Qualifiers: Vomiting type: unspecified Qualified Code(s): R11.2 - Nausea with vomiting , unspecified (2) DM (diabetes mellitus), type 2 Priority: Secondary Status: Chronic Qualifiers: Diabetes mellitus complication status: with hyperglycemia Diabetes mellitus retirement insulin use: without retirement use Qualified Code(s): E11.65 - Type 2 diabetes mellitus with hyperglycemia (3) Hypertension Priority: Secondary Status: Chronic Qualifiers: Hypertension type: essential hypertension Qualified Code(s): I10 - Essential (primary) hypertension (4) DVT prophylaxis Priority: Secondary Status: Acute - Discharge Medications Home Medications: Docusate [Colace] 100 mg PO HS 12/21/14 [History] Polyethylene Glycol 3350 [MiraLAX] 17 gm PO DAILY PRN 12/21/14 [History] Sertraline HCl [Zoloft] 100 mg PO DAILY 12/21/14 [History] Simvastatin [Zocor] 40 mg PO DAILY 12/21/14 [History] Cyanocobalamin (Vitamin B-12) [Vitamin B-12] 1,000 mcg SQ QMONTH 12/08/15 [ History] Enalapril Maleate [Vasotec] 5 mg PO DAILY 12/08/15 [History] Mv-Mn/FA/Vit K1/Lycop/Lut/Zeax [Ocuvite Eye + Multi Tablet] 1 tab PO DAILY 12/07 [History] Propranolol HCl 60 mg PO DAILY 12/08/15 [History] SitaGLIPtin [Januvia] 100 mg PO DAILY 03/06/16 [History] Calcium Carbonate/Vitamin D3 [Calcium 500 + Vit D Caplet] 1 tab PO BID 09/02/16 [History] Calcium Polycarbophil [Fibercon] 625 mg PO BID 09/02/16 [History] Melatonin [Melatin] 3 mg PO HS 09/02/16 [History] Pantoprazole Sodium 40 mg PO DAILY 30 Days 11/24/16 [Rx] Lactobacillus [Culturelle] 1 each PO BID #20 11/28/16 [Rx] Sucralfate [Carafate] 1 gm PO QIDAC #500 mls 12/02/16 [Rx] Promethazine [Phenergan] 25 mg PO Q6HR #12 tablet 12/20/16 [Rx] Allergies/Adverse Reactions: 3 Allergy/AdvReac Type Severity Reaction Status Date / Time Nickel Allergy Mild Hives Verified 12/20/16 10:26 codeine Allergy Hives Verified 01/18/17 14:38 Erythromycin Base Allergy Rash Verified 01/18/17 14:38 nitrofurantoin Allergy Rash Verified 01/18/17 14:38 [From Macrobid] Quaternium Allergy Rash Verified 01/18/17 14:38 sulfamethoxazole Allergy Rash Verified 01/18/17 14:38 [From Bactrim] trimethoprim [From Bactrim] Allergy Rash Verified 01/18/17 14:38 Sulfa (Sulfonamide AdvReac Hallucinati Verified 01/18/17 14:38 Antibiotics) ng Date of admission: 01/18/17 20:33 Primary care physician: Brittney Garrido, Discharging clinician: Edvin Ovalle Anticipated date of discharge: 01/20/17 - Patient Status Disposition: Home, Self-Care Condition: Good Functional capacity at discharge: independent ambulation Overall status at discharge: patient is progressing back to baseline - Discharge Instructions Instructions: Diabetic gastroparesis (GEN), Acute Nausea and Vomiting (DC) Follow Up With: Brittney Garrido MD [Primary Care Provider] - 01/26/17 11:40 am Talon Bojorquez MD [Partnered Physician] - 02/10/17 2:50 pm Additional Instructions: Please follow up with your primary care physician and Dr. Bojorquez for your diabetes and gastroparesis. - Diet and Activity Activity: increase activity as tolerated, resume usual activities as tolerated Diet: diabetic diet Hospital course: Ms. Sales is a 66 year old female who presented to the emergency room with a complaint of nausea and vomiting x 2-3 days. She has a PMhx of Dm2 with a complication of recurrent gastroparesis for which she sees Dr. Bojorquez. She states her vomiting was non bloody and she was not able to keep down any food. She reports that she gets these symtpoms about once per month and is frequently admitted to the hospital, most recently one month ago. She admitted to abdominal pain, but denies any symptoms of fevers, chills, CP, SOB. She is without gallbladder or appendix. In the ED, she was noted to by tachycardiac at 111 with a BP of 179/104. Remainder of vital signs were within normal limits. Labs were significant for a blood sugar of 294. She was admitted for medicine service for management of intractable nausea and vomiting secondary to gastroparesis. During the course of hospital stay, patient's nausea and vomiting resolved. She was treated with bowel rest, NPO diet, PPI, home carafate, and phenegran/zofran for symptomatic relief. Her diet was slowly advanced and on day of discharge she had not complaints of n/v. She was able to tolerate a diet at this time. She will be discharged home in stable medical condition and was instructed to follow up with Dr. Bojorquez and her PCP for management of her diabetes and gastroparesis. - Time Spent with Patient Total time spent providing and/or coordinating discharge services: 40 minutes - Constitutional Vitals: Temp Pulse Resp BP Pulse Ox 98.1 F 64 14 114/65 98 01/20/17 07:50 01/20/17 07:50 01/20/17 07:50 01/20/17 07:50 01/20/17 07:50 <Adeel Velez - Last Filed: 01/20/17 16:36> Date of Encounter: 01/20/17 - Discharge Diagnosis (1) Gastroparesis Priority: Primary Status: Acute (2) Intractable nausea and vomiting Status: Resolved Qualifiers: Vomiting type: cyclical vomiting Qualified Code(s): G43.A1 - Cyclical vomiting, intractable (3) Dehydration Priority: Primary Status: Resolved (4) Hypertension Status: Chronic Qualifiers: Hypertension type: essential hypertension Qualified Code(s): I10 - Essential (primary) hypertension (5) DM (diabetes mellitus), type 2 Status: Chronic Qualifiers: Diabetes mellitus complication status: with hyperglycemia Diabetes mellitus rat exterminator insulin use: without rat exterminator use Qualified Code(s): E11.65 - Type 2 diabetes mellitus with hyperglycemia Date of admission: 01/18/17 20:33 Primary care physician: Brittney Garrido, [facility] course: Ms. Sales is a 66 year old female - Time Spent with Patient Total time spent providing and/or coordinating discharge services: 37min - Constitutional Vitals: Temp Pulse Resp BP Pulse Ox 98.1 F 64 14 114/65 98 01/20/17 07:50 01/20/17 07:50 01/20/17 07:50 01/20/17 07:50 01/20/17 11:22 - Attending Attestation I examined this patient and my medical decision-making was reviewed with the Resident Physician on 01/20/17. I agree with the documented findings, disposition and treatment plan as described except to the extent set forth below. Ms. Sales was admitted intractable nausea and vomiting due to gastroparesis. She is tolerating a diet. She is afebrile with stable vitals. She is ready to go home today. Exam Alert Comfortable Mucus membranes dry Heart reg No wheeze Abd soft Plan D/C today on routine home meds.
[2017-01-20] MEDS ORDERED: Insulin LISPRO 300 UNITS/3 ML VIAL SQ SCH ×2 (11:30→21:00)
== END 2017-01-20 11:24 | disposition home or self-care (01) ==
LOC: 2ANU 14:18 → EMEROO 14:18 → 2ANU 21:30
PROVIDERS: ADMIT Internal Medicine; ATTEND Internal Medicine

== ENCOUNTER 2017-03-16 09:46 | Observation (INO) ==
[2017-03-16] MEDS ORDERED: 0.9 % Sodium Chloride 1,000 ML IVC ONE (10:15)
[2017-03-16] MEDS ORDERED: Metoclopramide 10 MG/2 ML VIAL IVP ONE (10:18)
[2017-03-16] MEDS ORDERED: *HR* Metoprolol 5 MG/5 ML VIAL IVP ONE ×2 (10:23→22:32)
--- NOTE | 2017-03-16 10:25 | Emergency Department Note ---
Disposition Clinical Impression: Intractable nausea and vomiting Qualifiers: Vomiting type: unspecified Qualified Code(s): R11.2 - Nausea with vomiting, unspecified Disposition: Admitted As Inpatient Time of Disposition: 17:46 General Adult HPI - General Chief complaint: ED Abdominal Pain Stated complaint: nose bleed, vomiting, "high bp" Time Seen by Provider: 03/16/17 09:54 Source: patient Limitations: no limitations Nursing Notes Reviewed: Yes Vital Signs Reviewed: Yes - History of Present Illness HPI Narrative: Ms. Sales is a 66 year old female with PMHx of DMII, history of recurrent gastroparesis, history of gastric bypass in 2002, GERD, HLD, HTN, osteoperosis, anxiety, and depression. She presents to emergency department today for evaluation of nausea, vomiting, HTN, epistaxis. Does have abdominal pain which she notes is muscle strain from her retching. Her symptoms began this morning. They are identical to her previous flareups of gastroparesis with exception of the epistaxis being new. She did take a dose of Phenergan at home which she states is just now beginning to take effect. She is, however, still nauseous. No fever, chills, diarrhea, constipation, changes in bladder habits, weakness, numbness, tingling, headache. She is currently followed by Dr. Bojorquez for her gastroparesis. Per the patient, the plan at this time is left dominant with multiple small meals. Pain Scale: 4 - Related Data Home Medications Medication Instructions Recorded Confirmed Docusate [Colace] 100 mg PO HS 12/21/14 03/16/17 Polyethylene Glycol 3350 [MiraLAX] 17 gm PO DAILY PRN 12/21/14 03/16/17 Sertraline HCl [Zoloft] 100 mg PO DAILY 12/21/14 03/16/17 Simvastatin [Zocor] 40 mg PO DAILY 12/21/14 03/16/17 Cyanocobalamin (Vitamin B-12) 1,000 mcg SQ QMONTH 12/08/15 03/16/17 [Vitamin B-12] Enalapril Maleate [Vasotec] 5 mg PO DAILY 12/08/15 03/16/17 Mv-Mn/FA/Vit K1/Lycop/Lut/Zeax 1 tab PO DAILY 12/08/15 03/16/17 [Ocuvite Eye + Multi Tablet] Propranolol HCl 60 mg PO DAILY 12/08/15 03/16/17 SitaGLIPtin [Januvia] 100 mg PO DAILY 03/06/16 03/16/17 Calcium Carbonate/Vitamin D3 1 tab PO BID 09/02/16 03/16/17 [Calcium 500 + Vit D Caplet] Calcium Polycarbophil [Fibercon] 625 mg PO BID 09/02/16 03/16/17 Melatonin [Melatin] 3 mg PO HS 09/02/16 03/16/17 Previous Rx's Medication Instructions Recorded Pantoprazole Sodium 40 mg PO DAILY 30 Days tablet. 11/24/16 Lactobacillus [Culturelle] 1 each PO BID #20 11/28/16 Sucralfate [Carafate] 1 gm PO QIDAC #500 mls 12/02/16 Allergies Allergy/AdvReac Type Severity Reaction Status Date / Time Nickel Allergy Mild Hives Verified 03/03/17 11:46 codeine Allergy Hives Verified 03/03/17 11:46 Erythromycin Base Allergy Rash Verified 03/03/17 11:46 nitrofurantoin Allergy Rash Verified 03/03/17 11:46 [From Macrobid] Quaternium Allergy Rash Verified 03/03/17 11:46 sulfamethoxazole Allergy Rash Verified 03/03/17 11:46 [From Bactrim] trimethoprim [From Bactrim] Allergy Rash Verified 03/03/17 11:46 Sulfa (Sulfonamide AdvReac Hallucinati Verified 03/03/17 11:46 Antibiotics) ng All systems ED: reviewed and negative except as stated. Review of Systems: As Per HPI Past Medical History - Past Medical History Medical history: Reports: arthritis, diabetes, GERD, hyperlipidemia, hypertension, osteoporosis, other Surgical history: Reports: appendectomy, cholecystectomy, hysterectomy, ureteral stent, other Psychiatric history: Reports: anxiety, depression STANDARD MACHINE STITCHER history: Reports: no STANDARD MACHINE STITCHER history - Social History Smoking Status: Former smoker Smokeless Tobacco Status: No Alcohol use: Reports: none Drug use: Reports: none Physical Exam Vital Signs Reviewed General: Patient is alert, oriented. She is in moderate distress from her nausea. HEENT: No facial asymmetry. Head is normocephalic and atraumatic. PERRLA, EOMI. Nasal turbinates moist and pink. Dried epistaxis in left nares with no active bleeding anteriorly or posteriorly; clear posterior pharynx. Oral mucosa moist. Trachea midline. Cardiovascular: Heart regular rate and rhythm without clicks, rubs, gallops, or murmurs. No JVD. PMI nondisplaced. Bilateral radial pulses 2/4 and equal. Respiratory: Symmetric chest rise with good respiratory effort. Bilateral breath sounds are clear without wheezing, crackles, or rhonchi. Abdomen: Bowel sounds present normoactive x-4 quadrants. Abdomen is soft, nondistended, and nontender. Skin: Warm, dry, intact. Psych: Patient's affect is appropriate for situation. - General Limitations: no limitations General appearance: alert, in no apparent distress Course Course Narrative: Patient presents with her brother bedside for which she states is gastroparesis. Even so, will perform laboratory workup. No indication at this time for imaging based on my physical exam. Will attempt symptomatic management with disposition pending laboratory and symptom control. Patient symptoms poorly controlled with a combination of her Phenergan which she took at home prior to arrival, Reglan and Zofran which she received in the emergency department. She agrees to admission for intractable nausea and vomiting. 12:45 I spoke with the admitting hospitalist, Dr. Romero, who agrees to accept the patient for intractable nausea and vomiting. We will order x-ray KUB at the request of the admitting hospitalist. 13:00 Emergency department nursing brought to my attention asymmetric blood pressures and the patient upper extremities. Systolic BP of 180's using automatic cuff and right upper extremity versus systolic 109 in left upper extremity using pneumatic cuff. Will repeat with manual blood pressure and CTA aorta with runoff to rule out dissection. Will notify hospitalist of any findings. CTA chest, abdomen and pelvis read by radiology as no evidence of dissection. Vital Signs Temperature 98.0 F 03/16/17 09:48 Pulse Rate 92 03/16/17 09:48 Respiratory Rate 16 03/16/17 09:48 Blood Pressure 182/134 03/16/17 09:48 O2 Sat by Pulse Oximetry 100 03/16/17 09:48 Temperature 98.0 F 03/16/17 15:42 Pulse Rate 101 03/16/17 15:42 Respiratory Rate 18 03/16/17 15:42 Blood Pressure 177/96 03/16/17 15:42 O2 Sat by Pulse Oximetry 99 03/16/17 15:42 Oxygen Delivery Oxygen Delivery Room Air Medical Decision Making - Lab Data Lab results reviewed: Yes I reviewed the patient's lab results. Result diagrams: 03/16/17 16:13 03/16/17 10:37 Lab Results 03/16/17 03/16/17 Range/Units 10:37 10:37 WBC 5.6 (4.3-11.1) K/mcL RBC 4.80 (3.82-4.97) M/mcL Hgb 14.1 (11.5-15.4) g/dL Hct 43.8 (35.3-44.9) % MCV 91.3 (83.0-100.0) fL MCH 29.4 (28.0-33.3) pg MCHC 32.2 (31.6-35.5) g/dL RDW 12.4 (11.5-14.5) % Plt Count 155 (140-400) K/mcL MPV 11.9 (9.4-12.4) fL Immature Gran % 0.2 (0-4) % Seg Neutrophils % 85.6 % Lymphocytes % 9.5 % Monocytes % 3.8 % Eosinophils % 0.4 % Basophils % 0.5 % Neutrophils # 4.8 (1.6-8.9) K/mcL Lymphocytes # 0.5 L (0.6-4.6) K/mcL Monocytes # 0.2 (0.0-1.3) K/mcL Eosinophils # 0.0 (0.0-0.6) K/mcL Basophils # 0.0 (0.0-0.2) K/mcL Immature Plt Fraction 9.4 H (1.1-6.1) % Sodium 140 (136-145) mEq/L Potassium 4.2 (3.5-4.5) mEq/L Chloride 105 (98-109) mEq/L Carbon Dioxide 23 (19-29) mEq/L BUN 12 (7-20) mg/dL Creatinine 0.97 (0.57-1.11) mg/dL Est GFR ( Amer) > 60 (> 60) Est GFR (Non-Af Amer) 57 L (> 60) BUN/Creatinine Ratio 12 (6-26) Glucose 252 H (70-99) mg/dL Calculated Osmolality 298 (280-300) Calcium 9.5 (8.6-10.8) mg/dL Total Bilirubin 0.3 (0.2-1.2) mg/dL Direct Bilirubin 0.1 (0.0-0.5) mg/dL Indirect Bilirubin 0.2 (0.0-1.2) mg/dL AST 32 (5-34) Units/L ALT 20 (0-55) Units/L Alkaline Phosphatase 72 (38-126) Units/L Serum Total Protein 7.5 (6.0-8.3) g/dL Albumin 3.9 (3.5-5.0) g/dL Globulin 3.6 H (2.4-3.5) g/dL Albumin/Globulin Ratio 1.1 (1.1-2.2) Lipase 32 (8-78) Units/L - Radiology Data Radiology results reviewed: Yes I reviewed the patient's radiology results. Chest CTA 03/16/17 00:00 IMPRESSION: No evidence of dissection. Unchanged mild thickening of the distal esophagus, possibly due to esophagitis. Unchanged mild right-sided hydronephrosis compared to multiple prior studies, possibly representing chronic UPJ stenosis. Postsurgical changes of Maria Elena-en-Y gastric bypass. Wall thickening of the excluded stomach and duodenum is unchanged from multiple prior studies. D/ / Agustin Villanueva MD / Agustin Villanueva MD Interpreting Provider: Agustin Villanueva MD X-Ray 03/16/17 12:41 IMPRESSION: 1. Unremarkable bowel gas pattern without evidence of obstruction. D/ / 03/16/2017 13:39:23 Earlene Wadsworth MD / rhiannon Interpreting Provider: Earlene Wadsworth MD - EKG Data EKG #1 EKG attestation: Yes I reviewed and interpreted this EKG. EKG results narrative: EKG data 03/16/17 at 10:02 interpreted as sinus rhythm with rate of 87. Normal intervals. Normal axis. Nonspecific ST-T changes. Compared previous dated O03/2017 showing no acute ischemic changes of comparison. Attestation Statement - Attestation Attestation: I examined this patient and my medical decision-making was reviewed with the Resident Physician. I agree with the documented findings, disposition and treatment plan as described except to the extent set forth below. Patient to ED complaining of high blood pressure vomiting. Patient states she has gastroparesis. She has had multiple visits for. She states she is not sure why she gets it but she usually has to be admitted. Multiple to the vomiting. No diarrhea. No fever. Exam shows her uncomfortable but she is not in distress. Her abdomen is soft with some mild upper abdominal tenderness. She does vomit. Plan. Patient still vomiting after multiple anti-medics. History gastroparesis. Will admit. Nurses notified after admission the patient multiple blood pressures that are asymmetric in her arms. We will check dissection study. Dissection study unremarkable. Patient admitted.
[2017-03-16 10:52] LABS: Basophils % 0.5 %; Eosinophils % 0.4 %; Hematocrit 43.8 % (35.3-44.9); Hemoglobin 14.1 g/dL (11.5-15.4); Immature Granulocytes % 0.2 % (0-4); Immature Platelets 9.4 % (1.1-6.1); Lymphocytes # 0.5 K/mcL (0.6-4.6); Lymphocytes % 9.5 %; Mean Corpuscular HGB Conc 32.2 g/dL (31.6-35.5); Mean Corpuscular Hemoglobin 29.4 pg (28.0-33.3); Mean Corpuscular Volume 91.3 fL (83.0-100.0); Mean Platelet Volume 11.9 fL (9.4-12.4); Monocytes # 0.2 K/mcL (0.0-1.3); Monocytes % 3.8 %; Neutrophils # 4.8 K/mcL (1.6-8.9); Platelet Count 155 K/mcL (140-400); Red Cell Distribution Width 12.4 % (11.5-14.5); Segmented Neutrophils % 85.6 %
[2017-03-16 11:12] LABS: Alanine Aminotransferase 20 Units/L (0-55); Albumin 3.9 g/dL (3.5-5.0); Albumin/Globulin Ratio 1.1 (1.1-2.2); Alkaline Phosphatase 72 Units/L (38-126); BUN/Creatinine Ratio 12 (6-26); Bilirubin,Indirect 0.2 mg/dL (0.0-1.2); Bilirubin,Total 0.3 mg/dL (0.2-1.2); Blood Urea Nitrogen 12 mg/dL (7-20); Calcium 9.5 mg/dL (8.6-10.8); Carbon Dioxide 23 mEq/L (19-29); Chloride 105 mEq/L (98-109); Globulin 3.6 g/dL (2.4-3.5); Glucose 252 mg/dL (70-99); Lipase 32 Units/L (8-78); Osmolality,Calculated 298 (280-300); Potassium 4.2 mEq/L (3.5-4.5); Sodium 140 mEq/L (136-145); Total Protein 7.5 g/dL (6.0-8.3); eGFR For African Americans > 60 (> 60); eGFR For Non-African Americans 57 (> 60)
[2017-03-16 11:15] LABS: Aspartate Amino Transferase 32 Units/L (5-34); Bilirubin,Direct 0.1 mg/dL (0.0-0.5)
[2017-03-16] MEDS ORDERED: Ondansetron 4 MG/2 ML VIAL IVP ONE (11:34)
--- NOTE | 2017-03-16 14:58 | Internal Med History&Physical ---
Date of Encounter: 03/16/17 Time of Encounter: 14:00 Assessment and Plan (1) Melena Current visit: Yes Status: Acute Check stool for occult blood, check hemoglobin every 12 hour. If her H&H stable may consider EGD as an outpatient and increase Protonix (2) Diabetes Current visit: Yes Status: Chronic Insulin sliding scale Qualifiers: Diabetes mellitus type: type 2 Diabetes mellitus complication status: without complication Diabetes mellitus group home insulin use: with exterminator helper use Qualified Code(s): E11.9 - Type 2 diabetes mellitus without complications ; Z79.4 - shelter (current) use of insulin; Z79.4 - buttermaker continuous churn (current) use of insulin; Z79.4 - shelter (current) use of insulin; Z79.4 - shelter ( current) use of insulin (3) Duodenitis Current visit: No Status: Acute Protonix twice a day counseling patient about caffeinated material and risk of recurrent peptic ulcer disease. Caffeine free diet, continue Protonix and Carafate. Clear liquid diet advance diet as tolerated (4) Intractable nausea and vomiting Current visit: No Status: Acute Qualifiers: Vomiting type: unspecified Qualified Code(s): R11.2 - Nausea with vomiting , unspecified Internal Medicine - H&P: HPI Chief complaint: Abdominal pain, intractable nausea and vomiting Admitted From: Emergency Dept History of present illness: Ms. Sales is a 66 year old female with past medical history of morbid obesity status post gastric bypass surgery. History of GERD, Gastroparesis and peptic ulcer disease diagnosed on May 2016. Patient is currently on Protonix and Carafate. Patient stated she was recently admitted to the hospital with abdominal pain and intractable nausea and vomiting about 1 month ago. Patient stated she was on this in stable condition until today morning. Patient's had recurrent episodes of nausea ,Non bilious non bloody vomits. Patient stated that she vomited almost more than 20 times . Patient complaining of left lower quadrant abdominal pain. Patient denies any change in her bowel movement except that she had black stool for last 3 days. Patient is complaining of gastric esophageal reflux disease like symptom. Patient stated she is drinking up to 8 cups of coffee daily in addition to 2 cup of tea in addition to 2 Can of Soda. Past Med Surg Social Fam HX - Past Medical History Medical history: arthritis, diabetes, GERD, hyperlipidemia, hypertension, osteoporosis, other (History of peptic ulcer disease, history of gastroparesis) Psychiatric history: anxiety, depression - Past Surgical History Surgical History: appendectomy, cholecystectomy, hysterectomy, ureteral stent, other (Gastric bypass surgery) - Social History Smoking Status: Former smoker Smokeless Tobacco Status: No Alcohol use: none Drug use: none - Family History Father Family Member Ethnicity: Non- Living Status: Hx Family Cancer: Yes (Father has a history of lung cancer) Hx Family Endocrine Disorder: Yes (DM) Mother Family Member Ethnicity: Non- Living Status: Hx Family Cardiac Disorders: No Hx Family Respiratory Disorders: No Hx Family Cancer: Yes (Mother has a history of colon cancer, aunt has a history of pancreatic canc) Hx Family GI Disorders: No Hx Family Endocrine Disorder: Yes (DM) Hx Family Neuromuscular Disorders: No Hx Family Neurologic Disorders: No Hx Family HEENT Disorders: No Hx Family Autoimmune Disorders: No Internal Medicine - H&P: Meds Docusate [Colace] 100 mg PO HS 12/21/14 [History] Polyethylene Glycol 3350 [MiraLAX] 17 gm PO DAILY PRN 12/21/14 [History] Sertraline HCl [Zoloft] 100 mg PO DAILY 12/21/14 [History] Simvastatin [Zocor] 40 mg PO DAILY 12/21/14 [History] Cyanocobalamin (Vitamin B-12) [Vitamin B-12] 1,000 mcg SQ QMONTH 12/08/15 [ History] Enalapril Maleate [Vasotec] 5 mg PO DAILY 12/08/15 [History] Mv-Mn/FA/Vit K1/Lycop/Lut/Zeax [Ocuvite Eye + Multi Tablet] 1 tab PO DAILY 12/07 [History] Propranolol HCl 60 mg PO DAILY 12/08/15 [History] SitaGLIPtin [Januvia] 100 mg PO DAILY 03/06/16 [History] Calcium Carbonate/Vitamin D3 [Calcium 500 + Vit D Caplet] 1 tab PO BID 09/02/16 [History] Calcium Polycarbophil [Fibercon] 625 mg PO BID 09/02/16 [History] Melatonin [Melatin] 3 mg PO HS 09/02/16 [History] Pantoprazole Sodium 40 mg PO DAILY 30 Days tablet. 11/24/16 [Rx] Lactobacillus [Culturelle] 1 each PO BID #20 11/28/16 [Rx] Sucralfate [Carafate] 1 gm PO QIDAC #500 mls 12/02/16 [Rx] 3 Allergy/AdvReac Type Severity Reaction Status Date / Time Nickel Allergy Mild Hives Verified 03/03/17 11:46 codeine Allergy Hives Verified 03/03/17 11:46 Erythromycin Base Allergy Rash Verified 03/03/17 11:46 nitrofurantoin Allergy Rash Verified 03/03/17 11:46 [From Macrobid] Quaternium Allergy Rash Verified 03/03/17 11:46 sulfamethoxazole Allergy Rash Verified 03/03/17 11:46 [From Bactrim] trimethoprim [From Bactrim] Allergy Rash Verified 03/03/17 11:46 Sulfa (Sulfonamide AdvReac Hallucinati Verified 03/03/17 11:46 Antibiotics) ng All Systems PM: A 10-system review of systems was performed and is negative for pertinent findings except as documented above in the HPI. - Constitutional Constitutional: no chills, no fever(s), no night sweats - EENT Eyes: no blurry vision Nose, mouth and throat: epistaxis, no dysphagia - Constitutional Vitals: Temp Pulse Resp BP Pulse Ox 98.0 F 92 18 164/97 98 03/16/17 09:48 03/16/17 13:03 03/16/17 13:51 03/16/17 13:51 03/16/17 13:03 General appearance: Present: A&O X 3 - Head Head exam: Present: atraumatic, normocephalic - Eye Eye exam: Present: EOMI, conjuntiva pink, sclera anicteric Pupils: Present: PERRL - Neck Neck exam general surgery: Present: full ROM - Respiratory Respiratory exam: Absent: accessory muscle use (Markedly diminished breathing sounds bilateral lung), rales, rhonchi, wheezes - Cardiovascular Cardiovascular exam: Present: RRR, +S1, +S2. Absent: gallop, JVD, rubs - GI/Abdominal GI/Abdominal exam: Present: normal bowel sounds, soft, tenderness (bilateral lower quadrant tenderness, epigastric tenderness), no peritoneal signs. Absent : distended - Extremities Exam Extremities exam: Present: warm, radial pulses palpable and symmetrical. Absent : calf tenderness, cyanotic, pedal edema - Neurological Exam Neurological exam: Present: CN II-XII intact, oriented X3, no focal deficits. Absent: pronater drift, facial droop, speech deficit - Skin Skin exam: Present: dry, intact Internal Med - H&P Results - Labs CBC & Chem 7: 03/16/17 10:37 03/16/17 10:37
[2017-03-16] MEDS ORDERED: NON-FORMULARY MEDICATION 1 EACH EACH (Cyanocobalamin (Vitamin B-12) [Vitamin B-12] 1,000 M SQ SCH (15:43)
[2017-03-16 16:32] LABS: Hematocrit 47.9 % (35.3-44.9); Hemoglobin 15.6 g/dL (11.5-15.4)
[2017-03-16] MEDS: Propranolol LA (24 HR) 60 MG CAP.SA.24H PO SCH (18:35)
[2017-03-16] MEDS: *HR* SitaGLIPtin 100 MG TABLET PO SCH (18:35)
[2017-03-16] MEDS: Lactobacillus 1 EACH CAP.SPRINK PO SCH ×2 (18:35→21:28)
[2017-03-16] MEDS: Lactulose Oral Soln 20 GM/30 ML UDC PO SCH ×2 (18:36→21:47)
[2017-03-16] MEDS: Insulin LISPRO 300 UNITS/3 ML VIAL SQ SCH (18:37)
[2017-03-16] MEDS: Pantoprazole 40 MG VIAL IVP SCH (19:03)
[2017-03-16] MEDS: Metoclopramide 10 MG/2 ML VIAL IVP SCH (19:28)
[2017-03-16] MEDS ORDERED: Melatonin 3 MG TABLET PO SCH (21:00)
[2017-03-17] MEDS ORDERED: *HR* Metoprolol 5 MG/5 ML VIAL IVP ONE (00:23)
[2017-03-17] MEDS: Metoclopramide 10 MG/2 ML VIAL IVP SCH ×2 (00:38→09:08)
[2017-03-17] MEDS: Pantoprazole 40 MG VIAL IVP SCH (05:41)
[2017-03-17 08:34] LABS: Basophils % 0.3 %; Hematocrit 43.2 % (35.3-44.9); Hemoglobin 14.4 g/dL (11.5-15.4); Immature Granulocytes % 0.4 % (0-4); Lymphocytes # 0.8 K/mcL (0.6-4.6); Lymphocytes % 8.3 %; Mean Corpuscular HGB Conc 33.3 g/dL (31.6-35.5); Mean Corpuscular Hemoglobin 30.1 pg (28.0-33.3); Mean Corpuscular Volume 90.4 fL (83.0-100.0); Mean Platelet Volume 10.7 fL (9.4-12.4); Monocytes # 1.1 K/mcL (0.0-1.3); Monocytes % 11.1 %; Neutrophils # 7.9 K/mcL (1.6-8.9); Platelet Count 209 K/mcL (140-400); Red Blood Count 4.78 M/mcL (3.82-4.97); Red Cell Distribution Width 12.7 % (11.5-14.5); Segmented Neutrophils % 79.9 %
[2017-03-17] MEDS: Lactobacillus 1 EACH CAP.SPRINK PO SCH (09:07)
[2017-03-17] MEDS: *HR* SitaGLIPtin 100 MG TABLET PO SCH (09:07)
[2017-03-17] MEDS: Lactulose Oral Soln 20 GM/30 ML UDC PO SCH (09:08)
[2017-03-17] MEDS: Propranolol LA (24 HR) 60 MG CAP.SA.24H PO SCH (09:08)
[2017-03-17] MEDS: Insulin LISPRO 300 UNITS/3 ML VIAL SQ SCH (09:13)
[2017-03-17 10:10] VITALS: BP 101/62
--- NOTE | 2017-03-17 10:12 | Discharge Summary ---
Date of Encounter: 03/17/17 Time of Encounter: 10:07 - Discharge Diagnosis (1) Melena Priority: Primary Status: Resolved (2) Intractable nausea and vomiting Priority: Secondary Status: Acute Qualifiers: Vomiting type: cyclical vomiting Qualified Code(s): G43.A1 - Cyclical vomiting, intractable (3) Gastroparesis Priority: Secondary Status: Acute (4) Diabetes Priority: Secondary Status: Chronic Qualifiers: Diabetes mellitus type: type 2 Diabetes mellitus complication status: without complication Diabetes mellitus continuous churn buttermaker insulin use: with fdc use Qualified Code(s): E11.9 - Type 2 diabetes mellitus without complications ; Z79.4 - long term care administrator (current) use of insulin; Z79.4 - long term care administrator (current) use of insulin; Z79.4 - [facility] (current) use of insulin; Z79.4 - [facility] ( current) use of insulin (5) Duodenitis Priority: Secondary Status: Chronic (6) Gastritis Priority: Secondary Status: Chronic Qualifiers: Gastritis type: unspecified gastritis Chronicity: chronic Gastritis bleeding: without bleeding Qualified Code(s): K29.50 - Unspecified chronic gastritis without bleeding - Discharge Medications Prescriptions: Metoclopramide [Reglan] 10 mg PO Q6HR PRN #30 tablet PRN Reason: Nausea/ Vomiting Pantoprazole Sodium 40 mg PO BID #60 tablet.dr Home Medications: Docusate [Colace] 100 mg PO HS 12/21/14 [History] Polyethylene Glycol 3350 [MiraLAX] 17 gm PO DAILY PRN 12/21/14 [History] Sertraline HCl [Zoloft] 100 mg PO DAILY 12/21/14 [History] Simvastatin [Zocor] 40 mg PO DAILY 12/21/14 [History] Cyanocobalamin (Vitamin B-12) [Vitamin B-12] 1,000 mcg SQ QMONTH 12/08/15 [ History] Enalapril Maleate [Vasotec] 5 mg PO DAILY 12/08/15 [History] Mv-Mn/FA/Vit K1/Lycop/Lut/Zeax [Ocuvite Eye + Multi Tablet] 1 tab PO DAILY 12/07 [History] Propranolol HCl 60 mg PO DAILY 12/08/15 [History] SitaGLIPtin [Januvia] 100 mg PO DAILY 03/06/16 [History] Calcium Carbonate/Vitamin D3 [Calcium 500 + Vit D Caplet] 1 tab PO BID 09/02/16 [History] Calcium Polycarbophil [Fibercon] 625 mg PO BID 09/02/16 [History] Melatonin [Melatin] 3 mg PO HS 09/02/16 [History] Lactobacillus [Culturelle] 1 each PO BID #20 11/28/16 [Rx] Sucralfate [Carafate] 1 gm PO QIDAC #500 mls 12/02/16 [Rx] Metoclopramide [Reglan] 10 mg PO Q6HR PRN #30 tablet 03/17/17 [Rx] Pantoprazole Sodium 40 mg PO BID #60 tablet. 03/17/17 [Rx] Allergies/Adverse Reactions: 3 Allergy/AdvReac Type Severity Reaction Status Date / Time Nickel Allergy Mild Hives Verified 03/03/17 11:46 codeine Allergy Hives Verified 03/03/17 11:46 Erythromycin Base Allergy Rash Verified 03/03/17 11:46 nitrofurantoin Allergy Rash Verified 03/03/17 11:46 [From Macrobid] Quaternium Allergy Rash Verified 03/03/17 11:46 sulfamethoxazole Allergy Rash Verified 03/03/17 11:46 [From Bactrim] trimethoprim [From Bactrim] Allergy Rash Verified 03/03/17 11:46 Sulfa (Sulfonamide AdvReac Hallucinati Verified 03/03/17 11:46 Antibiotics) ng Procedures/tests Complete & Pending: Procedures Performed prior 72 hours Category Date Time Status CT angio chest [CT] Routine Cat Scan 03/16/17 Completed Date of admission: 03/16/17 13:32 Primary care physician: Brittney Garrido, Discharging clinician: Cameron Salcido Anticipated date of discharge: 03/17/17 - Patient Status Disposition: Home, Self-Care Condition: Good Functional capacity at discharge: independent ambulation Overall status at discharge: patient is progressing back to baseline - Discharge Instructions Instructions: Urinary Tract Infection in Women (DC), Diabetes Mellitus Type 2 in Adults (DC), Anemia (GEN) Follow Up With: Brittney Garrido MD [Primary Care Provider] - 03/23/17 1:00 pm () Talon Bojorquez MD [Partnered Physician] - (gastroparesis in 1 week) - Diet and Activity Activity: increase activity as tolerated Diet: diabetic diet (small meals), other (Avoid caffeine products including soda ) Hospital course: Ms. Sales is a 66 year old female patient with history of Diabetes mellitus type 2, prior gastric bypass surgery, gastroparesis, peptic ulcer disease presented to the hospital with complaints of multiple episodes of nausea and vomiting with a recent episode of melena. Patient was evaluated in the ER with a CT scan of the abdomen and pelvis which showed findings suggestive of gastritis with chronic duodenal wall thickening related to her gastric bypass surgery. She was hospitalized and observed and treated with Reglan. Her symptoms have since improved and she is no longer feeling nauseated. She has not had any further episodes of abrupt nausea or vomiting today. She is tolerating oral diet well. Patient reportedly drinks 8 cups of coffee every day and 2 cups of tea along with 2 cans of soda. These very likely cause of patient's recurrent symptoms of reflux disease and intractable nausea and vomiting. She has been advised to curtail the amount of caffeine that she takes to help with her symptoms. She will also be prescribed Reglan as needed to help with her gastroparesis. She will not be discharged on scheduled Reglan due to as she is on sertraline at increased risk for serotonin syndrome. Patient is also listed as being allergic to erythromycin. She will need to follow up with gastroenterology for further management of her gastroparesis. Her hemoglobin levels have been normal and stable here and she has not had any further episodes of melena. She did have an upper GI endoscopy in October this year which did not show any gastritis or ulcers. She does not require any urgent endoscopy at this time. She can continue taking PPI and Carafate as outpatient. - Time Spent with Patient Total time spent providing and/or coordinating discharge services: - Constitutional Vitals: Temp Pulse Resp BP Pulse Ox 99.0 F 84 15 102/56 95 03/17/17 06:58 03/17/17 06:58 03/17/17 06:58 03/17/17 06:58 03/17/17 06:58 General appearance: Present: cooperative, A&O X 3, answers questions appropriately - Respiratory Respiratory exam: Present: CTAB. Absent: accessory muscle use, rales, rhonchi, wheezes - Cardiovascular Cardiovascular exam: Present: RRR, +S1, +S2. Absent: diastolic murmur, gallop, rubs, systolic murmur - GI/Abdominal GI/Abdominal exam: Present: normal bowel sounds, soft, no peritoneal signs. Absent: distended, tenderness - Extremities Exam Extremities exam: Present: warm, radial pulses palpable and symmetrical. Absent : calf tenderness, cyanotic, pedal edema - Neurological Exam Neurological exam: Present: alert, oriented X3, no focal deficits. Absent: facial droop, speech deficit
--- NOTE | 2017-03-18 15:16 | Electrocardiograph Report ---
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
== END 2017-03-17 13:20 | disposition home or self-care (01) ==
LOC: EMEROO 09:46 → 3ANU 09:46 → SUATTDRO 13:32 → 3ANU 15:22
PROVIDERS: ADMIT Internal Medicine; ATTEND Internal Medicine

== ENCOUNTER 2019-04-30 17:43 | Inpatient (IN) ==
[2019-04-30] MEDS ORDERED: Ketorolac 30 MG/ML VIAL IVP PRN (20:23)
[2019-04-30] MEDS ORDERED: Naloxone 0.4 MG/ML INJ IVP PRN (20:23)
[2019-04-30] MEDS ORDERED: Ondansetron 4 MG/2 ML VIAL IVP PRN (20:23)
[2019-04-30] MEDS ORDERED: 0.9 % Sodium Chloride 1,000 ML IVC SCH (20:30)
[2019-04-30] MEDS ORDERED: D5% in Water 1,000 ML IVC PRN (20:32)
[2019-04-30] MEDS ORDERED: Dextrose Gel 15 GM/37.5 ML TUBE PO PRN ×2 (20:32)
[2019-04-30] MEDS ORDERED: *HR* Dextrose 50 % in Water (Syg) 50 ML SYRINGE IVP PRN (20:32)
[2019-04-30] MEDS ORDERED: Insulin DETEMIR 100 UNIT/ML X5UNITS SQ SCH (21:00)
[2019-04-30 21:49] LABS: Basophils % 0.4 %; Eosinophils % 0.1 %; Hematocrit 36.7 % (35.3-44.9); Immature Granulocytes % 0.5 % (0-4); Lymphocytes # 0.5 K/mcL (0.6-4.6); Lymphocytes % 6.9 %; Mean Corpuscular HGB Conc 32.7 g/dL (31.6-35.5); Mean Corpuscular Hemoglobin 29.7 pg (28.0-33.3); Mean Corpuscular Volume 90.8 fL (83.0-100.0); Mean Platelet Volume 11.5 fL (9.4-12.4); Monocytes # 0.8 K/mcL (0.0-1.3); Monocytes % 10.5 %; Neutrophils # 6.2 K/mcL (1.6-8.9); Platelet Count 170 K/mcL (140-400); Red Blood Count 4.04 M/mcL (3.82-4.97); Red Cell Distribution Width 12.3 % (11.5-14.5); Segmented Neutrophils % 81.6 %; White Blood Count 7.7 K/mcL (4.3-11.1)
[2019-04-30 21:53] LABS: Prothrombin Time 11.2 Seconds (9.4-12.1)
[2019-04-30] MEDS ORDERED: Melatonin 3 MG TABLET PO PRN (21:53)
[2019-04-30 21:56] LABS: Activated Partial Thrombo Time 32.6 Seconds (26.0-36.0)
[2019-04-30] MEDS ORDERED: Propranolol LA (24 HR) 60 MG CAP.SA.24H PO SCH (22:00)
[2019-04-30 22:26] LABS: Alanine Aminotransferase 361 Units/L (7-52); Albumin 3.8 g/dL (3.5-5.7); Albumin/Globulin Ratio 1.7 (1.1-2.2); Alkaline Phosphatase 127 Units/L (34-104); Aspartate Amino Transferase 1295 Units/L (13-39); BUN/Creatinine Ratio 17 (6-26); Bilirubin,Total 0.7 mg/dL (0.3-1.0); Blood Urea Nitrogen 19 mg/dL (8-23); Calcium 8.6 mg/dL (8.6-10.3); Carbon Dioxide 27 mEq/L (23-29); Chloride 100 mEq/L (98-107); Globulin 2.3 g/dL (2.4-3.5); Glucose 198 mg/dL (70-105); Magnesium 1.8 mg/dL (1.6-2.6); Osmolality,Calculated 288 (280-300); Potassium 4.5 mEq/L (3.5-5.1); Sodium 135 mEq/L (136-145); Total Protein 6.1 g/dL (6.4-8.9); Troponin I < 0.03 ng/mL (< 0.04); eGFR For African Americans 59 (> 60); eGFR For Non-African Americans 49 (> 60)
[2019-04-30 22:31] LABS: Bilirubin,Direct 0.3 mg/dL (0.0-0.2); Bilirubin,Indirect 0.4 mg/dL (0.0-1.0)
[2019-05-01 01:46] LABS: Acetaminophen < 10 mcg/mL (10-20)
[2019-05-01 03:31] LABS: Albumin 3.5 g/dL (3.5-5.7); Albumin/Globulin Ratio 1.7 (1.1-2.2); Bilirubin,Direct 0.1 mg/dL (0.0-0.2); Bilirubin,Indirect 0.4 mg/dL (0.0-1.0); Bilirubin,Total 0.5 mg/dL (0.3-1.0); Globulin 2.1 g/dL (2.4-3.5); Total Protein 5.6 g/dL (6.4-8.9)
[2019-05-01] MEDS: Insulin LISPRO 300 UNITS/3 ML VIAL SQ SCH ×3 (07:42→17:05)
[2019-05-01 08:58] LABS: Hepatitis B Surface Antigen Nonreactive (Nonreactive)
[2019-05-01 09:27] LABS: Hepatitis B Core IgM Nonreactive (Nonreactive); Hepatitis C Virus Antibody Nonreactive (Nonreactive)
[2019-05-01 09:29] LABS: Hepatitis A Antibody IgM Nonreactive (Nonreactive)
[2019-05-01] MEDS ORDERED: Acetaminophen IV 1,000 MG/100 ML INFUS..BTL ONE (14:24)
[2019-05-01] MEDS ORDERED: Famotidine 20 MG/2 ML VIAL ONE (14:24)
[2019-05-01] MEDS ORDERED: Famotidine 20 MG/2 ML VIAL IVP ONE (14:26)
[2019-05-01] MEDS ORDERED: Acetaminophen IV 1,000 MG/100 ML INFUS..BTL IVPB ONE (14:26)
[2019-05-01] MEDS ORDERED: CeFAZolin Syr 2,000MG/20 ML 2,000 MG/20 ML SYRINGE IVPB ONE (14:42)
[2019-05-01] MEDS ORDERED: Lidocaine HCL 4 ML Topical Solution (Laryng-O-Jet Kit Sterile Pak) TP ONE (15:06)
[2019-05-01] MEDS ORDERED: Lidocaine -MPF 2% 2 ML VIAL ONE ×3 (15:06→17:44)
[2019-05-01] MEDS ORDERED: Dexamethasone 4 MG/ML VIAL ONE (15:06)
[2019-05-01] MEDS ORDERED: *HR* Rocuronium Bromide 50 MG/5 ML VIAL ONE (15:06)
[2019-05-01] MEDS ORDERED: Ondansetron 4 MG/2 ML VIAL ONE (15:06)
[2019-05-01] MEDS ORDERED: *HR* Propofol 200 MG/20 ML VIAL IVP ONE (15:06)
[2019-05-01] MEDS ORDERED: *HR* FentaNYL (PF) 100 MCG/2 ML VIAL ONE (15:06)
[2019-05-01] MEDS ORDERED: EPHEDrine 50 MG/ML VIAL ONE (15:40)
[2019-05-01] MEDS ORDERED: ROPIVACAINE/PF/NS 0.25% 1 EACH SYRINGE INTRAART ONE (16:56)
[2019-05-01] MEDS ORDERED: Neostigmine Methylsulfate 3 MG/3 ML SYRINGE ONE (17:54)
[2019-05-01] MEDS ORDERED: Ondansetron 4 MG/2 ML VIAL IVP PRN (18:52)
[2019-05-01] MEDS ORDERED: Melatonin 3 MG TABLET PO PRN (18:52)
[2019-05-01] MEDS ORDERED: D5% in Water 1,000 ML IVC PRN (18:52)
[2019-05-01] MEDS ORDERED: Dextrose Gel 15 GM/37.5 ML TUBE PO PRN ×2 (18:52)
[2019-05-01] MEDS ORDERED: Naloxone 0.4 MG/ML INJ IVP PRN (18:52)
[2019-05-01] MEDS ORDERED: *HR* Dextrose 50 % in Water (Syg) 50 ML SYRINGE IVP PRN (18:52)
[2019-05-01] MEDS: Propranolol LA (24 HR) 60 MG CAP.SA.24H PO SCH (20:09)
[2019-05-01] MEDS: Insulin DETEMIR 100 UNIT/ML X5UNITS SQ SCH (20:09)
[2019-05-01] MEDS ORDERED: hydrOXYzine pamoate 25 MG CAPSULE PO PRN (22:33)
[2019-05-01] MEDS ORDERED: traZODone 50 MG TABLET PO PRN (22:33)
[2019-05-01 23:09] LABS: Bilirubin,Urine Negative (Negative); Blood,Urine Negative (Negative); Clarity,Urine Clear (Clear); Color,Urine Yellow (Yellow); Glucose,Urine (UA) Normal (Normal); Ketones,Urine 15 mg/dL (Negative); Leukocyte Esterase,Urine Negative (Negative); Nitrite,Urine Negative (Negative); Protein,Urine Negative (Neg-Trace); Specific Gravity,Urine 1.018 (1.010-1.025); Urobilinogen,Urine Normal (Normal)
[2019-05-01 23:24] LABS: Amphetamine Screen,Urine Negative ng/mL (Cutoff=1000); Barbiturate Screen,Urine Negative ng/mL (Cutoff=200); Benzodiazepines Screen,Urine Negative ng/mL (Cutoff=200); Cannabinoid Screen,Urine Negative ng/mL (Cutoff = 50); Cocaine Screen,Urine Negative ng/mL (Cutoff= 300); Opiate Screen,Urine Positive ng/mL (Cutoff=300); Phencyclidine Screen,Urine Negative ng/mL (Cutoff=25)
[2019-05-02 06:30] LABS: Basophils % 0.5 %; Eosinophils % 0.2 %; Hematocrit 26.9 % (35.3-44.9); Immature Granulocytes % 1.2 % (0-4); Lymphocytes # 0.5 K/mcL (0.6-4.6); Lymphocytes % 9.2 %; Mean Corpuscular Volume 93.7 fL (83.0-100.0); Mean Platelet Volume 11.6 fL (9.4-12.4); Monocytes # 0.6 K/mcL (0.0-1.3); Monocytes % 10.6 %; Neutrophils # 4.5 K/mcL (1.6-8.9); Nucleated Red Blood Cells 0.3 /100 WBC (0); Platelet Count 109 K/mcL (140-400); Red Blood Count 2.87 M/mcL (3.82-4.97); Red Cell Distribution Width 12.5 % (11.5-14.5); Segmented Neutrophils % 78.3 %; White Blood Count 5.7 K/mcL (4.3-11.1)
[2019-05-02 06:41] LABS: Hemoglobin 8.6 g/dL (11.5-15.4)
[2019-05-02] MEDS: Insulin LISPRO 300 UNITS/3 ML VIAL SQ SCH ×3 (09:48→16:58)
[2019-05-02] MEDS: BuPROPion XL (24 HR) 150 MG TABLET PO SCH (10:12)
[2019-05-02] MEDS: Aspirin Enteric Coated 325 MG Tablet PO SCH (10:12)
[2019-05-02 10:53] LABS: Alanine Aminotransferase 253 Units/L (7-52); Albumin 3.4 g/dL (3.5-5.7); Albumin/Globulin Ratio 1.4 (1.1-2.2); Alkaline Phosphatase 151 Units/L (34-104); Aspartate Amino Transferase 344 Units/L (13-39); BUN/Creatinine Ratio 14 (6-26); Bilirubin,Total 0.5 mg/dL (0.3-1.0); Blood Urea Nitrogen 12 mg/dL (8-23); Calcium 8.6 mg/dL (8.6-10.3); Carbon Dioxide 22 mEq/L (23-29); Chloride 102 mEq/L (98-107); Globulin 2.4 g/dL (2.4-3.5); Glucose 191 mg/dL (70-105); Osmolality,Calculated 291 (280-300); Potassium 4.5 mEq/L (3.5-5.1); Sodium 138 mEq/L (136-145); Total Protein 5.8 g/dL (6.4-8.9); eGFR For African Americans > 60 (> 60); eGFR For Non-African Americans > 60 (> 60)
[2019-05-02] MEDS: Acetaminophen 325 MG TABLET PO PRN (16:57)
[2019-05-02] MEDS: Insulin DETEMIR 100 UNIT/ML X5UNITS SQ SCH (20:58)
[2019-05-02] MEDS: Propranolol LA (24 HR) 60 MG CAP.SA.24H PO SCH (20:58)
[2019-05-03] MEDS: Acetaminophen 325 MG TABLET PO PRN ×4 (04:24→18:51)
[2019-05-03 04:52] LABS: Basophils % 0.3 %; Eosinophils # 0.1 K/mcL (0.0-0.6); Eosinophils % 1.7 %; Hematocrit 26.4 % (35.3-44.9); Hemoglobin 8.6 g/dL (11.5-15.4); Lymphocytes % 15.9 %; Mean Corpuscular HGB Conc 32.6 g/dL (31.6-35.5); Mean Corpuscular Hemoglobin 29.4 pg (28.0-33.3); Mean Corpuscular Volume 90.1 fL (83.0-100.0); Mean Platelet Volume 11.6 fL (9.4-12.4); Monocytes # 0.8 K/mcL (0.0-1.3); Monocytes % 12.6 %; Neutrophils # 4.1 K/mcL (1.6-8.9); Platelet Count 127 K/mcL (140-400); Red Blood Count 2.93 M/mcL (3.82-4.97); Red Cell Distribution Width 12.8 % (11.5-14.5); Segmented Neutrophils % 68.5 %
[2019-05-03] MEDS: Aspirin Enteric Coated 325 MG Tablet PO SCH (10:16)
[2019-05-03] MEDS: BuPROPion XL (24 HR) 150 MG TABLET PO SCH (10:16)
[2019-05-03] MEDS: Insulin LISPRO 300 UNITS/3 ML VIAL SQ SCH ×2 (11:57→17:27)
[2019-05-03] MEDS: Propranolol LA (24 HR) 60 MG CAP.SA.24H PO SCH (20:36)
[2019-05-03] MEDS: Sennosides 8.6 MG TABLET PO SCH (20:36)
[2019-05-03] MEDS: Insulin DETEMIR 100 UNIT/ML X5UNITS SQ SCH (20:37)
[2019-05-04 06:53] LABS: Basophils % 0.6 %; Eosinophils # 0.1 K/mcL (0.0-0.6); Eosinophils % 2.6 %; Hematocrit 26.5 % (35.3-44.9); Hemoglobin 8.4 g/dL (11.5-15.4); Immature Granulocytes % 0.8 % (0-4); Lymphocytes # 0.8 K/mcL (0.6-4.6); Lymphocytes % 15.3 %; Mean Corpuscular HGB Conc 31.7 g/dL (31.6-35.5); Mean Corpuscular Hemoglobin 29.4 pg (28.0-33.3); Mean Corpuscular Volume 92.7 fL (83.0-100.0); Mean Platelet Volume 11.5 fL (9.4-12.4); Monocytes # 0.6 K/mcL (0.0-1.3); Monocytes % 10.9 %; Neutrophils # 3.7 K/mcL (1.6-8.9); Platelet Count 160 K/mcL (140-400); Red Blood Count 2.86 M/mcL (3.82-4.97); Red Cell Distribution Width 12.7 % (11.5-14.5); Segmented Neutrophils % 69.8 %; White Blood Count 5.3 K/mcL (4.3-11.1)
[2019-05-04] MEDS: Insulin LISPRO 300 UNITS/3 ML VIAL SQ SCH ×2 (07:54→11:50)
[2019-05-04] MEDS: BuPROPion XL (24 HR) 150 MG TABLET PO SCH (09:12)
[2019-05-04] MEDS: Aspirin Enteric Coated 325 MG Tablet PO SCH (09:12)
[2019-05-04] MEDS: Sennosides 8.6 MG TABLET PO SCH (09:13)
[2019-05-04] MEDS: Acetaminophen 325 MG TABLET PO PRN ×2 (09:13→16:17)
[2019-05-04] MEDS: Insulin DETEMIR 100 UNIT/ML X5UNITS SQ SCH (09:21)
[2019-05-04 15:32] VITALS: BP 96/62
== END 2019-05-04 16:36 | DRG 480 ==
LOC: 3NENU 19:38 → INTOOBSV 19:38 → SUATTDRO 19:38
PROVIDERS: ADMIT Internal Medicine; ATTEND Internal Medicine

== ENCOUNTER 2019-12-15 10:29 | Observation (INO) ==
[2019-12-15] MEDS ORDERED: 0.9 % Sodium Chloride 1,000 ML IVC ONE (11:09)
[2019-12-15] MEDS ORDERED: Ondansetron 4 MG/2 ML VIAL IVP ONE (11:09)
[2019-12-15 12:26] LABS: Hematocrit 49.1 % (35.3-44.9); Hemoglobin 15.6 g/dL (11.5-15.4); Mean Corpuscular HGB Conc 31.8 g/dL (31.6-35.5); Mean Corpuscular Hemoglobin 28.1 pg (28.0-33.3); Mean Corpuscular Volume 88.5 fL (83.0-100.0); Mean Platelet Volume 11.7 fL (9.4-12.4); Platelet Count 222 K/mcL (140-400); Red Blood Count 5.55 M/mcL (3.82-4.97); Red Cell Distribution Width 12.8 % (11.5-14.5); White Blood Count 10.6 K/mcL (4.3-11.1)
[2019-12-15 12:49] LABS: Alanine Aminotransferase 19 Units/L (7-52); Albumin 4.8 g/dL (3.5-5.7); Albumin/Globulin Ratio 1.6 (1.1-2.2); Alkaline Phosphatase 119 Units/L (34-104); Aspartate Amino Transferase 28 Units/L (13-39); BUN/Creatinine Ratio 15 (6-26); Bilirubin,Direct 0.1 mg/dL (0.0-0.2); Bilirubin,Indirect 0.5 mg/dL (0.0-1.0); Bilirubin,Total 0.6 mg/dL (0.3-1.0); Blood Urea Nitrogen 14 mg/dL (8-23); Calcium 9.6 mg/dL (8.6-10.3); Carbon Dioxide 22 mEq/L (23-29); Chloride 93 mEq/L (98-107); Glucose 289 mg/dL (70-105); Lipase 20 Units/L (11-82); Osmolality,Calculated 285 (280-300); Potassium 3.9 mEq/L (3.5-5.1); Sodium 132 mEq/L (136-145); Total Protein 7.8 g/dL (6.4-8.9); eGFR For African Americans > 60 (> 60); eGFR For Non-African Americans > 60 (> 60)
[2019-12-15] MEDS ORDERED: Piperacillin/Tazobactam 3.375 GM in 0.9 % Sodium Chloride Mini Bag 100 ML IVPB ONE (13:23)
[2019-12-15 14:25] LABS: Bilirubin,Urine Negative (Negative); Blood,Urine Trace (Negative); Clarity,Urine Clear (Clear); Color,Urine Light-Yellow (Yellow); Glucose,Urine (UA) >=1000 mg/dL (Normal); Hyaline Casts,Urine Few per lpf (None Seen); Ketones,Urine 40 mg/dL (Negative); Leukocyte Esterase,Urine Negative (Negative); Mucus,Urine Few per lpf (None-Few); Nitrite,Urine Negative (Negative); PH,Urine 6.5 pH Units (5.0-8.0); Protein,Urine 200 mg/dL (Neg-Trace); RBC,Urine 0-3 per hpf (0-3); Squamous Epithelial Cell,Urine Few per hpf (None-Few); Urobilinogen,Urine Normal (Normal); WBC,Urine 0-3 per hpf (0-3)
[2019-12-15] MEDS ORDERED: 0.9 % Sodium Chloride 500 ML IVC ONE (15:41)
[2019-12-15] MEDS ORDERED: MOM Conc 10 ML UD.LIQ PO PRN (16:11)
[2019-12-15] MEDS ORDERED: Ondansetron 4 MG/2 ML VIAL IVP PRN (16:11)
[2019-12-15] MEDS ORDERED: Naloxone 0.4 MG/ML INJ IVP PRN (16:11)
[2019-12-15] MEDS ORDERED: Acetaminophen 325 MG TABLET PO PRN (16:11)
[2019-12-15] MEDS ORDERED: Dextrose Gel 15 GM/37.5 ML TUBE PO PRN ×2 (16:13)
[2019-12-15] MEDS ORDERED: D5% in Water 1,000 ML IVC PRN (16:13)
[2019-12-15] MEDS ORDERED: *HR* Dextrose 50 % in Water (Vial) 50 ML VIAL IVP PRN (16:13)
[2019-12-15] MEDS ORDERED: Ringers Solution, Lactated 1,000 ML IVC SCH (16:15)
[2019-12-15 16:59] LABS: Adenovirus Not Detected (Not Detect); Bordetella Pertussis Not Detected (Not Detect); Chlamydophila pneumoniae Not Detected (Not Detect); Coronavirus 229E Not Detected (Not Detect); Coronavirus HKU1 Not Detected (Not Detect); Coronavirus NL63 Not Detected (Not Detect); Coronavirus OC43 Not Detected (Not Detect); Human Metapneumovirus Not Detected (Not Detect); Human Rhinovirus/Enterovirus Not Detected (Not Detect); Influenza A Subtype 2009 H1 Not Detected (Not Detect); Influenza B Not Detected (Not Detect); Mycoplasma pneumoniae Not Detected (Not Detect); Parainfluenza Virus 1 Not Detected (Not Detect); Parainfluenza Virus 2 Not Detected (Not Detect); Parainfluenza Virus 3 Not Detected (Not Detect); Parainfluenza Virus 4 Not Detected (Not Detect); Respiratory Syncytial Virus Not Detected (Not Detect)
[2019-12-15] MEDS ORDERED: *HR* Promethazine 25 MG/ML VIAL IVP PRN (17:01)
[2019-12-15] MEDS ORDERED: Melatonin 3 MG TABLET PO PRN (17:06)
[2019-12-15] MEDS: Pantoprazole 40 MG VIAL IVP SCH (21:57)
[2019-12-15] MEDS: *HR* Heparin 5,000 UNIT/ML VIAL SQ SCH (21:58)
[2019-12-15] MEDS: Insulin LISPRO 300 UNITS/3 ML VIAL SQ SCH (21:58)
[2019-12-16 06:06] LABS: Basophils % 0.1 %; Hematocrit 41.3 % (35.3-44.9); Immature Granulocytes % 0.3 % (0-4); Lymphocytes # 0.9 K/mcL (0.6-4.6); Lymphocytes % 10.2 %; Mean Corpuscular HGB Conc 32.2 g/dL (31.6-35.5); Mean Corpuscular Hemoglobin 28.7 pg (28.0-33.3); Mean Platelet Volume 11.7 fL (9.4-12.4); Monocytes # 1.1 K/mcL (0.0-1.3); Monocytes % 12.6 %; Neutrophils # 6.9 K/mcL (1.6-8.9); Platelet Count 179 K/mcL (140-400); Red Blood Count 4.64 M/mcL (3.82-4.97); Red Cell Distribution Width 13.2 % (11.5-14.5); Segmented Neutrophils % 76.8 %
[2019-12-16 06:07] LABS: Hemoglobin 13.3 g/dL (11.5-15.4)
[2019-12-16 06:22] LABS: BUN/Creatinine Ratio 19 (6-26); Blood Urea Nitrogen 18 mg/dL (8-23); Carbon Dioxide 24 mEq/L (23-29); Chloride 103 mEq/L (98-107); Glucose 234 mg/dL (70-105); Magnesium 2.1 mg/dL (1.6-2.6); Osmolality,Calculated 289 (280-300); Phosphorous 3.6 mg/dL (2.7-4.5); Potassium 3.6 mEq/L (3.5-5.1); Sodium 135 mEq/L (136-145); eGFR For African Americans > 60 (> 60); eGFR For Non-African Americans 58 (> 60)
[2019-12-16] MEDS: *HR* Heparin 5,000 UNIT/ML VIAL SQ SCH ×2 (06:23→18:41)
[2019-12-16] MEDS: Insulin LISPRO 300 UNITS/3 ML VIAL SQ SCH ×3 (08:00→16:30)
[2019-12-16] MEDS ORDERED: Dexamethasone 4 MG/ML VIAL ONE ×2 (08:47→10:54)
[2019-12-16] MEDS ORDERED: Lidocaine -MPF 4% 5 ML AMPUL ONE ×2 (08:47→10:54)
[2019-12-16] MEDS ORDERED: Ondansetron 4 MG/2 ML VIAL ONE ×2 (08:47→10:54)
[2019-12-16 08:48] LABS: Adenovirus F 40/41 PCR Not detected (Not detect); Astrovirus PCR Not detected (Not detect); C.difficile Toxin A/B Gene PCR Not detected (Not detect); Campylobacter by PCR Not detected (Not detect); Cryptosporidium by PCR Not detected (Not detect); Cyclospora cayetanensis PCR Not detected (Not detect); E. coli O157 by PCR Not detected (Not detect); Entamoeba histolytica PCR Not detected (Not detect); Enteroaggregative E.coli(EAEC) Not detected (Not detect); Enteropathogenic E.coli(EPEC) DETECTED (Not detect); Enterotoxigenic E.coli (ETEC) Not detected (Not detect); Giardia lamblia PCR Not detected (Not detect); Norovirus GI/GII PCR Not detected (Not detect); Plesiomonas shigelloides PCR Not detected (Not detect); Rotavirus A PCR Not detected (Not detect); Salmonella PCR Not detected (Not detect); Sapovirus PCR Not detected (Not detect); Shig/EnteroinvasiveE coli EIEC Not detected (Not detect); Shigalike tox-prod E coli STEC Not detected (Not detect); Vibrio PCR Not detected (Not detect); Vibrio cholerae PCR Not detected (Not detect); Yersinia enterocolitica PCR Not detected (Not detect)
[2019-12-16] MEDS ORDERED: NON-FORMULARY MEDICATION 1 EACH EACH (Mv-Min/Fa/Vit K/Lycop/Lut/Zeax [Ocuvite Eye Plus Mul PO SCH (09:00)
[2019-12-16] MEDS ORDERED: Multivit/Ca/Min/Fe/FA 1 TAB TABLET PO SCH (09:00)
[2019-12-16] MEDS ORDERED: lisinopriL 10 MG TABLET PO SCH (09:00)
[2019-12-16] MEDS ORDERED: *HR* FentaNYL (PF) 100 MCG/2 ML VIAL ONE (10:43)
[2019-12-16] MEDS ORDERED: *HR* PHENYLEPHRINE 1,000 MCG/10 ML SYRINGE IVP ONE (11:10)
[2019-12-16] MEDS ORDERED: *HR* Midazolam HCl 2 MG/2 ML VIAL ONE (11:29)
[2019-12-16] MEDS ORDERED: *HR* Metoprolol 5 MG/5 ML VIAL IVP ONE (11:37)
[2019-12-16] MEDS ORDERED: Cyanocobalamin (B-12) 1,000 MCG/ML VIAL IM SCH (13:00)
[2019-12-16] MEDS ORDERED: levoFLOXacin 500 MG TABLET PO ONE (14:11)
[2019-12-16] MEDS: Pantoprazole 40 MG VIAL IVP SCH ×2 (18:13→18:28)
[2019-12-16 20:21] VITALS: BP 126/68
== END 2019-12-16 20:24 | disposition home or self-care (01) ==
LOC: EMEROOARM 10:29 → 3ANU 10:29 → SUATTDRO 17:15 → 3ANU 17:46 → 2ANU 19:02
PROVIDERS: ADMIT Family Medicine; ATTEND Internal Medicine

== ENCOUNTER 2020-09-15 13:21 | Inpatient (IN) ==
[2020-09-15] MEDS ORDERED: 0.9 % Sodium Chloride 1,000 ML IVC ONE ×3 (13:40→22:33)
[2020-09-15 15:17] LABS: Basophils % 0.3 %; Hematocrit 39.8 % (35.3-44.9); Hemoglobin 12.9 g/dL (11.5-15.4); Lymphocytes % 9.2 %; Mean Corpuscular HGB Conc 32.4 g/dL (31.6-35.5); Mean Corpuscular Hemoglobin 29.3 pg (28.0-33.3); Mean Corpuscular Volume 90.2 fL (83.0-100.0); Mean Platelet Volume 11.2 fL (9.4-12.4); Monocytes # 1.1 K/mcL (0.0-1.3); Monocytes % 10.6 %; Neutrophils # 8.4 K/mcL (1.6-8.9); Platelet Count 229 K/mcL (140-400); Red Blood Count 4.41 M/mcL (3.82-4.97); Red Cell Distribution Width 12.7 % (11.5-14.5); Segmented Neutrophils % 78.9 %; White Blood Count 10.6 K/mcL (4.3-11.1)
[2020-09-15 15:31] LABS: Calcium 7.7 mg/dL (8.6-10.3); Potassium 3.7 mEq/L (3.5-5.1)
[2020-09-15] MEDS ORDERED: Ondansetron 4 MG/2 ML VIAL IVP ONE (15:49)
[2020-09-15 16:02] LABS: Amorphous Sediment,Urine Few per hpf (None-Few); Bacteria,Urine Few per hpf (None-Few); Bilirubin,Urine Negative (Negative); Blood,Urine Trace (Negative); Clarity,Urine Clear (Clear); Color,Urine Light-Yellow (Yellow); Glucose,Urine (UA) >=1000 mg/dL (Normal); Hyaline Casts,Urine Few per lpf (None Seen); Ketones,Urine 10 mg/dL (Negative); Leukocyte Esterase,Urine Negative (Negative); Mucus,Urine Few per lpf (None-Few); Nitrite,Urine Negative (Negative); Protein,Urine 200 mg/dL (Neg-Trace); RBC,Urine 0-3 per hpf (0-3); Renal Epithelial Cells,Urine Few per hpf (None-Few); Specific Gravity,Urine 1.015 (1.010-1.025); Squamous Epithelial Cell,Urine Few per hpf (None-Few); Urobilinogen,Urine Normal (Normal)
[2020-09-15] MEDS ORDERED: 0.9 % Sodium Chloride 500 ML IVC ONE (17:04)
[2020-09-15] MEDS ORDERED: Calcium Gluconate 1gm/50mL 1 GM/50 ML BAG IVPB PRN (17:04)
[2020-09-15] MEDS ORDERED: *HR* Promethazine 25 MG/ML VIAL IM ONE (17:04)
[2020-09-15] MEDS ORDERED: Isovue-370 500 ML BOTTLE IVP ONE ×2 (17:05→22:33)
[2020-09-15 17:26] LABS: Albumin 3.4 g/dL (3.5-5.7); Albumin/Globulin Ratio 1.5 (1.1-2.2); Bilirubin,Direct 0.1 mg/dL (0.0-0.2); Bilirubin,Indirect 0.3 mg/dL (0.0-1.0); Bilirubin,Total 0.4 mg/dL (0.3-1.0); Globulin 2.3 g/dL (2.4-3.5); Total Protein 5.7 g/dL (6.4-8.9)
[2020-09-15] MEDS ORDERED: Calcium Gluconate 1gm/50mL 1 GM/50 ML BAG IVPB STA (18:14)
[2020-09-15] MEDS ORDERED: *HR* Heparin 5,000 UNIT/ML VIAL IVP PRN ×2 (19:18)
[2020-09-15] MEDS ORDERED: *HR* Heparin 5,000 UNIT/ML VIAL IVP ONE (19:18)
[2020-09-15] MEDS ORDERED: *HR* HYDROmorphone (PF) 1 MG/ML SYRINGE IVP STA (19:19)
[2020-09-15] MEDS ORDERED: Heparin 25,000UNIT/250ML 1/2NS 25,000 UNIT/250 ML IV.SOLN IVC SCH (19:30)
[2020-09-15] MEDS ORDERED: Melatonin 3 MG TABLET PO PRN (20:23)
[2020-09-15] MEDS ORDERED: Naloxone 0.4 MG/ML INJ IVP PRN (20:23)
[2020-09-15 20:35] LABS: Heparin anti-factor XA UFH 0.05 IU/mL (0.30-0.70); INR 1.1; Prothrombin Time 12.2 Seconds (9.4-12.1)
[2020-09-15 20:40] LABS: Activated Partial Thrombo Time 18.3 Seconds (26.0-36.0)
[2020-09-15] MEDS ORDERED: Perflutren Lipid Microsphere 1.3 ML in 0.9 % Sodium Chloride 8.7 ML IVP PRN (20:41)
[2020-09-15] MEDS ORDERED: Aspirin 325 MG TABLET PO ONE (20:41)
[2020-09-15] MEDS ORDERED: Nitroglycerin 0.4 MG TAB.SUBL SL PRN (20:41)
[2020-09-15] MEDS ORDERED: Prochlorperazine 10 MG/2 ML VIAL IVP ONE (20:41)
[2020-09-15] MEDS ORDERED: Ringers Solution, Lactated 1,000 ML IVC SCH (21:00)
[2020-09-15] MEDS ORDERED: Dextrose Gel 15 GM/37.5 ML TUBE PO PRN ×2 (23:13)
[2020-09-15] MEDS ORDERED: D5% in Water 1,000 ML IVC PRN (23:13)
[2020-09-15] MEDS ORDERED: *HR* Dextrose 50 % in Water (Vial) 50 ML VIAL IVP PRN (23:13)
[2020-09-15 23:21] LABS: Adenovirus Not Detected (Not Detect); Bordetella Pertussis Not Detected (Not Detect); Chlamydophila pneumoniae Not Detected (Not Detect); Coronavirus 229E Not Detected (Not Detect); Coronavirus HKU1 Not Detected (Not Detect); Coronavirus NL63 Not Detected (Not Detect); Coronavirus OC43 Not Detected (Not Detect); Human Metapneumovirus Not Detected (Not Detect); Human Rhinovirus/Enterovirus Not Detected (Not Detect); Influenza A Subtype 2009 H1 Not Detected (Not Detect); Influenza B Not Detected (Not Detect); Parainfluenza Virus 1 Not Detected (Not Detect); Parainfluenza Virus 2 Not Detected (Not Detect); Parainfluenza Virus 3 Not Detected (Not Detect); Parainfluenza Virus 4 Not Detected (Not Detect); Respiratory Syncytial Virus Not Detected (Not Detect); SARS-CoV-2 Not Detected (Not Detect)
[2020-09-15 23:22] LABS: Mycoplasma pneumoniae Not Detected (Not Detect)
[2020-09-16] MEDS: Insulin LISPRO 300 UNITS/3 ML VIAL SUBQ SCH ×4 (00:38→17:36)
[2020-09-16] MEDS: Pantoprazole 40 MG VIAL IVP SCH ×2 (00:40→08:03)
[2020-09-16 01:06] LABS: BUN/Creatinine Ratio 21 (6-26); Blood Urea Nitrogen 23 mg/dL (8-23); Calcium 7.4 mg/dL (8.6-10.3); Carbon Dioxide 21 mEq/L (23-29); Chloride 107 mEq/L (98-107); Glucose 291 mg/dL (70-105); Osmolality,Calculated 296 (280-300); Phosphorous 3.9 mg/dL (2.7-4.5); Potassium 3.8 mEq/L (3.5-5.1); Sodium 136 mEq/L (136-145); eGFR For African Americans > 60 (> 60); eGFR For Non-African Americans 50 (> 60)
[2020-09-16 01:17] LABS: Sodium, Urine 59.7 mEq/L
[2020-09-16 01:47] LABS: Estimated Average Glucose 166 mg/dl; Hemoglobin A1C 7.4 %
[2020-09-16] MEDS: Piperacillin/Tazobactam 3.375 GM in 0.9 % Sodium Chloride Mini Bag 100 ML IVPB SCH ×3 (02:30→17:37)
[2020-09-16] MEDS ORDERED: 0.9 % Sodium Chloride 1,000 ML IVC SCH (02:45)
[2020-09-16 06:50] LABS: Hematocrit 34.4 % (35.3-44.9); Mean Corpuscular HGB Conc 32.3 g/dL (31.6-35.5); Mean Corpuscular Hemoglobin 29.6 pg (28.0-33.3); Mean Corpuscular Volume 91.7 fL (83.0-100.0); Mean Platelet Volume 11.2 fL (9.4-12.4); Platelet Count 195 K/mcL (140-400); Red Blood Count 3.75 M/mcL (3.82-4.97); White Blood Count 8.1 K/mcL (4.3-11.1)
[2020-09-16 06:51] LABS: Hemoglobin 11.1 g/dL (11.5-15.4)
[2020-09-16 07:03] LABS: BUN/Creatinine Ratio 20 (6-26); Blood Urea Nitrogen 20 mg/dL (8-23); Calcium 7.4 mg/dL (8.6-10.3); Carbon Dioxide 25 mEq/L (23-29); Chloride 108 mEq/L (98-107); Glucose 82 mg/dL (70-105); Magnesium 2.2 mg/dL (1.6-2.6); Osmolality,Calculated 288 (280-300); Potassium 3.5 mEq/L (3.5-5.1); Sodium 138 mEq/L (136-145); eGFR For African Americans > 60 (> 60); eGFR For Non-African Americans 54 (> 60)
[2020-09-16 11:03] LABS: Troponin I 0.07 ng/mL (< 0.04)
[2020-09-16] MEDS ORDERED: polyethylene glycoL 3350 17 GM POWD.PACK PO PRN (13:50)
[2020-09-16] MEDS: QUEtiapine Fumarate 25 MG TABLET PO SCH (20:02)
[2020-09-17] MEDS: Piperacillin/Tazobactam 3.375 GM in 0.9 % Sodium Chloride Mini Bag 100 ML IVPB SCH ×3 (00:09→16:08)
[2020-09-17 04:59] LABS: Basophils % 0.5 %; Eosinophils # 0.1 K/mcL (0.0-0.6); Hematocrit 33.3 % (35.3-44.9); Hemoglobin 10.5 g/dL (11.5-15.4); Immature Granulocytes % 0.5 % (0-4); Lymphocytes # 1.6 K/mcL (0.6-4.6); Lymphocytes % 25.9 %; Mean Corpuscular HGB Conc 31.5 g/dL (31.6-35.5); Mean Corpuscular Hemoglobin 29.3 pg (28.0-33.3); Mean Platelet Volume 11.2 fL (9.4-12.4); Monocytes # 0.7 K/mcL (0.0-1.3); Monocytes % 11.7 %; Neutrophils # 3.8 K/mcL (1.6-8.9); Platelet Count 161 K/mcL (140-400); Red Blood Count 3.58 M/mcL (3.82-4.97); Red Cell Distribution Width 13.1 % (11.5-14.5); Segmented Neutrophils % 60.4 %; White Blood Count 6.3 K/mcL (4.3-11.1)
[2020-09-17 05:17] LABS: BUN/Creatinine Ratio 15 (6-26); Blood Urea Nitrogen 13 mg/dL (8-23); Calcium 7.6 mg/dL (8.6-10.3); Carbon Dioxide 24 mEq/L (23-29); Chloride 112 mEq/L (98-107); Glucose 111 mg/dL (70-105); Osmolality,Calculated 291 (280-300); Potassium 3.5 mEq/L (3.5-5.1); Sodium 140 mEq/L (136-145); eGFR For African Americans > 60 (> 60); eGFR For Non-African Americans > 60 (> 60)
[2020-09-17] MEDS ORDERED: NON-FORMULARY MEDICATION 1 EACH EACH (Calcium Carbonate/Vitamin D3 [Calcium 500-Vit D3 125 PO SCH (09:00)
[2020-09-17] MEDS: Insulin LISPRO 300 UNITS/3 ML VIAL SUBQ SCH ×3 (09:09→16:01)
[2020-09-17] MEDS: ARIPiprazole 2 MG TABLET PO SCH (10:00)
[2020-09-17] MEDS: BuPROPion XL (24 HR) 150 MG TABLET PO SCH (10:00)
[2020-09-17] MEDS: lisinopriL 10 MG TABLET PO SCH (10:01)
[2020-09-17] MEDS: Pantoprazole 40 MG VIAL IVP SCH (10:01)
[2020-09-17] MEDS: Cholecalciferol (D-3) 1,000 UNIT (25MCG) TABLET PO SCH (10:01)
[2020-09-17] MEDS: Multivit/Ca/Min/Fe/FA 1 TAB TABLET PO SCH (10:01)
[2020-09-17] MEDS ORDERED: Ondansetron 4 MG/2 ML VIAL IVP PRN (13:34)
[2020-09-17] MEDS: *HR* Heparin 5,000 UNIT/ML VIAL SQ SCH ×2 (14:05→20:14)
[2020-09-17] MEDS ORDERED: *HR* Promethazine 25 MG/ML VIAL IM PRN (14:50)
[2020-09-17] MEDS ORDERED: Ondansetron 4 MG/2 ML VIAL IVP ONE (20:08)
[2020-09-17] MEDS: QUEtiapine Fumarate 25 MG TABLET PO SCH (20:09)
[2020-09-18] MEDS: Piperacillin/Tazobactam 3.375 GM in 0.9 % Sodium Chloride Mini Bag 100 ML IVPB SCH ×2 (00:26→08:12)
[2020-09-18 02:44] LABS: Basophils % 0.3 %; Eosinophils % 0.1 %; Hematocrit 34.4 % (35.3-44.9); Immature Granulocytes % 0.4 % (0-4); Lymphocytes # 1.1 K/mcL (0.6-4.6); Mean Corpuscular Hemoglobin 29.9 pg (28.0-33.3); Mean Corpuscular Volume 93.5 fL (83.0-100.0); Mean Platelet Volume 11.1 fL (9.4-12.4); Monocytes # 0.7 K/mcL (0.0-1.3); Monocytes % 9.1 %; Neutrophils # 5.8 K/mcL (1.6-8.9); Platelet Count 186 K/mcL (140-400); Red Blood Count 3.68 M/mcL (3.82-4.97); Red Cell Distribution Width 12.8 % (11.5-14.5); Segmented Neutrophils % 76.1 %; White Blood Count 7.7 K/mcL (4.3-11.1)
[2020-09-18 03:03] LABS: BUN/Creatinine Ratio 19 (6-26); Blood Urea Nitrogen 17 mg/dL (8-23); Calcium 8.1 mg/dL (8.6-10.3); Carbon Dioxide 24 mEq/L (23-29); Chloride 107 mEq/L (98-107); Glucose 190 mg/dL (70-105); Osmolality,Calculated 297 (280-300); Potassium 3.7 mEq/L (3.5-5.1); Sodium 140 mEq/L (136-145); eGFR For African Americans > 60 (> 60); eGFR For Non-African Americans > 60 (> 60)
[2020-09-18] MEDS: *HR* Heparin 5,000 UNIT/ML VIAL SQ SCH (05:51)
[2020-09-18 07:35] VITALS: BP 108/55
[2020-09-18] MEDS: Insulin LISPRO 300 UNITS/3 ML VIAL SUBQ SCH ×2 (07:54→10:58)
[2020-09-18] MEDS: ARIPiprazole 2 MG TABLET PO SCH (08:11)
[2020-09-18] MEDS: Cholecalciferol (D-3) 1,000 UNIT (25MCG) TABLET PO SCH (08:11)
[2020-09-18] MEDS: lisinopriL 10 MG TABLET PO SCH (08:11)
[2020-09-18] MEDS: Pantoprazole 40 MG VIAL IVP SCH (08:12)
[2020-09-18] MEDS: BuPROPion XL (24 HR) 150 MG TABLET PO SCH (08:12)
[2020-09-18] MEDS: Multivit/Ca/Min/Fe/FA 1 TAB TABLET PO SCH (08:12)
== END 2020-09-18 12:36 | disposition home or self-care (01) | DRG 872 ==
LOC: 2ANU 13:21 → EMEROOARM 13:21 → SUATTDRO 20:02 → 2ANU 22:48
PROVIDERS: ADMIT Family Medicine; ATTEND Internal Medicine